=== PATIENT | female | born 1950 | race Asian ===

== ENCOUNTER 2017-12-09 08:49 | Inpatient (IN) | payer MEDICARE, MEDICAID ==
[~2017-12-09] VITALS: Ht 162.6 cm; Wt 59.0 kg
[2017-12-09 08:53] VITALS: BP 141/75
[2017-12-09] MEDS ORDERED: COZAAR25 MG ORAL (08:54)
[2017-12-09] MEDS ORDERED: Nitroglycerin 2% oint pkt TOPIC ONE (09:00)
[2017-12-09 09:30] LABS: BASOPHILS % (AUTO) 1.1 % (0.0-2.0); EOSINOPHILS % (AUTO) 1.2 % (0.0-3.0); HEMATOCRIT 41.2 % (37.0-47.0); HEMOGLOBIN 13.9 G/DL (12.0-16.0); LYMPHOCYTES % (AUTO) 37.3 % (20.0-45.0); MEAN CORPUSCULAR VOLUME 94 FL (80-99); NEUTROPHILS % (AUTO) 54.5 % (45.0-75.0); PLATELET COUNT 219 K/UL (150-450); RED BLOOD COUNT 4.39 M/UL (4.20-5.40); RED CELL DISTRIBUTION WIDTH 10.9 % (11.6-14.8); WHITE BLOOD COUNT 7.5 K/UL (4.8-10.8)
[2017-12-09 09:33] LABS: APPEARANCE,URINE CLEAR; BILIRUBIN, URINE NEGATIVE (NEGATIVE); COLOR,URINE PALE YELLOW; GLUCOSE, URINE (UA) NEGATIVE (NEGATIVE); KETONES,URINE NEGATIVE (NEGATIVE); LEUKOCYTE ESTERASE ,URINE NEGATIVE (NEGATIVE); NITRITE,URINE NEGATIVE (NEGATIVE); PH,URINE 7 (4.5-8.0); PROTEIN,URINE NEGATIVE (NEGATIVE); UROBILINOGEN,URINE NORMAL MG/DL (0.0-1.0)
[2017-12-09 09:37] LABS: ANION GAP 6 mmol/L (5-15); BLOOD UREA NITROGEN 11 mg/dL (7-18); CARBON DIOXIDE 26 MMOL/L (21-32); CHLORIDE 108 MMOL/L (98-107); CREATININE 0.9 MG/DL (0.55-1.30); INR 0.9 (0.9-1.1); POTASSIUM 3.7 MMOL/L (3.5-5.1); SODIUM 140 MMOL/L (136-145)
[2017-12-09 09:48] LABS: ALANINE AMINOTRANSFERASE 21 U/L (12-78); ALBUMIN 3.8 G/DL (3.4-5.0); ALBUMIN/GLOBULIN RATIO 0.9 (1.0-2.7); ALKALINE PHOSPHATASE 77 U/L (46-116); ASPARTATE AMINO TRANSFERASE 15 U/L (15-37); BILIRUBIN,TOTAL 0.6 MG/DL (0.2-1.0); CREATINE KINASE 58 U/L (26-308)
--- NOTE | 2017-12-09 10:03 | Emergency Room Report ---
History of Present Illness General Chief Complaint: Abdominal Pain Source: Patient, EMS Present Illness HPI Patient presents with chest pressure. She has had several episodes like this over the past few months. Occasionally she feels palpitations, but not always. Today she felt SOB, chest pressure and some dizziness. Denies pain per se. Dizziness was more like about to pass out. Paramedics found with A fib and RVR - no acute injury. Reported aspirin in field. According to paramedics, she had reported RUQ pain 3 hours. States issue with scar tissue post surgery. She has complained to her doctor about this, but no work up has proceeded. She denies ever having an irregular or rapid heart rate. HTN. No smoke, cholesterol or diabetes. No fevers, cough, calf pain/swelling, NVD, dysuria, headache, rashes. Allergies: Coded Allergies: SULFAMETHOXAZOLE (Unverified Allergy, Unknown, 12/09/17) TRIMETHOPRIM (Unverified Allergy, Unknown, 12/09/17) Patient History Past Medical History: see triage record Social History: Denies: smoking, alcohol use Social History Narrative at home Last Menstrual Period: na Reviewed Nursing Documentation: PMH: Agreed; PSxH: Agreed Nursing Documentation-PMH Past Medical History: No History, Except For Hx Hypertension: Yes Hx Gastrointestinal Problems: Yes Review of Systems All Other Systems: negative except mentioned in HPI Physical Exam Vital Signs Date Time Temp Pulse Resp B/P (MAP) Pulse Ox O2 Delivery O2 Flow Rate FiO2 12/09/17 08:43 99 18 160/120 99 Room Air 12/09/17 08:53 98.2 98.2 Sp02 EP Interpretation: reviewed, normal General Appearance: well appearing, no apparent distress, GCS 15 Head: normocephalic Eyes: bilateral eye normal inspection, bilateral eye PERRL ENT: moist mucus membranes Neck: supple Respiratory: chest non-tender, lungs clear, normal breath sounds Cardiovascular #1: regular rate, rhythm Cardiovascular #2: 2+ radial (R) Gastrointestinal: normal inspection, normal bowel sounds, non tender, no mass, non-distended Musculoskeletal: back normal, gait/station normal, normal range of motion, no calf tenderness, Zabrina's Sign negative Neurologic: alert, oriented x3, grossly normal Psychiatric: mood/affect normal Skin: normal inspection, warm/dry Medical Decision Making Diagnostic Impression: Primary Impression: Paroxysmal atrial fibrillation Additional Impression: Chest pain Qualified Codes: R07.9 - Chest pain, unspecified ER Course Patient presents with chest pain and palpitations. The EMS EKG shows atrial fibrillation with rapid ventricular response.. Evaluation is for acute myocardial infarction, acute coronary syndrome, paroxysmal atrial fibrillation, PE, electrolyte abnormality amongst others. EKG will be performed here. Chest x-ray and labs. She'll be placed on a surveillance monitor and we will treat arrhythmias if they present. Patient denies symptoms at this time. Unclear as to source of tattoo artist assessment for abdominal pain. EKG with deep ST inversions septally - NSR. CXR normal. Labs with negative troponin, min elevated BNP. Patient improved here. Needs repeat troponins, echo and consideration for beta shay. Admit Tele Dr. Galo Laboratory Tests Test 12/09/17 08:55 12/09/17 09:03 12/09/17 11:00 12/09/17 15:10 Urine Color Pale yellow Urine Appearance Clear Urine pH 7 (4.5-8.0) Urine Specific [place] 1.005 (1.005-1.035) Urine Protein Negative (NEGATIVE) Urine Glucose (UA) Negative (NEGATIVE) Urine Ketones Negative (NEGATIVE) Urine Occult Blood Negative (NEGATIVE) Urine Nitrite Negative (NEGATIVE) Urine Bilirubin Negative (NEGATIVE) Urine Urobilinogen Normal MG/DL (0.0-1.0) Urine Leukocyte Esterase Negative (NEGATIVE) White Blood Count 7.5 K/UL (4.8-10.8) Red Blood Count 4.39 M/UL (4.20-5.40) Hemoglobin 13.9 G/DL (12.0-16.0) Hematocrit 41.2 % (37.0-47.0) Mean Corpuscular Volume 94 FL (80-99) Mean Corpuscular Hemoglobin 31.7 PG (27.0-31.0) H Mean Corpuscular Hemoglobin Concent 33.8 G/DL (32.0-36.0) Red Cell Distribution Width 10.9 % (11.6-14.8) L Platelet Count 219 K/UL (150-450) Mean Platelet Volume 8.1 FL (6.5-10.1) Neutrophils (%) (Auto) 54.5 % (45.0-75.0) Lymphocytes (%) (Auto) 37.3 % (20.0-45.0) Monocytes (%) (Auto) 6.0 % (1.0-10.0) Eosinophils (%) (Auto) 1.2 % (0.0-3.0) Basophils (%) (Auto) 1.1 % (0.0-2.0) Prothrombin Time 9.4 SEC (9.30-11.50) Prothrombin Time INR 0.9 (0.9-1.1) PTT 25 SEC (23-33) Sodium Level 140 MMOL/L (136-145) Potassium Level 3.7 MMOL/L (3.5-5.1) Chloride Level 108 MMOL/L (98-107) H Carbon Dioxide Level 26 MMOL/L (21-32) Anion Gap 6 mmol/L (5-15) Blood Urea Nitrogen 11 mg/dL (7-18) Creatinine 0.9 MG/DL (0.55-1.30) Estimate Glomerular Filtration Rate > 60 mL/min (>60) Glucose Level 100 MG/DL (74-106) Calcium Level 9.0 MG/DL (8.5-10.1) Total Bilirubin 0.6 MG/DL (0.2-1.0) Aspartate Amino Transferase (AST) 15 U/L (15-37) Alanine Aminotransferase (ALT) 21 U/L (12-78) Alkaline Phosphatase 77 U/L (46-116) Total Creatine Kinase 58 U/L (26-308) Troponin I 0.027 ng/mL (0.000-0.056) 0.027 ng/mL (0.000-0.056) 0.029 ng/mL (0.000-0.056) Pro-B-Type Natriuretic Peptide 390 pg/mL (0-125) H Total Protein 7.8 G/DL (6.4-8.2) Albumin 3.8 G/DL (3.4-5.0) Globulin 4.0 g/dL Albumin/Globulin Ratio 0.9 (1.0-2.7) L EKG Diagnostic Results Rate: normal Rhythm: NSR ST Segments: other - st inversions Other Impression EMS EKG with rate 145, a fib,m no acute changes but some possible ischemic changes. Rhythm Strip Diag. Results Rhythm: NSR, no PVC's, no ectopy Chest X-Ray Diagnostic Results Chest X-Ray Diagnostic Results : Chest X-Ray Ordered: Yes # of Views/Limited/Complete: 1 View Indication: Chest Pain EP Interpretation: Yes Interpretation: no consolidation, no effusion, no pneumothorax Impression: No acute disease Electronically Signed by: Kirk Lees MD Last Vital Signs Date Time Temp Pulse Resp B/P (MAP) Pulse Ox O2 Delivery O2 Flow Rate FiO2 12/09/17 09:15 141/75 12/09/17 08:53 98.2 61 23 100 Room Air 98.2 Status: improved Disposition: ADMITTED INPATIENT Condition: Serious Referrals: NON PHYSICIAN (PCP) Kirk Lees M.D. Dec 09, 2017 10:03
[2017-12-09 10:24] VITALS: BP 135/90
--- NOTE | 2017-12-09 11:49 | Diagnostic Imaging Report ---
Indication: Chest pain Technique: One view of the chest Comparison: none Findings: Lungs and pleural spaces are clear. Heart size is normal Impression: No acute process
[2017-12-09 12:00] VITALS: BP 123/82
[2017-12-09] MEDS ORDERED: Milk of Magnesia 30ml Ud ORAL PRN (13:45)
[2017-12-09 16:00] VITALS: BP 132/76
[2017-12-09 20:00] VITALS: BP 112/68
[2017-12-09] MEDS ORDERED: Zolpidem 5mg tab ORAL PRN (21:00)
[2017-12-09] MEDS: Atenolol 12.5mg PO SCH (21:26)
[2017-12-09] MEDS: Heparin 5000 units/ml inj SUBQ SCH (21:28)
[2017-12-10] VITALS: BP 100/61
--- NOTE | 2017-12-10 00:01 | Diagnostic Imaging Report ---
APPROVED REPORT CPT Code: 52394 Present Symptoms Comments: BILATERAL LEGS PAIN. BILATERAL: Imaging reveals a patent deep venous system bilaterally. There is no evidence of thrombus within the femoral, popliteal or tibial segments. The greater saphenous veins are also within normal limits. Doppler indicates normal spontaneous flow within these segments.
--- NOTE | 2017-12-10 00:30 | History and Physical Report ---
DATE OF ADMISSION: 12/09/2017 REASON FOR ADMISSION: Chest pain and atrial fibrillation. HISTORY OF PRESENT ILLNESS: The patient is a 67-year-old patient, who initially presents with abdominal pain. The patient was seen and evaluated in the emergency room. She was also noted to have some chest pain and palpitations. The EKG did show some atrial fibrillation with rapid ventricular response by the emergency medical team; however, on arrival, the EKG was normal. The patient was admitted for further evaluation and further intervention. The patient now admitted for chest pain with possible atrial fibrillation paroxysmal. The patient with some abnormal ST wave changes on rhythm strips as well. The patient now admitted for further care and management. For further evaluation, I was asked to admit the patient. PAST MEDICAL HISTORY: Notable for possible paroxysmal atrial fibrillation and hypertension. MEDICATIONS: Reviewed. ALLERGIES: Reviewed. SOCIAL HISTORY: Nonsmoker and nondrinker. The patient is otherwise independent. REVIEW OF SYSTEMS: Otherwise negative. All 10 points reviewed. PHYSICAL EXAMINATION: GENERAL: A well-developed female, comfortable at present. VITAL SIGNS: Blood pressure 132/76, pulse 68, respirations 18, and temperature 97.9 degrees. HEENT: Negative. The patient's extraocular movements are grossly intact. NECK: Supple. No adenopathy. LUNGS: Fairly clear and symmetric. No rhonchi or wheezes. CARDIAC: Normal S1 and S2. Regular rate and rhythm without murmurs, rubs, or gallops. ABDOMEN: Soft, nontender, and nondistended. EXTREMITIES: No cyanosis, clubbing, or edema. NEUROLOGIC: Grossly nonfocal. Alert and oriented x3. LABORATORY AND DIAGNOSTIC DATA: Reviewed. CBC appears to be fairly normal. Chem panel overall negative. Troponin levels are negative. BNP is 390. IMPRESSION: 1. Chest pain, possible acute coronary syndrome. 2. Hypertension per history. 3. Possible atrial fibrillation paroxysmal. RECOMMENDATIONS: 1. Supportive care. 2. Nitrates, aspirin, beta-blockers, heparin subcutaneous. 3. Echocardiogram. 4. Serial troponin. 5. Cardiology evaluation, stable on discharge. 6. Consider Lexiscan upon discharge planning and defer to Cardiology. Emil Galo M.D. DR: Chandni JOB#: [id number] CC: MARVIN
--- NOTE | 2017-12-10 01:45 | Consultation ---
DATE OF CONSULTATION: 12/09/2017 CARDIOLOGY CONSULTATION CONSULTING PHYSICIAN: Kirk Fung M.D. REQUESTING PHYSICIAN: Emil Galo M.D. REASON FOR CONSULTATION: Chest pain. HISTORY OF PRESENT ILLNESS: This is a 67-year-old Romansh female with a known history of atherosclerotic vascular disease. She has had prior strokes and long-standing history of high blood pressure due to renal artery stenosis. She also has had a prior cardiac catheterization that revealed no evidence of flow-limiting coronary disease, but this was performed over 12 years ago in [place]. The patient presented to the emergency room today complaining of 5 to 6 days of recurring chest pressure in the mid epigastric and chest regions every morning, specifically the episodes seem to occur after her breakfast this and do not occur other times during the day. Today's episode was severe enough to prompt her to come to the emergency room. PAST MEDICAL HISTORY: 1. Hypertensive heart disease. 2. Left-sided renal artery stenosis. 3. Cerebrovascular disease with prior cerebrovascular accident. 4. Paroxysmal atrial fibrillation. 5. Hyperlipidemia. 6. Peptic ulcer disease. MEDICATIONS: Reviewed and reconciled. ALLERGIES: Sulfa. SOCIAL HISTORY: Nonsmoker. No alcohol or substance abuse. REVIEW OF SYSTEMS: No fevers. No chills. No cough or sputum production. No history of asthma. No history of blood clotting. She has had prior strokes. No history of thyroid disorder. No history of diabetes. No change in bowel habits. She does have dyspepsia and abdominal discomfort. She does have renal artery stenosis. She was offered nephrectomy many years ago, but refused. No vascular intervention was performed. PHYSICAL EXAMINATION: VITAL SIGNS: Initial blood pressure in the emergency room was 160/120, presently blood pressure 132/76, heart rate 68, respiratory rate 18 and she is afebrile. HEENT: Normocephalic and atraumatic. Conjunctivae pink. Sclerae are anicteric. Oropharynx clear. Mucous membranes moist. NECK: Supple. No bruits. Jugular venous pressure normal. LUNGS: Clear. CARDIAC: Regular rhythm and rate. Normal S1 and S2 with a fourth heart sound. ABDOMEN: Soft and nontender. No bruits. No hepatomegaly. EXTREMITIES: Good pulses. Trace dependent edema. NEUROLOGIC: No apparent motor or sensory deficits. Speech is somewhat slow, but deliberate and appropriate. LABORATORY AND DIAGNOSTIC DATA: Cardiac monitoring in the field revealed atrial fibrillation, presently EKG reveals sinus rhythm, left ventricular hypertrophy with repolarization changes and possible anterolateral ischemia. Chest x-ray, no acute process. White count 7.5, hemoglobin 13.9, BUN 11, and creatinine 0.9. Sodium 140, potassium 3.7, and bicarbonate 26. Pro-natriuretic peptide 390. Troponin 0.027 and repeat it is 0.029. IMPRESSION: 1. Acute coronary syndrome, atherosclerosis with history of cerebrovascular accident. 2. History of renal artery stenosis. 3. Labile hypertension. 4. Acute on chronic diastolic congestive heart failure. PLAN: 1. Cardiac monitoring. 2. Serial troponin levels. 3. Anti-platelet therapy with aspirin. 4. DVT prophylaxis with subcutaneous heparin. 5. Beta-blockade. 6. Discontinue losartan in view of history of renal artery stenosis. 7. Consider renal evaluation. 8. Myocardial perfusion scan for assessment of coronary flow reserve. 9. Consider full anticoagulation for cardioembolic prophylaxis once more historical data and diagnostic studies are available. Kirk Fung M.D. DR: JORGE JOB#: [id number] CC:
[2017-12-10 04:00] VITALS: BP 102/60
[2017-12-10 06:38] LABS: BASOPHILS % (AUTO) 0.8 % (0.0-2.0); EOSINOPHILS % (AUTO) 0.9 % (0.0-3.0); HEMATOCRIT 36.8 % (37.0-47.0); HEMOGLOBIN 12.8 G/DL (12.0-16.0); LYMPHOCYTES % (AUTO) 24.7 % (20.0-45.0); MEAN CORPUSCULAR VOLUME 95 FL (80-99); MONOCYTES % (AUTO) 6.3 % (1.0-10.0); NEUTROPHILS % (AUTO) 67.3 % (45.0-75.0); PLATELET COUNT 199 K/UL (150-450); RED CELL DISTRIBUTION WIDTH 10.9 % (11.6-14.8); WHITE BLOOD COUNT 9.5 K/UL (4.8-10.8)
[2017-12-10 07:00] LABS: ANION GAP 9 mmol/L (5-15); BLOOD UREA NITROGEN 21 mg/dL (7-18); CALCIUM 8.8 MG/DL (8.5-10.1); CARBON DIOXIDE 25 MMOL/L (21-32); CHLORIDE 108 MMOL/L (98-107); CHOLESTEROL 173 MG/DL (< 200); CREATININE 1.1 MG/DL (0.55-1.30); HDL CHOLESTEROL 45 MG/DL (40-60); POTASSIUM 3.7 MMOL/L (3.5-5.1); SODIUM 142 MMOL/L (136-145); TRIGLYCERIDES 177 MG/DL (30-150)
[2017-12-10 08:00] VITALS: BP 126/69
[2017-12-10] MEDS: Heparin 5000 units/ml inj SUBQ SCH (08:30)
[2017-12-10] MEDS: Atenolol 12.5mg PO SCH (08:34)
[2017-12-10] MEDS ORDERED: Nitroglycerin 2% oint pkt TOPIC SCH ×2 (09:00)
[2017-12-10] MEDS ORDERED: Aspirin Baby 81mg ORAL SCH (09:00)
[2017-12-10] MEDS ORDERED: Losartan 50mg tab ORAL SCH (09:00)
[2017-12-10 12:00] VITALS: BP 139/61
[2017-12-10] MEDS ORDERED: Lexiscan 0.4mg/5ml syringe IV PRN (12:00)
--- NOTE | 2017-12-10 14:56 | General Progress Note ---
Assessment/Plan Assessment/Plan IMPRESSION: 1. Chest pain, possible acute coronary syndrome. 2. Hypertension per history. 3. Possible atrial fibrillation paroxysmal. PLAN await nuclear stress appreciate cards monitor for change dc once cleared tele reviewed impression, plan, and exam edited and reviewed in detail care discussed with RN Subjective Allergies: Coded Allergies: SULFAMETHOXAZOLE (Unverified Allergy, Unknown, 12/09/17) TRIMETHOPRIM (Unverified Allergy, Unknown, 12/09/17) Subjective care noted now in NSR no cp Objective Last 24 Hour Vital Signs Date Time Temp Pulse Resp B/P (MAP) Pulse Ox O2 Delivery O2 Flow Rate FiO2 12/10/17 12:00 97.2 62 20 139/61 99 Room Air 97.2 12/10/17 12:00 64 12/10/17 08:29 126/69 12/10/17 08:00 58 12/10/17 08:00 97.3 59 20 126/69 96 Room Air 97.3 12/10/17 04:00 97.4 50 20 102/60 93 Room Air 97.4 12/10/17 04:00 58 12/10/17 00:00 97.0 58 20 100/61 96 Room Air 97.0 12/10/17 00:00 52 12/09/17 20:00 98.0 62 20 112/68 95 Room Air 98.0 12/09/17 20:00 71 12/09/17 16:00 97.9 68 18 132/76 98 Room Air 97.9 12/09/17 16:00 79 Intake and Output 12/09/17 12/10/17 19:00 07:00 Intake Total 120 ml Output Total 45 ml Balance 75 ml Intake Oral 120 ml Output Urine Total 45 ml # Voids 1 6 Laboratory Tests 12/09/17 15:10: Troponin I 0.029 12/10/17 05:50: Troponin I 0.031, White Blood Count 9.5, Red Blood Count 3.90L, Hemoglobin 12.8 , Hematocrit 36.8L, Mean Corpuscular Volume 95, Mean Corpuscular Hemoglobin 32.8H, Mean Corpuscular Hemoglobin Concent 34.7, Red Cell Distribution Width 10.9L, Platelet Count 199, Mean Platelet Volume 7.7, Neutrophils (%) (Auto) 67.3 , Lymphocytes (%) (Auto) 24.7, Monocytes (%) (Auto) 6.3, Eosinophils (%) (Auto) 0.9, Basophils (%) (Auto) 0.8, Sodium Level 142, Potassium Level 3.7, Chloride Level 108H, Carbon Dioxide Level 25, Anion Gap 9, Blood Urea Nitrogen 21H, Creatinine 1.1, Estimat Glomerular Filtration Rate 49.6, Glucose Level 111H, Calcium Level 8.8, Triglycerides Level 177H, Cholesterol Level 173, LDL Cholesterol 115H, HDL Cholesterol 45, Cholesterol/HDL Ratio 3.8 Height (Feet): 5 Height (Inches): 4.00 Weight (Pounds): 130 Objective GENERAL: A well-developed female, comfortable at present. HEENT: Negative. The patient's extraocular movements are grossly intact. NECK: Supple. No adenopathy. LUNGS: Fairly clear and symmetric. No rhonchi or wheezes. CARDIAC: Normal S1 and S2. Regular rate and rhythm without murmurs, rubs, or gallops. ABDOMEN: Soft, nontender, and nondistended. EXTREMITIES: No cyanosis, clubbing, or edema. NEUROLOGIC: Grossly nonfocal. Alert and oriented x3. WARREN MARQUES Dec 10, 2017 14:56
--- NOTE | 2017-12-11 05:30 | Progress Note ---
DATE: 12/10/2017 CARDIOLOGY PROGRESS NOTE SUBJECTIVE: The patient has not had any chest pain or shortness of breath. She did not want to have a nuclear stress study today. She did agree to have a dobutamine stress test done that study was completed and it was negative for flow-limiting coronary artery disease with normal ejection fraction and wall motion noted at peak stress. OBJECTIVE: VITAL SIGNS: Blood pressure 126/69, pulse 58, respirations 20, and afebrile NECK: Supple. LUNGS: Clear. CARDIAC: Regular. Normal S1, S2 with a fourth heart sound. ABDOMEN: Soft. EXTREMITIES: No edema. IMPRESSION: 1. Low likelihood for flow-limiting coronary artery disease. 2. History of cerebrovascular accident. 3. History of renal artery stenosis. 4. Hypertensive heart disease now with controlled blood pressure. 5. Paroxysmal atrial fibrillation. PLAN: 1. Stable for outpatient followup. 2. Beta-shay added. 3. We will consider outpatient evaluation for Holter monitor and reconsideration for chronic anticoagulation for cardioembolic prophylaxis. 4. The patient wishes to see her private herb counselor in consultation to discuss this further. Kirk Fung M.D. DR: BECKY JOB#: [id number] CC:
--- NOTE | 2017-12-14 13:13 | Discharge Summary ---
Discharge Summary Hospital Course Date of Admission Dec 09, 2017 at 09:54 Date of Discharge Dec 10, 2017 at 17:23 Admitting Diagnosis CHEST PAIN, ARRYTHMIA HPI Shi Hutchinson is a 67 year old female who was admitted on Dec 09, 2017 at 09:54 for Chest Pain,Arrythmia Hospital Course [id number] Discharge Discharge Disposition Patient was discharged to Home (01) Angella Rand NP Dec 14, 2017 13:13
--- NOTE | 2017-12-14 19:30 | Discharge Summary 2 SIG ---
DATE OF ADMISSION: 12/09/2017 DATE OF DISCHARGE: 12/10/2017 ATTENDING PHYSICIAN: Emil Galo M.D. PATTERNMAKER HAND: Kirk Fung M.D. BRIEF HOSPITAL COURSE: The patient is a 67-year-old female who initially presented with abdominal pain. She has medical history notable for paroxysmal atrial fibrillation and hypertension. She was evaluated at emergency room. EKG showed atrial fibrillation with rapid ventricular response by EMT; however, on arrival to ED, EKG was normal. Initial troponin was negative. Chest x-ray showed no acute disease. She has known history of atherosclerotic vascular disease and had prior strokes and longstanding history of blood pressure due to renal artery stenosis. She had a prior cardiac catheterizations in the past that revealed no evidence of flow-limiting coronary disease but this was performed over 12 years ago in [place]. She had recurrent chest pressure in the midepigastric and chest region every morning specifically episodes seem to occur after bedrest. She had severe episode and prompted her to come to emergency room. She was then admitted for evaluation of acute coronary syndrome. She was placed on aspirin and nitroglycerin. She underwent cardiac evaluation. Troponins were monitored. She was placed on DVT prophylaxis with subcutaneous heparin. Losartan was discontinued due to renal artery stenosis. She had a venous duplex done that was negative for DVT. Lipid panel was checked. Cholesterol was 173, LDL was 115, HDL 45. She did not want to have nuclear stress test study done however had a dobutamine stress test that was completed and was negative for flow-limiting coronary artery disease with normal ejection fraction and wall motion, noted at peak stress. There was low likelihood for flow-limiting coronary artery disease. She was then cleared for discharge home. Beta-shay was added. The patient to follow up with her private finisher screwdown and was recommended outpatient evaluation for Holter monitor and reconsideration for chronic anticoagulation for cardioembolic prophylaxis. Due to rapid improvement in the patient's symptoms and negative workup, the patient was discharged home. FINAL DIAGNOSES: 1. Low likelihood for flow-limiting coronary artery disease. 2. Old cerebrovascular accident. 3. Renal artery stenosis. 4. Hypertensive heart disease. 5. Paroxysmal atrial fibrillation. 6. Hypertension. DISPOSITION: The patient was discharged home. DISCHARGE MEDICATIONS: Refer to medication list. DISCHARGE INSTRUCTIONS: Followup with PMD and finisher screwdown in a week. Kirk Fung M.D. I have been assigned to dictate discharge summary on this account and I was not involved in the patient's management. Angella Rand N.P. DR: Stan JOB#: [id number] CC:
== END 2017-12-10 17:23 | disposition home or self-care (01) | DRG 292 ==
LOC: EDBD 08:49 → EMR 09:30 → 2E 09:54 → EDBEDREQ 10:10 → 2E 17:34
DX: I11.0 Hypertensive heart disease with heart failure (principal); I24.9 Acute ischemic heart disease, unspecified; I50.33 Acute on chronic diastolic (congestive) heart failure; R07.9 Chest pain, unspecified; I70.90 Unspecified atherosclerosis; Z86.73 Personal history of transient ischemic attack (TIA), and cerebral infarction without residual deficits; E78.5 Hyperlipidemia, unspecified; I48.0 Paroxysmal atrial fibrillation; I70.1 Atherosclerosis of renal artery; Z88.2 Allergy status to sulfonamides; Z88.1 Allergy status to other antibiotic agents
CPT/HCPCS: 36415; 71045; 80048; 80053; 80061; 81003; 82550; 83880; 84484; 85025; 85610; 85730; 93005; 93017; 93970; 99285

== ENCOUNTER 2020-05-22 14:49 | Inpatient (IN) | payer MEDICARE, OTHER ==
[~2020-05-22] VITALS: Ht 165.1 cm; Wt 53.0 kg
[~2020-05-22 14:49] MED LIST: COZAAR25 MG ORAL
[2020-05-22] MEDS ORDERED: BENICAR HCT 401 EACH ORAL (15:07)
[2020-05-22] MEDS ORDERED: METOPROLOL SUCC25 MG ORAL (15:08)
[2020-05-22 15:10] VITALS: BP 127/93
[2020-05-22] MEDS ORDERED: DEXILANT60 MG ORAL (15:11)
[2020-05-22] MEDS ORDERED: VITAMIN D3 COM1 EACH PO (15:11)
[2020-05-22] MEDS ORDERED: ATORVASTATIN CA20 MG ORAL (15:11)
[2020-05-22] MEDS ORDERED: CREON DR 36,001 EACH PO (15:11)
[2020-05-22] MEDS ORDERED: Cefepime HCl 2 GM in NS 110 ML IV ONE (15:15)
--- NOTE | 2020-05-22 15:20 | NUR ---
ED Nurse Note: Patient from home and brought in by [facility] 13 due to ALOC x 3days. per EMS,patient was found lying on the floor faced down with feces and urine all over body. BS 114. 200ml NS given en route. Patient presented with flai afect, AAO x0, VSS at this time. Patient arrived covered in feces all over the body, patient got excoriation of the abdomen, upper thighes to being too long in urine and feces. Patient presented with preassure ulsers on both knees.
--- NOTE | 2020-05-22 15:25 | NUR ---
ED Nurse Note: Patient was cleaned, placed in the gown connected to monitor. IV access was established on right AC 18 ga blood and urine specimens collected sent to lab.
--- NOTE | 2020-05-22 15:30 | NUR ---
ED Nurse Note: Schneider catheter 16F was pladced, patient tolerated procedure well
[2020-05-22 15:41] LABS: HEMATOCRIT 48.1 % (37.0-47.0); HEMOGLOBIN 15.9 G/DL (12.0-16.0); MEAN CORPUSCULAR VOLUME 95 FL (80-99); PLATELET COUNT 168 K/UL (150-450); RED BLOOD COUNT 5.04 M/UL (4.20-5.40); RED CELL DISTRIBUTION WIDTH 12.1 % (11.6-14.8); WHITE BLOOD COUNT 20.6 K/UL (4.8-10.8)
[2020-05-22 15:57] LABS: ANION GAP 19 mmol/L (5-15); BLOOD UREA NITROGEN 133 mg/dL (7-18); CARBON DIOXIDE 20 MMOL/L (21-32); CHLORIDE 115 MMOL/L (98-107); POTASSIUM 4.8 MMOL/L (3.5-5.1); SODIUM 154 MMOL/L (136-145)
[2020-05-22 16:05] LABS: APPEARANCE,URINE SLIGHTLY CLOUDY; BILIRUBIN, URINE NEGATIVE (NEGATIVE); GLUCOSE, URINE (UA) NEGATIVE (NEGATIVE); KETONES,URINE NEGATIVE (NEGATIVE); LEUKOCYTE ESTERASE ,URINE 1+ (NEGATIVE); NITRITE,URINE NEGATIVE (NEGATIVE); PH,URINE 6 (4.5-8.0); PROTEIN,URINE 1+ (NEGATIVE); UROBILINOGEN,URINE NORMAL MG/DL (0.0-1.0)
--- NOTE | 2020-05-22 16:09 | Diagnostic Imaging Report ---
Indication: Shortness of breath Technique: One view of the chest Comparison: For 2017 Findings: Lungs and pleural spaces are clear. Heart size is normal. Inspiration is suboptimal. No significant change Impression: No acute process
[2020-05-22 16:10] LABS: COLOR,URINE PALE YELLOW
[2020-05-22 16:11] LABS: ALANINE AMINOTRANSFERASE 34 U/L (12-78); ALBUMIN 2.9 G/DL (3.4-5.0); ALBUMIN/GLOBULIN RATIO 0.6 (1.0-2.7); ALKALINE PHOSPHATASE 91 U/L (46-116); ASPARTATE AMINO TRANSFERASE 28 U/L (15-37); CHOLESTEROL 209 MG/DL (< 200); CKMB 2.4 NG/ML (0.0-3.6); CREATINE KINASE 62 U/L (26-308); FERRITIN 833 NG/ML (8-388); HDL CHOLESTEROL 49 MG/DL (40-60); LACTATE DEHYDROGENASE 196 U/L (81-234); TRIGLYCERIDES 133 MG/DL (30-150)
[2020-05-22] MEDS ORDERED: Bacitracin Oint 15gm Tube TOPIC ONE (16:19)
--- NOTE | 2020-05-22 16:21 | NUR ---
ED Nurse Note: Per Dr. Ch's order Bacitracin 15mg was ordered.
--- NOTE | 2020-05-22 16:26 | Diagnostic Imaging Report ---
Indications: Altered mental status Technique: Spiral acquisitions obtained through the brain. Angled axial and coronal 5 x 5 mm slices were reconstructed. Total dose length product 165 mGycm. CTDI vol(s) emergency room mGy. Dose reduction achieved using automated exposure control Comparison: None. Findings: Old infarcts are seen in the bilateral basal ganglia and inferior frontal deep white matter. No acute intracranial hemorrhage or edema. No mass effect nor midline shift. There is age-related enlargement of the ventricles and extra-axial CSF spaces. There is periventricular deep white matter low-attenuation consistent with chronic microvascular ischemic change. Visualized orbits are unremarkable. There is bilateral ethmoid and bilateral maxillary sinus mucosal disease. The mastoids are clear. Impression: Chronic and age-related changes, including multiple old infarcts Negative for acute intracranial bleed or mass effect The CT scanner at [facility] is accredited by the [employer] and the scans are performed using protocols designed to limit radiation exposure to as low as reasonably achievable to attain images of sufficient resolution adequate for diagnostic evaluation.
--- NOTE | 2020-05-22 16:33 | Emergency Room Report ---
History of Present Illness General Chief Complaint: Altered Level of Consciousness Source: Medical Record, EMS Present Illness HPI This patient is brought in by EMS. All history is obtained by EMS. Most reports that they were called to the patient's home when the caregiver who ch ecks in on the patient states that she checked in on her and found her laying on the floor of her home unable to move and unresponsive. EMS states that the amount of time the patient was down is unknown. This could have been up to 3 days. 3 days ago was the last time the caregiver had seen the patient normal. The patient herself does have her eyes open and is alert, however, she does not follow command. However possibly this patient does not speak Azeri. She also is neglecting the right side. There was no other history available other than a visit to this emergency department and an admission to this hospital in 2018. This showed that the patient has a history of atrial fibrillation and hypertension. No other history available. Allergies: Coded Allergies: SULFAMETHOXAZOLE (Unverified Allergy, Unknown, 12/09/17) TRIMETHOPRIM (Unverified Allergy, Unknown, 12/09/17) COVID-19 Screening Contact w/high risk pt: No Experienced COVID-19 symptoms?: No COVID-19 Testing performed BUSINESS OBJECTS: No Patient History Past Medical History: see triage record, old chart reviewed, HTN, AFib Past Surgical History: unable to obtain Pertinent Family History: unable to obtain Reviewed Nursing Documentation: PMH: Agreed; PSxH: Agreed Nursing Documentation-PMH Past Medical History: No History, Except For Hx Cardiac Problems: Yes - "irregular heartrate" Hx Hypertension: Yes Hx Gastrointestinal Problems: Yes Review of Systems All Other Systems: limited Physical Exam Vital Signs Date Time Temp Pulse Resp B/P (MAP) Pulse Ox O2 Delivery O2 Flow Rate FiO2 05/22/20 14:55 102 16 127/93 (104) 98 Room Air 05/22/20 15:10 98.8 Sp02 EP Interpretation: reviewed, normal General Appearance: no apparent distress, alert, GCS 15, non-toxic Head: normocephalic, other - See skin exam Eyes: bilateral eye normal inspection, bilateral eye PERRL ENT: normal pharynx, no angioedema Neck: normal inspection, supple Respiratory: chest non-tender, lungs clear, normal breath sounds, no respiratory distress, no retraction, no accessory muscle use Cardiovascular #1: no edema, tachycardia, irregularly irregular Gastrointestinal: normal inspection, normal bowel sounds, soft, non-distended, no guarding, other - See skin exam Rectal: deferred Musculoskeletal: back normal, normal range of motion, non-tender, other - R. h emiparesis Neurologic: alert, responsive, other - R. hemiparesis, occassional non-sensical words. Skin: other - Skin lividity covering the abdomen, upper thighs and part of the chest. Stage II skin ulcers on bilateral knees. See the photographs attached to the electronic medical record. Medical Decision Making Diagnostic Impression: Primary Impression: CVA (cerebral vascular accident) Additional Impressions: Right hemiparesis Lividity diffusely on the anterior body A.flutter with RVR Hypernatremia Renal failure Leukocytosis Decubitus skin ulcers Dehydration UTI (urinary tract infection) ER Course This patient has right hemiparesis consistent with a left CVA. The patient was down for days based on the physical exam findings of diffuse lividity of the skin of the entire anterior body. There are also significant decubitus ulcers of the skin overlying the knees. I suspect this patient was down for several days. Patient is also in acute renal failure likely secondary to dehydration. She is found to have a urinary tract infection and leukocytosis. Patient was given aggressive IV fluids, and broad-spectrum antibiotics. CT scan of the patient's head did not have any acute findings, however, based on physical exam this patient has a left sided CVA. Patient also has atrial fibrillation/atrial flutter with intermittent RVR. Initially I thought about treating this however, I decided against rate blocking because as the patient was hydrated during her ED course her rate was improving. Further, I was concerned that given the patient's acute renal failure I could cause a heart block. The patient will be admitted to the ICU stepdown for further evaluation and treatment. This patient is critically ill. This patient required complex medical decision- making, aggressive intervention, extensive laboratory workup and monitoring. Critical care time: 40 minutes. This patient was evaluated in the context of the global COVID-19 pandemic, which necessitated consideration that the patient might be at risk for infection with the [id number] virus that causes COVID-19. Institutional protocols and algorithms that pertain to the evaluation of patients at risk for COVID-19 and the state of rapid change based on information released by multiple regulatory bodies including the CDC and federal and state organizations. These policies and algorithms were followed during the patient's care in the ED. Laboratory Tests Test 05/22/20 15:20 05/22/20 15:50 05/22/20 16:45 White Blood Count 20.6 K/UL (4.8-10.8) H Red Blood Count 5.04 M/UL (4.20-5.40) Hemoglobin 15.9 G/DL (12.0-16.0) Hematocrit 48.1 % (37.0-47.0) H Mean Corpuscular Volume 95 FL (80-99) Mean Corpuscular Hemoglobin 31.6 PG (27.0-31.0) H Mean Corpuscular Hemoglobin Concent 33.1 G/DL (32.0-36.0) Red Cell Distribution Width 12.1 % (11.6-14.8) Platelet Count 168 K/UL (150-450) Mean Platelet Volume 8.1 FL (6.5-10.1) Neutrophils (%) (Auto) % (45.0-75.0) Lymphocytes (%) (Auto) % (20.0-45.0) Monocytes (%) (Auto) % (1.0-10.0) Eosinophils (%) (Auto) % (0.0-3.0) Basophils (%) (Auto) % (0.0-2.0) Differential Total Cells Counted 100 Neutrophils % (Manual) 79 % (45-75) H Lymphocytes % (Manual) 4 % (20-45) L Monocytes % (Manual) 17 % (1-10) H Eosinophils % (Manual) 0 % (0-3) Basophils % (Manual) 0 % (0-2) Band Neutrophils 0 % (0-8) Platelet Estimate Adequate Platelet Morphology Normal Hypochromasia 1+ Sodium Level 154 MMOL/L (136-145) H Potassium Level 4.8 MMOL/L (3.5-5.1) Chloride Level 115 MMOL/L (98-107) H Carbon Dioxide Level 20 MMOL/L (21-32) L Anion Gap 19 mmol/L (5-15) H Blood Urea Nitrogen 133 mg/dL (7-18) H Creatinine 5.0 MG/DL (0.55-1.30) H Estimated Glomerular Filtration Rate 8.5 mL/min (>60) Glucose Level 149 MG/DL (74-106) H Lactic Acid Level 2.30 mmol/L (0.4-2.0) H Pending Calcium Level 9.0 MG/DL (8.5-10.1) Ferritin 833 NG/ML (8-388) H Total Bilirubin 1.0 MG/DL (0.2-1.0) Aspartate Amino Transferase (AST) 28 U/L (15-37) Alanine Aminotransferase (ALT) 34 U/L (12-78) Alkaline Phosphatase 91 U/L (46-116) Lactate Dehydrogenase 196 U/L (81-234) Total Creatine Kinase 62 U/L (26-308) Creatine Kinase MB 2.4 NG/ML (0.0-3.6) Creatine Kinase MB Relative Index 3.8 Troponin I 0.087 ng/mL (0.000-0.056) C-Reactive Protein, Quantitative 18.7 mg/dL (0.00-0.90) H Total Protein 7.6 G/DL (6.4-8.2) Albumin 2.9 G/DL (3.4-5.0) L Globulin 4.7 g/dL Albumin/Globulin Ratio 0.6 (1.0-2.7) L Triglycerides Level 133 MG/DL (30-150) Cholesterol Level 209 MG/DL (< 200) H LDL Cholesterol 128 mg/dL (<100) H HDL Cholesterol 49 MG/DL (40-60) Cholesterol/HDL Ratio 4.3 (3.3-4.4) Urine Color Pale yellow Urine Appearance Slightly cloudy Urine pH 6 (4.5-8.0) Urine Specific [place] 1.015 (1.005-1.035) Urine Protein 1+ (NEGATIVE) H Urine Glucose (UA) Negative (NEGATIVE) Urine Ketones Negative (NEGATIVE) Urine Blood 5+ (NEGATIVE) H Urine Nitrite Negative (NEGATIVE) Urine Bilirubin Negative (NEGATIVE) Urine Urobilinogen Normal MG/DL (0.0-1.0) Urine Leukocyte Esterase 1+ (NEGATIVE) H Urine RBC Tntc /HPF (0 - 2) H Urine WBC 5-10 /HPF (0 - 2) H Urine Squamous Epithelial Cells Occasional /LPF Urine Bacteria Occasional /HPF (NONE) Microbiology Date/Time Source Procedure Growth Status 05/22/20 15:20 Nasal Nares - Final Complete 05/22/20 15:20 Nasal Nares - Final Complete 05/22/20 15:20 Nasopharynx SARS-CoV-2 RdRp Gene Assay - Final Complete EKG Diagnostic Results Rate: tachycardiac Rhythm: other - A.fib w/ RVT ST Segments: no acute changes Other Impression Initial EKG was NSR w/ ST segment depressions and flipped T-waves in V1, V2, V3, V4, V5, V6. Rhythm Strip Diag. Results EP Interpretation: yes Rate: 120's Rhythm: other - A.fib/A.flutter Chest X-Ray Diagnostic Results Chest X-Ray Diagnostic Results : Chest X-Ray Ordered: Yes # of Views/Limited/Complete: 1 View Indication: Other - fall EP Interpretation: Yes Interpretation: no consolidation, no effusion, no pneumothorax, no acute cardiopulmonary disease Impression: No acute disease Electronically Signed by: Alisa Jaffe DO Other X-Ray Diagnostic Results Other X-Ray Diagnostic Results : X-Ray ordered: Pelvis # of Views/Limited Vs Complete: 1 View Indication: Other - Trauma EP Interpretation: Yes Interpretation: no fractures Impression: No acute disease Electronically Signed by: Alisa Jaffe DO CT/MRI/US Diagnostic Results CT/MRI/US Diagnostic Results : Imaging Test Ordered: CT head Impression No acute findings. Specifically no intracranial bleed, mass effect or edema. See official report. Last Vital Signs Date Time Temp Pulse Resp B/P (MAP) Pulse Ox O2 Delivery O2 Flow Rate FiO2 05/22/20 15:10 98.8 102 16 127/93 98 Room Air Status: improved Disposition: ADMITTED INPATIENT Condition: Critical Referrals: NOT CHOSEN IPA/,REFERRING (PCP) Alisa Jaffe DO May 22, 2020 16:33
[2020-05-22 16:51] VITALS: BP 139/88
--- NOTE | 2020-05-22 16:53 | NUR ---
ED Nurse Note: after thorough assessment right hip X ray was ordered, patient has no hip fracture
--- NOTE | 2020-05-22 17:21 | Diagnostic Imaging Report ---
Indication: Pain, trauma Technique: AP and frog-lateral views of the pelvis/hips Comparison: Findings: There is a Schneider catheter in place. No definite acute fractures. No dislocations. The joint spaces are preserved Impression: Negative Note, however, that in elderly osteoporotic patients, nondisplaced hip or pelvic fractures can easily be occult. Consider cross-sectional imaging if there is high clinical suspicion
[2020-05-22 17:35] VITALS: BP 143/88
[2020-05-22] MEDS ORDERED: Aspirin Baby 81mg ORAL ONE (17:45)
[2020-05-22] MEDS ORDERED: Bacitracin Oint 15gm Tube TOPIC SCH (18:00)
[2020-05-22] MEDS ORDERED: Varibar Nectar 240ml MC PRN (18:45)
[2020-05-22] MEDS ORDERED: Varibar Honey 250ml MC PRN (18:45)
[2020-05-22] MEDS ORDERED: Varibar Pudding 230ml MC PRN (18:45)
[2020-05-22] MEDS ORDERED: Varibar Thin Liquid powder 148gm MC PRN (18:45)
--- NOTE | 2020-05-22 18:57 | NUR ---
ED Nurse Note: Patient was admited to [facility] due to A fib, CVA, weakness. Patient was transfered to the unit via gurney by ACLS protocol, with all belongings. Patient AAO x0, HR 112, other VSS at this time, patient has skin issue, pictures were taken and downloaded in to the computer.
--- NOTE | 2020-05-22 19:00 | NUR ---
NURSE NOTES: Received report from angel mattson. Pt seen in bed in semi-bowman's position. Pt is alert x 1. Responding to name,pt can open eyes spontaneously. Pt was admitted for unresponsiveness to ER as per the report the caregiver from home haven't seen the pt from 3 days since. The patient is non verbal. Pt has no signs of pain. Body assessment done. Oriented to facility. Call light within reach. Hooked to air sampling and monitoring noted SR. Pt is sat 100% in RA. Dr. Lu ordered NPO except meds, pt will have swallow eval as ordered. IV site intact and patent. Other orders from Dr. Lu was noted. Continue to plan of care.
[2020-05-22 19:10] VITALS: BP 130/93
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
[2020-05-22] MEDS ORDERED: Acetaminophen 650mg/20.3ml ORAL PRN (19:30)
--- NOTE | 2020-05-22 19:32 | NUR ---
NURSE HAND-OFF REPORT: Important Events on Shift: Patient Status: stable condition. Diet: Pending Orders: Admission orders. Pending Results/Labs: Pending MD notification: Latest Vital Signs: Temperature 96.5 , Pulse 114 , B/P 130 /93 , Respiratory Rate 25 , O2 SAT 98 , Room Air, O2 Flow Rate . Vital Sign Comment: EKG Rhythm: Sinus Rhythm Rhythm change?: MD Notified?: - MD Response: Latest Awad Fall Score: 20 Fall Risk: Safety Measures: Call light , Bed Alarm , Side Rails , Bed position . Fall Precautions: Report given to .
--- NOTE | 2020-05-22 19:39 | Diagnostic Imaging Report ---
EXAM: US Duplex Bilateral Extracranial Arteries CLINICAL HISTORY: CVA TECHNIQUE: Real-time duplex ultrasound scan of the extracranial arteries integrating B-mode two-dimensional vascular structure, Doppler spectral analysis and color flow Doppler imaging. COMPARISON: No previous study. FINDINGS: Right common carotid artery: Unremarkable. No occlusion or significant stenosis on color flow and spectral Doppler imaging. Right internal carotid artery: Unremarkable. No occlusion or significant stenosis on color flow and spectral Doppler imaging. Right external carotid artery: Unremarkable. No occlusion or significant stenosis on color flow and spectral Doppler imaging. Right vertebral artery: Antegrade flow within the vertebral arteries. Right ICA/CCA ratio: Unremarkable. Within normal limits. Left common carotid artery: Unremarkable. No occlusion or significant stenosis on color flow and spectral Doppler imaging. Left internal carotid artery: Significant calcified atherosclerotic disease is noted within the left carotid bulb. No occlusion or significant stenosis on color flow and spectral Doppler imaging. Left external carotid artery: Unremarkable. No occlusion or significant stenosis on color flow and spectral Doppler imaging. Left vertebral artery: See above. Left ICA/CCA ratio: Unremarkable. Within normal limits. Lymph nodes: Unremarkable. No lymphadenopathy. Other findings: Evaluation of peak systolic velocities bilaterally throughout the carotid systems reveal no evidence of hemodynamically significant stenosis, based on established criteria. CAROTID STENOSIS REFERENCE USING SRU CRITERIA: Mild - <50% stenosis. ICA PSV is less than 125 cm/second and plaque or intimal thickening is visible. Moderate - 50-69% stenosis. ICA PSV is 125 to 230 cm/second and plaque is visible. Severe - 70-94% stenosis. ICA PSV is more than 230 cm/second and visible plaque with lumen narrowing is seen. Near occlusion - 95-99% stenosis. ICA PSV is variable and significant plaque with luminal narrowing is seen. Occluded - 100% stenosis. No flow identified. IMPRESSION: 1. Prominent calcified plaque within the left carotid bulb. 2. No evidence of hemodynamically significant stenosis based on established ultrasound criteria.
[2020-05-22] MEDS: D5 1/2NS w/KCL 10meq 1,000 ML IV SCH (19:58)
--- NOTE | 2020-05-22 20:00 | NUR ---
Spoke to Dr. Lu regarding wound consult. Dr. Hermosillo placed as wound consult. And Dr. matos as ID. No accucheck as ordered per Dr. Lu. NPO except meds. Continue to plan of care.
[2020-05-22] MEDS: Pantoprazole Inj IVP SCH (20:21)
[2020-05-22] MEDS: Piperacillin/Tazobactam 3.375 GM in NS 110 ML IVPB SCH (20:21)
[2020-05-22] MEDS: Heparin 5000 units/ml inj SUBQ SCH (20:22)
[2020-05-23] VITALS: BP 145/94
--- NOTE | 2020-05-23 03:40 | NUR ---
NURSE NOTES: Seen pt comfortably in bed. No signs of respiratory distress noted. Pt is flat affect and non verbal.Eyes open spontaneously. Changed linen and reposition as frequently as possible. Changed bedding, sponge bath given. Continue to plan of care.
[2020-05-23 04:00] VITALS: BP 138/83
--- NOTE | 2020-05-23 04:00 | Consultation ---
DATE OF CONSULTATION: 05/22/2020 CARDIOLOGY CONSULTATION CONSULTING PHYSICIAN: Kirk Fung MD REQUESTING PHYSICIAN: Vinay Lu MD REASON FOR CONSULTATION: Altered mentation and possible cerebrovascular accident in the setting of rapid atrial fibrillation. HISTORY OF PRESENT ILLNESS: This is a 70-year-old Portuguese female. She was brought in by paramedics. She was found down at home by a caregiver. She had last been seen 3 days prior. She was unresponsive. The patient was apparently alert, but not following commands at the time that she was found down. She was brought to the emergency room. She was noted to have multiple lab abnormalities as well as rapid atrial fibrillation. Additional historical data is obtained from chart review from hospitalization back in 2018. PAST MEDICAL HISTORY: Includes hyperlipidemia, peptic ulcer disease, chronic atrial fibrillation, hypertensive heart disease, history of congestive heart failure, history of right renal artery stenosis, and history of cerebrovascular accident. ALLERGIES: Sulfa. CURRENT MEDICATIONS: Unknown. SOCIAL HISTORY: Negative for smoking, alcohol, or substance abuse. FAMILY HISTORY: Noncontributory. REVIEW OF SYSTEMS: In 2018, a dobutamine echo study was notable for low likelihood of flow-limiting coronary artery disease. PHYSICAL EXAMINATION: VITAL SIGNS: Afebrile, blood pressure 127/93, heart rate 102, and respiratory rate 16. HEENT: Normocephalic and atraumatic. Conjunctivae pink. Oropharynx clear. Mucous membranes dry. NECK: Supple. LUNGS: Clear. CARDIAC: Irregularly irregular rhythm. Rapid rate. Normal S1, S2. No murmur. ABDOMEN: Soft and nontender. EXTREMITIES: No edema. Capillary refill is diminished. NEUROLOGIC: Right hemiparesis noted. Speech is not fluent. LABORATORY AND DIAGNOSTIC DATA: White count 20.6, hemoglobin 15.9, and platelets 168,000. Chest x-ray with no acute process. Urinalysis with 15-20 white cells and too numerous to count red cells. CT scan of the brain revealed no acute process. EKG reveals atrial fibrillation with rapid ventricular response, anterolateral ST-T wave abnormalities. Sodium 154, potassium 4.8, chloride 115, bicarb 20, BUN 133, creatinine 5. Lactic acid 2.3. Troponin 0.087. Albumin 2.9. IMPRESSION: Toxic and metabolic encephalopathies, possible acute cerebrovascular accident, acute myocardial ischemia, and possible [id number] myocardial infarction, chronic atrial fibrillation now with rapid ventricular response, cerebrovascular disease with history of prior cerebrovascular accident, moderate protein-calorie malnutrition, severe dehydration with hypernatremia and hyperchloremia, acute renal failure, lactic acidosis, critical and guarded. PLAN: Cardiac monitoring. Hold anticoagulation. Followup CT imaging. Serial troponins. Serial lactic acid. Hypotonic IV fluids. Empiric antimicrobials. DVT prophylaxis. Aspiration precautions. Kirk Fung M.D. DR: Kevin JOB#: [id number] CC:
[2020-05-23] MEDS: D5 1/2NS w/KCL 10meq 1,000 ML IV SCH ×2 (04:15→14:04)
[2020-05-23 05:13] LABS: CALCIUM 8.6 MG/DL (8.5-10.1); CREATININE 1.9 MG/DL (0.55-1.30); POTASSIUM 3.4 MMOL/L (3.5-5.1)
[2020-05-23 05:28] LABS: ALBUMIN 2.4 G/DL (3.4-5.0); ALBUMIN/GLOBULIN RATIO 0.7 (1.0-2.7); BILIRUBIN,TOTAL 0.7 MG/DL (0.2-1.0)
--- NOTE | 2020-05-23 06:04 | NUR ---
NURSE NOTES: Spoke to Dr. Lu regarding the Trop of 0.205. And blood culture. No new orders noted at this time.
--- NOTE | 2020-05-23 06:07 | NUR ---
Dr. Mcclure notified regarding referral no response yet.
--- NOTE | 2020-05-23 07:30 | NUR ---
NURSE HAND-OFF REPORT: Important Events on Shift: Trop I- 0.0205, For MRI brain with contrast, Blood culture (+) cocci and rods, Dr. Rojas consult, admission. Dr. murillo aware of lab results , Trop I. Patient Status: Stable o2 sat-97% Diet: NPO except meds Pending Orders: None Pending Results/Labs:2decho, MRI brain with no contrast Pending MD notification: None Latest Vital Signs: Temperature 97.0 , Pulse 80 , B/P 138 /83 , Respiratory Rate 18 , O2 SAT 97 , Room Air, O2 Flow Rate . Vital Sign Comment: WNL EKG Rhythm: Sinus Rhythm Rhythm change?: Y MD Notified?: N - MD Response: Latest Awad Fall Score: 95 Fall Risk: High Risk Safety Measures: Call light Within Reach, Bed Alarm Zone 1, Side Rails Side Rails x3, Bed position Low and Locked. Fall Precautions: Yellow Socks Yellow Gown Patient Fall Education Report given to [JO ANN Bee].
--- NOTE | 2020-05-23 07:30 | NUR ---
NURSE NOTES:Report received from Princess Fernando CHERRY.Pt awake,eyes open noted no resp distress on RA,no signs of pain or discomfort,SR on the monitor,Pt NPO,Schneider cath draining yellow urine,skin warm and dry with IV sites x2 RAC and RH with IVF D5 1/2 NS with 10 meq KCL at 125 ml/hr,SR up x2 HOB elevated bed lock in lowest position,will continue withy plans of care.
[2020-05-23 08:00] VITALS: BP 152/96
[2020-05-23] MEDS: Heparin 5000 units/ml inj SUBQ SCH ×2 (09:00→20:30)
--- NOTE | 2020-05-23 09:00 | History and Physical Report ---
DATE OF ADMISSION: 05/22/2020 CHIEF COMPLAINT: Stroke and fall. HISTORY OF PRESENT ILLNESS: The patient is a 70-year-old female, who was apparently found down by her caregiver. She was last seen several days prior to admission. She was apparently lying in the prone position on her knees. The patient is awake, but is unable provide any additional history. She was noted to be weak on the right side. In the ER, head CT was unremarkable. Her white count was 20,000. She had a sodium 158, potassium 3.4, BUN of 70, creatinine 1.9. Her CK level was normal. She is now admitted for further evaluation and care. PAST MEDICAL HISTORY: Unknown. CURRENT MEDICATIONS: Reconciled and reviewed. ALLERGIES: Include Bactrim. FAMILY HISTORY: Unknown. SOCIAL HISTORY: There is no known history of tobacco, ethanol, or drugs. REVIEW OF SYSTEMS: Unobtainable as the patient is confused. PHYSICAL EXAMINATION: VITAL SIGNS: Temperature 97, pulse 78, respirations 18, and blood pressure 138/83. GENERAL: The patient is a well-developed female, in no apparent distress. She is awake. She mumbles a few words in Pashto, but does not follow commands. HEENT: Head is normocephalic. Appears to be a small bruise on the right cheek. Oropharynx is clear. Mucous membranes are dry. NECK: Supple. There are no bruits noted. HEART: Regular rate and rhythm. LUNGS: Clear. ABDOMEN: Soft, nontender, nondistended. EXTREMITIES: Without clubbing, cyanosis, or edema. There are pressure wounds on both knees noted. The patient has a dense right-sided hemiparesis. LABORATORY DATA: UA showed 5 to 10 wbc's. White count was 20, hemoglobin 15, hematocrit 48, platelets of 168. Sodium 158, potassium 3.4, chloride of 127. Creatinine was 1.9. Troponin 0.205. ASSESSMENT: This is a 70-year-old female admitted with complaints of what appears to be an acute stroke, severe dehydration, acute renal failure, and paroxysmal atrial fibrillation. PLAN: 1. IV hydration. 2. Monitor renal function and electrolytes. 3. MRI of the brain. 4. Cardiology consultation. 5. Followup carotid duplex. 6. Swallow evaluation. 7. PT and OT. 8. We will try to contact the patient's family. 9. Status is currently guarded. Vinay Lu M.D. DR: ELLIE JOB#: [id number] CC:
--- NOTE | 2020-05-23 09:00 | NUR ---
NURSE NOTES: Due medic Heparin 5,000 units SQ not given,pt with bloody stools.
[2020-05-23] MEDS: Piperacillin/Tazobactam 3.375 GM in NS 110 ML IVPB SCH (10:25)
[2020-05-23] MEDS: Pantoprazole Inj IVP SCH (10:25)
--- NOTE | 2020-05-23 11:00 | NUR ---
NURSE NOTES: Wound care RNs at bedside,evaluating pt;s wounds.
--- NOTE | 2020-05-23 11:14 | NUR ---
COMMUNICATIONS ENGINEERING TECHNICIAN NOTE SW received a consult to locate family. SW spoke w/ pt's daughter, Jeny Stack [phone], stating that there is no POA/AD. Jeny Stack is the only child of pt. Other emergency contact: Angelo Frank (friend) [phone]. Per Jeny, Angelo Frank is pt's friend. SW attempted to call Angelo Frank but call was not answered.
[2020-05-23] MEDS ORDERED: NS 275ml ONE (11:44)
[2020-05-23] MEDS ORDERED: D5 1/2NS 1000ml IV ONE (11:44)
[2020-05-23 12:00] VITALS: BP 155/91
--- NOTE | 2020-05-23 12:00 | Consultation ---
DATE OF CONSULTATION: 05/23/2020 INFECTIOUS DISEASES CONSULTATION This consult is for coverage of Dr. Rojas. CONSULTING PHYSICIAN: Lonny Ramos MD. PRIMARY ATTENDING PHYSICIAN: Vinay Lu MD. REASON FOR CONSULTATION: Sepsis, bacteremia HISTORY OF PRESENT ILLNESS: This is a 70-year-old female admitted yesterday from home. She was found on the floor unconscious for an unknown period of time, may be up to three days, was found to have weakness in the right side of the body. Blood culture is becoming positive. PAST MEDICAL HISTORY: Significant for hypertension, atrial fibrillation, hyperlipidemia, right renal artery stenosis, peptic ulcer. ALLERGIES: Sulfamethoxazole and trimethoprim. MEDICATIONS: Getting Zosyn, Protonix, and got dose of cefepime in the ER. SOCIAL HISTORY: The patient is single. No history of alcohol or drug abuse. REVIEW OF SYSTEMS: Unobtainable. PHYSICAL EXAMINATION: VITAL SIGNS: Temperature 97.9, pulse 80, blood pressure 152/96. The patient had tachycardia with heart rate up to 125 at the time of admission. GENERAL APPEARANCE: No acute distress. HEAD AND NECK: [place] conjunctiva. HEART: Normal rate. LUNGS: Clear. ABDOMEN: Soft and nontender. EXTREMITIES: No edema. NEUROLOGIC: Awake, alert, moving left side of the body but does not move the right side of the body. SKIN: Abdominal bruises and left anterior knee deep tissue injury. LABORATORY AND DIAGNOSTIC DATA: WBC 20.2, hemoglobin 15.9, hematocrit 48.1, platelets 168. Sodium 154, potassium 4.8, chloride 115, bicarb 20, BUN 133, creatinine 5. Today's BUN 70, creatinine 1.9, sodium 158. Lactic acid at the time of admission was 2.5 coming down to 1.7 today. Had elevated troponin 0.205. CT scan of head showed old changes including multiple infarcts. Chest x-ray was negative. COVID test was negative. Influenza A and B is negative. Hip x-rays were negative for fracture, showed osteoporosis. UA showed leukocyte esterase 1+, rbc's too numerous to count, wbc's 5-10, blood 5+, protein 1+. 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 RECOMMENDATION: Change antibiotic to ceftriaxone and vancomycin. We will follow up the cultures. At the end of my exam, I thank Dr. Lu, for involving me in the care of this patient. Lonny Ramos M.D. DR: Milan JOB#: [id number] CC: MARVIN
--- NOTE | 2020-05-23 12:00 | NUR ---
NURSE NOTES: Speech Therpaist Palmira at bedside,Swallow eval done.Pt passed.
--- NOTE | 2020-05-23 12:05 | Consultation ---
History of Present Illness General Date patient seen: May 23, 2020 Reason for Hospitalization: Altered Level of Consciousness Present Illness HPI This is a very unfortunate 70-year-old female who was brought in by EMS. Patient unable to provide history or participate examination and history is obtained by EMS. Most reports that they were called to the patient's home when the caregiver who checks in on the patient states that she checked in on her and found her laying on the floor of her home unable to move and unresponsive. EMS states that the amount of time the patient was down is unknown. On admission identified to have multiple formed decubitus ulcers and therefore surgery was called to eval and assist with care. Patient septic in etiology unknown leukocytosis lactic acidosis. Patient opens eyes but is able to respond. Imaging reviewed. Allergies: Coded Allergies: SULFAMETHOXAZOLE (Unverified Allergy, Unknown, 12/09/17) TRIMETHOPRIM (Unverified Allergy, Unknown, 12/09/17) COVID-19 Screening Contact w/high risk pt: No Experienced COVID-19 symptoms?: No Medication History Scheduled Atorvastatin Calcium* (Atorvastatin Calcium*), 10 MG ORAL BEDTIME, (Reported) Dexlansoprazole (Dexilant), 60 MG ORAL DAILY, (Reported) Losartan Potassium* (Cozaar*), MG ORAL DAILY, (Reported) Metoprolol Succinate* (Metoprolol Succinate*), 25 MG ORAL DAILY, (Reported) Olmesartan/Hydrochlorothiazide 40-12.5MG (Benicar Hct 40-12.5 Mg Tablet), 1 TAB ORAL DAILY, (Reported) Miscellaneous Medications Lipase/Protease/Amylase (Creon Dr 36,000 Units Capsule), 1 EACH PO, (Reported) Mv-Mn/Iron/Fa/Herbal Cmplx#190 (Vitamin D3 Complete Caplet), 1 EACH PO, (Reported) Patient History Limited by: medical condition History Provided By: Medical Record Healthcare decision maker Resuscitation status Advanced Directive on File Past Medical/Surgical History Past Medical/Surgical History: (1) Renal failure (2) CVA (cerebral vascular accident) (3) Right hemiparesis (4) Dehydration (5) Hypernatremia (6) Leukocytosis (7) UTI (urinary tract infection) Review of Systems Review of Symptoms General ROS: no weight loss or fever Psychological ROS: no depression or mood changes, no memory loss Ophthalmic ROS: no visual changes or eye irritation ENT ROS: no nasal congestion, hearing loss, dizziness Allergy and Immunology ROS: no allergic symptoms or urticaria Hematological and Lymphatic ROS: no swollen glands, unusual bleeding or bruising Endocrine ROS: no polyuria, polydipsia, weight changes, temperature intolerance Respiratory ROS: no cough, shortness of breath, or wheezing Cardiovascular ROS: no chest pain or dyspnea on exertion Gastrointestinal ROS: denies abdominal pain, bright red blood in stool. Musculoskeletal ROS: no myalgias or arthralgias Neurological ROS: no TIA or stroke symptoms Dermatological ROS: no new or changing skin lesions, rashes or pruritis Limited given medical condition Physical Exam Physical Exam General appearance: no distress, appears stated age Head: Normocephalic, without obvious abnormality, atraumatic Eyes: conjunctivae/corneas clear. PERRL, EOM's intact. Fundi benign Throat: Lips, mucosa, and tongue normal. Teeth and gums normal Neck: supple, symmetrical, trachea midline, no adenopathy, thyroid: not enlarged, symmetric, no tenderness/mass/nodules, no carotid bruit and no JVD Lungs: clear to auscultation bilaterally Heart: regular rate and rhythm, S1, S2 normal, no murmur, click, rub or gallop Abdomen: soft, non-tender. Bowel sounds normal. No masses, no organomegaly Extremities: extremities normal, atraumatic, no cyanosis or edema Pulses: 2+ and symmetric Skin: Skin see below Neurologic: Grossly normal Last 24 Hour Vital Signs Date Time Temp Pulse Resp B/P (MAP) Pulse Ox O2 Delivery O2 Flow Rate FiO2 05/23/20 08:00 80 05/23/20 08:00 Room Air 05/23/20 08:00 97.9 80 21 152/96 (114) 98 05/23/20 04:00 97.0 78 18 138/83 (101) 97 05/23/20 04:00 80 05/23/20 04:00 Room Air 05/23/20 00:10 Room Air 05/23/20 00:00 116 05/23/20 00:00 97.7 107 18 145/94 (111) 97 05/22/20 21:41 Room Air 05/22/20 19:16 111 05/22/20 19:10 96.5 114 25 130/93 (105) 98 05/22/20 18:40 98.8 112 20 143/88 98 Room Air 05/22/20 17:35 98.8 108 20 143/88 98 Room Air 05/22/20 16:51 98.8 125 16 139/88 98 Room Air 05/22/20 15:10 98.8 102 16 127/93 98 Room Air 05/22/20 15:10 102 16 Room Air 05/22/20 14:55 102 16 127/93 (104) 98 Room Air Intake and Output 05/22/20 05/23/20 19:00 07:00 Intake Total 1360.0 ml Output Total 2000 ml 1100 ml Balance -2000 ml 260.0 ml Intake Oral 0 ml IV Total 1360.0 ml Output Urine Total 2000 ml 1100 ml Laboratory Tests Test 05/22/20 15:20 05/22/20 15:50 05/22/20 16:45 05/23/20 02:50 White Blood Count 20.6 K/UL (4.8-10.8) H Red Blood Count 5.04 M/UL (4.20-5.40) Hemoglobin 15.9 G/DL (12.0-16.0) Hematocrit 48.1 % (37.0-47.0) H Mean Corpuscular Volume 95 FL (80-99) Mean Corpuscular Hemoglobin 31.6 PG (27.0-31.0) H Mean Corpuscular Hemoglobin Concent 33.1 G/DL (32.0-36.0) Red Cell Distribution Width 12.1 % (11.6-14.8) Platelet Count 168 K/UL (150-450) Mean Platelet Volume 8.1 FL (6.5-10.1) Neutrophils (%) (Auto) % (45.0-75.0) Lymphocytes (%) (Auto) % (20.0-45.0) Monocytes (%) (Auto) % (1.0-10.0) Eosinophils (%) (Auto) % (0.0-3.0) Basophils (%) (Auto) % (0.0-2.0) Differential Total Cells Counted 100 Neutrophils % (Manual) 79 % (45-75) H Lymphocytes % (Manual) 4 % (20-45) L Monocytes % (Manual) 17 % (1-10) H Eosinophils % (Manual) 0 % (0-3) Basophils % (Manual) 0 % (0-2) Band Neutrophils 0 % (0-8) Platelet Estimate Adequate Platelet Morphology Normal Hypochromasia 1+ Sodium Level 154 MMOL/L (136-145) H 158 MMOL/L (136-145) H Potassium Level 4.8 MMOL/L (3.5-5.1) 3.4 MMOL/L (3.5-5.1) L Chloride Level 115 MMOL/L (98-107) H 127 MMOL/L (98-107) H Carbon Dioxide Level 20 MMOL/L (21-32) L 22 MMOL/L (21-32) Anion Gap 19 mmol/L (5-15) H 9 mmol/L (5-15) Blood Urea Nitrogen 133 mg/dL (7-18) H 70 mg/dL (7-18) H Creatinine 5.0 MG/DL (0.55-1.30) H 1.9 MG/DL (0.55-1.30) #H Estimat Glomerular Filtration Rate 8.5 mL/min (>60) 26.1 mL/min (>60) Glucose Level 149 MG/DL (74-106) H 176 MG/DL (74-106) H Lactic Acid Level 2.30 mmol/L (0.4-2.0) H 2.50 mmol/L (0.66-2.22) H 1.70 mmol/L (0.4-2.0) Calcium Level 9.0 MG/DL (8.5-10.1) 8.6 MG/DL (8.5-10.1) Ferritin 833 NG/ML (8-388) H Total Bilirubin 1.0 MG/DL (0.2-1.0) 0.7 MG/DL (0.2-1.0) Aspartate Amino Transf (AST/SGOT) 28 U/L (15-37) 27 U/L (15-37) Alanine Aminotransferase (ALT/SGPT) 34 U/L (12-78) 32 U/L (12-78) Alkaline Phosphatase 91 U/L (46-116) 90 U/L (46-116) Lactate Dehydrogenase 196 U/L (81-234) Total Creatine Kinase 62 U/L (26-308) Creatine Kinase MB 2.4 NG/ML (0.0-3.6) Creatine Kinase MB Relative Index 3.8 Troponin I 0.087 ng/mL (0.000-0.056) 0.205 ng/mL (0.000-0.056) C-Reactive Protein, Quantitative 18.7 mg/dL (0.00-0.90) H Total Protein 7.6 G/DL (6.4-8.2) 5.8 G/DL (6.4-8.2) L Albumin 2.9 G/DL (3.4-5.0) L 2.4 G/DL (3.4-5.0) L Globulin 4.7 g/dL 3.4 g/dL Albumin/Globulin Ratio 0.6 (1.0-2.7) L 0.7 (1.0-2.7) L Triglycerides Level 133 MG/DL (30-150) Cholesterol Level 209 MG/DL (< 200) H LDL Cholesterol 128 mg/dL (<100) H HDL Cholesterol 49 MG/DL (40-60) Cholesterol/HDL Ratio 4.3 (3.3-4.4) Urine Color Pale yellow Urine Appearance Slightly cloudy Urine pH 6 (4.5-8.0) Urine Specific [place] 1.015 (1.005-1.035) Urine Protein 1+ (NEGATIVE) H Urine Glucose (UA) Negative (NEGATIVE) Urine Ketones Negative (NEGATIVE) Urine Blood 5+ (NEGATIVE) H Urine Nitrite Negative (NEGATIVE) Urine Bilirubin Negative (NEGATIVE) Urine Urobilinogen Normal MG/DL (0.0-1.0) Urine Leukocyte Esterase 1+ (NEGATIVE) H Urine RBC Tntc /HPF (0 - 2) H Urine WBC 5-10 /HPF (0 - 2) H Urine Squamous Epithelial Cells Occasional /LPF Urine Bacteria Occasional /HPF (NONE) D-Dimer > 35.20 mg/L FEU Pro-B-Type Natriuretic Peptide 3743 pg/mL (0-125) H Thyroid Stimulating Hormone (TSH) 0.467 uiU/mL (0.358-3.740) Test 05/23/20 11:49 POC Whole Blood Glucose Pending Microbiology Date/Time Source Procedure Growth Status 05/22/20 15:20 Nasal Nares - Final Complete 05/22/20 15:20 Nasal Nares - Final Complete 05/22/20 15:20 Nasopharynx SARS-CoV-2 RdRp Gene Assay - Final Complete 05/22/20 15:20 Blood Blood Culture - Preliminary Resulted Height (Feet): 5 Height (Inches): 5.00 Weight (Pounds): 120 Medications Current Medications Medications (Trade) Dose Ordered Sig/Marci Route PRN Reason Start Time Stop Time Status Last Admin Dose Admin Acetaminophen (Tylenol) 650 mg Q6H PRN ORAL Pain Scale (3-5) 05/22/20 19:30 06/21/20 19:29 Barium Sulfate (Varibar Honey) 250 ml NOW PRN MC RAD 05/22/20 18:45 05/25/20 18:37 Barium Sulfate (Varibar [place]) 240 ml NOW PRN MC RAD 05/22/20 18:45 05/25/20 18:37 Barium Sulfate (Varibar Pudding) 230 ml NOW PRN MC RAD 05/22/20 18:45 05/25/20 18:37 Barium Sulfate (Varibar Thin Liquid powder) 148 gm NOW PRN MC RAD 05/22/20 18:45 05/25/20 18:37 Ceftriaxone Sodium 2 gm/ Dextrose 55 ml @ 110 mls/hr Q24H IVPB 05/23/20 13:00 05/30/20 12:59 Dextrose/ Electrolytes 1,000 ml @ 125 mls/hr Q8H IV 05/22/20 19:30 06/21/20 19:29 05/23/20 04:15 Heparin Sodium (Porcine) (Heparin 5000 units/ml) 5,000 units EVERY 12 HOURS SUBQ 05/22/20 21:00 07/06/20 20:59 05/22/20 20:22 Pantoprazole (Protonix) 40 mg DAILY IVP 05/22/20 20:00 06/21/20 19:59 05/23/20 10:25 Vancomycin HCl ([facility] pharmacy to dose) 1 ea DAILY PRN MISC Per rx protocol 05/23/20 11:00 06/22/20 10:59 Vancomycin/Sodium Chloride 275 ml @ 183.333 mls/hr ONCE IVPB 05/23/20 14:00 05/23/20 16:00 Assessment/Plan Problem List: (1) Decubitus skin ulcer Assessment & Plan: Patient presented on admission with multiple skin concerns. Patient was found down unknown duration and has developed significant injuries and skin concerns. Patient has a right shoulder 3 cm x 3 cm posterior deep tissue injury no fluctuance nontender no skin breakdown not open. Patient has sacral erythema identified. Patient has incontinence associated dermatitis identified in the perineum and bilateral thighs and groins. Patient has a right hip DTI with skin breakdown identified. Patient has a left knee unstageable decubitus ulcer with necrotic eschar. Patient has significant abdominal erythema and near cellulitis with burning rash. No abscess no drainage wounds unlikely source of patient's sepsis. Wound is likely attributed to patient being down for significant period of time. Will need nutritional optimization and local care plan to allow for healing and improvement. Care plan initiated. Treatment plan Wash all wounds daily with normal saline. Apply skin protectant and OPTi foam dressing to the right shoulder change every 3 days. Apply OPTi foam dressing patient sacral region monitor for incontinence change every 3 days and PRN saturation as necessary Apply skin protectant to bilateral thighs and perineum monitor for incontinence change accordingly. Thera honey to left knee eschar followed by OPTi foam dressing wrap with Kerlix if necessary change daily and PRN saturation Zinc oxide cream for abdominal wound. Apply daily. Wash wounds daily. Turn every 2 hours offload pressure with pillows Air mattress given patient's current medical condition Nutritional optimization We will follow with recommendations thank you for let me participate patient's care ICD Codes: L89.90 - Pressure ulcer of unspecified site, unspecified stage SNOMED: 173597460 (2) Renal failure ICD Codes: N19 - Unspecified kidney failure SNOMED: 13486317, 366181967 (3) CVA (cerebral vascular accident) Assessment & Plan: Old infarcts are seen in the bilateral basal ganglia and inferior frontal deep white matter. No acute intracranial hemorrhage or edema. No mass effect nor midline shift. There is age-related enlargement of the ventricles and extra- axial CSF spaces. There is periventricular deep white matter low-attenuation consistent with chronic microvascular ischemic change. Visualized orbits are unremarkable. There is bilateral ethmoid and bilateral maxillary sinus mucosal disease. The mastoids are clear. Impression: Chronic and age-related changes, including multiple old infarcts Negative for acute intracranial bleed or mass effect Right common carotid artery: Unremarkable. No occlusion or significant stenosis on color flow and spectral Doppler imaging. Right internal carotid artery: Unremarkable. No occlusion or significant stenosis on color flow and spectral Doppler imaging. Right external carotid artery: Unremarkable. No occlusion or significant stenosis on color flow and spectral Doppler imaging. Right vertebral artery: Antegrade flow within the vertebral arteries. Right ICA/CCA ratio: Unremarkable. Within normal limits. Left common carotid artery: Unremarkable. No occlusion or significant stenosis on color flow and spectral Doppler imaging. Left internal carotid artery: Significant calcified atherosclerotic disease is noted within the left carotid bulb. No occlusion or significant stenosis on color flow and spectral Doppler imaging. Left external carotid artery: Unremarkable. No occlusion or significant stenosis on color flow and spectral Doppler imaging. Left vertebral artery: See above. Left ICA/CCA ratio: Unremarkable. Within normal limits. Lymph nodes: Unremarkable. No lymphadenopathy. Other findings: Evaluation of peak systolic velocities bilaterally throughout the carotid systems reveal no evidence of hemodynamically significant stenosis, based on established criteria. CAROTID STENOSIS REFERENCE USING SRU CRITERIA: Mild - <50% stenosis. ICA PSV is less than 125 cm/second and plaque or intimal thickening is visible. Moderate - 50-69% stenosis. ICA PSV is 125 to 230 cm/second and plaque is visible. Severe - 70-94% stenosis. ICA PSV is more than 230 cm/second and visible plaque with lumen narrowing is seen. Near occlusion - 95-99% stenosis. ICA PSV is variable and significant plaque with luminal narrowing is seen. Occluded - 100% stenosis. No flow identified. IMPRESSION: 1. Prominent calcified plaque within the left carotid bulb. 2. No evidence of hemodynamically significant stenosis based on established ultrasound criteria. ICD Codes: I63.9 - Cerebral infarction, unspecified SNOMED: 767120043 (4) Right hemiparesis ICD Codes: G81.91 - Hemiplegia, unspecified affecting right dominant side SNOMED: 129008255, 921449911 (5) Dehydration ICD Codes: E86.0 - Dehydration SNOMED: 21332157, 009843770 (6) Hypernatremia ICD Codes: E87.0 - Hyperosmolality and hypernatremia SNOMED: 216489637 (7) Leukocytosis Assessment & Plan: wbc 20 on admission lactic acidosis - improving with hydration on abx as per ID no acute surgical intervention planned okay for tf diet nutrition eval local wound care will follow with recs and monitor thank you ICD Codes: D72.829 - Elevated white blood cell count, unspecified SNOMED: 706002171, 465960679 (8) UTI (urinary tract infection) ICD Codes: N39.0 - Urinary tract infection, site not specified SNOMED: 69393165, 896870439 Liam Hermosillo May 23, 2020 12:05
--- NOTE | 2020-05-23 12:49 | NUR ---
NURSE NOTES: Wound/Skin assessment:Left medial knee unstageable pressure ulcer 4.5x4.0x0.2 with 100% black dry eschar wound bed edges macerated and small amount serosanguineous drainage noted Thera honey and Optifoam applied. Right lateral knee unstageable pressure ulcer 100% black dry eschar wound bed ,small amount serosanguineous drainage from wound edges with darkend intact periwound skin.Thera honey and Optifoam applied.Right anterior hip unstageable pressure ulcer 100% black dry eschar wound edges pink granualtion tissue with small amount serosanguineous drainage. [place] wound dark red skin rash/dermatitis.Thera honey applied to wound bed and Calazime to skin rash and Optifaom dressing applied.Dark red Skin rash /dermatitis areas on Abdomen,right anterior thigh,and left medial thigh Calazime applied.Report given to RN taking care of patient she stated wound consult has already been ordered . Patient is on an air mattress and being turned per hospital protocol.
--- NOTE | 2020-05-23 13:02 | NUR ---
SPEECH PATHOLOGY NOTE: BEDSIDE SWALLOW EVALUATION RECEIVED FROM DR. HUNTER. CHART REVIEWED, RN INTERVIEWED, PATIENT EVALUATED. VITAL SIGNS: RR: 21, BP: 155/91, ROOM AIR PATIENT CLEARED FOR ST INTERVENTION BY JO ANN LÓPEZ. PATIENT RECEIVED LAYING SUPINE AND REPOSITIONED TO SITTING UPRIGHT IN BED FOR P.O. TRIALS. SHE WAS ALERT/COOPERATIVE DURING THIS EVALUATION. INITIAL IMPRESSIONS: IN IMITATION ONLY, PATIENT WAS ABLE TO FOLLOW DIRECTIONS FROM CLINICIAN IN ORDER TO PARTICIPATE IN AN ORAL MOTOR ASSESSMENT. LINGUAL EXTENSION/LATERALIZATION, LIP RETRACTION WERE LIMITED IN COORDINATION AND ROM. LABIAL SEAL IS ALSO WEAK/INCOORDINATED RESULTING DIFFICULTY SECURING BOLUS FROM SPOON. BUCCAL/FACIAL WEAKNESS PREVENTED PATIENT FROM ACHIEVING A LABIAL SEAL TO SUCK FROM STRAW. PATIENT PRESENTED WITH THIN, NECTAR THICK, PUREE, HONEY THICK TEXTURES IN 5ML AMOUNTS VIA SPOON AND ONE ATTEMPTED UNSUCCESSFUL TRIAL WITH PRESENTATION OF THIN LIQUIDS VIA STRAW.. SHE COUGHED IMMEDIATELY POST SWALLOW OF THIN LIQUIDS PRESENTED VIA SPOON. WITH NECTAR THICK, HONEY THICK, AND PUREE SHE DEMONSTRATED DELAYS IN ORAL PREPARATION/BOLUS TRANSFER AND IN INITIATION OF PHARYNGEAL PHASE OF SWALLOW. PHARYNGEAL PHASE WAS PALPATED. HYOLARYNGEAL EXCURSION WAS DELAYED AND MILDLY LIMITED IN EXCURSION. NO CHANGE IN UPPER AIRWAY SOUNDS/VOCAL QUALITY POST SWALLOW NECTAR THICK, HONEY THICK OR PUREE CONSISTENCIES ALTHOUGH THERE IS SUSPECTED DECREASED PHARYNGEAL SENSATION DEMONSTRATED IN MULTIPLE SWALLOWS REQUIRED TO CLEAR EACH BOLUS. PATIENT PRESENTS WITH MOD/HIGH RISK FOR ASPIRATION SECONDARY TO IMPAIRED ORAL MOTOR MUSCULATURE/DYSARTHRIA, OROPHARYNGEAL PHASE DYSPHAGIA, INCOMPLETE LARYNGEAL EXCURSION, AND DECREASED MENTATION. (DURING THIS ASSESSMENT PATIENT DEMONSTRATED PERSEVERATION, ECHOLALIA, DYSARTHRIC SPEECH. SHE COMPLETED AUTOMATIC SPEECH TASKS WITH MAX ASSIST, UNRELIABLE Y/N RESPONSES. VOCAL VOLUME WAS LOW.) ABSENCE OF SPONTANEOUS SPEECH. RIGHT VISUAL FIELD NEGLECT SUSPECTED) RECOMMENDATIONS: 1. MODIFIED TEXTURE DIET: PUREE, NECTAR THICK LIQUIDS, NO STRAWS 2. MEALTIME PROTOCOL POSTED AT BEDSIDE WITH SPECIFIC ATTENTION TO POSITIONING PATIENTS HEAD AT MIDLINE FOR P.O. INTAKE 3. CRUSH CRUSHABLE MEDS/PRESENT IN PUREE 4. TOTAL ASSIST WITH MEALS 5. ST TO FOLLOW FOR DYSPHAGIA TX/MANAGEMENT, COG/LINGUISTIC ASSESSMENT, ORAL MOTOR EXERCISES, DIET TOLERANCE, PATIENT/ CAREGIVER EDUCATION 6. VIDEO SWALLOW STUDY WHILE IN HOUSE 7. ST RECOMMENDED AT NEXT LEVEL OF CARE. THANK YOU FOR THIS REFERRAL.
[2020-05-23] MEDS ORDERED: Vancomycin 1.25gm/NS Premix q24h IVPB SCH (14:00)
--- NOTE | 2020-05-23 14:30 | NUR ---
NURSE NOTES: Pt brought downstairs for MRI Brain accompanied by transporter ,fitting supervisor and RN,per tam no distress noted.
--- NOTE | 2020-05-23 14:42 | NUR ---
CASE MANAGEMENT:REVIEW 70 YR OLD FEMALE BIBA FROM HOME CC: FOUND DOWN BY CAREGIVER, LYING IN FECES SI: CVA. AFLUTTER. HYPERNATREMIA. DEHYDRATION 98.8 102 16 127/93 98% ON RA WBC+20.6 BUN+133 CR+5.0 IS: 1L NS BOLUS IV CEFEPIME CT HEAD CXR NEURO CHECKS : TO TELEMETRY PLAN: SOCIAL SERVICE CONSULT SWALLOW EVAL VIDEO SWALLOW
[2020-05-23] MEDS ORDERED: LORazepam Inj 2mg/ml 1ml IV SCH (14:45)
--- NOTE | 2020-05-23 15:30 | NUR ---
NURSE NOTES: Pt back to unit per Karla,awake,in no distress,procedure tolerated,pt was able to keep still, no Ativan needed.
[2020-05-23] MEDS: cefTRIAXone 2 GM in D5W 55 ML IVPB SCH (15:48)
--- NOTE | 2020-05-23 15:54 | Diagnostic Imaging Report ---
Indication: Right-sided weakness Technique: sagittal T1 fast spin echo, axial T1 FLAIR, axial T2 FLAIR, axial T2 FS PROPELLER, axial T2* GRE, axial diffusion weighted images. ADC and exponential ADC maps generated Comparison: No comparison MRI. Reference made to brain CT dated 05/22/2020 Findings: There is an area of restricted diffusion in the left mcclain radiata extending well into the basal ganglia. This corresponds to the area of low-attenuation described on previous day's CT scan. There is a cluster of foci of diffusion restriction involving the left occipital lobe and posterior temporal lobe. No corresponding abnormality is evident on the prior CT scan. There are also a few tiny foci of diffusion restriction in the parasagittal right parietal lobe near the vertex. There are a few foci of susceptibility artifact in the left thalamus. There are diffuse foci of susceptibility artifact within the midbrain. There is also one in the left cerebellum which may be a dentate nucleus calcification. No acute hemorrhage. No mass effect nor midline shift. The vascular flow voids are preserved. There is age-related enlargement of the ventricles and extra axial CSF spaces. There is considerable periventricular deep white matter high T2 signal consistent with chronic microvascular ischemic changes Visualized orbits are unremarkable. There is some ethmoid sinus mucosal disease noted. Impression: Large area of restricted diffusion in the left mcclain radiata and extending into the left basal ganglia. This is most likely a late subacute infarct, as it is quite low in attenuation and therefore chronic appearing on the previous CT scan. Large cluster of foci of restricted diffusion involving the left posterior temporal lobe extending into the occipital lobe. As no corresponding findings are visible on the recent CT scan, this is presumably an acute infarct evidence Small cluster restricted diffusion foci in the parasagittal right parietal lobe, consistent with acute infarct. No acute hemorrhage or mass effect. Given the distribution of the infarcts over multiple vascular territories, these are probably cardioembolic in origin No acute hemorrhage or mass effect Scattered foci of susceptibility artifact as described, likely representing old microbleeds Other chronic and age-related changes, as described Critical value findings phoned to Dr. Lu at the time of interpretation
[2020-05-23 16:00] VITALS: BP 148/94
--- NOTE | 2020-05-23 16:00 | NUR ---
NURSE NOTES: Pt's family member ,her daughter at bedside visiting,pt appears to recognize family member.
--- NOTE | 2020-05-23 17:00 | NUR ---
NURSE NOTES: Pt fed dinner ,no aspiration noted,pt able to swallow purred food.
--- NOTE | 2020-05-23 17:38 | Cardiology Report ---
APPROVED REPORT EKG Measurement Heart [id number] <Conclusion> Atrial flutter with variable AV block Left ventricular hypertrophy with repolarization abnormality Abnormal ECG
[2020-05-23] MEDS ORDERED: Zosyn 3.375gm q8h **Extended infusion IVPB SCH ×2 (18:00)
[2020-05-23] MEDS: Potassium Chloride 10 MEQ in 1/2 NS 1000ml 1,000 ML IV SCH ×2 (18:05→23:42)
[2020-05-23] MEDS ORDERED: NAMENDA5 MG ORAL (18:25)
[2020-05-23] MEDS ORDERED: AMLODIPINE BESYL5 MG ORAL (18:26)
[2020-05-23] MEDS ORDERED: VITAMIN D250 MCG PO (18:28)
--- NOTE | 2020-05-23 19:30 | NUR ---
NURSE HAND-OFF REPORT: Important Events on Shift:[] Patient Status: N/A Diet: N/A Pending Orders: N/A Pending Results/Labs:N/A Pending MD notification: Latest Vital Signs: Temperature 98.1 , Pulse 75 , B/P 148 /94 , Respiratory Rate 21 , O2 SAT 98 , Room Air, O2 Flow Rate . Vital Sign Comment: Stable EKG Rhythm: Sinus Rhythm Rhythm change?: N MD Notified?: N - MD Response: Latest Awad Fall Score: 95 Fall Risk: High Risk Safety Measures: Call light Within Reach, Bed Alarm Zone 3, Side Rails Side Rails x2, Bed position Low and Locked. Fall Precautions: Yellow Socks Yellow Gown Door Sign Patient Fall Education Report given to .Tania Zhang RN.
--- NOTE | 2020-05-23 19:35 | NUR ---
NURSE NOTES: Important Events on Shift: Received report from Cristal Christensen RN. Pt stable, AXO 1, Occitan Speaking. Pt reported to have bloody stools, heparin to held per protocol. No signs or symptoms of pain or distress noted at this time; FLACC 0. Will continue to monitor closely. Will continue plan of care. Patient Status: stable Diet: cardiac pureed moist with nectar thick liquids Pending Orders: video swallow eval. Pending Results/Labs: AM labs Pending MD notification: none Latest Vital Signs: Temperature 98.1 , Pulse 75 , B/P 148 /94 , Respiratory Rate 21 , O2 SAT 98 , Room Air, O2 Flow Rate . Vital Sign Comment: EKG Rhythm: Sinus Rhythm Rhythm change?: N MD Notified?: N - MD Response: - Latest Awad Fall Score: 95 Fall Risk: High Risk Safety Measures: Call light Within Reach, Bed Alarm Zone 3, Side Rails Side Rails x2, Bed position Low and Locked. Fall Precautions: yes Yellow Socks yes Yellow Gown yes Door Sign yes Patient Fall Education yes
--- NOTE | 2020-05-23 20:32 | NUR ---
NURSE NOTES: Pt noted to have bloody stool on previous shifts and plt 168, heparin held per protocol. MD aware of change in condition. Will continue to monitor closely.
[2020-05-23 21:00] VITALS: BP 142/82
--- NOTE | 2020-05-23 21:52 | Cardiology Progress Note ---
Subjective DATE OF SERVICE: May 23, 2020 Remains withdrawn MRI: reveals acute and subacute infarcts with distribution c/w cardioembolic source 2D Echo with normal LVEF and mild MR; no pulmonary hypertension. Objective Last 24 Hour Vital Signs Date Time Temp Pulse Resp B/P (MAP) Pulse Ox O2 Delivery O2 Flow Rate FiO2 05/23/20 19:43 82 05/23/20 16:00 98.1 75 21 148/94 (112) 98 05/23/20 16:00 Room Air 05/23/20 16:00 75 05/23/20 14:45 80 20 155/91 98 05/23/20 12:00 98.1 80 20 155/91 (112) 98 05/23/20 12:00 Room Air 05/23/20 11:46 69 05/23/20 08:00 80 05/23/20 08:00 Room Air 05/23/20 08:00 97.9 80 21 152/96 (114) 98 05/23/20 04:00 97.0 78 18 138/83 (101) 97 05/23/20 04:00 80 05/23/20 04:00 Room Air 05/23/20 00:10 Room Air 05/23/20 00:00 116 05/23/20 00:00 97.7 107 18 145/94 (111) 97 ROS: unchanged from my note of 05/22/20. HEENT: normal ENT inspection RHYTHM: Afib LUNGS: lungs clear bilaterally CARDIAC: normal rate, normal S1 and S2, irregularly irregular ABDOMEN: normal bowel sounds, non tender, soft, no organomegaly, no mass EXTREMITIES: normal range of motion, non-tender, normal inspection, no calf tenderness Laboratory Tests Test 05/23/20 02:50 05/23/20 11:49 Sodium Level 158 MMOL/L (136-145) H Potassium Level 3.4 MMOL/L (3.5-5.1) L Chloride Level 127 MMOL/L (98-107) H Carbon Dioxide Level 22 MMOL/L (21-32) Anion Gap 9 mmol/L (5-15) Blood Urea Nitrogen 70 mg/dL (7-18) H Creatinine 1.9 MG/DL (0.55-1.30) #H Estimat Glomerular Filtration Rate 26.1 mL/min (>60) Glucose Level 176 MG/DL (74-106) H Lactic Acid Level 1.70 mmol/L (0.4-2.0) Calcium Level 8.6 MG/DL (8.5-10.1) Total Bilirubin 0.7 MG/DL (0.2-1.0) Aspartate Amino Transf (AST/SGOT) 27 U/L (15-37) Alanine Aminotransferase (ALT/SGPT) 32 U/L (12-78) Alkaline Phosphatase 90 U/L (46-116) Troponin I 0.205 ng/mL (0.000-0.056) Pro-B-Type Natriuretic Peptide 3743 pg/mL (0-125) H Total Protein 5.8 G/DL (6.4-8.2) L Albumin 2.4 G/DL (3.4-5.0) L Globulin 3.4 g/dL Albumin/Globulin Ratio 0.7 (1.0-2.7) L Thyroid Stimulating Hormone (TSH) 0.467 uiU/mL (0.358-3.740) POC Whole Blood Glucose 156 MG/DL (74-106) H Microbiology Date/Time Source Procedure Growth Status 05/22/20 15:20 Nasal Nares - Final Complete 05/22/20 15:20 Nasal Nares - Final Complete 05/22/20 15:20 Nasopharynx SARS-CoV-2 RdRp Gene Assay - Final Complete 05/22/20 15:20 Blood Blood Culture - Preliminary Resulted Assessment/Plan Assessment/Plan Acute and subacute cardioembolic CVA Paroxysmal atrial flutter/fib Hypertension Lactic acidosis Dehydration/hypernatremia Acute renal failure Acute myocardial infarction (NSTEMI) Toxic and metabolic encephalopathies Moderate protein/calorie malnutrition Possible UTI Cardiac monitoring IV abx Hold anti-coagulation for now to avoid hemorrhagic conversion Hypotonic IVF Protein suppl Follow up renal parameters and Kirk Scott MD May 23, 2020 21:52
[2020-05-24] VITALS: BP 143/82
[2020-05-24] MEDS: Potassium Chloride 10 MEQ in 1/2 NS 1000ml 1,000 ML IV SCH (01:38)
[2020-05-24 03:59] VITALS: BP 154/88
[2020-05-24 04:46] LABS: BASOPHILS % (AUTO) 0.6 % (0.0-2.0); EOSINOPHILS % (AUTO) 0.6 % (0.0-3.0); HEMATOCRIT 38.6 % (37.0-47.0); LYMPHOCYTES % (AUTO) 13.5 % (20.0-45.0); MEAN CORPUSCULAR VOLUME 93 FL (80-99); NEUTROPHILS % (AUTO) 77.3 % (45.0-75.0); PLATELET COUNT 124 K/UL (150-450); RED BLOOD COUNT 4.16 M/UL (4.20-5.40); RED CELL DISTRIBUTION WIDTH 12.1 % (11.6-14.8); WHITE BLOOD COUNT 12.8 K/UL (4.8-10.8)
[2020-05-24 05:10] LABS: ALANINE AMINOTRANSFERASE 45 U/L (12-78); ALBUMIN 2.1 G/DL (3.4-5.0); ALBUMIN/GLOBULIN RATIO 0.6 (1.0-2.7); ALKALINE PHOSPHATASE 92 U/L (46-116); ANION GAP 11 mmol/L (5-15); ASPARTATE AMINO TRANSFERASE 38 U/L (15-37); BILIRUBIN,TOTAL 0.5 MG/DL (0.2-1.0); BLOOD UREA NITROGEN 25 mg/dL (7-18); CALCIUM 8.2 MG/DL (8.5-10.1); CARBON DIOXIDE 24 MMOL/L (21-32); CHLORIDE 123 MMOL/L (98-107); CREATININE 0.9 MG/DL (0.55-1.30); POTASSIUM 3.6 MMOL/L (3.5-5.1); SODIUM 158 MMOL/L (136-145)
--- NOTE | 2020-05-24 06:48 | NUR ---
NURSE HAND-OFF REPORT: Important Events on Shift: bloody stool x 1, heparin held Patient Status: stable Diet: Cardiac pureed moist Pending Orders: Video ST eval Pending Results/Labs: CBC, CMP, Creat., vanco random Pending MD notification: none Latest Vital Signs: Temperature 98.7 , Pulse 63 , B/P 154 /88 , Respiratory Rate 22 , O2 SAT 98 , Room Air, O2 Flow Rate . Vital Sign Comment: stable. afebrile EKG Rhythm: Sinus Rhythm Rhythm change?: N MD Notified?: N - MD Response: - Latest Awad Fall Score: 95 Fall Risk: High Risk Safety Measures: Call light Within Reach, Bed Alarm Zone 1, Side Rails Side Rails x3, Bed position Low and Locked. Fall Precautions: yes Yellow Socks yes Yellow Gown yes Door Sign yes Patient Fall Education yes Report to be given to Cristal Christensen RN
--- NOTE | 2020-05-24 06:57 | NUR ---
NURSE NOTES: Notified [place] of bloody stool an holding of heparin x 24 hrs. to order OB stool. No other new orders. Will continue to monitor closely.
--- NOTE | 2020-05-24 07:15 | NUR ---
NURSE NOTES: Report received from Tania Zhang RN.Pt resting in bed awake,follows command in no resp distress on RA,no signs of pain or discomfort ,SR on the monitor,skin warm and dry,with Multiple skin breaks,IV site to RAC and RH intact ,SR up x2 HOB elevated bed lock in lowest position will continue with plans of care.
[2020-05-24 08:00] VITALS: BP 156/79
[2020-05-24] MEDS ORDERED: Vancomycin 1gm/D5W 275ml IVPB ONE ×2 (08:00)
[2020-05-24] MEDS: Heparin 5000 units/ml inj SUBQ SCH ×2 (09:00→21:00)
[2020-05-24] MEDS: Pantoprazole Inj IVP SCH (09:20)
[2020-05-24] MEDS: Aspirin Baby 81mg ORAL SCH (09:20)
--- NOTE | 2020-05-24 09:45 | NUR ---
NURSE NOTES: Speech Therapist at bedside,informed pt she will have Video Swallow today,Pt appears to understands,follows command.
--- NOTE | 2020-05-24 10:00 | NUR ---
NURSE NOTES: Dr Sanchez at bedside,updated re pt's status,informed re bloody stools,ordered to remove Schneider ,specimen for urine Random Protein and Creatinine collected and sent to lab.
--- NOTE | 2020-05-24 10:09 | NUR ---
Speech Pathology Note( Dysphagia rx) MRI brain notes reviewed. labs and vital signs reviewed. S: Pt was giving her meds by RN. Pt slightly turned her head to right upon my entrance to her room. O: 1. Increase self initiation for drinking with her left hand: Ms. Hutchinson was able to self drink nector thick liquid via cup with her left hand with visual and tactile cue 90% of the time without s.s of aspiration. 2. Increase initiation of verbal utterance: Pt was able to verbally repeat at word level with visual cues and repetition at 75% of the time. 3.Diet appropriateness: Ms. Hutchinson was reminded what happened to her and why she is in the hospital and and her diet was currently modified in Icelandic. She appeared to be understanding my explanation. 4. Team approach to take care her case was initiated with communicating with RN and Rad dept to complete pending procedure (video swallow study at 13:00 today) A: 1. Oropharyngeal dysphagia due to multiple acute and subacute cerebral infarcts 2. 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 Likely presence of expressive aphasia P: 1. Modified diet with pureed and nector thick liquid with aspiration precaution 2. Encourage self drinking with her left hand with assistance -occupational therapist recommendation to follow 3. Full speech and language evaluation is needed for discharge plan - Strongly push for acute rehab if ultimate goal/support is to return to home. Isatu Putnam
--- NOTE | 2020-05-24 10:35 | NUR ---
NURSE NOTES: Family member ,pt's daughter at bedside,updated re pt's status.
[2020-05-24] MEDS: D5W w/KCl 20mEq 1,000 ML IV SCH ×2 (11:00→20:58)
--- NOTE | 2020-05-24 11:00 | NUR ---
NURSE NOTES: Pt incontinent of Stools,bed bath given,Schneider catheter removed.
--- NOTE | 2020-05-24 11:14 | Infectious Diseases Prog Note ---
Assessment/Plan Assessment/Plan antibiotics : vancomycin iv, ceftriaxone A 1. alpha hemolytic streptococcus sepsis 2. atrial fibrillation resolving 3. renal failure improving 4. hypertension P 1. continue iv vancomycin, ceftriaxone 2, will follow up cultures Subjective Constitutional: Denies: fever, chills Respiratory: Denies: shortness of breath, dry cough Gastrointestinal/Abdominal: Denies: nausea, vomiting, diarrhea Musculoskeletal: Denies: pain Allergies: Coded Allergies: SULFAMETHOXAZOLE (Unverified Allergy, Unknown, 12/09/17) TRIMETHOPRIM (Unverified Allergy, Unknown, 12/09/17) Objective Last 24 Hour Vital Signs Date Time Temp Pulse Resp B/P (MAP) Pulse Ox O2 Delivery O2 Flow Rate FiO2 05/24/20 08:00 Room Air 05/24/20 08:00 66 05/24/20 08:00 98.1 67 20 156/79 (104) 100 05/24/20 04:00 63 05/24/20 03:59 98.7 60 22 154/88 (110) 98 05/24/20 03:58 Room Air 05/24/20 00:00 69 05/24/20 00:00 98.3 63 20 143/82 (102) 98 05/24/20 00:00 Room Air 05/23/20 21:00 98.2 78 20 142/82 (102) 98 05/23/20 20:00 Room Air 05/23/20 19:43 82 05/23/20 16:00 98.1 75 21 148/94 (112) 98 05/23/20 16:00 Room Air 05/23/20 16:00 75 05/23/20 14:45 80 20 155/91 98 05/23/20 12:00 98.1 80 20 155/91 (112) 98 05/23/20 12:00 Room Air 05/23/20 11:46 69 Height (Feet): 5 Height (Inches): 5.00 Weight (Pounds): 120 Respiratory/Chest: lungs clear Cardiovascular: normal rate, regular rhythm, no gallop/murmur Abdomen: soft, non tender Extremities: no edema Microbiology Date/Time Source Procedure Growth Status 05/22/20 15:20 Nasal Nares - Final Complete 05/22/20 15:20 Nasal Nares - Final Complete 05/22/20 15:20 Nasopharynx SARS-CoV-2 RdRp Gene Assay - Final Complete 05/22/20 15:20 Blood Blood Culture - Preliminary Strep Species, Alpha Hemolytic Resulted 05/22/20 15:05 Blood Blood Culture - Preliminary NO GROWTH AFTER 24 HOURS Resulted Laboratory Tests Test 05/23/20 11:49 05/24/20 03:00 05/24/20 04:00 POC Whole Blood Glucose 156 MG/DL (74-106) H White Blood Count 12.8 K/UL (4.8-10.8) H Red Blood Count 4.16 M/UL (4.20-5.40) L Hemoglobin 13.0 G/DL (12.0-16.0) Hematocrit 38.6 % (37.0-47.0) Mean Corpuscular Volume 93 FL (80-99) Mean Corpuscular Hemoglobin 31.3 PG (27.0-31.0) H Mean Corpuscular Hemoglobin Concent 33.8 G/DL (32.0-36.0) Red Cell Distribution Width 12.1 % (11.6-14.8) Platelet Count 124 K/UL (150-450) L Mean Platelet Volume 8.1 FL (6.5-10.1) Neutrophils (%) (Auto) 77.3 % (45.0-75.0) H Lymphocytes (%) (Auto) 13.5 % (20.0-45.0) L Monocytes (%) (Auto) 8.0 % (1.0-10.0) Eosinophils (%) (Auto) 0.6 % (0.0-3.0) Basophils (%) (Auto) 0.6 % (0.0-2.0) Sodium Level 158 MMOL/L (136-145) H Potassium Level 3.6 MMOL/L (3.5-5.1) Chloride Level 123 MMOL/L (98-107) H Carbon Dioxide Level 24 MMOL/L (21-32) Anion Gap 11 mmol/L (5-15) Blood Urea Nitrogen 25 mg/dL (7-18) H Creatinine 0.9 MG/DL (0.55-1.30) # Estimat Glomerular Filtration Rate > 60 mL/min (>60) Glucose Level 103 MG/DL (74-106) Calcium Level 8.2 MG/DL (8.5-10.1) L Phosphorus Level 1.7 MG/DL (2.5-4.9) L Total Bilirubin 0.5 MG/DL (0.2-1.0) Aspartate Amino Transf (AST/SGOT) 38 U/L (15-37) H Alanine Aminotransferase (ALT/SGPT) 45 U/L (12-78) Alkaline Phosphatase 92 U/L (46-116) Total Protein 5.8 G/DL (6.4-8.2) L Albumin 2.1 G/DL (3.4-5.0) L Globulin 3.7 g/dL Albumin/Globulin Ratio 0.6 (1.0-2.7) L Random Vancomycin Level 10.6 ug/mL Urine Random Sodium 118 mmol/L (20-110) H Urine Creatinine 52.2 MG/DL (30.0-125.0) Current Medications Medications (Trade) Dose Ordered Sig/Marci Route PRN Reason Start Time Stop Time Status Last Admin Dose Admin Acetaminophen (Tylenol) 650 mg Q6H PRN ORAL Pain Scale (3-5) 05/22/20 19:30 06/21/20 19:29 Aspirin (ASA) 81 mg DAILY ORAL 05/24/20 09:00 07/08/20 08:59 05/24/20 09:20 Barium Sulfate (Varibar Honey) 250 ml NOW PRN RAD 05/22/20 18:45 05/25/20 18:37 Barium Sulfate (Varibar Rillito) 240 ml NOW PRN RAD 05/22/20 18:45 05/25/20 18:37 Barium Sulfate (Varibar Pudding) 230 ml NOW PRN RAD 05/22/20 18:45 05/25/20 18:37 Barium Sulfate (Varibar Thin Liquid powder) 148 gm NOW PRN RAD 05/22/20 18:45 05/25/20 18:37 Ceftriaxone Sodium 2 gm/ Dextrose 55 ml @ 110 mls/hr Q24H IVPB 05/23/20 13:00 05/30/20 12:59 05/23/20 15:48 Dextrose/ Electrolytes 1,000 ml @ 100 mls/hr Q10H IV 05/24/20 10:00 06/23/20 09:59 05/24/20 11:00 Heparin Sodium (Porcine) (Heparin 5000 units/ml) 5,000 units EVERY 12 HOURS SUBQ 05/22/20 21:00 11/14/20 20:59 05/22/20 20:22 Pantoprazole (Protonix) 40 mg DAILY IVP 05/22/20 20:00 06/21/20 19:59 05/24/20 09:20 Vancomycin HCl (Vanco pharmacy to dose) 1 ea DAILY PRN MISC Per rx protocol 05/23/20 11:00 06/22/20 10:59 Ramirez Rojas MD May 24, 2020 11:14
--- NOTE | 2020-05-24 11:15 | NUR ---
TRANSFER TO FLOOR: Patient transferred to Telemetry 210 -2, perbed awake,alert in no resp distress . Report given to Patricia lemus RN. Belongings ([place] ID) ONLY and medications given to receiving RN. . Family and or S/O informed of transfer.
--- NOTE | 2020-05-24 11:32 | Surgery Progress Note ---
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 stable Objective Last 24 Hour Vital Signs Date Time Temp Pulse Resp B/P (MAP) Pulse Ox O2 Delivery O2 Flow Rate FiO2 05/24/20 08:00 Room Air 05/24/20 08:00 66 05/24/20 08:00 98.1 67 20 156/79 (104) 100 05/24/20 04:00 63 05/24/20 03:59 98.7 60 22 154/88 (110) 98 05/24/20 03:58 Room Air 05/24/20 00:00 69 05/24/20 00:00 98.3 63 20 143/82 (102) 98 05/24/20 00:00 Room Air 05/23/20 21:00 98.2 78 20 142/82 (102) 98 05/23/20 20:00 Room Air 05/23/20 19:43 82 05/23/20 16:00 98.1 75 21 148/94 (112) 98 05/23/20 16:00 Room Air 05/23/20 16:00 75 05/23/20 14:45 80 20 155/91 98 05/23/20 12:00 98.1 80 20 155/91 (112) 98 05/23/20 12:00 Room Air 05/23/20 11:46 69 I&O Intake and Output 05/23/20 05/24/20 19:00 07:00 Intake Total 1070 ml Output Total 900 ml 600 ml Balance 170 ml -600 ml Intake Oral 240 ml IV Total 830 ml Output Urine Total 900 ml 600 ml # Bowel Movements 2 1 Dressing: other Wound: other Cardiovascular: RSR Respiratory: decreased breath sounds Abdomen: soft, non-tender, present bowel sounds Extremities: edema, no tenderness, no cyanosis, other Laboratory Tests Test 05/23/20 11:49 05/24/20 03:00 05/24/20 04:00 POC Whole Blood Glucose 156 MG/DL (74-106) H White Blood Count 12.8 K/UL (4.8-10.8) H Red Blood Count 4.16 M/UL (4.20-5.40) L Hemoglobin 13.0 G/DL (12.0-16.0) Hematocrit 38.6 % (37.0-47.0) Mean Corpuscular Volume 93 FL (80-99) Mean Corpuscular Hemoglobin 31.3 PG (27.0-31.0) H Mean Corpuscular Hemoglobin Concent 33.8 G/DL (32.0-36.0) Red Cell Distribution Width 12.1 % (11.6-14.8) Platelet Count 124 K/UL (150-450) L Mean Platelet Volume 8.1 FL (6.5-10.1) Neutrophils (%) (Auto) 77.3 % (45.0-75.0) H Lymphocytes (%) (Auto) 13.5 % (20.0-45.0) L Monocytes (%) (Auto) 8.0 % (1.0-10.0) Eosinophils (%) (Auto) 0.6 % (0.0-3.0) Basophils (%) (Auto) 0.6 % (0.0-2.0) Sodium Level 158 MMOL/L (136-145) H Potassium Level 3.6 MMOL/L (3.5-5.1) Chloride Level 123 MMOL/L (98-107) H Carbon Dioxide Level 24 MMOL/L (21-32) Anion Gap 11 mmol/L (5-15) Blood Urea Nitrogen 25 mg/dL (7-18) H Creatinine 0.9 MG/DL (0.55-1.30) # Estimat Glomerular Filtration Rate > 60 mL/min (>60) Glucose Level 103 MG/DL (74-106) Calcium Level 8.2 MG/DL (8.5-10.1) L Phosphorus Level 1.7 MG/DL (2.5-4.9) L Total Bilirubin 0.5 MG/DL (0.2-1.0) Aspartate Amino Transf (AST/SGOT) 38 U/L (15-37) H Alanine Aminotransferase (ALT/SGPT) 45 U/L (12-78) Alkaline Phosphatase 92 U/L (46-116) Total Protein 5.8 G/DL (6.4-8.2) L Albumin 2.1 G/DL (3.4-5.0) L Globulin 3.7 g/dL Albumin/Globulin Ratio 0.6 (1.0-2.7) L Random Vancomycin Level 10.6 ug/mL Urine Random Sodium 118 mmol/L (20-110) H Urine Creatinine 52.2 MG/DL (30.0-125.0) Plan Problems: (1) Decubitus skin ulcer Assessment & Plan: Patient presented on admission with multiple skin concerns. Patient was found down unknown duration and has developed significant injuries and skin concerns. Patient has a right shoulder 3 cm x 3 cm posterior deep tissue injury no fluctuance nontender no skin breakdown not open. Patient has sacral erythema identified. Patient has incontinence associated dermatitis identified in the perineum and bilateral thighs and groins. Patient has a right hip DTI with skin breakdown identified. Patient has a left knee unstageable decubitus ulcer with necrotic eschar. Patient has significant abdominal erythema and near cellulitis with burning rash. No abscess no drainage wounds unlikely source of patient's sepsis. Wound is likely attributed to patient being down for significant period of time. Will need nutritional optimization and local care plan to allow for healing and improvement. Care plan initiated. Treatment plan Wash all wounds daily with normal saline. Apply skin protectant and OPTi foam dressing to the right shoulder change every 3 days. Apply OPTi foam dressing patient sacral region monitor for incontinence change every 3 days and PRN saturation as necessary Apply skin protectant to bilateral thighs and perineum monitor for incontinence change accordingly. Thera honey to left knee eschar followed by OPTi foam dressing wrap with Kerlix if necessary change daily and PRN saturation Zinc oxide cream for abdominal wound. Apply daily. Wash wounds daily. Turn every 2 hours offload pressure with pillows Air mattress given patient's current medical condition Nutritional optimization We will follow with recommendations thank you for let me participate patient's care (2) Renal failure (3) CVA (cerebral vascular accident) Assessment & Plan: Old infarcts are seen in the bilateral basal ganglia and inferior frontal deep white matter. No acute intracranial hemorrhage or edema. No mass effect nor midline shift. There is age-related enlargement of the ventricles and extra- axial CSF spaces. There is periventricular deep white matter low-attenuation consistent with chronic microvascular ischemic change. Visualized orbits are unremarkable. There is bilateral ethmoid and bilateral maxillary sinus mucosal disease. The mastoids are clear. Impression: Chronic and age-related changes, including multiple old infarcts Negative for acute intracranial bleed or mass effect Right common carotid artery: Unremarkable. No occlusion or significant stenosis on color flow and spectral Doppler imaging. Right internal carotid artery: Unremarkable. No occlusion or significant stenosis on color flow and spectral Doppler imaging. Right external carotid artery: Unremarkable. No occlusion or significant stenosis on color flow and spectral Doppler imaging. Right vertebral artery: Antegrade flow within the vertebral arteries. Right ICA/CCA ratio: Unremarkable. Within normal limits. Left common carotid artery: Unremarkable. No occlusion or significant stenosis on color flow and spectral Doppler imaging. Left internal carotid artery: Significant calcified atherosclerotic disease is noted within the left carotid bulb. No occlusion or significant stenosis on color flow and spectral Doppler imaging. Left external carotid artery: Unremarkable. No occlusion or significant stenosis on color flow and spectral Doppler imaging. Left vertebral artery: See above. Left ICA/CCA ratio: Unremarkable. Within normal limits. Lymph nodes: Unremarkable. No lymphadenopathy. Other findings: Evaluation of peak systolic velocities bilaterally throughout the carotid systems reveal no evidence of hemodynamically significant stenosis, based on established criteria. CAROTID STENOSIS REFERENCE USING SRU CRITERIA: Mild - <50% stenosis. ICA PSV is less than 125 cm/second and plaque or intimal thickening is visible. Moderate - 50-69% stenosis. ICA PSV is 125 to 230 cm/second and plaque is visible. Severe - 70-94% stenosis. ICA PSV is more than 230 cm/second and visible plaque with lumen narrowing is seen. Near occlusion - 95-99% stenosis. ICA PSV is variable and significant plaque with luminal narrowing is seen. Occluded - 100% stenosis. No flow identified. IMPRESSION: 1. Prominent calcified plaque within the left carotid bulb. 2. No evidence of hemodynamically significant stenosis based on established ultrasound criteria. (4) Right hemiparesis (5) Dehydration Assessment & Plan: 1. Increase self initiation for drinking with her left hand: Ms. Hutchinson was able to self drink nector thick liquid via cup with her left hand with visual and tactile cue 90% of the time without s.s of aspiration. 2. Increase initiation of verbal utterance: Pt was able to verbally repeat at word level with visual cues and repetition at 75% of the time. 3.Diet appropriateness: Ms. Hutchinson was reminded what happened to her and why she is in the hospital and and her diet was currently modified in [place]. She appeared to be understanding my explanation. 4. Team approach to take care her case was initiated with communicating with RN and Rad dept to complete pending procedure (video swallow study at 13:00 today) A: 1. Oropharyngeal dysphagia due to multiple acute and subacute cerebral infarcts 2. 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 Likely presence of expressive aphasia P: 1. Modified diet with pureed and nector thick liquid with aspiration precaution 2. Encourage self drinking with her left hand with assistance -occupational therapist recommendation to follow 3. Full speech and language evaluation is needed for discharge plan - Strongly push for acute rehab if ultimate goal/support is to return to home. (6) Hypernatremia (7) Leukocytosis Assessment & Plan: wbc 20 on admission lactic acidosis - improving with hydration on abx as per ID no acute surgical intervention planned okay for tf diet nutrition eval local wound care will follow with recs and monitor thank you (8) UTI (urinary tract infection) Liam Hermosillo May 24, 2020 11:31
--- NOTE | 2020-05-24 11:45 | Consultation ---
DATE OF CONSULTATION: 05/24/2020 NEPHROLOGY CONSULTATION CONSULTING PHYSICIAN: Julio Sanchez MD. REFERRING PHYSICIAN: Vinay Lu MD. CHIEF COMPLAINT/REASON FOR CONSULTATION: I was asked to evaluate the patient, a 70-year-old lady with acute kidney injury. HISTORY OF PRESENT ILLNESS: The patient presents apparently found down at home and weak, and apparently was on the ground for quite some time. She had leukocytosis, hypernatremia, and acute kidney injury with sodium of 158, BUN 70, creatinine 1.9 on admission. There is a prior history of paroxysmal atrial fibrillation, prior CVAs and concern for chest pain with a negative dobutamine stress test on a prior admission one to two years ago. The patient is unable to provide any history. She is confused. MEDICATIONS: Prior to admission medications are reviewed from the computer including amlodipine, atorvastatin, vitamin D, Cozaar, Namenda, and multivitamin. PAST MEDICAL HISTORY: Other than above unable. REVIEW OF SYSTEMS: Other than above unable. PHYSICAL EXAMINATION: GENERAL: The patient is lying in bed, being fed a pureed diet by the nurses. She is awake, but confused with a [place] tie cutter says few words. VITAL SIGNS: Temperature 98.1, pulse 67, respirations 20, blood pressure 156/79. HEAD, EYES, EARS, NOSE, AND THROAT: Sclerae are nonicteric. Ocular motions intact in all directions. Mouth has some food in it and not well examined. NECK: No adenopathy. LUNGS: Clear. HEART: Rhythm is regular with a 1 to 2/6 systolic ejection murmur. ABDOMEN: Soft without organomegaly or masses. EXTREMITIES: No edema, cyanosis, or clubbing. She is thin with no significant subcutaneous fat. NEUROLOGIC: The patient is alert. She appears to be aphasic. Her right arm is flaccid and right-sided weakness. Smile appears to be symmetric. Ocular motions intact in all directions. PERTINENT LABORATORY DATA: On 05/22/2020, BUN 133, creatinine 5, sodium 154 and potassium is 4.8. Glucose 149. Albumin 2.9. After hydration, the most recent labs, sodium 158, potassium 3.6, chloride 123, CO2 24, BUN 25, and creatinine 0.9. Troponin is high as 0.205. BNP 3743. Albumin 2.1. IMPRESSION: 1. Acute kidney injury, likely from dehydration. 2. Hypernatremia from dehydration. 3. Right-sided weakness, possibly new stroke superimposed on prior stroke. 4. History of hypertension. 5. Adult-onset diabetes. 6. Moderate protein-calorie malnutrition. 7. Proteinuria, not clear quantitatively if this is significant. PLAN: 1. The patient should continue hydration with hypotonic fluids. 2. Monitor cardiovascular and neurologic condition closely. 3. Try to remove her Schneider. 4. Note that she is also apparently having some rectal bleeding and this will be evaluated further. Julio Sanchez M.D. DR: JEAN JOB#: [id number] CC:
[2020-05-24 11:50] VITALS: BP 144/82
--- NOTE | 2020-05-24 12:40 | NUR ---
NURSE NOTES: Received report from JO ANN Bee. Pt transfered from SDU to Tele. Pt is alert in bed, nonverbal and stable. Pt has R sided weakness noted. Skin discoloration in the inner thighs and, stomach. Pt has a RAC 18g, running d51/2NS at 100cc asymptomatic and intact. R hand running Abx asymptomatic and intact. Pt bed low and locked, call light in reach and bed alarm on. No s/s or complaint of distress at this time.
[2020-05-24] MEDS: cefTRIAXone 2 GM in D5W 55 ML IVPB SCH (13:02)
--- NOTE | 2020-05-24 13:06 | NUR ---
CASE MANAGEMENT:REVIEW 05/24/20 SI: ACUTE CVA 98.2 76 20 144/82 96% ON RA WBC+12.8 NA+158 BUN+25 IS: IVF@100/HR IV ROCEPHIN Q24 ASA PO QD HEPARIN SQ Q12 IV PROTONIX QD : TELEMETRY DCP: FROM HOME PLAN:VIDEO SWALLOW
--- NOTE | 2020-05-24 13:33 | Cardiology Report ---
APPROVED REPORT EXAM: Two-dimensional and M-mode echocardiogram with Doppler and color Doppler. INDICATION CVA M-Mode DIMENSIONS IVSd1.1 (0.7-1.1cm)Left Atrium (MM)4.2 (1.6-4.0cm) LVDd3.3 (3.5-5.6cm)Aortic Root2.8 (2.0-3.7cm) PWd1.0 (0.7-1.1cm)Aortic Cusp Exc.1.6 (1.5-2.0cm) IVSs1.4 cm LVDs2.2 (2.5-4.0cm) PWs1.4 cm <Conclusion> Normal left ventricular chamber size, systolic function and wall motion. Left ventricular ejection fraction estimated to be 60-65 %. Mild left ventricular hypertrophy. Anterior Echo-free space, may be due to pericardial fat or effusion. Left atrial size mildly enlarged. Right cardiac chamber sizes are within normal limits. Focal aortic valve sclerosis with adequate cusp excursion. Thickened mitral valve leaflets with normal excursion. Mitral annulus and aortic root calcification. Pulmonic valve not well visualized. Normal tricuspid valve structure. IVC at normal size and collapsing with respiration. A color flow and spectral Doppler study was performed and revealed: No aortic regurgitation. Mild mitral regurgitation. Mitral inflow indicate normal left ventricular diastolic function. Trace tricuspid regurgitation. Tricuspid systolic velocities suggests peak right ventricular systolic pressure of 17 mmHg. Mild pulmonic regurgitation present.
--- NOTE | 2020-05-24 14:22 | NUR ---
Speech Pathology Note (Videofluoroscopic Swallow Study) Fluoro Time: 1.18 min. Contrast: 1. sips of nectar thick liquid barium (15~25cc) 2. teaspoonful pudding barium (3~5cc) 3. Control sip of thin barium (10~15cc) View: Lateral Findings: 1. Penetration of thin barium to the level of true vocal folds without lizz aspiration 2. Premature spillage of thin barium to the level of pyriform sinuses with delay onset of swallow 3. Penetration of nectar barium into laryngeal vestibule without without reaching to the level of true vocal folds 4. No contrast residue is seen in oropharynx after completion of swallowing Interpretation: 1. Moderate oropharyngeal dysphagia as described without lizz aspiration due to right side oropharyngeal weakness and reduced coordination of deglutition 2. High risk of aspiration on thin liquid 3. Cough reflex with laryngeal penetration is intact Plan: 1. Continue with pureed and nectar thick liquid -Will likely be able to advance diet to soft solid soon. -chin tuck swallow will be likely effective SP/SW rx follow up Isatu Putnam
--- NOTE | 2020-05-24 14:24 | General Progress Note ---
Subjective Constitutional: Reports: malaise, weakness HEENT: Reports: no symptoms Cardiovascular: Reports: no symptoms Respiratory: Reports: no symptoms Gastrointestinal/Abdominal: Reports: no symptoms Genitourinary: Reports: no symptoms Neurologic/Psychiatric: Reports: pre-existing deficit Endocrine: Reports: no symptoms Hematologic/Lymphatic: Reports: no symptoms Allergies: Coded Allergies: SULFAMETHOXAZOLE (Unverified Allergy, Unknown, 12/09/17) TRIMETHOPRIM (Unverified Allergy, Unknown, 12/09/17) All Systems: reviewed and negative except above Subjective no complaints. passed swallow eval. MRI + cva. afib- rate controlled. +blood cultures noted. Objective Last 24 Hour Vital Signs Date Time Temp Pulse Resp B/P (MAP) Pulse Ox O2 Delivery O2 Flow Rate FiO2 05/24/20 12:00 64 05/24/20 11:50 98.2 76 20 144/82 (102) 96 05/24/20 11:00 Room Air 05/24/20 08:00 Room Air 05/24/20 08:00 66 05/24/20 08:00 98.1 67 20 156/79 (104) 100 05/24/20 04:00 63 05/24/20 03:59 98.7 60 22 154/88 (110) 98 05/24/20 03:58 Room Air 05/24/20 00:00 69 05/24/20 00:00 98.3 63 20 143/82 (102) 98 05/24/20 00:00 Room Air 05/23/20 21:00 98.2 78 20 142/82 (102) 98 05/23/20 20:00 Room Air 05/23/20 19:43 82 05/23/20 16:00 98.1 75 21 148/94 (112) 98 05/23/20 16:00 Room Air 05/23/20 16:00 75 05/23/20 14:45 80 20 155/91 98 Intake and Output 05/23/20 05/24/20 19:00 07:00 Intake Total 1070 ml Output Total 900 ml 600 ml Balance 170 ml -600 ml Intake Oral 240 ml IV Total 830 ml Output Urine Total 900 ml 600 ml # Bowel Movements 2 1 Laboratory Tests 05/24/20 03:00: White Blood Count 12.8H, Red Blood Count 4.16L, Hemoglobin 13.0, Hematocrit 38.6, Mean Corpuscular Volume 93, Mean Corpuscular Hemoglobin 31.3H, Mean Corpuscular Hemoglobin Concent 33.8, Red Cell Distribution Width 12.1, Platelet Count 124L, Mean Platelet Volume 8.1, Neutrophils (%) (Auto) 77.3H, Lymphocytes (%) (Auto) 13.5L, Monocytes (%) (Auto) 8.0, Eosinophils (%) (Auto) 0.6, Basophils (%) (Auto) 0.6, Sodium Level 158H, Potassium Level 3.6, Chloride Level 123H, Carbon Dioxide Level 24, Anion Gap 11, Blood Urea Nitrogen 25H, Creatinine 0.9#, Estimat Glomerular Filtration Rate > 60, Glucose Level 103, Calcium Level 8.2L, Phosphorus Level 1.7L, Total Bilirubin 0.5, Aspartate Amino Transf (AST/SGOT) 38H, Alanine Aminotransferase (ALT/SGPT) 45, Alkaline Phosphatase 92, Total Protein 5.8L, Albumin 2.1L, Globulin 3.7, Albumin/Globulin Ratio 0.6L, Random Vancomycin Level 10.6 05/24/20 04:00: Urine Random Sodium 118H, Urine Creatinine 52.2 05/24/20 11:00: Urine Creatinine 47.4, Urine Random Total Protein 36H 05/24/20 11:20: Stool Occult Blood [Pending] Height (Feet): 5 Height (Inches): 5.00 Weight (Pounds): 120 General Appearance: WD/WN, alert Neck: supple Cardiovascular: normal rate, regular rhythm Respiratory/Chest: chest wall non-tender, lungs clear, normal breath sounds Abdomen: normal bowel sounds, non tender, soft Edema: no edema noted Arm (L), no edema noted Arm (R) Neurologic: motor weakness - right hemiparesis Skin: normal pigmentation Assessment/Plan Problem List: (1) CVA (cerebral vascular accident) ICD Codes: I63.9 - Cerebral infarction, unspecified SNOMED: 940656382 (2) Renal failure ICD Codes: N19 - Unspecified kidney failure SNOMED: 53405705, 072106783 (3) Right hemiparesis ICD Codes: G81.91 - Hemiplegia, unspecified affecting right dominant side SNOMED: 342077883, 440031102 (4) Dehydration ICD Codes: E86.0 - Dehydration SNOMED: 71860525, 406683416 (5) UTI (urinary tract infection) ICD Codes: N39.0 - Urinary tract infection, site not specified SNOMED: 53796678, 449274190 (6) Decubitus skin ulcer ICD Codes: L89.90 - Pressure ulcer of unspecified site, unspecified stage SNOMED: 721737210 (7) Hypernatremia ICD Codes: E87.0 - Hyperosmolality and hypernatremia SNOMED: 480525084 (8) Leukocytosis ICD Codes: D72.829 - Elevated white blood cell count, unspecified SNOMED: 678010520, 004080582 Status: stable, progressing Assessment/Plan: cont current rx antiplt rx neuro eval anticoag to be determined. will repeat ct prior to initiation rate control per cards pt/ot/st iv abx per ID d/w pts dtr x 20 mins Vinay Lu MD May 24, 2020 14:24
[2020-05-24 16:00] VITALS: BP 145/92
[2020-05-24 17:12] LABS: ANION GAP 9 mmol/L (5-15); BLOOD UREA NITROGEN 19 mg/dL (7-18); CALCIUM 8.1 MG/DL (8.5-10.1); CARBON DIOXIDE 26 MMOL/L (21-32); CHLORIDE 115 MMOL/L (98-107); CREATININE 0.9 MG/DL (0.55-1.30); POTASSIUM 3.4 MMOL/L (3.5-5.1); SODIUM 150 MMOL/L (136-145)
[2020-05-24 20:00] VITALS: BP 155/78
--- NOTE | 2020-05-24 20:04 | NUR ---
NURSE HAND-OFF REPORT: Important Events on Shift: kamille 43 at 1800--md smart notified, Pt transfer from SDU, gannon removed 237 cc urine residual, Patient Status: fc, stable Diet: puree thick cardiac--feeder Pending Orders: Pending Results/Labs: awaiting occult stool result Pending MD notification: Latest Vital Signs: Temperature 98.1 , Pulse 88 , B/P 145 /92 , Respiratory Rate 16 , O2 SAT 100 , Room Air, O2 Flow Rate . Vital Sign Comment: EKG Rhythm: Sinus Rhythm Rhythm change?: N MD Notified?: N - MD Response: Latest Awad Fall Score: 95 Fall Risk: High Risk Safety Measures: Call light Within Reach, Bed Alarm Zone 1, Side Rails Side Rails x3, Bed position Low and Locked. Fall Precautions: Yellow Socks Yellow Gown Door Sign Patient Fall Education Report given to Sandra CHERRY.
--- NOTE | 2020-05-24 20:10 | NUR ---
NURSE NOTES: Patient received from Patricia CHERRY. Patient in bed sleeping in Semi-fowlers position. No signs of distress noted at this time. No pain noted at this time. Patient is Alert and oriented x 1, Alert to name. Patient IV site right hand running 100ml/hr of D5W with 20meq as ordered. Patent and flushed. No bleeding or erythema noted Bed is low and locked. Call light within reach. Patient was educated to use call light to call for assistance and before trying to get up. Patient has diarrhea at this time. Will collect sample. Will continue plan of care.
[2020-05-24] MEDS ORDERED: Tubing IV Secondary IV ONE (22:31)
[2020-05-24] MEDS ORDERED: NS 275ml ONE (22:31)
--- NOTE | 2020-05-24 23:03 | NUR ---
NURSE NOTES: Called Dr. Fung and spoke to covering Doctor, and informed Dr. Lu that the patient rhythm changes in her sleep to Bradycardia and then she had an episode of PAC [place], one the patient returned to Sinus Rhythm the patient is continuing to have PACs. Dr. Lu requested to countinue to monitor the patient at this time. Noted and will continue to monitor.
--- NOTE | 2020-05-24 23:07 | NUR ---
NURSE NOTES: Called and informed him that the patient has had diarrhea x2 on this shift and time 2x on the day shift and has an elivated temp of 99.0. ordered C.diff collection and acetaminophen 650mg Q4H For FEVER. noted cared out.
[2020-05-25] VITALS: BP 137/72
--- NOTE | 2020-05-25 00:30 | Cardiology Progress Note ---
Subjective Remains withdrawn MRI: reveals acute and subacute infarcts with distribution c/w cardioembolic source 2D Echo with normal LVEF and mild MR; no pulmonary hypertension. Monitor with AFib and episodes of slow heart rates Objective Last 24 Hour Vital Signs Date Time Temp Pulse Resp B/P (MAP) Pulse Ox O2 Delivery O2 Flow Rate FiO2 05/24/20 16:00 88 05/24/20 16:00 98.1 88 16 145/92 (109) 100 05/24/20 12:00 64 05/24/20 11:50 98.2 76 20 144/82 (102) 96 05/24/20 11:00 Room Air 05/24/20 08:00 Room Air 05/24/20 08:00 66 05/24/20 08:00 98.1 67 20 156/79 (104) 100 05/24/20 04:00 63 05/24/20 03:59 98.7 60 22 154/88 (110) 98 05/24/20 03:58 Room Air ROS: unchanged from my note of 05/22/20. HEENT: normal ENT inspection RHYTHM: Afib LUNGS: lungs clear bilaterally CARDIAC: normal rate, normal S1 and S2, irregularly irregular, bradycardia ABDOMEN: normal bowel sounds, non tender, soft, no organomegaly, no mass EXTREMITIES: normal range of motion, non-tender, normal inspection, no calf tenderness Laboratory Tests Test 05/24/20 03:00 05/24/20 04:00 05/24/20 11:00 05/24/20 11:20 White Blood Count 12.8 K/UL (4.8-10.8) H Red Blood Count 4.16 M/UL (4.20-5.40) L Hemoglobin 13.0 G/DL (12.0-16.0) Hematocrit 38.6 % (37.0-47.0) Mean Corpuscular Volume 93 FL (80-99) Mean Corpuscular Hemoglobin 31.3 PG (27.0-31.0) H Mean Corpuscular Hemoglobin Concent 33.8 G/DL (32.0-36.0) Red Cell Distribution Width 12.1 % (11.6-14.8) Platelet Count 124 K/UL (150-450) L Mean Platelet Volume 8.1 FL (6.5-10.1) Neutrophils (%) (Auto) 77.3 % (45.0-75.0) H Lymphocytes (%) (Auto) 13.5 % (20.0-45.0) L Monocytes (%) (Auto) 8.0 % (1.0-10.0) Eosinophils (%) (Auto) 0.6 % (0.0-3.0) Basophils (%) (Auto) 0.6 % (0.0-2.0) Sodium Level 158 MMOL/L (136-145) H Potassium Level 3.6 MMOL/L (3.5-5.1) Chloride Level 123 MMOL/L (98-107) H Carbon Dioxide Level 24 MMOL/L (21-32) Anion Gap 11 mmol/L (5-15) Blood Urea Nitrogen 25 mg/dL (7-18) H Creatinine 0.9 MG/DL (0.55-1.30) # Estimat Glomerular Filtration Rate > 60 mL/min (>60) Glucose Level 103 MG/DL (74-106) Calcium Level 8.2 MG/DL (8.5-10.1) L Phosphorus Level 1.7 MG/DL (2.5-4.9) L Total Bilirubin 0.5 MG/DL (0.2-1.0) Aspartate Amino Transf (AST/SGOT) 38 U/L (15-37) H Alanine Aminotransferase (ALT/SGPT) 45 U/L (12-78) Alkaline Phosphatase 92 U/L (46-116) Total Protein 5.8 G/DL (6.4-8.2) L Albumin 2.1 G/DL (3.4-5.0) L Globulin 3.7 g/dL Albumin/Globulin Ratio 0.6 (1.0-2.7) L Random Vancomycin Level 10.6 ug/mL Urine Random Sodium 118 mmol/L (20-110) H Urine Creatinine 52.2 MG/DL (30.0-125.0) 47.4 MG/DL (30.0-125.0) Urine Random Total Protein 36 MG/DL (< 11.9) H Stool Occult Blood Pending Test 05/24/20 16:15 Sodium Level 150 MMOL/L (136-145) H Potassium Level 3.4 MMOL/L (3.5-5.1) L Chloride Level 115 MMOL/L (98-107) H Carbon Dioxide Level 26 MMOL/L (21-32) Anion Gap 9 mmol/L (5-15) Blood Urea Nitrogen 19 mg/dL (7-18) H Creatinine 0.9 MG/DL (0.55-1.30) Estimat Glomerular Filtration Rate > 60 mL/min (>60) Glucose Level 162 MG/DL (74-106) H Calcium Level 8.1 MG/DL (8.5-10.1) L Microbiology Date/Time Source Procedure Growth Status 05/22/20 15:20 Nasal Nares - Final Complete 05/22/20 15:20 Nasal Nares - Final Complete 05/22/20 15:20 Nasopharynx SARS-CoV-2 RdRp Gene Assay - Final Complete 05/22/20 15:20 Blood Blood Culture - Preliminary Strep Species, Alpha Hemolytic Resulted 05/22/20 15:05 Blood Blood Culture - Preliminary NO GROWTH AFTER 24 HOURS Resulted Assessment/Plan Assessment/Plan Acute and subacute cardioembolic CVA Paroxysmal atrial flutter/fib with slow ventricular rates - likely associated with [employer] autonomic dysfxn Hypertension Lactic acidosis Dehydration/hypernatremia Acute renal failure Acute myocardial infarction (NSTEMI) Toxic and metabolic encephalopathies Moderate protein/calorie malnutrition Possible UTI Hypokalemia Cardiac monitoring IV abx Hold anti-coagulation for now to avoid hemorrhagic conversion Hypotonic IVF Protein suppl Follow up renal parameters and lytes No immediate indication for pacemaker Kirk Fung MD May 25, 2020 00:30
[2020-05-25 04:00] VITALS: BP 144/68
--- NOTE | 2020-05-25 04:05 | NUR ---
NURSE NOTES: Left message for Dr. Lu regarding patient bladder scan result of 790ml. Awaiting call back. Will continue to monitor patient.
--- NOTE | 2020-05-25 04:22 | NUR ---
NURSE NOTES: Left second message for Dr. Lu regarding patient bladder scan result of 790ml. Awaiting call back. Will continue to monitor patient.
--- NOTE | 2020-05-25 07:34 | NUR ---
NURSE NOTES: Pt received from Sandra CHERRY. Pt in bed sleeping, tray at bedside, will have [employer] feed her. HOB at 30 degrees. Bed low and locked, call light near left hand as she is weak to left side. IV bag almost done, will change shortly. Eyes open spontaneously.
[2020-05-25] MEDS: Heparin 5000 units/ml inj SUBQ SCH ×2 (07:38→21:00)
[2020-05-25 08:00] VITALS: BP 143/75
[2020-05-25] MEDS: D5W w/KCl 20mEq 1,000 ML IV SCH (08:41)
--- NOTE | 2020-05-25 09:05 | Surgery Progress Note ---
Surgery Progress Note Subjective Additional Comments more alert and moving around. not following commands Objective Last 24 Hour Vital Signs Date Time Temp Pulse Resp B/P (MAP) Pulse Ox O2 Delivery O2 Flow Rate FiO2 05/25/20 08:00 62 05/25/20 08:00 97.3 70 20 143/75 (97) 97 05/25/20 04:00 99.0 73 20 144/68 (93) 96 05/25/20 04:00 66 05/25/20 00:00 68 05/25/20 00:00 99.0 67 20 137/72 (93) 96 05/24/20 21:00 Room Air 05/24/20 20:00 67 05/24/20 20:00 99.1 70 19 155/78 (103) 97 05/24/20 16:00 88 05/24/20 16:00 98.1 88 16 145/92 (109) 100 05/24/20 12:00 64 05/24/20 11:50 98.2 76 20 144/82 (102) 96 05/24/20 11:00 Room Air I&O Intake and Output 05/24/20 05/25/20 19:00 07:00 Intake Total 590 ml 1000 ml Output Total 650 ml 1200 ml Balance -60 ml -200 ml Intake Oral 490 ml IV Total 100 ml 1000 ml Output Urine Total 650 ml 1200 ml # Voids 1 # Bowel Movements 4 4 Dressing: saturated Cardiovascular: RSR Respiratory: decreased breath sounds Abdomen: soft, non-tender, present bowel sounds Extremities: edema, no tenderness, no cyanosis, pulses, other Laboratory Tests Test 05/24/20 11:00 05/24/20 11:20 05/24/20 16:15 05/25/20 08:25 Urine Random Total Protein 36 MG/DL (< 11.9) H Urine Creatinine 47.4 MG/DL (30.0-125.0) Stool Occult Blood Pending Sodium Level 150 MMOL/L (136-145) H Pending Potassium Level 3.4 MMOL/L (3.5-5.1) L Pending Chloride Level 115 MMOL/L (98-107) H Pending Carbon Dioxide Level 26 MMOL/L (21-32) Pending Anion Gap 9 mmol/L (5-15) Blood Urea Nitrogen 19 mg/dL (7-18) H Pending Creatinine 0.9 MG/DL (0.55-1.30) Pending Estimat Glomerular Filtration Rate > 60 mL/min (>60) Pending Glucose Level 162 MG/DL (74-106) H Pending Calcium Level 8.1 MG/DL (8.5-10.1) L Pending White Blood Count Pending Red Blood Count Pending Hemoglobin Pending Hematocrit Pending Mean Corpuscular Volume Pending Mean Corpuscular Hemoglobin Pending Mean Corpuscular Hemoglobin Concent Pending Red Cell Distribution Width Pending Platelet Count Pending Mean Platelet Volume Pending Neutrophils (%) (Auto) Pending Lymphocytes (%) (Auto) Pending Monocytes (%) (Auto) Pending Eosinophils (%) (Auto) Pending Basophils (%) (Auto) Pending Plan Problems: (1) Decubitus skin ulcer Assessment & Plan: Patient presented on admission with multiple skin concerns. Patient was found down unknown duration and has developed significant injuries and skin concerns. Patient has a right shoulder 3 cm x 3 cm posterior deep tissue injury no fluctuance nontender no skin breakdown not open. Patient has sacral erythema identified. Patient has incontinence associated dermatitis identified in the perineum and bilateral thighs and groins. Patient has a right hip DTI with skin breakdown identified. Patient has a left knee unstageable decubitus ulcer with necrotic eschar. Patient has significant abdominal erythema and near cellulitis with burning rash. No abscess no drainage wounds unlikely source of patient's sepsis. Wound is likely attributed to patient being down for significant period of time. Will need nutritional optimization and local care plan to allow for healing and improvement. Care plan initiated. Treatment plan Wash all wounds daily with normal saline. Apply skin protectant and OPTi foam dressing to the right shoulder change every 3 days. Apply OPTi foam dressing patient sacral region monitor for incontinence change every 3 days and PRN saturation as necessary Apply skin protectant to bilateral thighs and perineum monitor for incontinence change accordingly. Thera honey to left knee eschar followed by OPTi foam dressing wrap with Kerlix if necessary change daily and PRN saturation Zinc oxide cream for abdominal wound. Apply daily. Wash wounds daily. Turn every 2 hours offload pressure with pillows Air mattress given patient's current medical condition Nutritional optimization We will follow with recommendations thank you for let me participate patient's care (2) Renal failure (3) CVA (cerebral vascular accident) Assessment & Plan: Old infarcts are seen in the bilateral basal ganglia and inferior frontal deep white matter. No acute intracranial hemorrhage or edema. No mass effect nor midline shift. There is age-related enlargement of the ventricles and extra- axial CSF spaces. There is periventricular deep white matter low-attenuation consistent with chronic microvascular ischemic change. Visualized orbits are unremarkable. There is bilateral ethmoid and bilateral maxillary sinus mucosal disease. The mastoids are clear. Impression: Chronic and age-related changes, including multiple old infarcts Negative for acute intracranial bleed or mass effect Right common carotid artery: Unremarkable. No occlusion or significant stenosis on color flow and spectral Doppler imaging. Right internal carotid artery: Unremarkable. No occlusion or significant stenosis on color flow and spectral Doppler imaging. Right external carotid artery: Unremarkable. No occlusion or significant stenosis on color flow and spectral Doppler imaging. Right vertebral artery: Antegrade flow within the vertebral arteries. Right ICA/CCA ratio: Unremarkable. Within normal limits. Left common carotid artery: Unremarkable. No occlusion or significant stenosis on color flow and spectral Doppler imaging. Left internal carotid artery: Significant calcified atherosclerotic disease is noted within the left carotid bulb. No occlusion or significant stenosis on color flow and spectral Doppler imaging. Left external carotid artery: Unremarkable. No occlusion or significant stenosis on color flow and spectral Doppler imaging. Left vertebral artery: See above. Left ICA/CCA ratio: Unremarkable. Within normal limits. Lymph nodes: Unremarkable. No lymphadenopathy. Other findings: Evaluation of peak systolic velocities bilaterally throughout the carotid systems reveal no evidence of hemodynamically significant stenosis, based on established criteria. CAROTID STENOSIS REFERENCE USING SRU CRITERIA: Mild - <50% stenosis. ICA PSV is less than 125 cm/second and plaque or intimal thickening is visible. Moderate - 50-69% stenosis. ICA PSV is 125 to 230 cm/second and plaque is visible. Severe - 70-94% stenosis. ICA PSV is more than 230 cm/second and visible plaque with lumen narrowing is seen. Near occlusion - 95-99% stenosis. ICA PSV is variable and significant plaque with luminal narrowing is seen. Occluded - 100% stenosis. No flow identified. IMPRESSION: 1. Prominent calcified plaque within the left carotid bulb. 2. No evidence of hemodynamically significant stenosis based on established ultrasound criteria. (4) Right hemiparesis (5) Dehydration Assessment & Plan: 1. Increase self initiation for drinking with her left hand: Ms. Hutchinson was able to self drink nector thick liquid via cup with her left hand with visual and tactile cue 90% of the time without s.s of aspiration. 2. Increase initiation of verbal utterance: Pt was able to verbally repeat at word level with visual cues and repetition at 75% of the time. 3.Diet appropriateness: Ms. Hutchinson was reminded what happened to her and why she is in the hospital and and her diet was currently modified in [place]. She appeared to be understanding my explanation. 4. Team approach to take care her case was initiated with communicating with RN and Rad dept to complete pending procedure (video swallow study at 13:00 today) A: 1. Oropharyngeal dysphagia due to multiple acute and subacute cerebral infarcts 2. 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 Likely presence of expressive aphasia P: 1. Modified diet with pureed and nector thick liquid with aspiration precaution 2. Encourage self drinking with her left hand with assistance -occupational therapist recommendation to follow 3. Full speech and language evaluation is needed for discharge plan - Strongly push for acute rehab if ultimate goal/support is to return to home. (6) Hypernatremia (7) Leukocytosis Assessment & Plan: wbc 20 on admission lactic acidosis - improving with hydration on abx as per ID no acute surgical intervention planned okay for tf diet nutrition eval local wound care will follow with recs and monitor thank you (8) UTI (urinary tract infection) Liam Hermosillo May 25, 2020 09:05
[2020-05-25 09:14] LABS: BASOPHILS % (AUTO) 0.8 % (0.0-2.0); EOSINOPHILS % (AUTO) 1.5 % (0.0-3.0); LYMPHOCYTES % (AUTO) 15.4 % (20.0-45.0); MEAN CORPUSCULAR VOLUME 91 FL (80-99); MONOCYTES % (AUTO) 6.8 % (1.0-10.0); NEUTROPHILS % (AUTO) 75.4 % (45.0-75.0); PLATELET COUNT 126 K/UL (150-450); RED BLOOD COUNT 4.19 M/UL (4.20-5.40); RED CELL DISTRIBUTION WIDTH 11.1 % (11.6-14.8); WHITE BLOOD COUNT 12.9 K/UL (4.8-10.8)
[2020-05-25 09:42] LABS: ANION GAP 5 mmol/L (5-15); BLOOD UREA NITROGEN 13 mg/dL (7-18); CALCIUM 8.2 MG/DL (8.5-10.1); CARBON DIOXIDE 27 MMOL/L (21-32); CHLORIDE 111 MMOL/L (98-107); CREATININE 0.8 MG/DL (0.55-1.30); POTASSIUM 3.6 MMOL/L (3.5-5.1); SODIUM 143 MMOL/L (136-145)
--- NOTE | 2020-05-25 10:39 | Nephrology Progress Note ---
Assessment/Plan Problem List: (1) Hypophosphatemia (2) KVNG (acute kidney injury) (3) Leukocytosis (4) Hypernatremia (5) Dehydration (6) Right hemiparesis (7) CVA (cerebral vascular accident) Plan rx sepsis, replete phos Subjective ROS Limited/Unobtainable: Yes Objective Objective Last 24 Hour Vital Signs Date Time Temp Pulse Resp B/P (MAP) Pulse Ox O2 Delivery O2 Flow Rate FiO2 05/25/20 08:00 62 05/25/20 08:00 97.3 70 20 143/75 (97) 97 05/25/20 04:00 99.0 73 20 144/68 (93) 96 05/25/20 04:00 66 05/25/20 00:00 68 05/25/20 00:00 99.0 67 20 137/72 (93) 96 05/24/20 21:00 Room Air 05/24/20 20:00 67 05/24/20 20:00 99.1 70 19 155/78 (103) 97 05/24/20 16:00 88 05/24/20 16:00 98.1 88 16 145/92 (109) 100 05/24/20 12:00 64 05/24/20 11:50 98.2 76 20 144/82 (102) 96 05/24/20 11:00 Room Air Intake and Output 05/24/20 05/25/20 19:00 07:00 Intake Total 590 ml 1000 ml Output Total 650 ml 1200 ml Balance -60 ml -200 ml Intake Oral 490 ml IV Total 100 ml 1000 ml Output Urine Total 650 ml 1200 ml # Voids 1 # Bowel Movements 4 4 Laboratory Tests 05/24/20 11:00: Urine Random Total Protein 36H, Urine Creatinine 47.4 05/24/20 11:20: Stool Occult Blood [Pending] 05/24/20 16:15: Sodium Level 150H, Potassium Level 3.4L, Chloride Level 115H, Carbon Dioxide Level 26, Anion Gap 9, Blood Urea Nitrogen 19H, Creatinine 0.9, Estimat Glomerular Filtration Rate > 60, Glucose Level 162H, Calcium Level 8.1L 05/25/20 08:25: Sodium Level 143, Potassium Level 3.6, Chloride Level 111H, Carbon Dioxide Level 27, Anion Gap 5, Blood Urea Nitrogen 13, Creatinine 0.8, Estimat Glomerular Filtration Rate > 60, Glucose Level 118H, Calcium Level 8.2L, White Blood Count 12.9H, Red Blood Count 4.19L, Hemoglobin 13.0, Hematocrit 38.0, Mean Corpuscular Volume 91, Mean Corpuscular Hemoglobin 31.1H, Mean Corpuscular Hemoglobin Concent 34.3, Red Cell Distribution Width 11.1L, Platelet Count 126L, Mean Platelet Volume 8.0, Neutrophils (%) (Auto) 75.4H, Lymphocytes (%) (Auto) 15.4L, Monocytes (%) (Auto) 6.8, Eosinophils (%) (Auto) 1.5, Basophils (%) (Auto) 0.8 Height (Feet): 5 Height (Inches): 5.00 Weight (Pounds): 120 General Appearance: lethargic, confused EENT: normal ENT inspection Neck: supple Cardiovascular: regular rhythm Respiratory/Chest: lungs clear Abdomen: soft Extremities: trace edema Neurologic: motor weakness, disoriented Julio Sanchez MD May 25, 2020 10:39
[2020-05-25] MEDS: Pantoprazole Inj IVP SCH (10:52)
[2020-05-25] MEDS: Aspirin Baby 81mg ORAL SCH (10:52)
[2020-05-25] MEDS: Vancomycin 1gm/D5W 275ml IVPB SCH ×2 (10:53)
[2020-05-25 12:00] VITALS: BP 125/69
[2020-05-25] MEDS: D5 IV SCH (12:53)
[2020-05-25] MEDS: [UNRECOGNIZED DRUG - OTHER] IV SCH (12:53)
[2020-05-25] MEDS: POTASSIUM PHOSPHATE IV SCH (12:53)
[2020-05-25] MEDS: cefTRIAXone 2 GM in D5W 55 ML IVPB SCH (12:54)
--- NOTE | 2020-05-25 12:56 | General Progress Note ---
Subjective ROS Limited/Unobtainable: No Constitutional: Reports: malaise, weakness HEENT: Reports: no symptoms Cardiovascular: Reports: no symptoms Respiratory: Reports: no symptoms Gastrointestinal/Abdominal: Reports: no symptoms Genitourinary: Reports: no symptoms Neurologic/Psychiatric: Reports: pre-existing deficit Endocrine: Reports: no symptoms Hematologic/Lymphatic: Reports: anemia Allergies: Coded Allergies: SULFAMETHOXAZOLE (Unverified Allergy, Unknown, 12/09/17) TRIMETHOPRIM (Unverified Allergy, Unknown, 12/09/17) All Systems: reviewed and negative except above Subjective stable. no new complaints. dense right sided hemiparesis. Stool ob+. no melena or brbpr. blood culture with entercoccus and C.perfrigens. Objective Last 24 Hour Vital Signs Date Time Temp Pulse Resp B/P (MAP) Pulse Ox O2 Delivery O2 Flow Rate FiO2 05/25/20 12:00 97.5 65 18 125/69 (87) 97 05/25/20 12:00 64 05/25/20 09:00 Room Air 05/25/20 08:00 62 05/25/20 08:00 97.3 70 20 143/75 (97) 97 05/25/20 04:00 99.0 73 20 144/68 (93) 96 05/25/20 04:00 66 05/25/20 00:00 68 05/25/20 00:00 99.0 67 20 137/72 (93) 96 05/24/20 21:00 Room Air 05/24/20 20:00 67 05/24/20 20:00 99.1 70 19 155/78 (103) 97 05/24/20 16:00 88 05/24/20 16:00 98.1 88 16 145/92 (109) 100 Intake and Output 05/24/20 05/25/20 19:00 07:00 Intake Total 590 ml 1000 ml Output Total 650 ml 1200 ml Balance -60 ml -200 ml Intake Oral 490 ml IV Total 100 ml 1000 ml Output Urine Total 650 ml 1200 ml # Voids 1 # Bowel Movements 4 4 Laboratory Tests 05/24/20 16:15: Sodium Level 150H, Potassium Level 3.4L, Chloride Level 115H, Carbon Dioxide Level 26, Anion Gap 9, Blood Urea Nitrogen 19H, Creatinine 0.9, Estimat Glomerular Filtration Rate > 60, Glucose Level 162H, Calcium Level 8.1L 05/25/20 08:25: Sodium Level 143, Potassium Level 3.6, Chloride Level 111H, Carbon Dioxide Level 27, Anion Gap 5, Blood Urea Nitrogen 13, Creatinine 0.8, Estimat Glomerular Filtration Rate > 60, Glucose Level 118H, Calcium Level 8.2L, White Blood Count 12.9H, Red Blood Count 4.19L, Hemoglobin 13.0, Hematocrit 38.0, Mean Corpuscular Volume 91, Mean Corpuscular Hemoglobin 31.1H, Mean Corpuscular Hemoglobin Concent 34.3, Red Cell Distribution Width 11.1L, Platelet Count 126L, Mean Platelet Volume 8.0, Neutrophils (%) (Auto) 75.4H, Lymphocytes (%) (Auto) 15.4L, Monocytes (%) (Auto) 6.8, Eosinophils (%) (Auto) 1.5, Basophils (%) (Auto) 0.8 Height (Feet): 5 Height (Inches): 5.00 Weight (Pounds): 120 Objective General Appearance: WD/WN, alert Neck: supple Cardiovascular: normal rate, regular rhythm Respiratory/Chest: chest wall non-tender, lungs clear, normal breath sounds Abdomen: normal bowel sounds, non tender, soft Edema: no edema noted Arm (L), no edema noted Arm (R) Neurologic: motor weakness - right hemiparesis Skin: normal pigmentation. +black wound jany knees. + drainage Assessment/Plan Problem List: (1) CVA (cerebral vascular accident) ICD Codes: I63.9 - Cerebral infarction, unspecified SNOMED: 994518733 (2) Renal failure ICD Codes: N19 - Unspecified kidney failure SNOMED: 95493494, 909149300 (3) Right hemiparesis ICD Codes: G81.91 - Hemiplegia, unspecified affecting right dominant side SNOMED: 816694133, 291271646 (4) Dehydration ICD Codes: E86.0 - Dehydration SNOMED: 28876104, 202265224 (5) UTI (urinary tract infection) ICD Codes: N39.0 - Urinary tract infection, site not specified SNOMED: 21189559, 503704473 (6) Decubitus skin ulcer ICD Codes: L89.90 - Pressure ulcer of unspecified site, unspecified stage SNOMED: 090419597 (7) Hypernatremia ICD Codes: E87.0 - Hyperosmolality and hypernatremia SNOMED: 359842153 (8) Leukocytosis ICD Codes: D72.829 - Elevated white blood cell count, unspecified SNOMED: 125973584, 642748597 Status: stable, progressing Assessment/Plan: cont current rx antiplt rx neuro eval- unable to locate neuro able to see pt anticoag to be determined 1-[address] or MRI prior to initiation rate control per cards pt/ot/st iv abx per ID ?abaerobic coveage CT jany knees- r/o abscess surgery follow up ?I and D d/w pts dtr x 20 mins Vinay Lu MD May 25, 2020 12:56
[2020-05-25 16:00] VITALS: BP 139/73
--- NOTE | 2020-05-25 19:20 | NUR ---
NURSE NOTES: Patient received from Ani RN. Patient in awake resting in Semi-fowlers position. No signs of distress noted at this time. No pain noted at this time. Patient is Alert and oriented x 1, Alert to name. [place] speaking. Patient IV site Left AC running 50ml/hr of K phos 20meq D5 1/4NS as ordered. Patent and flushed. No bleeding or erythema noted Bed is low and locked. Call light within reach. Patient was educated to use call light to call for assistance and before trying to get up. Patient has diarrhea at this time. Will continue plan of care.
--- NOTE | 2020-05-25 19:26 | NUR ---
NURSE HAND-OFF REPORT: Important Events on Shift: 2 new ivs, however right arm not draining properly so not being used. Left AC 22G running electrolytes. Patient Status: in bed resting. right side no movement, left side weak. eyes open and tracking. Speech garbled. Diet: CCHO Med puree moist, thick liquids Pending Orders: bilateral knee CT Pending Results/Labs: Pending MD notification: Latest Vital Signs: Temperature 98.1 , Pulse 68 , B/P 139 /73 , Respiratory Rate 20 , O2 SAT 98 , Room Air, O2 Flow Rate . Vital Sign Comment: EKG Rhythm: Sinus Rhythm Rhythm change?: N MD Notified?: N - MD Response: Latest Awad Fall Score: 95 Fall Risk: High Risk Safety Measures: Call light Within Reach, Bed Alarm Zone 1, Side Rails Side Rails x3, Bed position Low and Locked. Fall Precautions: Yellow Socks Yellow Gown Door Sign Patient Fall Education Report given to Luisa CHERRY
[2020-05-25 20:00] VITALS: BP 159/77
--- NOTE | 2020-05-25 21:09 | NUR ---
NURSE NOTES: Held patient Heparin due to the the low platelets of 126 and patient has a positive OB Stool.
[2020-05-26] VITALS: BP 153/80
--- NOTE | 2020-05-26 00:59 | Cardiology Progress Note ---
Subjective DATE OF SERVICE: May 25, 2020 Remains withdrawn but alert MRI: reveals acute and subacute infarcts with distribution c/w cardioembolic source 2D Echo with normal LVEF and mild MR; no pulmonary hypertension. Monitor with AFib and episodes of slow heart rates - no pauses. Objective Last 24 Hour Vital Signs Date Time Temp Pulse Resp B/P (MAP) Pulse Ox O2 Delivery O2 Flow Rate FiO2 05/25/20 21:00 Room Air 05/25/20 20:00 70 05/25/20 20:00 97.9 68 18 159/77 (104) 98 05/25/20 16:00 68 05/25/20 16:00 98.1 76 20 139/73 (95) 98 05/25/20 12:00 97.5 65 18 125/69 (87) 97 05/25/20 12:00 64 05/25/20 09:00 Room Air 05/25/20 08:00 62 05/25/20 08:00 97.3 70 20 143/75 (97) 97 05/25/20 04:00 99.0 73 20 144/68 (93) 96 05/25/20 04:00 66 ROS: unchanged from my note of 05/22/20. HEENT: normal ENT inspection RHYTHM: Afib LUNGS: lungs clear bilaterally CARDIAC: normal rate, normal S1 and S2, irregularly irregular, bradycardia ABDOMEN: normal bowel sounds, non tender, soft, no organomegaly, no mass EXTREMITIES: normal range of motion, non-tender, normal inspection, no calf tenderness Laboratory Tests Test 05/25/20 08:25 White Blood Count 12.9 K/UL (4.8-10.8) H Red Blood Count 4.19 M/UL (4.20-5.40) L Hemoglobin 13.0 G/DL (12.0-16.0) Hematocrit 38.0 % (37.0-47.0) Mean Corpuscular Volume 91 FL (80-99) Mean Corpuscular Hemoglobin 31.1 PG (27.0-31.0) H Mean Corpuscular Hemoglobin Concent 34.3 G/DL (32.0-36.0) Red Cell Distribution Width 11.1 % (11.6-14.8) L Platelet Count 126 K/UL (150-450) L Mean Platelet Volume 8.0 FL (6.5-10.1) Neutrophils (%) (Auto) 75.4 % (45.0-75.0) H Lymphocytes (%) (Auto) 15.4 % (20.0-45.0) L Monocytes (%) (Auto) 6.8 % (1.0-10.0) Eosinophils (%) (Auto) 1.5 % (0.0-3.0) Basophils (%) (Auto) 0.8 % (0.0-2.0) Sodium Level 143 MMOL/L (136-145) Potassium Level 3.6 MMOL/L (3.5-5.1) Chloride Level 111 MMOL/L (98-107) H Carbon Dioxide Level 27 MMOL/L (21-32) Anion Gap 5 mmol/L (5-15) Blood Urea Nitrogen 13 mg/dL (7-18) Creatinine 0.8 MG/DL (0.55-1.30) Estimat Glomerular Filtration Rate > 60 mL/min (>60) Glucose Level 118 MG/DL (74-106) H Calcium Level 8.2 MG/DL (8.5-10.1) L Microbiology Date/Time Source Procedure Growth Status 05/24/20 23:30 Stool Clostridium difficile Toxin Assay - Final Complete Assessment/Plan Assessment/Plan Acute and subacute cardioembolic CVA Paroxysmal atrial flutter/fib with slow ventricular rates - likely associated with [employer] autonomic dysfxn Hypertension Lactic acidosis Dehydration/hypernatremia corrected Acute renal failure Acute myocardial infarction (NSTEMI) Toxic and metabolic encephalopathies Moderate protein/calorie malnutrition Possible UTI Hypokalemia Cardiac monitoring IV abx Hold anti-coagulation for now to avoid hemorrhagic conversion; reassess in 2-3 weeks. Hypotonic IVF adjusted. Protein suppl Follow up renal parameters and lytes No immediate indication for pacemaker Kirk Fung MD May 26, 2020 00:59
--- NOTE | 2020-05-26 02:48 | NUR ---
NURSE HAND-OFF REPORT: Important Events on Shift:Patient wound care was performed. Patient Status: Stable Diet: Cardiac Diet Puree thick liquid Pending Orders: Pending Results/Labs: Pending MD notification: Latest Vital Signs: Temperature 98.6 , Pulse 67 , B/P 153 /80 , Respiratory Rate 20 , O2 SAT 96 , Room Air, O2 Flow Rate . Vital Sign Comment: EKG Rhythm: Sinus Rhythm Rhythm change?: N MD Notified?: N - MD Response: Latest Awad Fall Score: 95 Fall Risk: High Risk Safety Measures: Call light Within Reach, Bed Alarm Zone 1, Side Rails Side Rails x3, Bed position Low and Locked. Fall Precautions: Yellow Socks Yellow Gown Door Sign Patient Fall Education Report given to Kelly CHERRY.
[2020-05-26 04:00] VITALS: BP 126/78
[2020-05-26] MEDS ORDERED: dilTIAZem HCl 25mg/5ml Inj IVP SCH (04:00)
--- NOTE | 2020-05-26 07:22 | NUR ---
NURSE NOTES: Received report from JO ANN Welch. Patient in semi-Basurto's position, awake, watching television, Schneider catheter in place, IV in right forearm running fluids, bed in lowest position, call light within reach, side rails up x 3, in no apparent distress.
--- NOTE | 2020-05-26 07:25 | NUR ---
NURSE HAND-OFF REPORT: Important Events on Shift: Afib with RVR, caridzem 15mg IVP per Antonieta Patient Status: stable Diet: Cardiac pureed nectar thick Pending Orders: none Pending Results/Labs: vanco trough Pending notification: none Latest Vital Signs: Temperature 99.5 , Pulse 151 , B/P 130 /86 , Respiratory Rate 20 , O2 SAT 96 , Room Air, O2 Flow Rate . Vital Sign Comment: EKG Rhythm: SR Rhythm change?: Noemy PINEDA Notified?: Noemy Daley MD Response: entered new orders Latest Awad Fall Score: 95 Fall Risk: High Risk Safety Measures: Call light Within Reach, Bed Alarm Zone 1, Side Rails Side Rails x3, Bed position Low and Locked. Fall Precautions: yes Yellow Socks yes Yellow Gown yes Door Sign yes Patient Fall Education yes Report given to Troy Baker RN
[2020-05-26 08:00] VITALS: BP 131/77
[2020-05-26] MEDS: Pantoprazole Inj IVP SCH (08:41)
[2020-05-26] MEDS: Aspirin Baby 81mg ORAL SCH (08:42)
[2020-05-26] MEDS: Heparin 5000 units/ml inj SUBQ SCH ×2 (08:43→21:00)
[2020-05-26] MEDS: D5 IV SCH (08:45)
[2020-05-26] MEDS: [UNRECOGNIZED DRUG - OTHER] IV SCH (08:45)
[2020-05-26] MEDS: POTASSIUM PHOSPHATE IV SCH (08:45)
[2020-05-26] MEDS ORDERED: NS 275ml ONE (09:18)
[2020-05-26 09:57] LABS: BASOPHILS % (AUTO) 0.9 % (0.0-2.0); EOSINOPHILS % (AUTO) 1.8 % (0.0-3.0); HEMATOCRIT 39.1 % (37.0-47.0); HEMOGLOBIN 13.4 G/DL (12.0-16.0); LYMPHOCYTES % (AUTO) 16.4 % (20.0-45.0); MEAN CORPUSCULAR VOLUME 90 FL (80-99); PLATELET COUNT 141 K/UL (150-450); RED BLOOD COUNT 4.33 M/UL (4.20-5.40); RED CELL DISTRIBUTION WIDTH 10.9 % (11.6-14.8); WHITE BLOOD COUNT 10.8 K/UL (4.8-10.8)
[2020-05-26 10:17] LABS: ALANINE AMINOTRANSFERASE 35 U/L (12-78); ALBUMIN/GLOBULIN RATIO 0.5 (1.0-2.7); ALKALINE PHOSPHATASE 74 U/L (46-116); ANION GAP 4 mmol/L (5-15); ASPARTATE AMINO TRANSFERASE 30 U/L (15-37); BILIRUBIN,TOTAL 0.4 MG/DL (0.2-1.0); BLOOD UREA NITROGEN 10 mg/dL (7-18); CALCIUM 8.2 MG/DL (8.5-10.1); CARBON DIOXIDE 30 MMOL/L (21-32); CHLORIDE 108 MMOL/L (98-107); CREATININE 0.7 MG/DL (0.55-1.30); POTASSIUM 3.4 MMOL/L (3.5-5.1); SODIUM 142 MMOL/L (136-145)
[2020-05-26 10:28] LABS: PHOSPHORUS 3.1 MG/DL (2.5-4.9)
--- NOTE | 2020-05-26 11:09 | General Progress Note ---
Subjective Allergies: Coded Allergies: SULFAMETHOXAZOLE (Unverified Allergy, Unknown, 12/09/17) TRIMETHOPRIM (Unverified Allergy, Unknown, 12/09/17) Subjective stable. no new complaints. dense right sided hemiparesis. Stool ob+. X 2 no melena or brbpr. ?hemorrhoids. blood culture with entercoccus and C.perfrigens. Objective Last 24 Hour Vital Signs Date Time Temp Pulse Resp B/P (MAP) Pulse Ox O2 Delivery O2 Flow Rate FiO2 05/26/20 08:00 66 05/26/20 08:00 96.1 63 18 131/77 (95) 98 05/26/20 04:18 151 130/86 05/26/20 04:00 151 05/26/20 04:00 99.5 81 20 126/78 (94) 96 05/26/20 00:00 98.6 63 20 153/80 (104) 96 05/26/20 00:00 67 05/25/20 21:00 Room Air 05/25/20 20:00 70 05/25/20 20:00 97.9 68 18 159/77 (104) 98 05/25/20 16:00 68 05/25/20 16:00 98.1 76 20 139/73 (95) 98 05/25/20 12:00 97.5 65 18 125/69 (87) 97 05/25/20 12:00 64 Intake and Output 05/25/20 05/26/20 19:00 07:00 Intake Total 100 ml 200 ml Output Total 1400 ml 1200 ml Balance -1300 ml -1000 ml Intake Oral 100 ml 200 ml Output Urine Total 1400 ml 1200 ml Laboratory Tests 05/26/20 09:00: White Blood Count 10.8, Red Blood Count 4.33, Hemoglobin 13.4, Hematocrit 39.1, Mean Corpuscular Volume 90, Mean Corpuscular Hemoglobin 30.9, Mean Corpuscular Hemoglobin Concent 34.3, Red Cell Distribution Width 10.9L, Platelet Count 141L, Mean Platelet Volume 8.7, Neutrophils (%) (Auto) 75.0, Lymphocytes (%) (Auto) 16.4L, Monocytes (%) (Auto) 6.0, Eosinophils (%) (Auto) 1.8, Basophils (%) (Auto) 0.9, Sodium Level 142, Potassium Level 3.4L, Chloride Level 108H, Carbon Dioxide Level 30, Anion Gap 4L, Blood Urea Nitrogen 10, Creatinine 0.7, Estimat Glomerular Filtration Rate > 60, Glucose Level 135H, Calcium Level 8.2L, Phosphorus Level 3.1, Magnesium Level 2.0, Total Bilirubin 0.4, Aspartate Amino Transf (AST/SGOT) 30, Alanine Aminotransferase (ALT/SGPT) 35, Alkaline Phosphatase 74, Troponin I 0.133H, Total Protein 5.8L, Albumin 2.0L, Globulin 3.8, Albumin/Globulin Ratio 0.5L, Vancomycin Level Trough 5.1 Height (Feet): 5 Height (Inches): 5.00 Weight (Pounds): 120 Objective General Appearance: WD/WN, alert Neck: supple Cardiovascular: normal rate, regular rhythm Respiratory/Chest: chest wall non-tender, lungs clear, normal breath sounds Abdomen: normal bowel sounds, non tender, soft Edema: no edema noted Arm (L), no edema noted Arm (R) Neurologic: motor weakness - right hemiparesis Skin: normal pigmentation. +black wound jany knees. + drainage Assessment/Plan Problem List: (1) CVA (cerebral vascular accident) ICD Codes: I63.9 - Cerebral infarction, unspecified SNOMED: 532746917 (2) Renal failure ICD Codes: N19 - Unspecified kidney failure SNOMED: 61429727, 807009760 (3) Right hemiparesis ICD Codes: G81.91 - Hemiplegia, unspecified affecting right dominant side SNOMED: 031646178, 590021792 (4) Dehydration ICD Codes: E86.0 - Dehydration SNOMED: 75588450, 378801154 (5) UTI (urinary tract infection) ICD Codes: N39.0 - Urinary tract infection, site not specified SNOMED: 28865425, 002086460 (6) Decubitus skin ulcer ICD Codes: L89.90 - Pressure ulcer of unspecified site, unspecified stage SNOMED: 504573759 (7) Hypernatremia ICD Codes: E87.0 - Hyperosmolality and hypernatremia SNOMED: 516032208 (8) Leukocytosis ICD Codes: D72.829 - Elevated white blood cell count, unspecified SNOMED: 759292944, 640569419 Status: stable, progressing Assessment/Plan: cont current rx antiplt rx neuro eval- unable to locate neuro able to see pt anticoag to be determined 1-[address] or MRI prior to initiation GI consult regarding OB+ stools as pt will eventually need AC rate control per cards pt/ot/st iv abx per ID ?abaerobic coveage CT jany knees- r/o abscess surgery follow up ?I and D d/w pts dtr x 20 mins Vinay Lu MD May 26, 2020 11:09
--- NOTE | 2020-05-26 11:10 | NUR ---
NURSE NOTES: Reported to message service of Dr. Kirk Fung, potassium=3.4, troponin=0.133.
[2020-05-26 12:00] VITALS: BP 139/69
[2020-05-26] MEDS: Vancomycin 1gm/D5W 275ml IVPB SCH ×2 (12:01)
[2020-05-26] MEDS ORDERED: Piperacillin/Tazobactam 3.375 GM in NS 110 ML IVPB SCH (13:00)
--- NOTE | 2020-05-26 14:05 | Nephrology Progress Note ---
Assessment/Plan Problem List: (1) Hypophosphatemia (2) KVNG (acute kidney injury) (3) Leukocytosis (4) Hypernatremia (5) Dehydration (6) Right hemiparesis (7) CVA (cerebral vascular accident) (8) Hypokalemia Plan rx sepsis, replete phos, replace K Subjective ROS Limited/Unobtainable: Yes Objective Objective Last 24 Hour Vital Signs Date Time Temp Pulse Resp B/P (MAP) Pulse Ox O2 Delivery O2 Flow Rate FiO2 05/26/20 12:00 65 05/26/20 12:00 99.3 74 18 139/69 (92) 96 05/26/20 09:00 Room Air 05/26/20 08:00 66 05/26/20 08:00 96.1 63 18 131/77 (95) 98 05/26/20 04:18 151 130/86 05/26/20 04:00 151 05/26/20 04:00 99.5 81 20 126/78 (94) 96 05/26/20 00:00 98.6 63 20 153/80 (104) 96 05/26/20 00:00 67 05/25/20 21:00 Room Air 05/25/20 20:00 70 05/25/20 20:00 97.9 68 18 159/77 (104) 98 05/25/20 16:00 68 05/25/20 16:00 98.1 76 20 139/73 (95) 98 Intake and Output 05/25/20 05/26/20 19:00 07:00 Intake Total 100 ml 200 ml Output Total 1400 ml 1200 ml Balance -1300 ml -1000 ml Intake Oral 100 ml 200 ml Output Urine Total 1400 ml 1200 ml Laboratory Tests 05/26/20 09:00: White Blood Count 10.8, Red Blood Count 4.33, Hemoglobin 13.4, Hematocrit 39.1, Mean Corpuscular Volume 90, Mean Corpuscular Hemoglobin 30.9, Mean Corpuscular Hemoglobin Concent 34.3, Red Cell Distribution Width 10.9L, Platelet Count 141L, Mean Platelet Volume 8.7, Neutrophils (%) (Auto) 75.0, Lymphocytes (%) (Auto) 16.4L, Monocytes (%) (Auto) 6.0, Eosinophils (%) (Auto) 1.8, Basophils (%) (Auto) 0.9, Sodium Level 142, Potassium Level 3.4L, Chloride Level 108H, Carbon Dioxide Level 30, Anion Gap 4L, Blood Urea Nitrogen 10, Creatinine 0.7, Estimat Glomerular Filtration Rate > 60, Glucose Level 135H, Calcium Level 8.2L, Phosphorus Level 3.1, Magnesium Level 2.0, Total Bilirubin 0.4, Aspartate Amino Transf (AST/SGOT) 30, Alanine Aminotransferase (ALT/SGPT) 35, Alkaline Phosphatase 74, Troponin I 0.133H, Total Protein 5.8L, Albumin 2.0L, Globulin 3.8, Albumin/Globulin Ratio 0.5L, Vancomycin Level Trough 5.1 Height (Feet): 5 Height (Inches): 5.00 Weight (Pounds): 120 General Appearance: alert EENT: normal ENT inspection Neck: normal alignment Cardiovascular: regular rhythm Respiratory/Chest: lungs clear Abdomen: non tender, soft Extremities: no edema Neurologic: motor weakness Julio Sanchez MD May 26, 2020 14:05
--- NOTE | 2020-05-26 15:33 | Infectious Diseases Prog Note ---
Assessment/Plan Assessment/Plan A 1. Enterococcus & clostridial sepsis 2. atrial fibrillation 3. renal failure improving 4. hypertension P 1. continue Zosyn 2. Discontinue iv vancomycin, 3, will follow up cultures Subjective ROS Limited/Unobtainable: Yes Constitutional: Denies: fever Allergies: Coded Allergies: SULFAMETHOXAZOLE (Unverified Allergy, Unknown, 12/09/17) TRIMETHOPRIM (Unverified Allergy, Unknown, 12/09/17) Objective Last 24 Hour Vital Signs Date Time Temp Pulse Resp B/P (MAP) Pulse Ox O2 Delivery O2 Flow Rate FiO2 05/26/20 12:00 65 05/26/20 12:00 99.3 74 18 139/69 (92) 96 05/26/20 09:00 Room Air 05/26/20 08:00 66 05/26/20 08:00 96.1 63 18 131/77 (95) 98 05/26/20 04:18 151 130/86 05/26/20 04:00 151 05/26/20 04:00 99.5 81 20 126/78 (94) 96 05/26/20 00:00 98.6 63 20 153/80 (104) 96 05/26/20 00:00 67 05/25/20 21:00 Room Air 05/25/20 20:00 70 05/25/20 20:00 97.9 68 18 159/77 (104) 98 05/25/20 16:00 68 05/25/20 16:00 98.1 76 20 139/73 (95) 98 Height (Feet): 5 Height (Inches): 5.00 Weight (Pounds): 120 General Appearance: no acute distress HEENT: mucous membranes moist Respiratory/Chest: lungs clear Cardiovascular: normal rate Abdomen: soft, non tender Extremities: no edema Skin: other - left knee scab Neurologic/Psychiatric: alert, responsive Microbiology Date/Time Source Procedure Growth Status 05/24/20 23:30 Stool Clostridium difficile Toxin Assay - Final Complete Laboratory Tests Test 05/26/20 09:00 White Blood Count 10.8 K/UL (4.8-10.8) Red Blood Count 4.33 M/UL (4.20-5.40) Hemoglobin 13.4 G/DL (12.0-16.0) Hematocrit 39.1 % (37.0-47.0) Mean Corpuscular Volume 90 FL (80-99) Mean Corpuscular Hemoglobin 30.9 PG (27.0-31.0) Mean Corpuscular Hemoglobin Concent 34.3 G/DL (32.0-36.0) Red Cell Distribution Width 10.9 % (11.6-14.8) L Platelet Count 141 K/UL (150-450) L Mean Platelet Volume 8.7 FL (6.5-10.1) Neutrophils (%) (Auto) 75.0 % (45.0-75.0) Lymphocytes (%) (Auto) 16.4 % (20.0-45.0) L Monocytes (%) (Auto) 6.0 % (1.0-10.0) Eosinophils (%) (Auto) 1.8 % (0.0-3.0) Basophils (%) (Auto) 0.9 % (0.0-2.0) Sodium Level 142 MMOL/L (136-145) Potassium Level 3.4 MMOL/L (3.5-5.1) L Chloride Level 108 MMOL/L (98-107) H Carbon Dioxide Level 30 MMOL/L (21-32) Anion Gap 4 mmol/L (5-15) L Blood Urea Nitrogen 10 mg/dL (7-18) Creatinine 0.7 MG/DL (0.55-1.30) Estimat Glomerular Filtration Rate > 60 mL/min (>60) Glucose Level 135 MG/DL (74-106) H Calcium Level 8.2 MG/DL (8.5-10.1) L Phosphorus Level 3.1 MG/DL (2.5-4.9) Magnesium Level 2.0 MG/DL (1.8-2.4) Total Bilirubin 0.4 MG/DL (0.2-1.0) Aspartate Amino Transf (AST/SGOT) 30 U/L (15-37) Alanine Aminotransferase (ALT/SGPT) 35 U/L (12-78) Alkaline Phosphatase 74 U/L (46-116) Troponin I 0.133 ng/mL (0.000-0.056) Total Protein 5.8 G/DL (6.4-8.2) L Albumin 2.0 G/DL (3.4-5.0) L Globulin 3.8 g/dL Albumin/Globulin Ratio 0.5 (1.0-2.7) L Vancomycin Level Trough 5.1 ug/mL (5.0-12.0) Current Medications Medications (Trade) Dose Ordered Sig/Marci Route PRN Reason Start Time Stop Time Status Last Admin Dose Admin Acetaminophen (Tylenol) 650 mg Q4H PRN ORAL FEVER 05/24/20 23:15 06/23/20 23:14 Acetaminophen (Tylenol) 650 mg Q6H PRN ORAL Pain Scale (3-5) 05/22/20 19:30 06/21/20 19:29 Aspirin (ASA) 81 mg DAILY ORAL 05/24/20 09:00 07/08/20 08:59 05/26/20 08:42 Heparin Sodium (Porcine) (Heparin 5000 units/ml) 5,000 units EVERY 12 HOURS SUBQ 05/22/20 21:00 07/06/20 20:59 05/22/20 20:22 Pantoprazole (Protonix) 40 mg DAILY IVP 05/22/20 20:00 06/21/20 19:59 05/26/20 08:41 Piperacillin Sod/ Tazobactam Sod 3.375 gm/Sodium Chloride 110 ml @ 27.5 mls/hr EVERY 8 HOURS IVPB 05/26/20 13:00 05/31/20 12:59 05/26/20 15:08 Potassium Phosphate 20 meq/ Dextrose/Sodium Chloride 1,004.5455 ml @ 50 mls/hr Q20H6M IV 05/25/20 12:00 06/24/20 11:59 05/26/20 08:45 Vancomycin HCl (Vanco pharmacy to dose) 1 ea DAILY PRN MISC Per rx protocol 05/23/20 11:00 06/22/20 10:59 Vancomycin HCl 750 mg/Sodium Chloride 275 ml @ 183.333 mls/hr Q12HR@1100,2300 IVPB 05/26/20 23:00 05/31/20 22:59 Lonny Ramos MD May 26, 2020 15:33
--- NOTE | 2020-05-26 15:52 | Surgery Progress Note ---
Surgery Progress Note Subjective Symptoms: improved, voiding well, passing flatus Objective Last 24 Hour Vital Signs Date Time Temp Pulse Resp B/P (MAP) Pulse Ox O2 Delivery O2 Flow Rate FiO2 05/26/20 12:00 65 05/26/20 12:00 99.3 74 18 139/69 (92) 96 05/26/20 09:00 Room Air 05/26/20 08:00 66 05/26/20 08:00 96.1 63 18 131/77 (95) 98 05/26/20 04:18 151 130/86 05/26/20 04:00 151 05/26/20 04:00 99.5 81 20 126/78 (94) 96 05/26/20 00:00 98.6 63 20 153/80 (104) 96 05/26/20 00:00 67 05/25/20 21:00 Room Air 05/25/20 20:00 70 05/25/20 20:00 97.9 68 18 159/77 (104) 98 05/25/20 16:00 68 05/25/20 16:00 98.1 76 20 139/73 (95) 98 I&O Intake and Output 05/25/20 05/26/20 19:00 07:00 Intake Total 100 ml 200 ml Output Total 1400 ml 1200 ml Balance -1300 ml -1000 ml Intake Oral 100 ml 200 ml Output Urine Total 1400 ml 1200 ml Dressing: saturated Cardiovascular: RSR Respiratory: decreased breath sounds Abdomen: soft, non-tender, present bowel sounds Extremities: no edema, no tenderness, no cyanosis Laboratory Tests Test 05/26/20 09:00 White Blood Count 10.8 K/UL (4.8-10.8) Red Blood Count 4.33 M/UL (4.20-5.40) Hemoglobin 13.4 G/DL (12.0-16.0) Hematocrit 39.1 % (37.0-47.0) Mean Corpuscular Volume 90 FL (80-99) Mean Corpuscular Hemoglobin 30.9 PG (27.0-31.0) Mean Corpuscular Hemoglobin Concent 34.3 G/DL (32.0-36.0) Red Cell Distribution Width 10.9 % (11.6-14.8) L Platelet Count 141 K/UL (150-450) L Mean Platelet Volume 8.7 FL (6.5-10.1) Neutrophils (%) (Auto) 75.0 % (45.0-75.0) Lymphocytes (%) (Auto) 16.4 % (20.0-45.0) L Monocytes (%) (Auto) 6.0 % (1.0-10.0) Eosinophils (%) (Auto) 1.8 % (0.0-3.0) Basophils (%) (Auto) 0.9 % (0.0-2.0) Sodium Level 142 MMOL/L (136-145) Potassium Level 3.4 MMOL/L (3.5-5.1) L Chloride Level 108 MMOL/L (98-107) H Carbon Dioxide Level 30 MMOL/L (21-32) Anion Gap 4 mmol/L (5-15) L Blood Urea Nitrogen 10 mg/dL (7-18) Creatinine 0.7 MG/DL (0.55-1.30) Estimat Glomerular Filtration Rate > 60 mL/min (>60) Glucose Level 135 MG/DL (74-106) H Calcium Level 8.2 MG/DL (8.5-10.1) L Phosphorus Level 3.1 MG/DL (2.5-4.9) Magnesium Level 2.0 MG/DL (1.8-2.4) Total Bilirubin 0.4 MG/DL (0.2-1.0) Aspartate Amino Transf (AST/SGOT) 30 U/L (15-37) Alanine Aminotransferase (ALT/SGPT) 35 U/L (12-78) Alkaline Phosphatase 74 U/L (46-116) Troponin I 0.133 ng/mL (0.000-0.056) Total Protein 5.8 G/DL (6.4-8.2) L Albumin 2.0 G/DL (3.4-5.0) L Globulin 3.8 g/dL Albumin/Globulin Ratio 0.5 (1.0-2.7) L Vancomycin Level Trough 5.1 ug/mL (5.0-12.0) Plan Problems: (1) Decubitus skin ulcer Assessment & Plan: Patient presented on admission with multiple skin concerns. Patient was found down unknown duration and has developed significant injuries and skin concerns. Patient has a right shoulder 3 cm x 3 cm posterior deep tissue injury no fluctuance nontender no skin breakdown not open. Patient has sacral erythema identified. Patient has incontinence associated dermatitis identified in the perineum and bilateral thighs and groins. Patient has a right hip DTI with skin breakdown identified. Patient has a left knee unstageable decubitus ulcer with necrotic eschar. Patient has significant abdominal erythema and near cellulitis with burning rash. No abscess no drainage wounds unlikely source of patient's sepsis. Wound is likely attributed to patient being down for significant period of time. Will need nutritional optimization and local care plan to allow for healing and improvement. Care plan initiated. Treatment plan Wash all wounds daily with normal saline. Apply skin protectant and OPTi foam dressing to the right shoulder change every 3 days. Apply OPTi foam dressing patient sacral region monitor for incontinence change every 3 days and PRN saturation as necessary Apply skin protectant to bilateral thighs and perineum monitor for incontinence change accordingly. Thera honey to left knee eschar followed by OPTi foam dressing wrap with Kerlix if necessary change daily and PRN saturation Zinc oxide cream for abdominal wound. Apply daily. Wash wounds daily. Turn every 2 hours offload pressure with pillows Air mattress given patient's current medical condition Nutritional optimization We will follow with recommendations thank you for let me participate patient's care (2) Renal failure (3) CVA (cerebral vascular accident) Assessment & Plan: Old infarcts are seen in the bilateral basal ganglia and inferior frontal deep white matter. No acute intracranial hemorrhage or edema. No mass effect nor midline shift. There is age-related enlargement of the ventricles and extra- axial CSF spaces. There is periventricular deep white matter low-attenuation consistent with chronic microvascular ischemic change. Visualized orbits are unremarkable. There is bilateral ethmoid and bilateral maxillary sinus mucosal disease. The mastoids are clear. Impression: Chronic and age-related changes, including multiple old infarcts Negative for acute intracranial bleed or mass effect Right common carotid artery: Unremarkable. No occlusion or significant stenosis on color flow and spectral Doppler imaging. Right internal carotid artery: Unremarkable. No occlusion or significant stenosis on color flow and spectral Doppler imaging. Right external carotid artery: Unremarkable. No occlusion or significant stenosis on color flow and spectral Doppler imaging. Right vertebral artery: Antegrade flow within the vertebral arteries. Right ICA/CCA ratio: Unremarkable. Within normal limits. Left common carotid artery: Unremarkable. No occlusion or significant stenosis on color flow and spectral Doppler imaging. Left internal carotid artery: Significant calcified atherosclerotic disease is noted within the left carotid bulb. No occlusion or significant stenosis on color flow and spectral Doppler imaging. Left external carotid artery: Unremarkable. No occlusion or significant stenosis on color flow and spectral Doppler imaging. Left vertebral artery: See above. Left ICA/CCA ratio: Unremarkable. Within normal limits. Lymph nodes: Unremarkable. No lymphadenopathy. Other findings: Evaluation of peak systolic velocities bilaterally throughout the carotid systems reveal no evidence of hemodynamically significant stenosis, based on established criteria. CAROTID STENOSIS REFERENCE USING SRU CRITERIA: Mild - <50% stenosis. ICA PSV is less than 125 cm/second and plaque or intimal thickening is visible. Moderate - 50-69% stenosis. ICA PSV is 125 to 230 cm/second and plaque is visible. Severe - 70-94% stenosis. ICA PSV is more than 230 cm/second and visible plaque with lumen narrowing is seen. Near occlusion - 95-99% stenosis. ICA PSV is variable and significant plaque with luminal narrowing is seen. Occluded - 100% stenosis. No flow identified. IMPRESSION: 1. Prominent calcified plaque within the left carotid bulb. 2. No evidence of hemodynamically significant stenosis based on established ultrasound criteria. (4) Right hemiparesis (5) Dehydration Assessment & Plan: 1. Increase self initiation for drinking with her left hand: Ms. Hutchinson was able to self drink nector thick liquid via cup with her left hand with visual and tactile cue 90% of the time without s.s of aspiration. 2. Increase initiation of verbal utterance: Pt was able to verbally repeat at word level with visual cues and repetition at 75% of the time. 3.Diet appropriateness: Ms. Hutchinson was reminded what happened to her and why she is in the hospital and and her diet was currently modified in Chinese. She appeared to be understanding my explanation. 4. Team approach to take care her case was initiated with communicating with RN and Rad dept to complete pending procedure (video swallow study at 13:00 today) A: 1. Oropharyngeal dysphagia due to multiple acute and subacute cerebral infarcts 2. 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 Likely presence of expressive aphasia P: 1. Modified diet with pureed and nector thick liquid with aspiration precaution 2. Encourage self drinking with her left hand with assistance -occupational therapist recommendation to follow 3. Full speech and language evaluation is needed for discharge plan - Strongly push for acute rehab if ultimate goal/support is to return to home. (6) Hypernatremia (7) Leukocytosis Assessment & Plan: wbc 20 on admission lactic acidosis - improving with hydration on abx as per ID no acute surgical intervention planned okay for tf diet nutrition eval local wound care will follow with recs and monitor thank you (8) UTI (urinary tract infection) Liam Hermosillo May 26, 2020 15:52
[2020-05-26 16:00] VITALS: BP 142/81
--- NOTE | 2020-05-26 19:09 | NUR ---
NURSE HAND-OFF REPORT: Important Events on Shift:antibiotic therapy Patient Status: Stable Diet: Cardiac pureed with NTL Pending Orders: N/A Pending Results/Labs:am labs Pending notification:NA Latest Vital Signs: Temperature 98.2 , Pulse 76 , B/P 142 /81 , Respiratory Rate 18 , O2 SAT 97 , Room Air, O2 Flow Rate . Vital Sign Comment: Stable EKG Rhythm: Sinus Rhythm Rhythm change?: N Notified?: Noemy Daley MD Response: entered new orders Latest Awad Fall Score: 95 Fall Risk: High Risk Safety Measures: Call light Within Reach, Bed Alarm Zone 1, Side Rails Side Rails x3, Bed position Low and Locked. Fall Precautions: Yellow Socks Yellow Gown Door Sign Patient Fall Education Report given to Rebekah Zhang RN.
--- NOTE | 2020-05-26 19:10 | NUR ---
NURSE NOTES: Received report from Troy Baker RN Pt in stable condition, will continue plan of care and close monitoring.
[2020-05-26 20:00] VITALS: BP 154/71
[2020-05-26] MEDS ORDERED: Vancomycin 750mg/NS 275ml IVPB SCH ×2 (23:00)
[2020-05-27] VITALS: BP 140/77
[2020-05-27] MEDS: Piperacillin/Tazobactam 3.375 GM in NS 110 ML IVPB SCH ×3 (00:22→17:27)
--- NOTE | 2020-05-27 01:42 | Cardiology Progress Note ---
Subjective DATE OF SERVICE: May 26, 2020 Remains withdrawn but alert Had rapid AFIb last nite - responded to IV diltiazem times 1. Troponin slightly elevated today. Stool OB positive, but hemoglobin stable MRI: reveals acute and subacute infarcts with distribution c/w cardioembolic source 2D Echo with normal LVEF and mild MR; no pulmonary hypertension. Monitor with AFib and episodes of fast and slow heart rates - no pauses. Objective Last 24 Hour Vital Signs Date Time Temp Pulse Resp B/P (MAP) Pulse Ox O2 Delivery O2 Flow Rate FiO2 05/27/20 00:00 97.9 68 18 140/77 (98) 96 05/27/20 00:00 62 05/26/20 21:00 Room Air 05/26/20 20:00 66 05/26/20 20:00 97.8 70 15 154/71 (98) 96 05/26/20 16:00 76 05/26/20 16:00 98.2 65 18 142/81 (101) 97 05/26/20 12:00 65 05/26/20 12:00 99.3 74 18 139/69 (92) 96 05/26/20 09:00 Room Air 05/26/20 08:00 66 05/26/20 08:00 96.1 63 18 131/77 (95) 98 05/26/20 04:18 151 130/86 05/26/20 04:00 151 05/26/20 04:00 99.5 81 20 126/78 (94) 96 ROS: unchanged from my note of 05/22/20. HEENT: normal ENT inspection RHYTHM: Afib LUNGS: lungs clear bilaterally CARDIAC: normal rate, normal S1 and S2, irregularly irregular, bradycardia ABDOMEN: normal bowel sounds, non tender, soft, no organomegaly, no mass EXTREMITIES: normal range of motion, non-tender, normal inspection, no calf tenderness Laboratory Tests Test 05/26/20 09:00 White Blood Count 10.8 K/UL (4.8-10.8) Red Blood Count 4.33 M/UL (4.20-5.40) Hemoglobin 13.4 G/DL (12.0-16.0) Hematocrit 39.1 % (37.0-47.0) Mean Corpuscular Volume 90 FL (80-99) Mean Corpuscular Hemoglobin 30.9 PG (27.0-31.0) Mean Corpuscular Hemoglobin Concent 34.3 G/DL (32.0-36.0) Red Cell Distribution Width 10.9 % (11.6-14.8) L Platelet Count 141 K/UL (150-450) L Mean Platelet Volume 8.7 FL (6.5-10.1) Neutrophils (%) (Auto) 75.0 % (45.0-75.0) Lymphocytes (%) (Auto) 16.4 % (20.0-45.0) L Monocytes (%) (Auto) 6.0 % (1.0-10.0) Eosinophils (%) (Auto) 1.8 % (0.0-3.0) Basophils (%) (Auto) 0.9 % (0.0-2.0) Sodium Level 142 MMOL/L (136-145) Potassium Level 3.4 MMOL/L (3.5-5.1) L Chloride Level 108 MMOL/L (98-107) H Carbon Dioxide Level 30 MMOL/L (21-32) Anion Gap 4 mmol/L (5-15) L Blood Urea Nitrogen 10 mg/dL (7-18) Creatinine 0.7 MG/DL (0.55-1.30) Estimat Glomerular Filtration Rate > 60 mL/min (>60) Glucose Level 135 MG/DL (74-106) H Calcium Level 8.2 MG/DL (8.5-10.1) L Phosphorus Level 3.1 MG/DL (2.5-4.9) Magnesium Level 2.0 MG/DL (1.8-2.4) Total Bilirubin 0.4 MG/DL (0.2-1.0) Aspartate Amino Transf (AST/SGOT) 30 U/L (15-37) Alanine Aminotransferase (ALT/SGPT) 35 U/L (12-78) Alkaline Phosphatase 74 U/L (46-116) Troponin I 0.133 ng/mL (0.000-0.056) Total Protein 5.8 G/DL (6.4-8.2) L Albumin 2.0 G/DL (3.4-5.0) L Globulin 3.8 g/dL Albumin/Globulin Ratio 0.5 (1.0-2.7) L Vancomycin Level Trough 5.1 ug/mL (5.0-12.0) Microbiology Date/Time Source Procedure Growth Status 05/24/20 23:30 Stool Clostridium difficile Toxin Assay - Final Complete Assessment/Plan Assessment/Plan Acute and subacute cardioembolic CVA Paroxysmal atrial flutter/fib with variable ventricular rates - likely associated with [employer] autonomic dysfxn Hypertension Lactic acidosis Dehydration/hypernatremia corrected Acute renal failure Acute myocardial infarction (NSTEMI) Toxic and metabolic encephalopathies Moderate protein/calorie malnutrition Possible UTI Hypokalemia Acute myocardial ischemia Cardiac monitoring IV abx Hold anti-coagulation for now to avoid hemorrhagic conversion; reassess in 2-3 weeks. Await GI input. IVF discont'd. Protein suppl Follow up renal parameters and lytes; replace as needed. No immediate indication for pacemaker Kirk Fung MD May 27, 2020 01:42
[2020-05-27] MEDS ORDERED: D5 1/2NS w/KCl 20mEq 1,000 ML IV SCH (03:00)
[2020-05-27 04:00] VITALS: BP 124/67
--- NOTE | 2020-05-27 06:50 | NUR ---
NURSE HAND-OFF REPORT: Important Events on Shift: None Patient Status: stable Diet: cardiac pureed nectar thick, 1:1 feeder Pending Orders: CT B knee w/o contrast Pending Results/Labs: vanco trough, BMP, Pending MD notification: none Latest Vital Signs: Temperature 98.0 , Pulse 60 , B/P 124 /67 , Respiratory Rate 15 , O2 SAT 96 , Room Air, O2 Flow Rate . Vital Sign Comment: none EKG Rhythm: Sinus Rhythm Rhythm change?: N MD Notified?: N MD Response: N Latest Awad Fall Score: 95 Fall Risk: High Risk Safety Measures: Call light Within Reach, Bed Alarm Zone 1, Side Rails Side Rails x3, Bed position Low and Locked. Fall Precautions: yes Yellow Socks yes Yellow Gown yes Door Sign yes Patient Fall Education yes Report to be given to Patricia Avilez RN
--- NOTE | 2020-05-27 07:25 | NUR ---
NURSE NOTES: Pt received from Kelly CHERRY. Pt in bed sleeping, no sign of distress. IV site lookd edematous, stopped IV, will swith to other arm. Bed low and locked, call light near left hand.
[2020-05-27 07:28] LABS: ANION GAP 3 mmol/L (5-15); BLOOD UREA NITROGEN 9 mg/dL (7-18); CALCIUM 8.4 MG/DL (8.5-10.1); CARBON DIOXIDE 30 MMOL/L (21-32); CHLORIDE 106 MMOL/L (98-107); CREATININE 0.8 MG/DL (0.55-1.30); PHOSPHORUS 2.6 MG/DL (2.5-4.9); POTASSIUM 3.8 MMOL/L (3.5-5.1); SODIUM 139 MMOL/L (136-145)
[2020-05-27] MEDS: Heparin 5000 units/ml inj SUBQ SCH ×2 (07:40→21:00)
--- NOTE | 2020-05-27 07:40 | NUR ---
NURSE NOTES: Heparin held as lats plt is 141.
[2020-05-27 08:00] VITALS: BP 133/82
[2020-05-27] MEDS: Aspirin Baby 81mg ORAL SCH (08:12)
[2020-05-27] MEDS: Pantoprazole Inj IVP SCH (08:12)
--- NOTE | 2020-05-27 11:06 | Infectious Diseases Prog Note ---
"Assessment/Plan Assessment/Plan antibiotics : zosyn A 1. enterococcus | clostridium sepsis 2. atrial fibrillation resolving 3. renal failure improving 4. hypertension P 1. continue iv zosyn 8 more days 2, will follow up cultures Subjective ROS Limited/Unobtainable: Yes Allergies: Coded Allergies: SULFAMETHOXAZOLE (Unverified Allergy, Unknown, 12/09/17) TRIMETHOPRIM (Unverified Allergy, Unknown, 12/09/17) Objective Last 24 Hour Vital Signs Date Time Temp Pulse Resp B/P (MAP) Pulse Ox O2 Delivery O2 Flow Rate FiO2 05/27/20 08:00 97.6 71 20 133/82 (99) 97 05/27/20 08:00 61 05/27/20 04:00 98.0 60 15 124/67 (86) 96 05/27/20 04:00 59 05/27/20 00:00 97.9 68 18 140/77 (98) 96 05/27/20 00:00 62 05/26/20 21:00 Room Air 05/26/20 20:00 66 05/26/20 20:00 97.8 70 15 154/71 (98) 96 05/26/20 16:00 76 05/26/20 16:00 98.2 65 18 142/81 (101) 97 05/26/20 12:00 65 05/26/20 12:00 99.3 74 18 139/69 (92) 96 Height (Feet): 5 Height (Inches): 5.00 Weight (Pounds): 120 Respiratory/Chest: lungs clear Cardiovascular: normal rate, regular rhythm, no gallop/murmur Abdomen: soft, non tender Extremities: no edema Microbiology Date/Time Source Procedure Growth Status 05/24/20 23:30 Stool Clostridium difficile Toxin Assay - Final Complete Laboratory Tests Test 05/27/20 06:07 Sodium Level 139 MMOL/L (136-145) Potassium Level 3.8 MMOL/L (3.5-5.1) Chloride Level 106 MMOL/L (98-107) Carbon Dioxide Level 30 MMOL/L (21-32) Anion Gap 3 mmol/L (5-15) L Blood Urea Nitrogen 9 mg/dL (7-18) Creatinine 0.8 MG/DL (0.55-1.30) Estimat Glomerular Filtration Rate > 60 mL/min (>60) Glucose Level 116 MG/DL (74-106) H Calcium Level 8.4 MG/DL (8.5-10.1) L Phosphorus Level 2.6 MG/DL (2.5-4.9) Current Medications Medications (Trade) Dose Ordered Sig/Marci Route PRN Reason Start Time Stop Time Status Last Admin Dose Admin Acetaminophen (Tylenol) 650 mg Q4H PRN ORAL FEVER 05/24/20 23:15 06/23/20 23:14 Acetaminophen (Tylenol) 650 mg Q6H PRN ORAL Pain Scale (3-5) 05/22/20 19:30 06/21/20 19:29 Aspirin (ASA) 81 mg DAILY ORAL 05/24/20 09:00 07/08/20 08:59 05/27/20 08:12 Dextrose/ Electrolytes 1,000 ml @ 75 mls/hr [id number] IV 05/27/20 03:00 06/26/20 02:59 05/27/20 03:09 Heparin Sodium (Porcine) (Heparin 5000 units/ml) 5,000 units EVERY 12 HOURS SUBQ 05/22/20 21:00 07/06/20 20:59 05/22/20 20:22 Pantoprazole (Protonix) 40 mg DAILY IVP 05/22/20 20:00 06/21/20 19:59 05/27/20 08:12 Piperacillin Sod/ Tazobactam Sod 3.375 gm/Sodium Chloride 110 ml @ 27.5 mls/hr Q8H IVPB 05/27/20 01:00 06/03/20 00:59 05/27/20 00:22 Ramirez Rojas MD May 27, 2020 11:06"
[2020-05-27] MEDS ORDERED: Omnipaque-300 100ml vial INJ PRN (11:45)
[2020-05-27 12:00] VITALS: BP 137/80
--- NOTE | 2020-05-27 14:01 | Surgery Progress Note ---
Surgery Progress Note Subjective Symptoms: improved Additional Comments awake, alert, responsive today no n/v/f/c states she is well is hungry. Objective Last 24 Hour Vital Signs Date Time Temp Pulse Resp B/P (MAP) Pulse Ox O2 Delivery O2 Flow Rate FiO2 05/27/20 09:00 Room Air 05/27/20 08:00 97.6 71 20 133/82 (99) 97 05/27/20 08:00 61 05/27/20 04:00 98.0 60 15 124/67 (86) 96 05/27/20 04:00 59 05/27/20 00:00 97.9 68 18 140/77 (98) 96 05/27/20 00:00 62 05/26/20 21:00 Room Air 05/26/20 20:00 66 05/26/20 20:00 97.8 70 15 154/71 (98) 96 05/26/20 16:00 76 05/26/20 16:00 98.2 65 18 142/81 (101) 97 I&O Intake and Output 05/26/20 05/27/20 19:00 07:00 Intake Total 590 ml Output Total 425 ml 700 ml Balance 165 ml -700 ml Intake Oral 590 ml Output Urine Total 425 ml 700 ml Dressing: saturated Wound: clean Cardiovascular: RSR Respiratory: clear Abdomen: soft, non-tender, present bowel sounds Extremities: edema, no tenderness, no cyanosis Laboratory Tests Test 05/27/20 06:07 05/27/20 12:16 Sodium Level 139 MMOL/L (136-145) Potassium Level 3.8 MMOL/L (3.5-5.1) Chloride Level 106 MMOL/L (98-107) Carbon Dioxide Level 30 MMOL/L (21-32) Anion Gap 3 mmol/L (5-15) L Blood Urea Nitrogen 9 mg/dL (7-18) Creatinine 0.8 MG/DL (0.55-1.30) Estimat Glomerular Filtration Rate > 60 mL/min (>60) Glucose Level 116 MG/DL (74-106) H Calcium Level 8.4 MG/DL (8.5-10.1) L Phosphorus Level 2.6 MG/DL (2.5-4.9) POC Whole Blood Glucose 118 MG/DL (74-106) H Plan Problems: (1) Decubitus skin ulcer Assessment & Plan: Patient presented on admission with multiple skin concerns. Patient was found down unknown duration and has developed significant injuries and skin concerns. Patient has a right shoulder 3 cm x 3 cm posterior deep tissue injury no fluctuance nontender no skin breakdown not open. Patient has sacral erythema identified. Patient has incontinence associated dermatitis identified in the perineum and bilateral thighs and groins. Patient has a right hip DTI with skin breakdown identified. Patient has a left knee unstageable decubitus ulcer with necrotic eschar. Patient has significant abdominal erythema and near cellulitis with burning rash. No abscess no drainage wounds unlikely source of patient's sepsis. Wound is likely attributed to patient being down for significant period of time. Will need nutritional optimization and local care plan to allow for healing and improvement. Care plan initiated. Treatment plan Wash all wounds daily with normal saline. Apply skin protectant and OPTi foam dressing to the right shoulder change every 3 days. Apply OPTi foam dressing patient sacral region monitor for incontinence change every 3 days and PRN saturation as necessary Apply skin protectant to bilateral thighs and perineum monitor for incontinence change accordingly. Thera honey to left knee eschar followed by OPTi foam dressing wrap with Kerlix if necessary change daily and PRN saturation Zinc oxide cream for abdominal wound. Apply daily. Wash wounds daily. Turn every 2 hours offload pressure with pillows Air mattress given patient's current medical condition Nutritional optimization We will follow with recommendations thank you for let me participate patient's care (2) Renal failure (3) CVA (cerebral vascular accident) Assessment & Plan: Old infarcts are seen in the bilateral basal ganglia and inferior frontal deep white matter. No acute intracranial hemorrhage or edema. No mass effect nor midline shift. There is age-related enlargement of the ventricles and extra- axial CSF spaces. There is periventricular deep white matter low-attenuation consistent with chronic microvascular ischemic change. Visualized orbits are unremarkable. There is bilateral ethmoid and bilateral maxillary sinus mucosal disease. The mastoids are clear. Impression: Chronic and age-related changes, including multiple old infarcts Negative for acute intracranial bleed or mass effect Right common carotid artery: Unremarkable. No occlusion or significant stenosis on color flow and spectral Doppler imaging. Right internal carotid artery: Unremarkable. No occlusion or significant stenosis on color flow and spectral Doppler imaging. Right external carotid artery: Unremarkable. No occlusion or significant stenosis on color flow and spectral Doppler imaging. Right vertebral artery: Antegrade flow within the vertebral arteries. Right ICA/CCA ratio: Unremarkable. Within normal limits. Left common carotid artery: Unremarkable. No occlusion or significant stenosis on color flow and spectral Doppler imaging. Left internal carotid artery: Significant calcified atherosclerotic disease is noted within the left carotid bulb. No occlusion or significant stenosis on color flow and spectral Doppler imaging. Left external carotid artery: Unremarkable. No occlusion or significant stenosis on color flow and spectral Doppler imaging. Left vertebral artery: See above. Left ICA/CCA ratio: Unremarkable. Within normal limits. Lymph nodes: Unremarkable. No lymphadenopathy. Other findings: Evaluation of peak systolic velocities bilaterally throughout the carotid systems reveal no evidence of hemodynamically significant stenosis, based on established criteria. CAROTID STENOSIS REFERENCE USING SRU CRITERIA: Mild - <50% stenosis. ICA PSV is less than 125 cm/second and plaque or intimal thickening is visible. Moderate - 50-69% stenosis. ICA PSV is 125 to 230 cm/second and plaque is visible. Severe - 70-94% stenosis. ICA PSV is more than 230 cm/second and visible plaque with lumen narrowing is seen. Near occlusion - 95-99% stenosis. ICA PSV is variable and significant plaque with luminal narrowing is seen. Occluded - 100% stenosis. No flow identified. IMPRESSION: 1. Prominent calcified plaque within the left carotid bulb. 2. No evidence of hemodynamically significant stenosis based on established ultrasound criteria. (4) Right hemiparesis (5) Dehydration Assessment & Plan: 1. Increase self initiation for drinking with her left hand: Ms. Hutchinson was able to self drink nector thick liquid via cup with her left hand with visual and tactile cue 90% of the time without s.s of aspiration. 2. Increase initiation of verbal utterance: Pt was able to verbally repeat at word level with visual cues and repetition at 75% of the time. 3.Diet appropriateness: Ms. Hutchinson was reminded what happened to her and why she is in the hospital and and her diet was currently modified in [place]. She appeared to be understanding my explanation. 4. Team approach to take care her case was initiated with communicating with RN and Rad dept to complete pending procedure (video swallow study at 13:00 today) A: 1. Oropharyngeal dysphagia due to multiple acute and subacute cerebral infarcts 2. 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 Likely presence of expressive aphasia P: 1. Modified diet with pureed and nector thick liquid with aspiration precaution 2. Encourage self drinking with her left hand with assistance -occupational therapist recommendation to follow 3. Full speech and language evaluation is needed for discharge plan - Strongly push for acute rehab if ultimate goal/support is to return to home. (6) Hypernatremia (7) Leukocytosis Assessment & Plan: wbc 20 on admission lactic acidosis - improving with hydration on abx as per ID no acute surgical intervention planned okay for tf diet nutrition eval local wound care leukocytosis resolved improving will follow with recs and monitor thank you (8) UTI (urinary tract infection) Liam Hermosillo May 27, 2020 14:01
--- NOTE | 2020-05-27 14:07 | NUR ---
CASE MANAGEMENT: REVIEW SI: ALOC . CVA . RENAL FAILURE . LEFT KNEE UNSTAGEABLE DECUBITUS SKIN ULCER T 97.6 HR 59 RR 15 BP 154/71 SAT 96% ROOM AIR GLUCOSE 118 CT ABD/PEL PENDING IS: D5 1/2 NS w/KCl 20MEQ IVF @ 75ML/HR ZOSYN IV Q8HR PROTONIX IV QD WOUND CARE DAILY TELEMETRY UNIT STATUS DCP: PATIENT IS FROM HOME
[2020-05-27 16:00] VITALS: BP 160/76
--- NOTE | 2020-05-27 16:06 | General Progress Note ---
Subjective ROS Limited/Unobtainable: No Constitutional: Reports: malaise, weakness HEENT: Reports: no symptoms Cardiovascular: Reports: no symptoms Respiratory: Reports: no symptoms Gastrointestinal/Abdominal: Reports: no symptoms Genitourinary: Reports: no symptoms Neurologic/Psychiatric: Reports: pre-existing deficit Endocrine: Reports: no symptoms Hematologic/Lymphatic: Reports: no symptoms Allergies: Coded Allergies: SULFAMETHOXAZOLE (Unverified Allergy, Unknown, 12/09/17) TRIMETHOPRIM (Unverified Allergy, Unknown, 12/09/17) All Systems: reviewed and negative except above Subjective stable. no new complaints. dense right sided hemiparesis. no fevers. tolerating pos. more alert. Objective Last 24 Hour Vital Signs Date Time Temp Pulse Resp B/P (MAP) Pulse Ox O2 Delivery O2 Flow Rate FiO2 05/27/20 09:00 Room Air 05/27/20 08:00 97.6 71 20 133/82 (99) 97 05/27/20 08:00 61 05/27/20 04:00 98.0 60 15 124/67 (86) 96 05/27/20 04:00 59 05/27/20 00:00 97.9 68 18 140/77 (98) 96 05/27/20 00:00 62 05/26/20 21:00 Room Air 05/26/20 20:00 66 05/26/20 20:00 97.8 70 15 154/71 (98) 96 05/26/20 16:00 76 05/26/20 16:00 98.2 65 18 142/81 (101) 97 Intake and Output 05/26/20 05/27/20 19:00 07:00 Intake Total 590 ml Output Total 425 ml 700 ml Balance 165 ml -700 ml Intake Oral 590 ml Output Urine Total 425 ml 700 ml Laboratory Tests 05/27/20 06:07: Sodium Level 139, Potassium Level 3.8, Chloride Level 106, Carbon Dioxide Level 30, Anion Gap 3L, Blood Urea Nitrogen 9, Creatinine 0.8, Estimat Glomerular Filtration Rate > 60, Glucose Level 116H, Calcium Level 8.4L, Phosphorus Level 2.6 05/27/20 12:16: POC Whole Blood Glucose 118H Height (Feet): 5 Height (Inches): 5.00 Weight (Pounds): 120 Objective General Appearance: WD/WN, alert Neck: supple Cardiovascular: normal rate, regular rhythm Respiratory/Chest: chest wall non-tender, lungs clear, normal breath sounds Abdomen: normal bowel sounds, non tender, soft Edema: no edema noted Arm (L), no edema noted Arm (R) Neurologic: motor weakness - right hemiparesis Skin: normal pigmentation. +black wound jany knees. + drainage Assessment/Plan Problem List: (1) CVA (cerebral vascular accident) ICD Codes: I63.9 - Cerebral infarction, unspecified SNOMED: 972358586 (2) Renal failure ICD Codes: N19 - Unspecified kidney failure SNOMED: 09301390, 155001463 (3) Right hemiparesis ICD Codes: G81.91 - Hemiplegia, unspecified affecting right dominant side SNOMED: 130117444, 730438552 (4) Dehydration ICD Codes: E86.0 - Dehydration SNOMED: 62243749, 120754704 (5) UTI (urinary tract infection) ICD Codes: N39.0 - Urinary tract infection, site not specified SNOMED: 70728491, 617928529 (6) Decubitus skin ulcer ICD Codes: L89.90 - Pressure ulcer of unspecified site, unspecified stage SNOMED: 365961526 (7) Hypernatremia ICD Codes: E87.0 - Hyperosmolality and hypernatremia SNOMED: 672010487 (8) Leukocytosis ICD Codes: D72.829 - Elevated white blood cell count, unspecified SNOMED: 310324234, 661707218 Status: stable, progressing Assessment/Plan: cont current rx antiplt rx neuro eval- anticoag to be determined 1-[address] or MRI prior to initiation GI consult regarding OB+ stools as pt will eventually need AC rate control per cards pt/ot/st iv abx per ID CT jany knees- r/o abscess Ct abd per ID surgery follow up ?I and D d/w pts dtr x 20 mins Vinay Lu MD May 27, 2020 16:06
--- NOTE | 2020-05-27 16:18 | Nephrology Progress Note ---
Assessment/Plan Problem List: (1) Hypophosphatemia (2) KVNG (acute kidney injury) (3) Leukocytosis (4) Hypernatremia (5) Dehydration (6) Right hemiparesis (7) CVA (cerebral vascular accident) (8) Hypokalemia (9) Clostridial infection (10) Enterococcal sepsis Plan rx sepsis, replete phos, replace K better, continue zosyn Subjective ROS Limited/Unobtainable: Yes Objective Objective Last 24 Hour Vital Signs Date Time Temp Pulse Resp B/P (MAP) Pulse Ox O2 Delivery O2 Flow Rate FiO2 05/27/20 09:00 Room Air 05/27/20 08:00 97.6 71 20 133/82 (99) 97 05/27/20 08:00 61 05/27/20 04:00 98.0 60 15 124/67 (86) 96 05/27/20 04:00 59 05/27/20 00:00 97.9 68 18 140/77 (98) 96 05/27/20 00:00 62 05/26/20 21:00 Room Air 05/26/20 20:00 66 05/26/20 20:00 97.8 70 15 154/71 (98) 96 Intake and Output 05/26/20 05/27/20 19:00 07:00 Intake Total 590 ml Output Total 425 ml 700 ml Balance 165 ml -700 ml Intake Oral 590 ml Output Urine Total 425 ml 700 ml Laboratory Tests 05/27/20 06:07: Sodium Level 139, Potassium Level 3.8, Chloride Level 106, Carbon Dioxide Level 30, Anion Gap 3L, Blood Urea Nitrogen 9, Creatinine 0.8, Estimat Glomerular Filtration Rate > 60, Glucose Level 116H, Calcium Level 8.4L, Phosphorus Level 2.6 05/27/20 12:16: POC Whole Blood Glucose 118H Height (Feet): 5 Height (Inches): 5.00 Weight (Pounds): 120 General Appearance: no apparent distress, confused EENT: normal ENT inspection Neck: normal alignment Cardiovascular: regular rhythm Respiratory/Chest: lungs clear Abdomen: non tender Extremities: moderate edema Neurologic: motor weakness Julio Sanchez MD May 27, 2020 16:17
--- NOTE | 2020-05-27 16:29 | Diagnostic Imaging Report ---
Indication: Knee pain Technique: No IV contrast, reason not stated Spiral acquisitions obtained through the left knee Multiplanar reconstructions were generated. Total dose length product 114 mGycm. CTDIvol(s) 3 mGy. Radiation dose was minimized using automated exposure control Comparison: none Findings: No joint effusion demonstrated. There is a slight degree of skin thickening and infiltration of the subcutaneous fat anterolateral at the joint level. No definite fluid collections, although evaluation for such is limited in the absence of IV contrast.. No fractures. No dislocations. The bony alignment is normal. The joint spaces are preserved.. Impression: Skin thickening and infiltration of the subcutaneous fat anterolateral to the knee joint. May indicate cellulitis, given stated clinical history. No definite abscess, although evaluation for such is limited in the absence of IV contrast No acute bony trauma The CT scanner at [facility] is accredited by the [employer] and the scans are performed using protocols designed to limit radiation exposure to as low as reasonably achievable to attain images of sufficient resolution adequate for diagnostic evaluation.
--- NOTE | 2020-05-27 16:32 | Diagnostic Imaging Report ---
Indication: Right knee pain Technique: No IV contrast utilized, reason not stated Spiral acquisitions obtained through the right knee Multiplanar reconstructions were generated. Total dose length product 114 mGycm. CTDIvol(s) 3 mGy. Radiation dose was minimized using automated exposure control Comparison: none Findings: There is a joint effusion, small. There is thickening of the skin and infiltration of the subcutaneous fat anterolateral to the knee joint. No definite organized fluid collection, although evaluation for such is limited in the absence of IV contrast. No acute fractures. No dislocation. The joint spaces are preserved. Impression: Joint effusion Slightly anterolateral skin thickening and infiltration of the subcutaneous fat. Nonspecific, could indicate cellulitis given stated clinical history No definite evidence of abscess. However, evaluation for such is limited in the absence of IV contrast. The CT scanner at [facility] is accredited by the [employer] and the scans are performed using protocols designed to limit radiation exposure to as low as reasonably achievable to attain images of sufficient resolution adequate for diagnostic evaluation.
--- NOTE | 2020-05-27 16:34 | NUR ---
NURSE NOTES: Reported warm and swelling to right hand and arm and CT result of knee. No new orders
--- NOTE | 2020-05-27 17:36 | Diagnostic Imaging Report ---
Clinical Indication: Abdominal pain Technique: Patient given oral contrast. IV administration nonionic contrast. Venous phase spiral acquisition obtained through the abdomen and pelvis. Multiplanar reconstructions were generated. Total dose length product 197 mGycm. CTDIvol(s) 3 mGy. Dose reduction achieved using automated exposure control Comparison: none Findings: The appendix is normal. No evidence of diverticulosis or diverticulitis. No small bowel distention. There is equivocal slight wall thickening of the rectum and infiltration of the perirectal fat. No small bowel wall thickening. No free or loculated intraperitoneal gas or fluid is evident. There is a small duodenal diverticulum incidentally noted. The gallbladder is mildly distended, but there is no wall thickening and no gallstones are evident. No biliary ductal dilatation. The liver, pancreas, spleen, adrenals are unremarkable. Left kidney is atrophic, demonstrates a cyst coming off of the interpolar region. The right kidney demonstrates one or more subcentimeter low-attenuation lesions which are too small to characterize. Surgical clips is seen just to the left of the abdominal aorta. No retroperitoneal or mesenteric mass or adenopathy. No pelvic mass or adenopathy. The bladder is empty, contains a Schneider catheter. The included lung bases demonstrate posterior dependent atelectatic changes. The bones are unremarkable. Impression: Questionable mild rectal wall thickening and inflammation of the perirectal fat, could indicate mild proctitis changes. Correlate with clinical findings No other acute abnormality Atrophic left kidney Other findings as noted, including basilar pulmonary atelectatic changes, Schneider catheter, evidence of prior periaortic surgery, small duodenal diverticulum The CT scanner at [facility] is accredited by the [employer] and the scans are performed using protocols designed to limit radiation exposure to as low as reasonably achievable to attain images of sufficient resolution adequate for diagnostic evaluation.
--- NOTE | 2020-05-27 17:53 | NUR ---
NURSE NOTES: noted that several meds including bp meds were not transferee from home to hospital. told Dr. Lu. Per restart losartan.
--- NOTE | 2020-05-27 19:22 | NUR ---
NURSE HAND-OFF REPORT: Important Events on Shift:[BP meds added from med recon. swollen and warm right arm draining] Patient Status: [in bed resting awake and tracks, responsive to voice although sklightly garbled] Diet: [cardiac puree mpoist nectar thick liquids 1:1 feeder] Pending Orders: [na] Pending Results/Labs:[na] Pending MD notification:[na] Latest Vital Signs: Temperature 98.1 , Pulse 78 , B/P 160 /76 , Respiratory Rate 20 , O2 SAT 97 , Room Air, O2 Flow Rate . Vital Sign Comment: [slightly elevated bp, discussed that she now has lasartan if 8pm is high] EKG Rhythm: Sinus Rhythm Rhythm change?: N Notified?: Noemy Daley MD Response: MD entered new orders Latest Awad Fall Score: 95 Fall Risk: High Risk Safety Measures: Call light Within Reach, Bed Alarm Zone 1, Side Rails Side Rails x3, Bed position Low and Locked. Fall Precautions: Yellow Socks Yellow Gown Door Sign Patient Fall Education Report given to [Herminia RN].
--- NOTE | 2020-05-27 19:30 | NUR ---
NURSE NOTES: Right arm swelling noted, DR. Fung made aware. Right elevated on pillow.
--- NOTE | 2020-05-27 19:30 | NUR ---
NURSE NOTES: Received report from JO ANN Wynn. Pt in bed awake, alert oriented to self. No resp distress noted. cafeteria monitor in place. F/c in place & patent draining to gravity yellow urine. Left AC 22G & left upper arm 22g IV in place & patent. Bed in low position & locked. Side rails up x3, bed alarm on. Call light with in reach. Low air loss mattress for skin maintenance.
[2020-05-27 20:00] VITALS: BP 155/79
[2020-05-28] VITALS: BP 152/76
[2020-05-28] MEDS: Piperacillin/Tazobactam 3.375 GM in NS 110 ML IVPB SCH ×3 (00:36→16:59)
--- NOTE | 2020-05-28 01:20 | Cardiology Progress Note ---
Subjective DATE OF SERVICE: May 27, 2020 Fully alert RUE swelling; per RN, had infiltrated IV. No recurrent episodes of rapid AFib. Stool OB positive, but hemoglobin stable MRI: reveals acute and subacute infarcts with distribution c/w cardioembolic source 2D Echo with normal LVEF and mild MR; no pulmonary hypertension. Monitor with AFib and episodes of fast and slow heart rates in past several days - no pauses. Objective Last 24 Hour Vital Signs Date Time Temp Pulse Resp B/P (MAP) Pulse Ox O2 Delivery O2 Flow Rate FiO2 05/28/20 00:00 68 05/28/20 00:00 99.5 73 17 152/76 (101) 94 05/27/20 21:00 Room Air 05/27/20 20:00 98.9 76 17 155/79 (104) 96 05/27/20 20:00 78 05/27/20 16:00 78 05/27/20 16:00 98.1 77 20 160/76 (104) 97 05/27/20 12:00 97.7 66 20 137/80 (99) 97 05/27/20 12:00 78 05/27/20 09:00 Room Air 05/27/20 08:00 97.6 71 20 133/82 (99) 97 05/27/20 08:00 61 05/27/20 04:00 98.0 60 15 124/67 (86) 96 05/27/20 04:00 59 ROS: unchanged from my note of 05/22/20. HEENT: normal ENT inspection RHYTHM: Afib LUNGS: lungs clear bilaterally CARDIAC: normal rate, normal S1 and S2, irregularly irregular, bradycardia ABDOMEN: normal bowel sounds, non tender, soft, no organomegaly, no mass EXTREMITIES: normal range of motion, non-tender, normal inspection, no calf tenderness Laboratory Tests Test 05/27/20 06:07 05/27/20 12:16 05/27/20 21:55 Sodium Level 139 MMOL/L (136-145) Potassium Level 3.8 MMOL/L (3.5-5.1) Chloride Level 106 MMOL/L (98-107) Carbon Dioxide Level 30 MMOL/L (21-32) Anion Gap 3 mmol/L (5-15) L Blood Urea Nitrogen 9 mg/dL (7-18) Creatinine 0.8 MG/DL (0.55-1.30) Estimat Glomerular Filtration Rate > 60 mL/min (>60) Glucose Level 116 MG/DL (74-106) H Calcium Level 8.4 MG/DL (8.5-10.1) L Phosphorus Level 2.6 MG/DL (2.5-4.9) POC Whole Blood Glucose 118 MG/DL (74-106) H Vancomycin Level Trough 3.5 ug/mL (5.0-12.0) L Assessment/Plan Assessment/Plan Acute and subacute cardioembolic CVA RUE edema due to IV infiltration Paroxysmal atrial flutter/fib with variable ventricular rates - likely 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 Await GI input. IVF discont'd; new IV access Protein suppl Follow up renal parameters and lytes; replace as needed. No immediate indication for pacemaker Kirk Fung MD May 28, 2020 01:20
[2020-05-28 04:00] VITALS: BP 135/72
[2020-05-28 06:44] LABS: BASOPHILS % (AUTO) 0.6 % (0.0-2.0); EOSINOPHILS % (AUTO) 1.8 % (0.0-3.0); HEMATOCRIT 36.2 % (37.0-47.0); HEMOGLOBIN 12.6 G/DL (12.0-16.0); MEAN CORPUSCULAR VOLUME 90 FL (80-99); MONOCYTES % (AUTO) 7.6 % (1.0-10.0); NEUTROPHILS % (AUTO) 75.1 % (45.0-75.0); PLATELET COUNT 168 K/UL (150-450); RED BLOOD COUNT 4.02 M/UL (4.20-5.40); RED CELL DISTRIBUTION WIDTH 11.2 % (11.6-14.8); WHITE BLOOD COUNT 11.3 K/UL (4.8-10.8)
[2020-05-28 07:06] LABS: ANION GAP 3 mmol/L (5-15); BLOOD UREA NITROGEN 10 mg/dL (7-18); CALCIUM 8.4 MG/DL (8.5-10.1); CARBON DIOXIDE 29 MMOL/L (21-32); CHLORIDE 105 MMOL/L (98-107); CREATININE 0.8 MG/DL (0.55-1.30); POTASSIUM 3.8 MMOL/L (3.5-5.1); SODIUM 137 MMOL/L (136-145)
--- NOTE | 2020-05-28 07:14 | NUR ---
NURSE HAND-OFF REPORT: Important Events on Shift: MRI OF BRAIN ORDERED WITHOUT CONTRAST Patient Status: STABLE Diet: PUREE CARDIAC MOIST NECTAR THICK LIQUID Pending Orders: [] Pending Results/Labs:[] Pending MD notification:[] Latest Vital Signs: Temperature 97.5 , Pulse 67 , B/P 135 /72 , Respiratory Rate 16 , O2 SAT 95 , Room Air, O2 Flow Rate . Vital Sign Comment: [] EKG Rhythm: Sinus Rhythm Rhythm change?: N Notified?: Noemy Daley MD Response: MD entered new orders Latest Awad Fall Score: 95 Fall Risk: High Risk Safety Measures: Call light Within Reach, Bed Alarm Zone 1, Side Rails Side Rails x3, Bed position Low and Locked. Fall Precautions: Yellow Socks Yellow Gown Door Sign Patient Fall Education Report given to JO ANN Wynn.
--- NOTE | 2020-05-28 07:46 | NUR ---
NURSE NOTES: Pt received from Molina RN. Pt in bed awake and resting. Bed low and locked. gannon draining. Call light near left hand. breakfast tray at bedside, PROPERTY MANAGEMENT ACCOUNTANT will feed shortly.
[2020-05-28 08:00] VITALS: BP 126/71
--- NOTE | 2020-05-28 08:06 | NUR ---
NURSE NOTES: Per Dr. Fung note "Hold anti-coagulation for now to avoid hemorrhagic conversion; reassess in 2-3 weeks." therefore heparin held
[2020-05-28] MEDS: Heparin 5000 units/ml inj SUBQ SCH ×2 (08:07→20:46)
--- NOTE | 2020-05-28 08:37 | NUR ---
Speech Pathology (Dysphagia [place]) Admission Date: 05/22/3030 Admission Dx: Acute CVA Hospital Stay dates: #6 S: Pt received her breakfast tray consists with pureed and nectar thick liquid. Pt is alert and awake. I discussed with dietary and RN to try regular diet with myself. O: 1. Advanced Diet trial: I prepared the tray to customize for her for physical deficits including right mony/neglect etc. Pt was able to self feed with her left hand well with support. She became more aware of swallowing deficits including pocketing food, throat clearing/coughing on thin liquid. She was able to compensate her deficits with my advise. She continued to required one:one support to tolerate regular diet at this time. She is able to tolerate solid with support. A: 1. Oropharyngeal dysphagia due to L side cerebral stroke 2. Apraxia of Swallow Overall, she is stable her condition and became aware of her current situation and functional deficits from this unfortunate event. P: 1. Advance to mechanical soft and nectar thick liquid diet with aspiration precaution 2. Encourage self feeding with supportive care. Isatu Putnam
--- NOTE | 2020-05-28 08:45 | Consultation ---
DATE OF CONSULTATION: 05/27/2020 NEUROLOGICAL CONSULTATION CONSULTING PHYSICIAN: Margarito Newell MD HISTORY OF PRESENT ILLNESS: Patient is a 70-year-old [place] woman with history of hypertension for many years, renal artery stenosis, previous strokes in the past, and a past medical history of atrial fibrillation. Patient was admitted after being found down by her caregivers. The patient is admitted with paroxysmal atrial fibrillation . Patient has also had chest pain at that time. The patient had an EKG, which revealed left ventricular hypertrophy. The patient was discharged on antihypertensive agents . The patient 3 days ago was brought to this hospital. left ventricular hypertrophy and repolarization abnormality. 2D echocardiogram done on 05/22/2020 revealed normal left ventricular chamber size function and wall motion. Ejection fraction is 50 to 55% with mild left ventricular hypertrophy. The left atrium is mildly enlarged. The right cardiac chambers are normal. aortic root calcification. The patient was white count and platelet count the patient was admitted with elevated hematocrit and elevated white count. Platelet count was normal on admission, but it dropped subsequently . The patient's electrolytes revealed low potassium of 3.4, glucose slightly elevated. BUN and creatinine were normal. is elevated. Potassium was low . The patient . Urinalysis revealed no urinary tract infection. normal. D-dimer was elevated at 35.2. The patient's head CT revealed chronic and age-related changes including multiple infarcts in both basal ganglia and inferior frontal deep white matter. The patient's chest x-ray was normal. The carotid duplex scan on 05/22/2020 revealed the prominent calcified plaque within the left carotid bulb. No evidence of hemodynamically significant stenosis based on criteria. The patient had a CT scan abdominal pelvic CT, which revealed questionable mild rectal wall thickening . This could indicate mild proctitis changes. One MRI on 05/23/2020 was abnormal, which revealed a large area of restricted diffusion subacute infarct with quite low attenuation of the chronic previous CT scan. a large cluster of foci of restricted diffusion involving small cluster restricted diffusion foci in the superior sagittal right parietal lobe consistent with acute infarct. There was no hemorrhage or mass effect with a suggestion of old scattered foci of susceptibility artifact . The patient's . Blood culture 05/22/2020 showing enterococcus . Patient was placed on Zosyn, vancomycin, heparin 5000 units subcutaneous, aspirin , Protonix. I was asked to see the patient because of the stroke. PAST MEDICAL HISTORY/PAST MEDICAL ILLNESSES: 1. Hypertension. 2. Paroxysmal atrial fibrillation. HABITS: the patient does not smoke or take illegal drugs. She is a nondrinker. ALLERGIES: No known allergies. REVIEW OF SYSTEMS: Unavailable. PHYSICAL EXAMINATION: GENERAL: Patient is a well-developed, well-nourished woman, in bed occasionally responding to . She speaks Kinyarwanda no spoken speech or comprehension. VITAL SIGNS: The blood pressure is 160/74, pulse of , respirations 20, temperature 98.0. HEENT: Examination of the head is intact. NECK: Supple. No obvious tenderness. Carotids +2. No bruits. LUNGS: Clear to auscultation. CARDIOVASCULAR: PMI not felt. JVP completely normal. Patient had a normal S1. The S2 is physiologically split. There is no S3, S4, murmurs, or rubs appreciated. ABDOMEN: Slightly obese. Bowel sounds intact. No tenderness, masses, or organomegaly. EXTREMITIES: Maori . Peripheral pulses are +2. NEUROLOGIC EXAMINATION: CRANIAL NERVE EXAMINATION: CRANIAL NERVE II: Visual angel appeared to be absent on right side. . CRANIAL NERVES III, IV, AND : . CRANIAL NERVES V: Corneals appeared to be decreased on the right compared to the left. CRANIAL NERVE VII: decreased . CRANIAL NERVE VIII: . CRANIAL NERVES IX AND X: . CRANIAL NERVES XI AND XII: . MUSCLE EXAMINATION: in the right upper extremity flaccid. There is no . She can left side including . REFLEXES: Zero in the upper extremities knees . IMPRESSION: This patient has multiple acute to subacute infarcts involving both hemispheres, which strokes of embolic, most likely coming from the heart. The patient should be on anticoagulation anticoagulation aspirin she should be placed on anticoagulation at this time . Patient also saw , the chucker. She had an acute kidney injury, likely from hyponatremia and dehydration. . The patient's BUN is mildly elevated suggesting that . The patient endocarditis at this time; however, she should be anticoagulated bacterial endocarditis until the infection is under control. No vegetations are seen in the echocardiogram. transesophageal echo . PLAN: 1. I will speak to you about this case. 2. No anticoagulation at this time. 3. MRA of the brain. Thank you for this interesting case. Margarito Newell MD DR: MARIAJOSE JOB#: [id number] CC:
[2020-05-28] MEDS: Pantoprazole Inj IVP SCH (08:48)
[2020-05-28] MEDS: Aspirin Baby 81mg ORAL SCH ×2 (08:48→09:00)
[2020-05-28] MEDS: Losartan 50mg tab ORAL SCH ×2 (08:48→09:00)
--- NOTE | 2020-05-28 09:15 | NUR ---
Plant Floor Automation Manager: Tried to pt medication in apple sauce, brought to her mouth and she said no, explained importance of aspirin and bp med losartan, still said no, expressed that it is important for her heart and blood to prevent another stroke, she kept repeating no. I have had this pt for several shifts she has always been cooperative, I will express new resistance to care to Dr. Newell.
--- NOTE | 2020-05-28 09:29 | General Progress Note ---
Subjective ROS Limited/Unobtainable: No Constitutional: Reports: malaise, weakness HEENT: Reports: no symptoms Cardiovascular: Reports: no symptoms Respiratory: Reports: no symptoms Gastrointestinal/Abdominal: Reports: no symptoms Neurologic/Psychiatric: Reports: pre-existing deficit Endocrine: Reports: no symptoms Hematologic/Lymphatic: Reports: no symptoms Allergies: Coded Allergies: SULFAMETHOXAZOLE (Unverified Allergy, Unknown, 12/09/17) TRIMETHOPRIM (Unverified Allergy, Unknown, 12/09/17) All Systems: reviewed and negative except above Subjective stable. no new complaints. neuro consult appreciated. alert. follows commands. remains on iv abx. Objective Last 24 Hour Vital Signs Date Time Temp Pulse Resp B/P (MAP) Pulse Ox O2 Delivery O2 Flow Rate FiO2 05/28/20 08:48 126/71 05/28/20 08:00 97.7 70 20 126/71 (89) 98 05/28/20 04:00 64 05/28/20 04:00 97.5 67 16 135/72 (93) 95 05/28/20 00:00 68 05/28/20 00:00 99.5 73 17 152/76 (101) 94 05/27/20 21:00 Room Air 05/27/20 20:00 98.9 76 17 155/79 (104) 96 05/27/20 20:00 78 05/27/20 16:00 78 05/27/20 16:00 98.1 77 20 160/76 (104) 97 05/27/20 12:00 97.7 66 20 137/80 (99) 97 05/27/20 12:00 78 Intake and Output 05/27/20 05/28/20 19:00 07:00 Intake Total 118 ml 240 ml Output Total 900 ml 1000 ml Balance -782 ml -760 ml Intake Oral 118 ml 240 ml Output Urine Total 900 ml 1000 ml # Voids 1 1 Laboratory Tests 05/27/20 12:16: POC Whole Blood Glucose 118H 05/27/20 21:55: Vancomycin Level Trough 3.5L 05/28/20 06:04: White Blood Count 11.3H, Red Blood Count 4.02L, Hemoglobin 12.6, Hematocrit 36.2L, Mean Corpuscular Volume 90, Mean Corpuscular Hemoglobin 31.3H, Mean Corpuscular Hemoglobin Concent 34.8, Red Cell Distribution Width 11.2L, Platelet Count 168, Mean Platelet Volume 6.9, Neutrophils (%) (Auto) 75.1H, Lymphocytes (%) (Auto) 15.0L, Monocytes (%) (Auto) 7.6, Eosinophils (%) (Auto) 1.8, Basophils (%) (Auto) 0.6, Sodium Level 137, Potassium Level 3.8, Chloride Level 105, Carbon Dioxide Level 29, Anion Gap 3L, Blood Urea Nitrogen 10, Creatinine 0.8, Estimat Glomerular Filtration Rate > 60, Glucose Level 110H, Calcium Level 8.4L Height (Feet): 5 Height (Inches): 5.00 Weight (Pounds): 120 Objective General Appearance: WD/WN, alert Neck: supple Cardiovascular: normal rate, regular rhythm Respiratory/Chest: chest wall non-tender, lungs clear, normal breath sounds Abdomen: normal bowel sounds, non tender, soft Edema: no edema noted Arm (L), no edema noted Arm (R) Neurologic: motor weakness - right hemiparesis Skin: normal pigmentation. +black wound jany knees. + drainage Assessment/Plan Problem List: (1) CVA (cerebral vascular accident) ICD Codes: I63.9 - Cerebral infarction, unspecified SNOMED: 348391583 (2) Renal failure ICD Codes: N19 - Unspecified kidney failure SNOMED: 17000449, 010888454 (3) Right hemiparesis ICD Codes: G81.91 - Hemiplegia, unspecified affecting right dominant side SNOMED: 927531980, 420212125 (4) Dehydration ICD Codes: E86.0 - Dehydration SNOMED: 55162375, 380954196 (5) UTI (urinary tract infection) ICD Codes: N39.0 - Urinary tract infection, site not specified SNOMED: 59396861, 189997072 (6) Decubitus skin ulcer ICD Codes: L89.90 - Pressure ulcer of unspecified site, unspecified stage SNOMED: 079017377 (7) Hypernatremia ICD Codes: E87.0 - Hyperosmolality and hypernatremia SNOMED: 131842190 (8) Leukocytosis ICD Codes: D72.829 - Elevated white blood cell count, unspecified SNOMED: 665975521, 720977177 Status: stable, progressing Assessment/Plan: cont current rx antiplt rx neuro eval- . MRA ordered anticoag to be determined 1-2 weeks- defer to neurology GI consult regarding OB+ stools as pt will eventually need AC. consult pending rate control per cards pt/ot/st iv abx per ID Ct abd per ID- ?proctitis. GI consult pending d/w DTr x 10 mins Vinay Lu MD May 28, 2020 09:29
--- NOTE | 2020-05-28 10:54 | Infectious Diseases Prog Note ---
"Assessment/Plan Assessment/Plan antibiotics : zosyn A 1. enterococcus | clostridium sepsis 2. atrial fibrillation resolving 3. renal failure improving 4. hypertension 5. mild proctitis P 1. continue iv zosyn 7 more days 2, will follow up cultures Subjective ROS Limited/Unobtainable: Yes Allergies: Coded Allergies: SULFAMETHOXAZOLE (Unverified Allergy, Unknown, 12/09/17) TRIMETHOPRIM (Unverified Allergy, Unknown, 12/09/17) Objective Last 24 Hour Vital Signs Date Time Temp Pulse Resp B/P (MAP) Pulse Ox O2 Delivery O2 Flow Rate FiO2 05/28/20 08:00 97.7 70 20 126/71 (89) 98 05/28/20 04:00 64 05/28/20 04:00 97.5 67 16 135/72 (93) 95 05/28/20 00:00 68 05/28/20 00:00 99.5 73 17 152/76 (101) 94 05/27/20 21:00 Room Air 05/27/20 20:00 98.9 76 17 155/79 (104) 96 05/27/20 20:00 78 05/27/20 16:00 78 05/27/20 16:00 98.1 77 20 160/76 (104) 97 05/27/20 12:00 97.7 66 20 137/80 (99) 97 05/27/20 12:00 78 Height (Feet): 5 Height (Inches): 5.00 Weight (Pounds): 120 Respiratory/Chest: lungs clear Cardiovascular: normal rate, regular rhythm, no gallop/murmur Abdomen: soft, non tender Extremities: no edema Laboratory Tests Test 05/27/20 12:16 05/27/20 21:55 05/28/20 06:04 POC Whole Blood Glucose 118 MG/DL (74-106) H Vancomycin Level Trough 3.5 ug/mL (5.0-12.0) L White Blood Count 11.3 K/UL (4.8-10.8) H Red Blood Count 4.02 M/UL (4.20-5.40) L Hemoglobin 12.6 G/DL (12.0-16.0) Hematocrit 36.2 % (37.0-47.0) L Mean Corpuscular Volume 90 FL (80-99) Mean Corpuscular Hemoglobin 31.3 PG (27.0-31.0) H Mean Corpuscular Hemoglobin Concent 34.8 G/DL (32.0-36.0) Red Cell Distribution Width 11.2 % (11.6-14.8) L Platelet Count 168 K/UL (150-450) Mean Platelet Volume 6.9 FL (6.5-10.1) Neutrophils (%) (Auto) 75.1 % (45.0-75.0) H Lymphocytes (%) (Auto) 15.0 % (20.0-45.0) L Monocytes (%) (Auto) 7.6 % (1.0-10.0) Eosinophils (%) (Auto) 1.8 % (0.0-3.0) Basophils (%) (Auto) 0.6 % (0.0-2.0) Sodium Level 137 MMOL/L (136-145) Potassium Level 3.8 MMOL/L (3.5-5.1) Chloride Level 105 MMOL/L (98-107) Carbon Dioxide Level 29 MMOL/L (21-32) Anion Gap 3 mmol/L (5-15) L Blood Urea Nitrogen 10 mg/dL (7-18) Creatinine 0.8 MG/DL (0.55-1.30) Estimat Glomerular Filtration Rate > 60 mL/min (>60) Glucose Level 110 MG/DL (74-106) H Calcium Level 8.4 MG/DL (8.5-10.1) L Current Medications Medications (Trade) Dose Ordered Sig/Marci Route PRN Reason Start Time Stop Time Status Last Admin Dose Admin Acetaminophen (Tylenol) 650 mg Q4H PRN ORAL FEVER 05/24/20 23:15 06/23/20 23:14 Acetaminophen (Tylenol) 650 mg Q6H PRN ORAL Pain Scale (3-5) 05/22/20 19:30 06/21/20 19:29 Aspirin (ASA) 81 mg DAILY ORAL 05/24/20 09:00 07/08/20 08:59 05/27/20 08:12 Barium Sulfate (Readi-Cat 2) 450 ml NOW PRN ORAL Radiology Procedure 05/27/20 11:45 05/29/20 11:44 Heparin Sodium (Porcine) (Heparin 5000 units/ml) 5,000 units EVERY 12 HOURS SUBQ 05/22/20 21:00 07/06/20 20:59 05/22/20 20:22 Iohexol (OMNIPAQUE-300 100ml) 100 ml NOW PRN INJ Radiology Procedure 05/27/20 11:45 05/29/20 11:44 Losartan Potassium (Cozaar) 100 mg DAILY ORAL 05/28/20 09:00 06/27/20 08:59 Pantoprazole (Protonix) 40 mg DAILY IVP 05/22/20 20:00 06/21/20 19:59 05/28/20 08:48 Piperacillin Sod/ Tazobactam Sod 3.375 gm/Sodium Chloride 110 ml @ 27.5 mls/hr Q8H IVPB 05/27/20 01:00 06/03/20 00:59 05/28/20 08:48 Ramirez Rojas MD May 28, 2020 10:54"
[2020-05-28 12:00] VITALS: BP_SYST 136; BP_SYST 160; BP_DIAS 77; BP_DIAS 79
--- NOTE | 2020-05-28 14:00 | Diagnostic Imaging Report ---
Indications: Severe left-sided weakness Technique: 3D [id number] images obtained through the [place] [facility] [place]. MIP reconstructions were generated in multiple rotational projections Comparison: Brain MRI dated 05/23/2020, brain CT 05/22/2020 Findings: Posterior circulation demonstrates dominant left, smaller caliber but patent right vertebral artery. No stenosis of either. Small caliber but patent and nonstenotic basilar artery. Patent bilateral superior cerebellar arteries. The P1 segment of the right posterior cerebral artery appears to be patent but very small in caliber; the right posterior cerebral artery is predominantly supplied by a large posterior communicating artery. The reconstructed images suggest a moderate to severe focal stenosis of the P2 segment near its origin. The left P1 segment is a equivocally patent but probably; likewise, predominantly supply to the left posterior cerebral artery is via the posterior communicating artery. There is an area of signal dropout in the P2 segment of the left posterior cerebral artery. This may indicate a severe stenosis Anterior circulation demonstrates patent nonstenotic distal internal carotid arteries. Patent nonstenotic right middle cerebral artery and proximal branches. Smaller caliber M1 segment of the left middle cerebral artery although without significant focal stenosis. The proximal sylvian branch of the left middle cerebral artery demonstrates what may be a focal significant stenosis. This is better appreciated on the MIP reconstructions. Absent right A1 segment. Larger caliber left A1 segment supplies both anterior cerebral arteries, presumably via anterior to indicating artery. There is no evidence of aneurysm or vascular malformation. Impression: Stenosis, possibly severe, of the P2 segment of the left posterior cerebral artery Stenosis, possibly severe, the sylvian branch of the left middle cerebral artery. [place] [facility] [place] anatomy as described All stenosis measurements are based on the diameter of the distal normal vessel as referenced vessel, per NASCET criteria
--- NOTE | 2020-05-28 14:16 | Surgery Progress Note ---
Surgery Progress Note Subjective Additional Comments CT a/p reviewed no n/v/f/c lab snoted exam stable Objective Last 24 Hour Vital Signs Date Time Temp Pulse Resp B/P (MAP) Pulse Ox O2 Delivery O2 Flow Rate FiO2 05/28/20 12:00 71 05/28/20 12:00 97.7 75 20 160/77 (104) 98 05/28/20 09:00 Room Air 05/28/20 08:00 97.7 70 20 126/71 (89) 98 05/28/20 08:00 72 05/28/20 04:00 64 05/28/20 04:00 97.5 67 16 135/72 (93) 95 05/28/20 00:00 68 05/28/20 00:00 99.5 73 17 152/76 (101) 94 05/27/20 21:00 Room Air 05/27/20 20:00 98.9 76 17 155/79 (104) 96 05/27/20 20:00 78 05/27/20 16:00 78 05/27/20 16:00 98.1 77 20 160/76 (104) 97 I&O Intake and Output 05/27/20 05/28/20 19:00 07:00 Intake Total 118 ml 240 ml Output Total 900 ml 1000 ml Balance -782 ml -760 ml Intake Oral 118 ml 240 ml Output Urine Total 900 ml 1000 ml # Voids 1 1 Dressing: saturated Cardiovascular: RSR Respiratory: decreased breath sounds Abdomen: soft, non-tender, present bowel sounds Extremities: no edema, no tenderness, no cyanosis Laboratory Tests Test 05/27/20 21:55 05/28/20 06:04 Vancomycin Level Trough 3.5 ug/mL (5.0-12.0) L White Blood Count 11.3 K/UL (4.8-10.8) H Red Blood Count 4.02 M/UL (4.20-5.40) L Hemoglobin 12.6 G/DL (12.0-16.0) Hematocrit 36.2 % (37.0-47.0) L Mean Corpuscular Volume 90 FL (80-99) Mean Corpuscular Hemoglobin 31.3 PG (27.0-31.0) H Mean Corpuscular Hemoglobin Concent 34.8 G/DL (32.0-36.0) Red Cell Distribution Width 11.2 % (11.6-14.8) L Platelet Count 168 K/UL (150-450) Mean Platelet Volume 6.9 FL (6.5-10.1) Neutrophils (%) (Auto) 75.1 % (45.0-75.0) H Lymphocytes (%) (Auto) 15.0 % (20.0-45.0) L Monocytes (%) (Auto) 7.6 % (1.0-10.0) Eosinophils (%) (Auto) 1.8 % (0.0-3.0) Basophils (%) (Auto) 0.6 % (0.0-2.0) Sodium Level 137 MMOL/L (136-145) Potassium Level 3.8 MMOL/L (3.5-5.1) Chloride Level 105 MMOL/L (98-107) Carbon Dioxide Level 29 MMOL/L (21-32) Anion Gap 3 mmol/L (5-15) L Blood Urea Nitrogen 10 mg/dL (7-18) Creatinine 0.8 MG/DL (0.55-1.30) Estimat Glomerular Filtration Rate > 60 mL/min (>60) Glucose Level 110 MG/DL (74-106) H Calcium Level 8.4 MG/DL (8.5-10.1) L Plan Problems: (1) Decubitus skin ulcer Assessment & Plan: Patient presented on admission with multiple skin concerns. Patient was found down unknown duration and has developed significant injuries and skin concerns. Patient has a right shoulder 3 cm x 3 cm posterior deep tissue injury no fluctuance nontender no skin breakdown not open. Patient has sacral erythema identified. Patient has incontinence associated dermatitis identified in the perineum and bilateral thighs and groins. Patient has a right hip DTI with skin breakdown identified. Patient has a left knee unstageable decubitus ulcer with necrotic eschar. Patient has significant abdominal erythema and near cellulitis with burning rash. No abscess no drainage wounds unlikely source of patient's sepsis. Wound is likely attributed to patient being down for significant period of time. Will need nutritional optimization and local care plan to allow for healing and improvement. Care plan initiated. Treatment plan Wash all wounds daily with normal saline. Apply skin protectant and OPTi foam dressing to the right shoulder change every 3 days. Apply OPTi foam dressing patient sacral region monitor for incontinence change every 3 days and PRN saturation as necessary Apply skin protectant to bilateral thighs and perineum monitor for incontinence change accordingly. Thera honey to left knee eschar followed by OPTi foam dressing wrap with Kerlix if necessary change daily and PRN saturation Zinc oxide cream for abdominal wound. Apply daily. Wash wounds daily. Turn every 2 hours offload pressure with pillows Air mattress given patient's current medical condition Nutritional optimization We will follow with recommendations thank you for let me participate patient's care (2) Renal failure (3) CVA (cerebral vascular accident) Assessment & Plan: Posterior circulation demonstrates dominant left, smaller caliber but patent right vertebral artery. No stenosis of either. Small caliber but patent and nonstenotic basilar artery. Patent bilateral superior cerebellar arteries. The P1 segment of the right posterior cerebral artery appears to be patent but very sm all in caliber; the right posterior cerebral artery is predominantly supplied by a large posterior communicating artery. The reconstructed images suggest a moderate to severe focal stenosis of the P2 segment near its origin. The left P1 segment is a equivocally patent but probably; likewise, predominantly supply to the left posterior cerebral artery is via the posterior communicating artery. There is an area of signal dropout in the P2 segment of the left posterior cerebral artery. This may indicate a severe stenosis Anterior circulation demonstrates patent nonstenotic distal internal carotid arteries. Patent nonstenotic right middle cerebral artery and proximal branches. Smaller caliber M1 segment of the left middle cerebral artery although without significant focal stenosis. The proximal sylvian branch of the left middle cerebral artery demonstrates what may be a focal significant stenosis. This is better appreciated on the MIP reconstructions. Absent right A1 segment. Larger caliber left A1 segment supplies both anterior cerebral arteries, presumably via anterior to indicating artery. There is no evidence of aneurysm or vascular malformation. Impression: Stenosis, possibly severe, of the P2 segment of the left posterior cerebral artery Stenosis, possibly severe, the sylvian branch of the left middle cerebral artery. [place] of [place] anatomy as described All stenosis measurements are based on the diameter of the distal normal vessel as referenced vessel, per NASCET criteria Old infarcts are seen in the bilateral basal ganglia and inferior frontal deep white matter. No acute intracranial hemorrhage or edema. No mass effect nor midline shift. There is age-related enlargement of the ventricles and extra- axial CSF spaces. There is periventricular deep white matter low-attenuation consistent with chronic microvascular ischemic change. Visualized orbits are unremarkable. There is bilateral ethmoid and bilateral maxillary sinus mucosal disease. The mastoids are clear. Impression: Chronic and age-related changes, including multiple old infarcts Negative for acute intracranial bleed or mass effect Right common carotid artery: Unremarkable. No occlusion or significant stenosis on color flow and spectral Doppler imaging. Right internal carotid artery: Unremarkable. No occlusion or significant stenosis on color flow and spectral Doppler imaging. Right external carotid artery: Unremarkable. No occlusion or significant stenosis on color flow and spectral Doppler imaging. Right vertebral artery: Antegrade flow within the vertebral arteries. Right ICA/CCA ratio: Unremarkable. Within normal limits. Left common carotid artery: Unremarkable. No occlusion or significant stenosis on color flow and spectral Doppler imaging. Left internal carotid artery: Significant calcified atherosclerotic disease is noted within the left carotid bulb. No occlusion or significant stenosis on color flow and spectral Doppler imaging. Left external carotid artery: Unremarkable. No occlusion or significant stenosis on color flow and spectral Doppler imaging. Left vertebral artery: See above. Left ICA/CCA ratio: Unremarkable. Within normal limits. Lymph nodes: Unremarkable. No lymphadenopathy. Other findings: Evaluation of peak systolic velocities bilaterally throughout the carotid systems reveal no evidence of hemodynamically significant stenosis, based on established criteria. CAROTID STENOSIS REFERENCE USING SRU CRITERIA: Mild - <50% stenosis. ICA PSV is less than 125 cm/second and plaque or intimal thickening is visible. Moderate - 50-69% stenosis. ICA PSV is 125 to 230 cm/second and plaque is visible. Severe - 70-94% stenosis. ICA PSV is more than 230 cm/second and visible plaque with lumen narrowing is seen. Near occlusion - 95-99% stenosis. ICA PSV is variable and significant plaque with luminal narrowing is seen. Occluded - 100% stenosis. No flow identified. IMPRESSION: 1. Prominent calcified plaque within the left carotid bulb. 2. No evidence of hemodynamically significant stenosis based on established ultrasound criteria. (4) Right hemiparesis (5) Dehydration Assessment & Plan: 1. Increase self initiation for drinking with her left hand: Ms. Hutchinson was able to self drink nector thick liquid via cup with her left hand with visual and tactile cue 90% of the time without s.s of aspiration. 2. Increase initiation of verbal utterance: Pt was able to verbally repeat at word level with visual cues and repetition at 75% of the time. 3.Diet appropriateness: Ms. Hutchinson was reminded what happened to her and why she is in the hospital and and her diet was currently modified in [place]. She appeared to be understanding my explanation. 4. Team approach to take care her case was initiated with communicating with RN and Rad dept to complete pending procedure (video swallow study at 13:00 today) A: 1. Oropharyngeal dysphagia due to multiple acute and subacute cerebral infarcts 2. 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 Likely presence of expressive aphasia P: 1. Modified diet with pureed and nector thick liquid with aspiration precaution 2. Encourage self drinking with her left hand with assistance -occupational therapist recommendation to follow 3. Full speech and language evaluation is needed for discharge plan - Strongly push for acute rehab if ultimate goal/support is to return to home. (6) Hypernatremia (7) Leukocytosis Assessment & Plan: wbc 20 on admission lactic acidosis - improving with hydration on abx as per ID no acute surgical intervention planned okay for tf diet nutrition eval local wound care leukocytosis resolved improving will follow with recs and monitor thank you (8) UTI (urinary tract infection) Liam Hermosillo May 28, 2020 14:16
--- NOTE | 2020-05-28 15:46 | NUR ---
CASE MANAGEMENT: REVIEW SI: ALOC . CVA . RENAL FAILURE . LEFT KNEE UNSTAGEABLE DECUBITUS SKIN ULCER T 99.5 HR 73 RR 17 BP 160/77 SAT 94% ROOM AIR WBC 11.3 A-GAP 3 IS: ZOSYN IV Q8HR PROTONIX IV QD WOUND CARE DAILY ST EVAL PENDING TELEMETRY UNIT STATUS DCP: PATIENT IS FROM HOME
[2020-05-28 16:00] VITALS: BP 135/79
--- NOTE | 2020-05-28 16:32 | Diagnostic Imaging Report ---
Indications: Reason For Exam: DYSPHAGIA Technique: Patient ingested multiple substances under the supervision of speech pathology. Video fluoroscopic recording performed. Total fluoroscopy time 79 seconds. Total dose area product 0.08692 mGycm2 Total number of images-5 Comparison: none Findings: With thin liquid barium, deep laryngeal penetration is noted. Multiple episodes of penetration of nectar thick liquid barium demonstrated. No aspiration. With ingestion of barium puree, delayed initiation of deglutition. No significant aspiration or penetration Impression: Positive for penetration of multiple substances. No definite aspiration graft please refer to speech pathology report for more detailed analysis
--- NOTE | 2020-05-28 16:49 | NUR ---
SPEECH PATHOLOGY NOTE: S: PATIENT CLEARED FOR ST INTERVENTION BY JO ANN ROGER. PATIENT HAD BEEN SEEN EARLIER TODAY TO ADDRESS DYSPHAGIA AND ENCOURAGE P.O. INTAKE. PER RN, PATIENT IS DEMONSTRATING A CHANGE IN CONDITION TODAY RELATIVE TO PARTICIPATION IN HER MEDICAL CARE/REFUSING MEDICATION AND ALSO REFUSING P.O. INTAKE. PATIENTS DAUGHTER DG AND CAREGIVER AZAEL WERE ALSO PRESENT FOR FAMILY/CAREGIVER EDUCATION. THE DAUGHTER LIVES IN ANOTHER COUNTY AND RECENTLY SAW HER MOTHERS HOME AND FOUND IT CLUTTERED/NOT CLEAN INDICATING THAT THE PATIENT HAD BEEN EXPERIENCING A STEADY DECLINE IN CONDITION. THE PATIENTS CAREGIVER WAS PROVIDING MINIMAL HELP WITH BUYING GROCERIES BUT NOT WITH HOUSE CLEANING THE PATIENTS DAUGHTER ALSO REPORTED THAT FOR MANY YEARS HER MOTHER SPOKE PREDOMINANTLY IN [place]. HOWEVER, IN THE PAST 5 YEARS, THE PATIENT HAS SPOKEN PREDOMINANTLY IN [place] AND HER SOCIAL [place] INCLUDES PRIMARILY [place]/SPEAKING FRIENDS O: VERBAL EXPRESSION, VOICING, AUDITORY COMPREHENSION TASKS, FAMILY/ CAREGIVER EDUCATION A: PATIENT POSITIONED UPRIGHT FOR SPEECH THERAPY TASKS. SHE WAS ALERT, SPEAKING SPONTANEOUSLY TO HER CAREGIVER AND HER DAUGHTER. HER SPEECH WAS NOT DISCERNIBLE TO THE CAREGIVER WHICH INDICATED THAT HER SPONTANEOUS SPEECH CONSISTS PRIMARILY OF JARGON. Y/N QUESTIONS: 2/10 CORRECT. ONE/STEP COMMAND WITH BODY PART I.D.: REQUIRED HAND/OVER/HAND MAX ASSIST FOR TOUCH YOUR NOSE, TOUCH YOUR MOUTH, ETC. AUTOMATIC SPEECH: MOD ASSIST/IN IMITATION: DAYS OF WEEK, MONTHS OF YEAR, COUNTING TO 20. VOWELS INTACT, INITIAL CONSONANT SOUNDS MISSING OR DISTORTED. FULL ROM OF VISUAL TRACKING IN BOTH VISUAL GUTIERREZ (A DRAMATIC CHANGE FROM 5 DAYS AGO), FLAT AFFECT. CLINICIAN: (POINTING TO DAUGHTER) "THIS IS DG" WHO IS THIS? PATIENT: "DG" CLINICIAN: LET'S SAY DG 5 TIMES PATIENT: REPEATS THE WORD DG X5 WITH MIN CUES FROM CLINICIAN CLINICIAN ALSO PROVIDED DAUGHTER WITH WEB SITES THAT HAVE INFORMATION ON STROKE/STROKE RECOVERY. P: CONTINUE ST TO ADDRESS BOTH DYSPHAGIA AND COMMUNICATION DISORDER PATIENT WOULD BENEFIT FROM ST AT NEXT LEVEL OF CARE RN PROVIDING ORAL CARE AND ONGOING ENCOURAGEMENT RE: P.O. INTAKE/AND INTAKE OF MEDICATION THANK YOU FOR THIS REFERRAL.
--- NOTE | 2020-05-28 19:42 | NUR ---
NURSE NOTES: Received report from JO ANN Wynn. Patient is awake on bed, alert and oriented x 1, [place] speaking. On cardiac diet, pureed moist, no straw, 1:1 feed assist, nectar thick fluid. monitoring coordinator is in place, shows sinus rhythm and no chest pain reported. Schneider catheter in in place, drained via gravity with yellow-orange output. IV site in on left AC g-22 and Left upper arm g-22 both are saline lock that is patent and intact. On fall and aspiration precaution, bed alarm is on. Safety measures are in place, bed in lowest and locked position, side rails up x 2. Call light button and bedside table within reach, instructed to call for any assistance needed. Will continue plan of care.
--- NOTE | 2020-05-28 19:48 | NUR ---
NURSE HAND-OFF REPORT: Important Events on Shift:[behavior change, refused medication, md's aware] Patient Status: [in bed rsting stable] Diet: [cardiac puree 1 to 1 feed] Pending Orders: [] Pending Results/Labs:[] Pending MD notification:[] Latest Vital Signs: Temperature 97.9 , Pulse 72 , B/P 135 /79 , Respiratory Rate 20 , O2 SAT 95 , Room Air, O2 Flow Rate . Vital Sign Comment: [stable] EKG Rhythm: Sinus Rhythm Rhythm change?: N Notified?: Noemy Daley MD Response: MD entered new orders Latest Awad Fall Score: 95 Fall Risk: High Risk Safety Measures: Call light Within Reach, Bed Alarm Zone 1, Side Rails Side Rails x3, Bed position Low and Locked. Fall Precautions: Yellow Socks Yellow Gown Door Sign Patient Fall Education Report given to [Dayanna Mejia RN].
--- NOTE | 2020-05-28 19:59 | Nephrology Progress Note ---
Assessment/Plan Problem List: (1) Hypophosphatemia (2) KVNG (acute kidney injury) (3) Leukocytosis (4) Hypernatremia (5) Dehydration (6) Right hemiparesis (7) CVA (cerebral vascular accident) (8) Hypokalemia (9) Clostridial infection (10) Enterococcal sepsis Plan rx sepsis, replete phos, replace K better, continue zosyn poor nutrition GI eval, try dc gannon am Subjective ROS Limited/Unobtainable: Yes Objective Objective Last 24 Hour Vital Signs Date Time Temp Pulse Resp B/P (MAP) Pulse Ox O2 Delivery O2 Flow Rate FiO2 05/28/20 16:00 97.9 70 20 135/79 (97) 95 05/28/20 16:00 72 05/28/20 12:00 71 05/28/20 12:00 97.7 75 20 136/79 (98) 98 05/28/20 09:00 Room Air 05/28/20 08:00 97.7 70 20 126/71 (89) 98 05/28/20 08:00 72 05/28/20 04:00 64 05/28/20 04:00 97.5 67 16 135/72 (93) 95 05/28/20 00:00 68 05/28/20 00:00 99.5 73 17 152/76 (101) 94 05/27/20 21:00 Room Air 05/27/20 20:00 98.9 76 17 155/79 (104) 96 05/27/20 20:00 78 Intake and Output 05/27/20 05/28/20 19:00 07:00 Intake Total 118 ml 240 ml Output Total 900 ml 1000 ml Balance -782 ml -760 ml Intake Oral 118 ml 240 ml Output Urine Total 900 ml 1000 ml # Voids 1 1 Laboratory Tests 05/27/20 21:55: Vancomycin Level Trough 3.5L 05/28/20 06:04: White Blood Count 11.3H, Red Blood Count 4.02L, Hemoglobin 12.6, Hematocrit 36.2L, Mean Corpuscular Volume 90, Mean Corpuscular Hemoglobin 31.3H, Mean Corpuscular Hemoglobin Concent 34.8, Red Cell Distribution Width 11.2L, Platelet Count 168, Mean Platelet Volume 6.9, Neutrophils (%) (Auto) 75.1H, Lymphocytes (%) (Auto) 15.0L, Monocytes (%) (Auto) 7.6, Eosinophils (%) (Auto) 1.8, Basophils (%) (Auto) 0.6, Sodium Level 137, Potassium Level 3.8, Chloride Level 105, Carbon Dioxide Level 29, Anion Gap 3L, Blood Urea Nitrogen 10, Creatinine 0.8, Estimat Glomerular Filtration Rate > 60, Glucose Level 110H, Calcium Level 8.4L Height (Feet): 5 Height (Inches): 5.00 Weight (Pounds): 120 General Appearance: lethargic, confused EENT: normal ENT inspection Neck: normal alignment Cardiovascular: regular rhythm Respiratory/Chest: lungs clear Extremities: trace edema Neurologic: abnormal bonsai tender II-XII, motor weakness Julio Sanchez MD May 28, 2020 19:59
[2020-05-28 20:00] VITALS: BP 168/82
--- NOTE | 2020-05-28 20:40 | NUR ---
NURSE NOTES: Patient's blood pressure at this time is 168/82, patient is awake, unable to voice out if she's having any pain, and based on assessment, no facial grimace, legs are in normal position. Dr. Fung made aware and no orders was made. Will continue to monitor.
--- NOTE | 2020-05-28 21:46 | NUR ---
NURSE NOTES: Patient has been Sinus rhythm, had an episode of Afib on 05/26. At this time patient has bigemini with PAC's, patient's blood pressure is 162/80, no discomfort noted. Dr. Fung made aware, no orders received yet. Will continue to monitor.
--- NOTE | 2020-05-28 23:37 | General Progress Note ---
Subjective Allergies: Coded Allergies: SULFAMETHOXAZOLE (Unverified Allergy, Unknown, 12/09/17) TRIMETHOPRIM (Unverified Allergy, Unknown, 12/09/17) Objective Last 24 Hour Vital Signs Date Time Temp Pulse Resp B/P (MAP) Pulse Ox O2 Delivery O2 Flow Rate FiO2 05/28/20 21:46 75 05/28/20 20:00 99.3 69 16 168/82 (110) 95 05/28/20 20:00 67 05/28/20 16:00 97.9 70 20 135/79 (97) 95 05/28/20 16:00 72 05/28/20 12:00 71 05/28/20 12:00 97.7 75 20 136/79 (98) 98 05/28/20 09:00 Room Air 05/28/20 08:00 97.7 70 20 126/71 (89) 98 05/28/20 08:00 72 05/28/20 04:00 64 05/28/20 04:00 97.5 67 16 135/72 (93) 95 05/28/20 00:00 68 05/28/20 00:00 99.5 73 17 152/76 (101) 94 Intake and Output 05/27/20 05/28/20 19:00 07:00 Intake Total 118 ml 240 ml Output Total 900 ml 1000 ml Balance -782 ml -760 ml Intake Oral 118 ml 240 ml Output Urine Total 900 ml 1000 ml # Voids 1 1 Laboratory Tests 05/28/20 06:04: White Blood Count 11.3H, Red Blood Count 4.02L, Hemoglobin 12.6, Hematocrit 36.2L, Mean Corpuscular Volume 90, Mean Corpuscular Hemoglobin 31.3H, Mean Corpuscular Hemoglobin Concent 34.8, Red Cell Distribution Width 11.2L, Platelet Count 168, Mean Platelet Volume 6.9, Neutrophils (%) (Auto) 75.1H, Lymphocytes (%) (Auto) 15.0L, Monocytes (%) (Auto) 7.6, Eosinophils (%) (Auto) 1.8, Baso phils (%) (Auto) 0.6, Sodium Level 137, Potassium Level 3.8, Chloride Level 105, Carbon Dioxide Level 29, Anion Gap 3L, Blood Urea Nitrogen 10, Creatinine 0.8, Estimat Glomerular Filtration Rate > 60, Glucose Level 110H, Calcium Level 8.4L Height (Feet): 5 Height (Inches): 5.00 Weight (Pounds): 120 Assessment/Plan Status: stable, progressing Assessment/Plan: Assessment - OB (+) stool w/o significant anemia - CVA , (R) mony - Renal failure - resolved leukocytosis - paroxysmal a fib Recommendations - monitor CBC - will search for next of kin for discussion of GI w/u for OB (+) - clear liquids in preparation of possible GI w/u Thank you MD Sumi Shepherd Payman MD May 28, 2020 23:37
[2020-05-28] MEDS ORDERED: Sorbitol Solution UD 30ml ORAL ONE (23:45)
[2020-05-29] VITALS: BP 136/76
--- NOTE | 2020-05-29 00:45 | Consultation ---
DATE OF CONSULTATION: 05/28/2020 GASTROENTEROLOGY CONSULTATION REPORT CONSULTING PHYSICIAN: Bob Jonas MD. CHIEF COMPLAINT: I was asked to see patient by Dr. Vinay Lu for evaluation of heme-positive stools. HISTORY OF PRESENT ILLNESS: The patient is an unfortunate 70-year-old [place] woman who was found down by a caregiver and was brought into the hospital where evaluation with imaging has shown embolic strokes with right-sided hemiparesis. Patient has been seen by multiple consultants including Cardiology, Internal Medicine, and Neurology services. She has been found to have atrial fibrillation, which is presumably her mode of stroke formation. The patient also had stool tests checked, which were Hemoccult positive. At some point in the future, it is planned for the patient to be on anticoagulation to reduce future risk of stroke. This consultation was therefore generated to evaluate the patient for endoscopy and colonoscopy to workup the heme-positive stools prior to anticoagulation. Patient is unable to provide any history and most of the information is only available from the chart. PAST MEDICAL HISTORY: History of stroke, atrial fibrillation. FAMILY HISTORY: Unknown. SOCIAL HISTORY: Patient has had no chart history of smoking or drinking. REVIEW OF SYSTEMS: Otherwise negative. MEDICATIONS: See the chart list for details. PHYSICAL EXAMINATION: GENERAL: Debilitated, elderly woman seen in her room. HEENT: Normocephalic and atraumatic. Sclerae anicteric. Oropharynx clear. NECK: Supple. CHEST: Clear to auscultation. CARDIAC: Revealed a regular rate. ABDOMEN: Soft, nontender. EXTREMITIES: Revealed no edema. LABORATORY DATA: Noted. ASSESSMENT: This patient presents with heme-positive stools in the setting which she eventually require systemic anticoagulation to treat her atrial fibrillation. It is reasonable to go ahead with endoscopy and colonoscopy to evaluate the upper and lower GI tract to allow for eventual anticoagulation. I will discuss this with the patient's next of kin. Thank you for asking me to participate in the care of this patient. Bob Jonas M.D. DR: MONIK JOB#: [id number] CC:
[2020-05-29] MEDS: Piperacillin/Tazobactam 3.375 GM in NS 110 ML IVPB SCH ×3 (01:09→17:26)
--- NOTE | 2020-05-29 02:49 | Cardiology Progress Note ---
Subjective DATE OF SERVICE: May 28, 2020 Fully alert MRA reveals left P2 posterior cerebral artery stenosis. No recurrent episodes of rapid AFib. Stool OB positive, but hemoglobin stable MRI: reveals acute and subacute infarcts with distribution c/w cardioembolic source 2D Echo with normal LVEF and mild MR; no pulmonary hypertension. Monitor with AFib and episodes of fast and slow heart rates in past several days - no pauses. Also with bigeminy today. Objective Last 24 Hour Vital Signs Date Time Temp Pulse Resp B/P (MAP) Pulse Ox O2 Delivery O2 Flow Rate FiO2 05/29/20 00:00 64 05/29/20 00:00 99.3 69 14 136/76 (96) 97 05/28/20 21:46 75 05/28/20 21:00 Room Air 05/28/20 20:00 99.3 69 16 168/82 (110) 95 05/28/20 20:00 67 05/28/20 16:00 97.9 70 20 135/79 (97) 95 05/28/20 16:00 72 05/28/20 12:00 71 05/28/20 12:00 97.7 75 20 136/79 (98) 98 05/28/20 09:00 Room Air 05/28/20 08:00 97.7 70 20 126/71 (89) 98 05/28/20 08:00 72 05/28/20 04:00 64 05/28/20 04:00 97.5 67 16 135/72 (93) 95 ROS: unchanged from my note of 05/22/20. HEENT: normal ENT inspection RHYTHM: Afib LUNGS: lungs clear bilaterally CARDIAC: normal rate, normal S1 and S2, irregularly irregular, bradycardia ABDOMEN: normal bowel sounds, non tender, soft, no organomegaly, no mass EXTREMITIES: normal range of motion, non-tender, normal inspection, no calf tenderness Laboratory Tests Test 05/28/20 06:04 White Blood Count 11.3 K/UL (4.8-10.8) H Red Blood Count 4.02 M/UL (4.20-5.40) L Hemoglobin 12.6 G/DL (12.0-16.0) Hematocrit 36.2 % (37.0-47.0) L Mean Corpuscular Volume 90 FL (80-99) Mean Corpuscular Hemoglobin 31.3 PG (27.0-31.0) H Mean Corpuscular Hemoglobin Concent 34.8 G/DL (32.0-36.0) Red Cell Distribution Width 11.2 % (11.6-14.8) L Platelet Count 168 K/UL (150-450) Mean Platelet Volume 6.9 FL (6.5-10.1) Neutrophils (%) (Auto) 75.1 % (45.0-75.0) H Lymphocytes (%) (Auto) 15.0 % (20.0-45.0) L Monocytes (%) (Auto) 7.6 % (1.0-10.0) Eosinophils (%) (Auto) 1.8 % (0.0-3.0) Basophils (%) (Auto) 0.6 % (0.0-2.0) Sodium Level 137 MMOL/L (136-145) Potassium Level 3.8 MMOL/L (3.5-5.1) Chloride Level 105 MMOL/L (98-107) Carbon Dioxide Level 29 MMOL/L (21-32) Anion Gap 3 mmol/L (5-15) L Blood Urea Nitrogen 10 mg/dL (7-18) Creatinine 0.8 MG/DL (0.55-1.30) Estimat Glomerular Filtration Rate > 60 mL/min (>60) Glucose Level 110 MG/DL (74-106) H Calcium Level 8.4 MG/DL (8.5-10.1) L Assessment/Plan Assessment/Plan 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 Cardiac monitoring IV abx Await GI input. IVF discont'd; new IV access Protein suppl Follow up renal parameters and lytes; replace as needed. No indication for pacemaker Kirk Fung MD May 29, 2020 02:49
[2020-05-29 04:00] VITALS: BP 144/77
[2020-05-29 06:37] LABS: BASOPHILS % (AUTO) 0.9 % (0.0-2.0); EOSINOPHILS % (AUTO) 1.4 % (0.0-3.0); HEMATOCRIT 38.8 % (37.0-47.0); HEMOGLOBIN 13.4 G/DL (12.0-16.0); LYMPHOCYTES % (AUTO) 15.8 % (20.0-45.0); MEAN CORPUSCULAR VOLUME 90 FL (80-99); MONOCYTES % (AUTO) 7.8 % (1.0-10.0); PLATELET COUNT 204 K/UL (150-450); RED BLOOD COUNT 4.32 M/UL (4.20-5.40); WHITE BLOOD COUNT 11.3 K/UL (4.8-10.8)
[2020-05-29 06:55] LABS: ANION GAP 10 mmol/L (5-15); BLOOD UREA NITROGEN 14 mg/dL (7-18); CALCIUM 8.3 MG/DL (8.5-10.1); CARBON DIOXIDE 25 MMOL/L (21-32); CHLORIDE 108 MMOL/L (98-107); CREATININE 0.8 MG/DL (0.55-1.30); POTASSIUM 3.7 MMOL/L (3.5-5.1); SODIUM 142 MMOL/L (136-145)
--- NOTE | 2020-05-29 07:15 | NUR ---
NURSE HAND-OFF REPORT: Important Events on Shift: Patient had an episode of Afib/RVR, Dr. Fung made aware Patient Status: Patient is awake on bed, in stable condition, plan of care endorsed. Diet: clear l;iquid Pending Orders: none Pending Results/Labs:none Pending notification: Latest Vital Signs: Temperature 98.1 , Pulse 140 , B/P 144 /77 , Respiratory Rate 16 , O2 SAT 97 , Room Air, O2 Flow Rate . Vital Sign Comment: Stable EKG Rhythm: AFIB/RVR Rhythm change?: Y Notified?: Y -Dr. Antonieta PINEDA Response: Message left await call Latest Awad Fall Score: 95 Fall Risk: High Risk Safety Measures: Call light Within Reach, Bed Alarm Zone 1, Side Rails Side Rails x2, Bed position Low and Locked. Fall Precautions: Yellow Socks Yellow Gown Door Sign Patient Fall Education Report given to JO ANN Wynn.
--- NOTE | 2020-05-29 07:18 | NUR ---
NURSE NOTES: Pt received from Day[facility] CHERRY. Pt in bed awake and resting. Eyes track and responsive to voice. Bed low and locked. Call light within reach near left hand. spoke to Dr. Lu with Dayanna regarding episode of Afib with RVR last night. Per MD still transfer to [facility].
[2020-05-29 08:00] VITALS: BP 133/82
[2020-05-29] MEDS ORDERED: Sorbitol Solution UD 30ml ORAL ONE (08:00)
[2020-05-29] MEDS: Aspirin Baby 81mg ORAL SCH (09:01)
[2020-05-29] MEDS: Pantoprazole Inj IVP SCH (09:01)
[2020-05-29] MEDS: Heparin 5000 units/ml inj SUBQ SCH ×2 (09:02→19:36)
[2020-05-29] MEDS: Losartan 50mg tab ORAL SCH (09:02)
--- NOTE | 2020-05-29 10:02 | NUR ---
CLEARING HAND NOTE PT is monolingual Khmer. This SW speaks Khmer. Pt appears as lethargic, was able to provide short answers, yes or no. Pt resides alone in her apartment. Pt resides on the 2nd floor and there is no elevator in the building. Pt's IHSS caregiver provided some assistance. Pt provided verbal consent to contact her caregiver, Angelo Frank [phone]. SW spoke w/ Angelo Frank, stating that pt has IHSS 74 hours/mo. PT was independent w/ ADLs and ambulatory w/o DME. Per Angelo, pt's condition deteriorated significantly. Angelo does not believe she will be able to provide sufficient support and assistance at home. Pt may need additional support/assistance if she returns home. However, it is unknown if such additional support can be met at this time. This SW recommends PT to evaluate mobility.
--- NOTE | 2020-05-29 10:15 | NUR ---
NURSE NOTES: Pt transferred from Tele, Received report from JO ANN Wynn. Pt awake in bed, on RA, A&Ox1, Swedish speaking, slurred speech. able to understand simple sentence. Breathing even and unlabored. No non verbal s/s of pain at this time. Endorsed by tele nurse that all belongings given to pt's daughter. Body checked done. Noted with open wounds on Reginaldo. left medial knee and right later knee, Scapes on right shoulder and right hip area, dryness on abdomen. All wound dressings clean and intact. Applied optifoam on both heels and sacral area for prevention of pressure ulcer. IVs intact and patent. Pt with right sided weakness. Pt on aspiration precaution. Elevated HOB. Will reposition Q2hr. Bed in low position and locked. Side rails up x3. Call light within reach. Will continue to monitor.
--- NOTE | 2020-05-29 10:15 | NUR ---
NURSE NOTES: Pt moved to 401-1, report given to yarelis CHERRY. pt awake, eyes track, speaks slurred Maltese. No strength on right extremeties, however left is 3/5. Endorsed that I did not give the zosyn as there was no pump or pole, RN says she will give it. Endorsed that diet has been changed to clear liquid with nectar thick Modification. Endorsed possible colonoscopy and endoscopy per . She is stable, bed has p200 matress, no belongings except for vase with cannon. Items signed for.
--- NOTE | 2020-05-29 10:44 | Infectious Diseases Prog Note ---
"Assessment/Plan Assessment/Plan antibiotics : zosyn A 1. enterococcus | clostridium sepsis 2. atrial fibrillation resolving 3. renal failure improving 4. hypertension 5. mild proctitis P 1. continue iv zosyn 6 more days 2, will follow up cultures Subjective ROS Limited/Unobtainable: Yes Allergies: Coded Allergies: SULFAMETHOXAZOLE (Unverified Allergy, Unknown, 12/09/17) TRIMETHOPRIM (Unverified Allergy, Unknown, 12/09/17) Objective Last 24 Hour Vital Signs Date Time Temp Pulse Resp B/P (MAP) Pulse Ox O2 Delivery O2 Flow Rate FiO2 05/29/20 09:02 133/82 05/29/20 08:00 100.0 78 18 133/82 (99) 95 05/29/20 05:37 140 05/29/20 04:36 78 05/29/20 04:00 98.1 86 16 144/77 (99) 97 05/29/20 03:33 73 05/29/20 00:00 64 05/29/20 00:00 99.3 69 14 136/76 (96) 97 05/28/20 21:46 75 05/28/20 21:00 Room Air 05/28/20 20:00 99.3 69 16 168/82 (110) 95 05/28/20 20:00 67 05/28/20 16:00 97.9 70 20 135/79 (97) 95 05/28/20 16:00 72 05/28/20 12:00 71 05/28/20 12:00 97.7 75 20 136/79 (98) 98 Height (Feet): 5 Height (Inches): 5.00 Weight (Pounds): 120 Respiratory/Chest: lungs clear Cardiovascular: normal rate, regular rhythm, no gallop/murmur Abdomen: soft, non tender Extremities: no edema Laboratory Tests Test 05/29/20 06:11 White Blood Count 11.3 K/UL (4.8-10.8) H Red Blood Count 4.32 M/UL (4.20-5.40) Hemoglobin 13.4 G/DL (12.0-16.0) Hematocrit 38.8 % (37.0-47.0) Mean Corpuscular Volume 90 FL (80-99) Mean Corpuscular Hemoglobin 31.1 PG (27.0-31.0) H Mean Corpuscular Hemoglobin Concent 34.6 G/DL (32.0-36.0) Red Cell Distribution Width 11.0 % (11.6-14.8) L Platelet Count 204 K/UL (150-450) Mean Platelet Volume 7.0 FL (6.5-10.1) Neutrophils (%) (Auto) 74.0 % (45.0-75.0) Lymphocytes (%) (Auto) 15.8 % (20.0-45.0) L Monocytes (%) (Auto) 7.8 % (1.0-10.0) Eosinophils (%) (Auto) 1.4 % (0.0-3.0) Basophils (%) (Auto) 0.9 % (0.0-2.0) Sodium Level 142 MMOL/L (136-145) Potassium Level 3.7 MMOL/L (3.5-5.1) Chloride Level 108 MMOL/L (98-107) H Carbon Dioxide Level 25 MMOL/L (21-32) Anion Gap 10 mmol/L (5-15) Blood Urea Nitrogen 14 mg/dL (7-18) Creatinine 0.8 MG/DL (0.55-1.30) Estimat Glomerular Filtration Rate > 60 mL/min (>60) Glucose Level 123 MG/DL (74-106) H Calcium Level 8.3 MG/DL (8.5-10.1) L Current Medications Medications (Trade) Dose Ordered Sig/Marci Route PRN Reason Start Time Stop Time Status Last Admin Dose Admin Acetaminophen (Tylenol) 650 mg Q4H PRN ORAL FEVER 05/24/20 23:15 06/23/20 23:14 Acetaminophen (Tylenol) 650 mg Q6H PRN ORAL Pain Scale (3-5) 05/22/20 19:30 06/21/20 19:29 Aspirin (ASA) 81 mg DAILY ORAL 05/24/20 09:00 07/08/20 08:59 05/29/20 09:01 Barium Sulfate (Readi-Cat 2) 450 ml NOW PRN ORAL Radiology Procedure 05/27/20 11:45 05/29/20 11:44 Heparin Sodium (Porcine) (Heparin 5000 units/ml) 5,000 units EVERY 12 HOURS SUBQ 05/22/20 21:00 07/06/20 20:59 05/29/20 09:02 Iohexol (OMNIPAQUE-300 100ml) 100 ml NOW PRN INJ Radiology Procedure 05/27/20 11:45 05/29/20 11:44 Losartan Potassium (Cozaar) 100 mg DAILY ORAL 05/28/20 09:00 06/27/20 08:59 05/29/20 09:02 Pantoprazole (Protonix) 40 mg DAILY IVP 05/22/20 20:00 06/21/20 19:59 05/29/20 09:01 Piperacillin Sod/ Tazobactam Sod 3.375 gm/Sodium Chloride 110 ml @ 27.5 mls/hr Q8H IVPB 05/27/20 01:00 06/03/20 00:59 05/29/20 01:09 Ramirez Rojas MD May 29, 2020 10:44"
[2020-05-29] MEDS: D5 1/2NS 1,000 ML IV SCH (11:00)
--- NOTE | 2020-05-29 11:10 | NUR ---
PT EVALUATION NOTE Patient seen for initial evaluation and treatment initiated. Patient presents with R hemiparesis, impaired sitting balance and impaired ability to complete mobility tasks. Patient requires mod/max assistance for bed mobility and min assist to maintain sitting at the EOB. Patient unable to attempt standing at this time. Patient will benefit from skilled inpatient PT intervention to facilitate R hemibody movement and increase postural stability for improved mobility skills and balance. Recommend discharge to SNF for continued rehab once medically cleared by MD. DME needs to be determined based on patient's progress. Addendum: 05/29/20 at 1304 by RICARDA GUZMAN PT Amended: Links added.
[2020-05-29 12:00] VITALS: BP 130/79
[2020-05-29] MEDS ORDERED: Magnesium Citrate Liq Btl ORAL SCH ×2 (12:00→13:00)
--- NOTE | 2020-05-29 12:30 | NUR ---
NURSE NOTES: New order received Mag citrate one bottle Stat for procedure tomorrow. Pt on aspiration precaution and was not able to drink medication that is thin liquid. Made thickened from kitchen. However, pt refused to drink med. explained with simple word about benefits of taking medication and offered again. Pt still refused. Pt's right respected. Will continue to offer
--- NOTE | 2020-05-29 14:22 | NUR ---
*-*DISCHARGE PLANNING*-* PATIENT HAS BEEN REFERRED TO: [facility] P: [phone] [facility] P: [phone] [facility] P: [phone]
--- NOTE | 2020-05-29 14:35 | NUR ---
*-*DISCHARGE PLANNING*-* PATIENT HAS BEEN REFERRED TO: [facility] P: [phone] [facility], WHO STATED THEY ARE ACCEPTING PATIENT. ROOM# 221.A SKILLED ~~ FEATHEREDGER AND REDUCER MACHINE NOTIFIED DAUGHTER, IN REGARDS TO PATIENT BEING ACCEPTED TO [facility].
--- NOTE | 2020-05-29 15:22 | Nephrology Progress Note ---
Assessment/Plan Problem List: (1) Hypophosphatemia (2) KVNG (acute kidney injury) (3) Leukocytosis (4) Hypernatremia (5) Dehydration (6) Right hemiparesis (7) CVA (cerebral vascular accident) (8) Hypokalemia (9) Clostridial infection (10) Enterococcal sepsis Plan rx sepsis, replete phos, replace K better, continue zosyn poor nutrition GI eval, try dc gannon am done check bladder scan, intake only 118 ml restarted iv fluids, CT perirectal thickening ? source of sepsis Subjective ROS Limited/Unobtainable: Yes Objective Objective Last 24 Hour Vital Signs Date Time Temp Pulse Resp B/P (MAP) Pulse Ox O2 Delivery O2 Flow Rate FiO2 05/29/20 12:00 99.8 83 18 130/79 (96) 96 05/29/20 09:02 133/82 05/29/20 09:00 Room Air 05/29/20 08:00 100.0 78 18 133/82 (99) 95 05/29/20 05:37 140 05/29/20 04:36 78 05/29/20 04:00 98.1 86 16 144/77 (99) 97 05/29/20 03:33 73 05/29/20 00:00 64 05/29/20 00:00 99.3 69 14 136/76 (96) 97 05/28/20 21:46 75 05/28/20 21:00 Room Air 05/28/20 20:00 99.3 69 16 168/82 (110) 95 05/28/20 20:00 67 05/28/20 16:00 97.9 70 20 135/79 (97) 95 05/28/20 16:00 72 Intake and Output 05/28/20 05/29/20 19:00 07:00 Intake Total 118 ml Output Total 800 ml 700 ml Balance -682 ml -700 ml Intake Oral 118 ml Output Urine Total 800 ml 700 ml # Voids 1 1 # Bowel Movements 2 Laboratory Tests 05/29/20 06:11: White Blood Count 11.3H, Red Blood Count 4.32, Hemoglobin 13.4, Hematocrit 38.8, Mean Corpuscular Volume 90, Mean Corpuscular Hemoglobin 31.1H, Mean Corpuscular Hemoglobin Concent 34.6, Red Cell Distribution Width 11.0L, Platelet Count 204, Mean Platelet Volume 7.0, Neutrophils (%) (Auto) 74.0, Lymphocytes (%) (Auto) 15.8L, Monocytes (%) (Auto) 7.8, Eosinophils (%) (Auto) 1.4, Basophils (%) (Auto) 0.9, Sodium Level 142, Potassium Level 3.7, Chloride Level 108H, Carbon Dioxide Level 25, Anion Gap 10, Blood Urea Nitrogen 14, Creatinine 0.8, Estimat Glomerular Filtration Rate > 60, Glucose Level 123H, Calcium Level 8.3L Height (Feet): 5 Height (Inches): 5.00 Weight (Pounds): 120 General Appearance: no apparent distress, alert EENT: normal ENT inspection Neck: normal alignment Cardiovascular: normal rate, regular rhythm Respiratory/Chest: lungs clear Abdomen: soft Extremities: moderate edema Neurologic: abnormal corporate development associate II-XII, motor weakness Julio Sanchez MD May 29, 2020 15:22
--- NOTE | 2020-05-29 15:42 | NUR ---
NURSE NOTES: pt had no void since pt was transferred from [facility] at 1015. void bladder scan done, 297ml. Will continue to monitor.
[2020-05-29 16:00] VITALS: BP 132/75
--- NOTE | 2020-05-29 16:36 | NUR ---
NURSE NOTES: Pt's daughter visited. Daughter informed of procedures for tomorrow and reasons by MD. Consent for EGD and colonoscopy signed by daughter. Daughter helped pt drink Mg citrate.
--- NOTE | 2020-05-29 17:00 | NUR ---
NURSE NOTES: Pt completed drinking whole bottle of Magnesium Citrate
--- NOTE | 2020-05-29 17:31 | Surgery Progress Note ---
Surgery Progress Note Subjective Symptoms: improved, tolerating diet, passing flatus Objective Last 24 Hour Vital Signs Date Time Temp Pulse Resp B/P (MAP) Pulse Ox O2 Delivery O2 Flow Rate FiO2 05/29/20 16:00 99.0 78 18 132/75 (94) 96 05/29/20 12:00 99.8 83 18 130/79 (96) 96 05/29/20 09:02 133/82 05/29/20 09:00 Room Air 05/29/20 08:00 100.0 78 18 133/82 (99) 95 05/29/20 05:37 140 05/29/20 04:36 78 05/29/20 04:00 98.1 86 16 144/77 (99) 97 05/29/20 03:33 73 05/29/20 00:00 64 05/29/20 00:00 99.3 69 14 136/76 (96) 97 05/28/20 21:46 75 05/28/20 21:00 Room Air 05/28/20 20:00 99.3 69 16 168/82 (110) 95 05/28/20 20:00 67 I&O Intake and Output 05/28/20 05/29/20 19:00 07:00 Intake Total 118 ml Output Total 800 ml 700 ml Balance -682 ml -700 ml Intake Oral 118 ml Output Urine Total 800 ml 700 ml # Voids 1 1 # Bowel Movements 2 Dressing: dry Wound: clean Cardiovascular: RSR Respiratory: clear Abdomen: soft, non-tender, present bowel sounds Extremities: no edema, no tenderness, no cyanosis, pulses, other Laboratory Tests Test 05/29/20 06:11 White Blood Count 11.3 K/UL (4.8-10.8) H Red Blood Count 4.32 M/UL (4.20-5.40) Hemoglobin 13.4 G/DL (12.0-16.0) Hematocrit 38.8 % (37.0-47.0) Mean Corpuscular Volume 90 FL (80-99) Mean Corpuscular Hemoglobin 31.1 PG (27.0-31.0) H Mean Corpuscular Hemoglobin Concent 34.6 G/DL (32.0-36.0) Red Cell Distribution Width 11.0 % (11.6-14.8) L Platelet Count 204 K/UL (150-450) Mean Platelet Volume 7.0 FL (6.5-10.1) Neutrophils (%) (Auto) 74.0 % (45.0-75.0) Lymphocytes (%) (Auto) 15.8 % (20.0-45.0) L Monocytes (%) (Auto) 7.8 % (1.0-10.0) Eosinophils (%) (Auto) 1.4 % (0.0-3.0) Basophils (%) (Auto) 0.9 % (0.0-2.0) Sodium Level 142 MMOL/L (136-145) Potassium Level 3.7 MMOL/L (3.5-5.1) Chloride Level 108 MMOL/L (98-107) H Carbon Dioxide Level 25 MMOL/L (21-32) Anion Gap 10 mmol/L (5-15) Blood Urea Nitrogen 14 mg/dL (7-18) Creatinine 0.8 MG/DL (0.55-1.30) Estimat Glomerular Filtration Rate > 60 mL/min (>60) Glucose Level 123 MG/DL (74-106) H Calcium Level 8.3 MG/DL (8.5-10.1) L Plan Problems: (1) Decubitus skin ulcer Assessment & Plan: Patient presented on admission with multiple skin concerns. Patient was found down unknown duration and has developed significant injuries and skin concerns. Patient has a right shoulder 3 cm x 3 cm posterior deep tissue injury no fluctuance nontender no skin breakdown not open. Patient has sacral erythema identified. Patient has incontinence associated dermatitis identified in the perineum and bilateral thighs and groins. Patient has a right hip DTI with skin breakdown identified. Patient has a left knee unstageable decubitus ulcer with necrotic eschar. Patient has significant abdominal erythema and near cellulitis with burning rash. No abscess no drainage wounds unlikely source of patient's sepsis. Wound is likely attributed to patient being down for significant period of time. Will need nutritional optimization and local care plan to allow for healing and improvement. Care plan initiated. Treatment plan Wash all wounds daily with normal saline. Apply skin protectant and OPTi foam dressing to the right shoulder change every 3 days. Apply OPTi foam dressing patient sacral region monitor for incontinence change every 3 days and PRN saturation as necessary Apply skin protectant to bilateral thighs and perineum monitor for incontinence change accordingly. Thera honey to left knee eschar followed by OPTi foam dressing wrap with Kerlix if necessary change daily and PRN saturation Zinc oxide cream for abdominal wound. Apply daily. Wash wounds daily. Turn every 2 hours offload pressure with pillows Air mattress given patient's current medical condition Nutritional optimization We will follow with recommendations thank you for let me participate patient's care (2) Renal failure (3) CVA (cerebral vascular accident) Assessment & Plan: Posterior circulation demonstrates dominant left, smaller caliber but patent right vertebral artery. No stenosis of either. Small caliber but patent and nonstenotic basilar artery. Patent bilateral superior cerebellar arteries. The P1 segment of the right posterior cerebral artery appears to be patent but very small in caliber; the right posterior cerebral artery is predominantly supplied by a large posterior communicating artery. The reconstructed images suggest a moderate to severe focal stenosis of the P2 segment near its origin. The left P1 segment is a equivocally patent but probably; likewise, predominantly supply to the left posterior cerebral artery is via the posterior communicating artery. There is an area of signal dropout in the P2 segment of the left posterior cerebral artery. This may indicate a severe stenosis Anterior circulation demonstrates patent nonstenotic distal internal carotid arteries. Patent nonstenotic right middle cerebral artery and proximal branches. Smaller caliber M1 segment of the left middle cerebral artery although without significant focal stenosis. The proximal sylvian branch of the left middle cerebral artery demonstrates what may be a focal significant stenosis. This is better appreciated on the MIP reconstructions. Absent right A1 segment. Larger caliber left A1 segment supplies both anterior cerebral arteries, presumably via anterior to indicating artery. There is no evidence of aneurysm or vascular malformation. Impression: Stenosis, possibly severe, of the P2 segment of the left posterior cerebral artery Stenosis, possibly severe, the sylvian branch of the left middle cerebral artery. [place] anatomy as described All stenosis measurements are based on the diameter of the distal normal vessel as referenced vessel, per NASCET criteria Old infarcts are seen in the bilateral basal ganglia and inferior frontal deep white matter. No acute intracranial hemorrhage or edema. No mass effect nor midline shift. There is age-related enlargement of the ventricles and extra- axial CSF spaces. There is periventricular deep white matter low-attenuation consistent with chronic microvascular ischemic change. Visualized orbits are unremarkable. There is bilateral ethmoid and bilateral maxillary sinus mucosal disease. The mastoids are clear. Impression: Chronic and age-related changes, including multiple old infarcts Negative for acute intracranial bleed or mass effect Right common carotid artery: Unremarkable. No occlusion or significant stenosis on color flow and spectral Doppler imaging. Right internal carotid artery: Unremarkable. No occlusion or significant stenosis on color flow and spectral Doppler imaging. Right external carotid artery: Unremarkable. No occlusion or significant stenosis on color flow and spectral Doppler imaging. Right vertebral artery: Antegrade flow within the vertebral arteries. Right ICA/CCA ratio: Unremarkable. Within normal limits. Left common carotid artery: Unremarkable. No occlusion or significant stenosis on color flow and spectral Doppler imaging. Left internal carotid artery: Significant calcified atherosclerotic disease is noted within the left carotid bulb. No occlusion or significant stenosis on color flow and spectral Doppler imaging. Left external carotid artery: Unremarkable. No occlusion or significant stenosis on color flow and spectral Doppler imaging. Left vertebral artery: See above. Left ICA/CCA ratio: Unremarkable. Within normal limits. Lymph nodes: Unremarkable. No lymphadenopathy. Other findings: Evaluation of peak systolic velocities bilaterally throughout the carotid systems reveal no evidence of hemodynamically significant stenosis, based on established criteria. CAROTID STENOSIS REFERENCE USING SRU CRITERIA: Mild - <50% stenosis. ICA PSV is less than 125 cm/second and plaque or intimal thickening is visible. Moderate - 50-69% stenosis. ICA PSV is 125 to 230 cm/second and plaque is visible. Severe - 70-94% stenosis. ICA PSV is more than 230 cm/second and visible plaque with lumen narrowing is seen. Near occlusion - 95-99% stenosis. ICA PSV is variable and significant plaque with luminal narrowing is seen. Occluded - 100% stenosis. No flow identified. IMPRESSION: 1. Prominent calcified plaque within the left carotid bulb. 2. No evidence of hemodynamically significant stenosis based on established ultrasound criteria. (4) Right hemiparesis (5) Dehydration Assessment & Plan: 1. Increase self initiation for drinking with her left hand: Ms. Hutchinson was able to self drink nector thick liquid via cup with her left hand with visual and tactile cue 90% of the time without s.s of aspiration. 2. Increase initiation of verbal utterance: Pt was able to verbally repeat at word level with visual cues and repetition at 75% of the time. 3.Diet appropriateness: Ms. Hutchinson was reminded what happened to her and why she is in the hospital and and her diet was currently modified in [place]. She appeared to be understanding my explanation. 4. Team approach to take care her case was initiated with communicating with RN and Rad dept to complete pending procedure (video swallow study at 13:00 today) A: 1. Oropharyngeal dysphagia due to multiple acute and subacute cerebral infarcts 2. 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 Likely presence of expressive aphasia P: 1. Modified diet with pureed and nector thick liquid with aspiration precaution 2. Encourage self drinking with her left hand with assistance -occupational therapist recommendation to follow 3. Full speech and language evaluation is needed for discharge plan - Strongly push for acute rehab if ultimate goal/support is to return to home. (6) Hypernatremia (7) Leukocytosis Assessment & Plan: wbc 20 on admission lactic acidosis - improving with hydration on abx as per ID no acute surgical intervention planned okay for tf diet nutrition eval local wound care leukocytosis resolved improving will follow with recs and monitor thank you (8) UTI (urinary tract infection) Liam Hermosillo May 29, 2020 17:31
--- NOTE | 2020-05-29 18:20 | NUR ---
NURSE NOTES: Noted pt had no void for 8 hours. Bladder scan done. 357ml. Notified orchid worker doctor covering Dr. Sanchez. Received new orders Straight catheter x1, bladder scan Q6h. Order read back. carried out.
--- NOTE | 2020-05-29 18:40 | NUR ---
NURSE NOTES: Straight cath done for urinary retention. Urine output 320ml, clear yellow urine.
[2020-05-29] MEDS ORDERED: Fleet's Enema 133ml RECTAL SCH (18:45)
--- NOTE | 2020-05-29 18:50 | NUR ---
NURSE NOTES: pt had no BM after Mg citrate given. Received new order from Dr. Jonas to give Fleet's enema. Read order back. Order carried out
--- NOTE | 2020-05-29 19:39 | NUR ---
NURSE HAND-OFF: Important Events on Shift:[Transfer from [facility],No voiding, Straight cath, bladder scan, Bowel prep, EGD&Colonoscopy tomorrow, NPO at midnight ] Patient Status: [] Diet: [Clear liquid] Pending Orders: [] Pending Results/Labs:[] Pending MD notification:[] Latest Vital Signs: Temperature 99.0 , Pulse 78 , B/P 132 /75 , Respiratory Rate 18 , O2 SAT 96 , Room Air, O2 Flow Rate . Vital Sign Comment: [stable] Latest Awad Fall Score: 95 Fall Risk: High Risk Safety Measures: Call light Within Reach, Bed Alarm Zone 1, Side Rails Side Rails x2, Bed position Low and Locked. Fall Precautions: Yellow Socks Yellow Gown Door Sign Patient Fall Education Report given to [,RN].
[2020-05-29 20:00] VITALS: BP 164/81
--- NOTE | 2020-05-29 20:00 | NUR ---
NURSE NOTES: Patient received in bed, asleep, arousable to voice and touch. In room air, appears in no acute distress. Right arm flaccid. IVF infusing as ordered. Will continue plan of care for prep for EGD/colo tomorrow.
--- NOTE | 2020-05-29 20:30 | NUR ---
NURSE NOTES: Spoke with Dr. Jonas re: patient still has loose but brown stool. MD ordered sorbitol at 2300 and fleets enema at 0500 in preparation for EGD/colo tomorrow. Will carry out and note order
--- NOTE | 2020-05-29 20:37 | General Progress Note ---
Subjective Allergies: Coded Allergies: SULFAMETHOXAZOLE (Unverified Allergy, Unknown, 12/09/17) TRIMETHOPRIM (Unverified Allergy, Unknown, 12/09/17) Subjective above noted d/w PMD and Neurology and cardiology --> all OK with EGD/Colon d/w Daughter DG - gave consent patient initially refused laxative, subsequently took it at presence of Daughter Objective Last 24 Hour Vital Signs Date Time Temp Pulse Resp B/P (MAP) Pulse Ox O2 Delivery O2 Flow Rate FiO2 05/29/20 16:00 99.0 78 18 132/75 (94) 96 05/29/20 12:00 99.8 83 18 130/79 (96) 96 05/29/20 09:02 133/82 05/29/20 09:00 Room Air 05/29/20 08:00 100.0 78 18 133/82 (99) 95 05/29/20 05:37 140 05/29/20 04:36 78 05/29/20 04:00 98.1 86 16 144/77 (99) 97 05/29/20 03:33 73 05/29/20 00:00 64 05/29/20 00:00 99.3 69 14 136/76 (96) 97 05/28/20 21:46 75 05/28/20 21:00 Room Air Intake and Output 05/28/20 05/29/20 19:00 07:00 Intake Total 118 ml Output Total 800 ml 700 ml Balance -682 ml -700 ml Intake Oral 118 ml Output Urine Total 800 ml 700 ml # Voids 1 1 # Bowel Movements 2 Laboratory Tests 05/29/20 06:11: White Blood Count 11.3H, Red Blood Count 4.32, Hemoglobin 13.4, Hematocrit 38.8, Mean Corpuscular Volume 90, Mean Corpuscular Hemoglobin 31.1H, Mean Corpuscular Hemoglobin Concent 34.6, Red Cell Distribution Width 11.0L, Platelet Count 204, Mean Platelet Volume 7.0, Neutrophils (%) (Auto) 74.0, Lymphocytes (%) (Auto) 15.8L, Monocytes (%) (Auto) 7.8, Eosinophils (%) (Auto) 1.4, Basophils (%) (Auto) 0.9, Sodium Level 142, Potassium Level 3.7, Chloride Level 108H, Carbon Dioxide Level 25, Anion Gap 10, Blood Urea Nitrogen 14, Creatinine 0.8, Estimat Glomerular Filtration Rate > 60, Glucose Level 123H, Calcium Level 8.3L Height (Feet): 5 Height (Inches): 5.00 Weight (Pounds): 120 Objective Thin woman NCAT supple CTA RRR Abd soft ND NT no edema Assessment/Plan Status: stable, progressing Assessment/Plan: Assessment - OB (+) stool w/o significant anemia - CVA , (R) mony - Renal failure - resolved leukocytosis - paroxysmal a fib Recommendations - monitor CBC - GI prep - EGD/Colon in am Bob Jonas MD May 29, 2020 20:37
--- NOTE | 2020-05-29 22:23 | General Progress Note ---
Subjective ROS Limited/Unobtainable: No Constitutional: Reports: malaise, weakness HEENT: Reports: no symptoms Cardiovascular: Reports: no symptoms Respiratory: Reports: no symptoms Gastrointestinal/Abdominal: Reports: no symptoms Genitourinary: Reports: no symptoms Neurologic/Psychiatric: Reports: no symptoms Endocrine: Reports: no symptoms Hematologic/Lymphatic: Reports: no symptoms Allergies: Coded Allergies: SULFAMETHOXAZOLE (Unverified Allergy, Unknown, 12/09/17) TRIMETHOPRIM (Unverified Allergy, Unknown, 12/09/17) All Systems: reviewed and negative except above Subjective stable. no new complaints. neuro consult appreciated. alert. follows commands. gi noted. MRA noted. Objective Last 24 Hour Vital Signs Date Time Temp Pulse Resp B/P (MAP) Pulse Ox O2 Delivery O2 Flow Rate FiO2 05/29/20 16:00 99.0 78 18 132/75 (94) 96 05/29/20 12:00 99.8 83 18 130/79 (96) 96 05/29/20 09:02 133/82 05/29/20 09:00 Room Air 05/29/20 08:00 100.0 78 18 133/82 (99) 95 05/29/20 05:37 140 05/29/20 04:36 78 05/29/20 04:00 98.1 86 16 144/77 (99) 97 05/29/20 03:33 73 05/29/20 00:00 64 05/29/20 00:00 99.3 69 14 136/76 (96) 97 Intake and Output 05/28/20 05/29/20 19:00 07:00 Intake Total 118 ml Output Total 800 ml 700 ml Balance -682 ml -700 ml Intake Oral 118 ml Output Urine Total 800 ml 700 ml # Voids 1 1 # Bowel Movements 2 Laboratory Tests 05/29/20 06:11: White Blood Count 11.3H, Red Blood Count 4.32, Hemoglobin 13.4, Hematocrit 38.8, Mean Corpuscular Volume 90, Mean Corpuscular Hemoglobin 31.1H, Mean Corpuscular Hemoglobin Concent 34.6, Red Cell Distribution Width 11.0L, Platelet Count 204, Mean Platelet Volume 7.0, Neutrophils (%) (Auto) 74.0, Lymphocytes (%) (Auto) 15.8L, Monocytes (%) (Auto) 7.8, Eosinophils (%) (Auto) 1.4, Basophils (%) (Auto) 0.9, Sodium Level 142, Potassium Level 3.7, Chloride Level 108H, Carbon Dioxide Level 25, Anion Gap 10, Blood Urea Nitrogen 14, Creatinine 0.8, Estimat Glomerular Filtration Rate > 60, Glucose Level 123H, Calcium Level 8.3L Height (Feet): 5 Height (Inches): 5.00 Weight (Pounds): 120 Objective General Appearance: WD/WN, alert Neck: supple Cardiovascular: normal rate, regular rhythm Respiratory/Chest: chest wall non-tender, lungs clear, normal breath sounds Abdomen: normal bowel sounds, non tender, soft Edema: no edema noted Arm (L), no edema noted Arm (R) Neurologic: motor weakness - right hemiparesis Skin: normal pigmentation. +black wound jany knees. + drainage Assessment/Plan Problem List: (1) CVA (cerebral vascular accident) ICD Codes: I63.9 - Cerebral infarction, unspecified SNOMED: 944134087 (2) Renal failure ICD Codes: N19 - Unspecified kidney failure SNOMED: 60638256, 135128587 (3) Right hemiparesis ICD Codes: G81.91 - Hemiplegia, unspecified affecting right dominant side SNOMED: 421669103, 250459979 (4) Dehydration ICD Codes: E86.0 - Dehydration SNOMED: 68362818, 589575189 (5) UTI (urinary tract infection) ICD Codes: N39.0 - Urinary tract infection, site not specified SNOMED: 22182074, 863075697 (6) Decubitus skin ulcer ICD Codes: L89.90 - Pressure ulcer of unspecified site, unspecified stage SNOMED: 736905680 (7) Hypernatremia ICD Codes: E87.0 - Hyperosmolality and hypernatremia SNOMED: 829223020 (8) Leukocytosis ICD Codes: D72.829 - Elevated white blood cell count, unspecified SNOMED: 019481640, 164441944 Status: stable, progressing Assessment/Plan: cont current rx antiplt rx neuro eval- . MRA reviewed anticoag to be determined 1-2 weeks- defer to neurology endoscopy per GI- +ob stool. needs AC in the near future rate control per cards pt/ot/st iv abx per ID d/w DTr x 10 mins Vinay Lu MD May 29, 2020 22:23
[2020-05-29] MEDS ORDERED: Sorbitol Solution UD 30ml ORAL SCH (23:00)
[2020-05-30] VITALS (11 sets, daily range): BP systolic 101–141; BP diastolic 56–82
--- NOTE | 2020-05-30 00:04 | Cardiology Progress Note ---
Subjective DATE OF SERVICE: May 29, 2020 MRA reveals left P2 posterior cerebral artery stenosis. No recurrent episodes of rapid AFib. Stool OB positive, but hemoglobin stable MRI: reveals acute and subacute infarcts with distribution c/w cardioembolic source 2D Echo with normal LVEF and mild MR; no pulmonary hypertension. Monitor with AFib and episodes of fast and slow heart rates in past several days - no pauses. Also with bigeminy today. Objective Last 24 Hour Vital Signs Date Time Temp Pulse Resp B/P (MAP) Pulse Ox O2 Delivery O2 Flow Rate FiO2 05/29/20 21:00 Room Air 05/29/20 20:00 100.4 87 16 164/81 (108) 97 05/29/20 16:00 99.0 78 18 132/75 (94) 96 05/29/20 12:00 99.8 83 18 130/79 (96) 96 05/29/20 09:02 133/82 05/29/20 09:00 Room Air 05/29/20 08:00 100.0 78 18 133/82 (99) 95 05/29/20 05:37 140 05/29/20 04:36 78 05/29/20 04:00 98.1 86 16 144/77 (99) 97 05/29/20 03:33 73 ROS: unchanged from my note of 05/22/20. HEENT: normal ENT inspection RHYTHM: Afib LUNGS: lungs clear bilaterally CARDIAC: normal rate, normal S1 and S2, irregularly irregular, bradycardia ABDOMEN: normal bowel sounds, non tender, soft, no organomegaly, no mass EXTREMITIES: normal range of motion, non-tender, normal inspection, no calf tenderness Laboratory Tests Test 05/29/20 06:11 White Blood Count 11.3 K/UL (4.8-10.8) H Red Blood Count 4.32 M/UL (4.20-5.40) Hemoglobin 13.4 G/DL (12.0-16.0) Hematocrit 38.8 % (37.0-47.0) Mean Corpuscular Volume 90 FL (80-99) Mean Corpuscular Hemoglobin 31.1 PG (27.0-31.0) H Mean Corpuscular Hemoglobin Concent 34.6 G/DL (32.0-36.0) Red Cell Distribution Width 11.0 % (11.6-14.8) L Platelet Count 204 K/UL (150-450) Mean Platelet Volume 7.0 FL (6.5-10.1) Neutrophils (%) (Auto) 74.0 % (45.0-75.0) Lymphocytes (%) (Auto) 15.8 % (20.0-45.0) L Monocytes (%) (Auto) 7.8 % (1.0-10.0) Eosinophils (%) (Auto) 1.4 % (0.0-3.0) Basophils (%) (Auto) 0.9 % (0.0-2.0) Sodium Level 142 MMOL/L (136-145) Potassium Level 3.7 MMOL/L (3.5-5.1) Chloride Level 108 MMOL/L (98-107) H Carbon Dioxide Level 25 MMOL/L (21-32) Anion Gap 10 mmol/L (5-15) Blood Urea Nitrogen 14 mg/dL (7-18) Creatinine 0.8 MG/DL (0.55-1.30) Estimat Glomerular Filtration Rate > 60 mL/min (>60) Glucose Level 123 MG/DL (74-106) H Calcium Level 8.3 MG/DL (8.5-10.1) L Assessment/Plan Assessment/Plan 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 RUE edema due to IV infiltration Paroxysmal atrial flutter/fib with variable ventricular rates - likely associated with [employer]ENT autonomic dysfxn Hypertension Lactic acidosis resolved Dehydration/hypernatremia corrected Acute renal failure Acute myocardial infarction (NSTEMI) Toxic and metabolic encephalopathies Moderate protein/calorie malnutrition Possible UTI Hypokalemia Acute myocardial ischemia Discussed with neuro; start anticoagulation approximately 10-14 days post CVA. Cardiac monitoring IV abx Await GI intervention for clearance to start anticoagulation; patient stable for procedure from CV standpoint IVF discont'd; new IV access Protein suppl Follow up renal parameters and lytes; replace as needed. No indication for pacemaker Kirk Fung MD May 30, 2020 00:04
[2020-05-30] MEDS: D5 1/2NS 1,000 ML IV SCH (00:53)
[2020-05-30] MEDS: Piperacillin/Tazobactam 3.375 GM in NS 110 ML IVPB SCH ×4 (00:53→17:01)
[2020-05-30] MEDS ORDERED: Fleet's Enema 133ml RECTAL SCH (05:00)
--- NOTE | 2020-05-30 06:21 | NUR ---
NURSE NOTES: Dr. Jonas made aware that after fleets enema, patient passed bloody loose stool then followed by light brown liquid stool with some small particles. Tap water enema 250cc was ordered and given to patient, patient unable to hold enema. Incontinence care provided. Triad cream placed all over buttocks sacral and thighs. Bladder scan showed 276cc; unable to tell if patient voided because of the continuous incontinent diarrhea due to bowel prep. Dr. Sanchez was contacted and made aware. Per Dr. Sanchez, just monitor patient for now.
--- NOTE | 2020-05-30 06:47 | NUR ---
NURSE HAND-OFF: Important Events on Shift:[bowel prep. pre op procedure for egd/colo. given fleets and tap water enema. Dr. aj made aware of not clear bowel yet prior to tap water enema. dr. segura aware of 276cc of pvr, no orders] Patient Status: [asleep] Diet: [npo] Pending Orders: [for egd/colo] Pending Results/Labs:[see chart] Pending MD notification:[] Latest Vital Signs: Temperature 98.1 , Pulse 58 , B/P 127 /82 , Respiratory Rate 19 , O2 SAT 95 , Room Air, O2 Flow Rate . Vital Sign Comment: [stable] Latest Awad Fall Score: 95 Fall Risk: High Risk Safety Measures: Call light Within Reach, Bed Alarm Zone 1, Side Rails Side Rails x2, Bed position Low and Locked. Fall Precautions: Yellow Socks Yellow Gown Door Sign Patient Fall Education
[2020-05-30 06:54] LABS: ANION GAP 9 mmol/L (5-15); BLOOD UREA NITROGEN 15 mg/dL (7-18); CALCIUM 7.8 MG/DL (8.5-10.1); CARBON DIOXIDE 24 MMOL/L (21-32); CHLORIDE 110 MMOL/L (98-107); CREATININE 0.8 MG/DL (0.55-1.30); POTASSIUM 3.3 MMOL/L (3.5-5.1); SODIUM 143 MMOL/L (136-145)
--- NOTE | 2020-05-30 07:19 | NUR ---
HAND-OFF: Report given to Liliane RN. Report given to GI Lab. Patient to be picked up at 0730.
--- NOTE | 2020-05-30 07:19 | NUR ---
NURSE NOTES: Received report from JO ANN Rivas. Patient observed to be asleep with HOB elevated, currently on room air. No s/sx of SOB/Distress, no s/sx of any discomfort at the moment. Patient on NPO for EGD and colonoscopy scheduled for later today. IV site located on LAC gauge 22 and Left hand gauge 22. Both IV sites asymptomatic, inplace and intact. Bed placed in lowest and locked position, call light placed within reach and will continue to monitor for any changes in condition.
--- NOTE | 2020-05-30 07:30 | NUR ---
NURSE NOTES: Patient picked up by GI Personnel. Patient left unit via gurney on stable condition.
[2020-05-30] MEDS ORDERED: NS 500ML IVPB ONE (07:50)
[2020-05-30] MEDS ORDERED: ePHEDrine 50mg/ml Inj ONE (08:00)
[2020-05-30] MEDS ORDERED: Lidocaine 1% MPF 10mg/ml 5ml ONE (08:00)
[2020-05-30] MEDS: Losartan 50mg tab ORAL SCH ×2 (08:05→09:45)
[2020-05-30] MEDS: Pantoprazole Inj IVP SCH ×2 (08:05→09:45)
[2020-05-30] MEDS: Aspirin Baby 81mg ORAL SCH ×2 (08:05→09:44)
[2020-05-30] MEDS: Heparin 5000 units/ml inj SUBQ SCH ×3 (08:06→20:01)
--- NOTE | 2020-05-30 08:11 | General Progress Note ---
Subjective Allergies: Coded Allergies: SULFAMETHOXAZOLE (Unverified Allergy, Unknown, 12/09/17) TRIMETHOPRIM (Unverified Allergy, Unknown, 12/09/17) Subjective above noted NPO for EGD / colon Objective Last 24 Hour Vital Signs Date Time Temp Pulse Resp B/P (MAP) Pulse Ox O2 Delivery O2 Flow Rate FiO2 05/30/20 04:09 98.1 58 19 127/82 (97) 95 05/30/20 00:00 98.7 71 17 140/56 (84) 97 05/29/20 22:12 99.9 05/29/20 21:00 Room Air 05/29/20 20:00 100.4 87 16 164/81 (108) 97 05/29/20 16:00 99.0 78 18 132/75 (94) 96 05/29/20 12:00 99.8 83 18 130/79 (96) 96 05/29/20 09:02 133/82 05/29/20 09:00 Room Air Intake and Output 05/29/20 05/30/20 18:59 06:59 Intake Total 360 ml 1045.0 ml Output Total 433 ml Balance 360 ml 612.0 ml Intake Oral 360 ml IV Total 1045.0 ml Post Void Residual 433 ml Bladder Scan Volume Amount 151-200 ml 201-300 ml # Voids 1 2 # Bowel Movements 2 6 Laboratory Tests 05/30/20 05:50: Sodium Level 143, Potassium Level 3.3L, Chloride Level 110H, Carbon Dioxide Level 24, Anion Gap 9, Blood Urea Nitrogen 15, Creatinine 0.8, Estimat Glomerular Filtration Rate > 60, Glucose Level 138H, Calcium Level 7.8L Height (Feet): 5 Height (Inches): 5.00 Weight (Pounds): 109 Objective Thin woman NCAT supple CTA RRR Abd soft ND NT no edema Assessment/Plan Status: stable, progressing Assessment/Plan: Assessment - OB (+) stool w/o significant anemia - CVA , (R) mony - Renal failure - resolved leukocytosis - paroxysmal a fib - anorexia Recommendations - monitor CBC - EGD/Colon today POT PROCEDURE ADDENDUM (9793) EGD: Erosive: gastritis [place]: Rare diverticulosis, (+) multiple large stellate rectal stercoral ulcers Bob Jonas MD May 30, 2020 08:11
--- NOTE | 2020-05-30 08:11 | Pre-Procedure Note/Attestation ---
Pre-Procedure Note/Attestation Complete Prior to Procedure Planned Procedure: not applicable Procedure Narrative: esophagogastroduodenoscopy colon Indications for Procedure Pre-Operative Diagnosis: heme (+) Attestation I attest that I discussed the nature of the procedure; its benefits; risks and complications; and alternatives (and the risks and benefits of such alternatives), prior to the procedure, with the patient (or the patient's legal transportation services representative). I attest that, if there was a reasonable possibility of needing a blood transfusion, the patient (or the patient's legal transportation services representative) was given the [facility] standardized written summary, pursuant to the Brennen [place] Blood Safety Act ([place] Health and Safety Code # 1645, as amended). I attest that I re-evaluated the patient just prior to the surgery and that there has been no change in the patient's H&P, except as documented below: Bob Jnoas MD May 30, 2020 08:11
--- NOTE | 2020-05-30 09:00 | Immediate Post-Op Evaluation ---
Immediate Post-Op Evalulation Immediate Post-Op Evalulation Procedure: EGD/Colonoscopy Date of Evaluation: May 30, 2020 Time of Evaluation: 08:59 IV Fluids: 500 Blood Pressure Systolic: 101 Blood Pressure Diastolic: 70 Pulse Rate: 78 Respiratory Rate: 14 O2 Sat by Pulse Oximetry: 99 Temperature (Fahrenheit): 98.4 Nausea: No Vomiting: No Complications none Patient Status: awake, reacts, patent Hydration Status: adequate Drug: none ShwetariKristi ibrahim CRNA May 30, 2020 09:00
--- NOTE | 2020-05-30 09:03 | Anethesia Preoperative Eval ---
Anesthesia Pre-op PMH/ROS General Date of Evaluation: May 30, 2020 Time of Evaluation: 08:00 Anesthesiologist: arma ASA Score: ASA 3 Mallampati Score Class I : Soft palate, uvula, fauces, pillars visible Class II: Soft palate, uvula, fauces visible Class III: Soft palate, base of uvula visible Class IV: Only hard plate visible Mallampati Classification: Class II Surgeon: Eileen Diagnosis: Anemia; Gerd Surgical Procedure: EGD/Colonoscopy Anesthesia History: none Family History: no anesthesia problems Allergies: Coded Allergies: SULFAMETHOXAZOLE (Unverified Allergy, Unknown, 12/09/17) TRIMETHOPRIM (Unverified Allergy, Unknown, 12/09/17) Medications: see eMAR Patient NPO?: Yes NPO Date: May 30, 2020 NPO Time: 00:01 Past Medical History Cardiovascular: Reports: HTN, CAD Pulmonary: Denies: asthma, COPD, JORGE LUIS, other Gastrointestinal/Genitourinary: Reports: GERD, CRI; Denies: ESRD, other Neurologic/Psychiatric: Reports: dementia, CVA Endocrine: Denies: DM, hypothyroidism, steroids, other HEENT: Denies: cataract (L), cataract (R), glaucoma, NIKOLAI (L), NIKOLAI (R), other Hematology/Immune: Reports: anemia; Denies: DVT, bleeding disorder, other Musculoskeletal/Integumentary: Denies: OA, RA, DJD, DDD, edema, other PSxH Narrative: see chart Anesthesia Pre-op Phys. Exam Physician Exam Last Vital Signs Date Time Temp Pulse Resp B/P (MAP) Pulse Ox O2 Delivery O2 Flow Rate FiO2 05/30/20 04:09 98.1 58 19 127/82 (97) 95 05/29/20 21:00 Room Air Constitutional: other - weakness, demential Neurologic: other - responsive to pain Cardiovascular: RRR Respiratory: CTA Gastrointestinal: S/NT/ND Airway Exam Mallampati Classification 2 Mallampati Score: Class II MO: full ROM: full Dentures: no upper, no lower Anesthesia Pre-op A/P Labs Chemistry Test 05/30/20 05:50 Sodium Level 143 MMOL/L (136-145) Potassium Level 3.3 MMOL/L (3.5-5.1) L Chloride Level 110 MMOL/L (98-107) H Carbon Dioxide Level 24 MMOL/L (21-32) Anion Gap 9 mmol/L (5-15) Blood Urea Nitrogen 15 mg/dL (7-18) Creatinine 0.8 MG/DL (0.55-1.30) Estimat Glomerular Filtration Rate > 60 mL/min (>60) Glucose Level 138 MG/DL (74-106) H Calcium Level 7.8 MG/DL (8.5-10.1) L Studies Pre-op Studies: EKG - sr Risk Assessment & Plan Plan: mac Status Change Before Surgery: No Pre-Antibiotics Drug: none Kristi Altamirano PUBLIC RELATIONS SUPERVISOR May 30, 2020 09:03
--- NOTE | 2020-05-30 09:30 | NUR ---
NURSE NOTES: Received report from Dilma Mclaughlin RN (PACU). Patient arrived back to unit via gurney in stable condition.
--- NOTE | 2020-05-30 09:50 | 48 Hour Post Anesthesia Eval ---
Post Anesthesia Evaluation Procedure: EGD/Colonoscopy Date of Evaluation: May 30, 2020 Time of Evaluation: 09:49 Blood Pressure Systolic: 144 0: 71 Pulse Rate: 80 Respiratory Rate: 14 O2 Sat by Pulse Oximetry: 98 Airway: patent Nausea: No Vomiting: No Hydration Status: adequate Cardiopulmonary Status: stable Mental Status/LOC: patient returned to baseline Post-Anesthesia Complications: none Follow-up care needed: N/A Kristi Altamirano CRNA May 30, 2020 09:50
--- NOTE | 2020-05-30 09:50 | Nephrology Progress Note ---
Assessment/Plan Problem List: (1) Hypophosphatemia (2) KVNG (acute kidney injury) (3) Leukocytosis (4) Hypernatremia (5) Dehydration (6) Right hemiparesis (7) CVA (cerebral vascular accident) (8) Hypokalemia (9) Clostridial infection (10) Enterococcal sepsis (11) Malnutrition of moderate degree Plan rx sepsis, replete phos, replace K , iv adjusted, continue zosyn poor nutrition GI eval reviewed, try dc gannon done check bladder scan, intake poor encourage diet Subjective ROS Limited/Unobtainable: Yes Objective Objective Last 24 Hour Vital Signs Date Time Temp Pulse Resp B/P (MAP) Pulse Ox O2 Delivery O2 Flow Rate FiO2 05/30/20 09:45 141/77 05/30/20 09:14 98.0 69 18 141/77 98 Room Air 05/30/20 09:05 70 18 141/78 99 Room Air 05/30/20 09:00 70 17 116/65 100 Room Air 05/30/20 09:00 78 14 99 05/30/20 08:55 71 18 110/62 100 Nasal Cannula 3 05/30/20 08:50 98.4 72 17 101/65 100 Nasal Cannula 3 05/30/20 04:09 98.1 58 19 127/82 (97) 95 05/30/20 00:00 98.7 71 17 140/56 (84) 97 05/29/20 22:12 99.9 05/29/20 21:00 Room Air 05/29/20 20:00 100.4 87 16 164/81 (108) 97 05/29/20 16:00 99.0 78 18 132/75 (94) 96 05/29/20 12:00 99.8 83 18 130/79 (96) 96 Intake and Output 05/29/20 05/30/20 18:59 06:59 Intake Total 360 ml 1045.0 ml Output Total 433 ml Balance 360 ml 612.0 ml Intake Oral 360 ml IV Total 1045.0 ml Post Void Residual 433 ml Bladder Scan Volume Amount 151-200 ml 201-300 ml # Voids 1 2 # Bowel Movements 2 6 Laboratory Tests 05/30/20 05:50: Sodium Level 143, Potassium Level 3.3L, Chloride Level 110H, Carbon Dioxide Level 24, Anion Gap 9, Blood Urea Nitrogen 15, Creatinine 0.8, Estimat Glomerular Filtration Rate > 60, Glucose Level 138H, Calcium Level 7.8L Height (Feet): 5 Height (Inches): 5.00 Weight (Pounds): 109 General Appearance: no apparent distress, alert EENT: normal ENT inspection Neck: normal alignment Cardiovascular: regular rhythm Respiratory/Chest: lungs clear Abdomen: non tender Extremities: moderate edema 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
[2020-05-30] MEDS ORDERED: Potassium Chloride 30 MEQ in 1/2 NS 1000ml 1,000 ML IV SCH (12:00)
--- NOTE | 2020-05-30 12:29 | NUR ---
SPEECH PATHOLOGY/SWALLOW/COMMUNICATION STATUS AND WEEKLY SUMMARY S: PATIENT CLEARED FOR ST INTERVENTION BY JO ANN PRESTON. PER RN, PATIENTS P.O. INTAKE OF BREAKFAST WAS LESS THAN 40% PERCENT. O: DYSPHAGIA TX/MANAGEMENT, VERBAL/EXPRESSION-AUDITORY COMPREHENSION TASKS, DIET TEXTURE ANALYSIS/ADJUSTMENT A: PATIENT IS UNABLE TO CUT UP SOLIDS AND PRESENTS WITH PROLONGED MASTICATION OF SOLIDS, THEREFORT DIET TEXTURE IS BEING MODIFIED MECHANICAL SOFT/FINELY CHOPPED. PATIENT ABLE TO INDEPENDENTLY CUP/SIP W/LEFT HAND. SENSORIMOTOR DEFICITS RESULT IN RESIDUE ON LABIAL AND LINGUAL SURFACE DURING AND POST SWALLOW. SHE IS ALSO POCKETING SOLIDS IN R/LATERAL SULCUS. COUNTING TO 20: IN UNISON/AND PARTIALLY INDEPENDENTLY WITH CLINICIAN UNRELIABLE Y/N RESPONSES BODY PART I.D. REQUIRES MAX ASSIST/[id number] WHEN CUED PATIENT WILL VERBALIZE "HI" AND "BYE" SHE IS NOW VISUALLY ATTENDING IN THE RIGHT VISUAL FIELD DURING THIS PAST WEEK SHE HAS RESPONDED TO INTERVENTION WITH MEASURABLE ADVANCES IN VERBAL EXPRESSION AND P.O. INTAKE STAFF GOALS MET RELATIVE TO UTILIZATION OF MEALTIME PROTOCOL AND IN ENCOURAGING VERBAL EXPRESSION AND CUP/SIPS OF NTL DURING WELL IN BETWEEN MEALS. P: 1. CONTINUE ST WHILE IN HOUSE. SHE NEEDS ST INTERVENTION AT THE NEXT LEVEL OF CARE TO ADDRESS DYSPHAGA/APHASIA DEFICITS 2. MODIFY CURRENT [facility] TEXTURE [facility] SOFT/FINELY CHOPPED 3. STAFF TO PROVIDE ORAL CARE POST P.O. TO CLEAR PATIENTS MOUTH OF ANY SOLID RESIDUE THANK YOU FOR THIS REFERRAL.
--- NOTE | 2020-05-30 15:18 | Infectious Diseases Prog Note ---
Assessment/Plan Assessment/Plan A 1. Enterococcus & clostridial sepsis 2. atrial fibrillation 3. Acute renal failure improving 4. hypertension P 1. continue Zosyn X 4 days, 3, will follow up cultures Subjective ROS Limited/Unobtainable: Yes Constitutional: Reports: fever, other - low grade fever last night Allergies: Coded Allergies: SULFAMETHOXAZOLE (Unverified Allergy, Unknown, 12/09/17) TRIMETHOPRIM (Unverified Allergy, Unknown, 12/09/17) Objective Last 24 Hour Vital Signs Date Time Temp Pulse Resp B/P (MAP) Pulse Ox O2 Delivery O2 Flow Rate FiO2 05/30/20 12:00 97.5 69 18 141/72 (95) 97 05/30/20 09:50 80 14 98 05/30/20 09:45 141/77 05/30/20 09:14 98.0 69 18 141/77 98 Room Air 05/30/20 09:05 70 18 141/78 99 Room Air 05/30/20 09:00 Room Air 05/30/20 09:00 70 17 116/65 100 Room Air 05/30/20 09:00 78 14 99 05/30/20 08:55 71 18 110/62 100 Nasal Cannula 3 05/30/20 08:50 98.4 72 17 101/65 100 Nasal Cannula 3 05/30/20 04:09 98.1 58 19 127/82 (97) 95 05/30/20 00:00 98.7 71 17 140/56 (84) 97 05/29/20 22:12 99.9 05/29/20 21:00 Room Air 05/29/20 20:00 100.4 87 16 164/81 (108) 97 05/29/20 16:00 99.0 78 18 132/75 (94) 96 Height (Feet): 5 Height (Inches): 5.00 Weight (Pounds): 109 General Appearance: no acute distress HEENT: mucous membranes moist Respiratory/Chest: lungs clear Cardiovascular: normal rate Abdomen: soft, non tender Extremities: no edema Skin: ulcers, other - left knee ulcer Neurologic/Psychiatric: alert, responsive Microbiology Date/Time Source Procedure Growth Status 05/28/20 21:00 Indwelling Cath Urine Culture - Preliminary NO GROWTH Resulted Laboratory Tests Test 05/30/20 05:50 Sodium Level 143 MMOL/L (136-145) Potassium Level 3.3 MMOL/L (3.5-5.1) L Chloride Level 110 MMOL/L (98-107) H Carbon Dioxide Level 24 MMOL/L (21-32) Anion Gap 9 mmol/L (5-15) Blood Urea Nitrogen 15 mg/dL (7-18) Creatinine 0.8 MG/DL (0.55-1.30) Estimat Glomerular Filtration Rate > 60 mL/min (>60) Glucose Level 138 MG/DL (74-106) H Calcium Level 7.8 MG/DL (8.5-10.1) L Current Medications Medications (Trade) Dose Ordered Sig/Marci Route PRN Reason Start Time Stop Time Status Last Admin Dose Admin Acetaminophen (Tylenol) 650 mg Q4H PRN ORAL FEVER 05/24/20 23:15 06/23/20 23:14 05/29/20 21:42 Acetaminophen (Tylenol) 650 mg Q6H PRN ORAL Pain Scale (3-5) 05/22/20 19:30 06/21/20 19:29 Aspirin (ASA) 81 mg DAILY ORAL 05/24/20 09:00 07/08/20 08:59 05/30/20 09:44 Heparin Sodium (Porcine) (Heparin 5000 units/ml) 5,000 units EVERY 12 HOURS SUBQ 05/22/20 21:00 07/06/20 20:59 05/30/20 09:46 Losartan Potassium (Cozaar) 100 mg DAILY ORAL 05/28/20 09:00 06/27/20 08:59 05/30/20 09:45 Pantoprazole (Protonix) 40 mg DAILY IVP 05/22/20 20:00 06/21/20 19:59 05/30/20 09:45 Piperacillin Sod/ Tazobactam Sod 3.375 gm/Sodium Chloride 110 ml @ 27.5 mls/hr Q8H IVPB 05/27/20 01:00 06/03/20 00:59 05/30/20 09:59 Potassium Chloride 30 meq/ Sodium Chloride 1,015 ml @ 75 mls/hr [id number] IV 05/30/20 12:00 06/29/20 11:59 05/30/20 12:03 Lonny Ramos MD May 30, 2020 15:18
--- NOTE | 2020-05-30 15:41 | General Progress Note ---
Subjective Constitutional: Reports: malaise, weakness HEENT: Reports: no symptoms Cardiovascular: Reports: no symptoms Respiratory: Reports: no symptoms Gastrointestinal/Abdominal: Reports: difficulty swallowing Genitourinary: Reports: no symptoms Neurologic/Psychiatric: Reports: pre-existing deficit Endocrine: Reports: no symptoms Hematologic/Lymphatic: Reports: no symptoms Allergies: Coded Allergies: SULFAMETHOXAZOLE (Unverified Allergy, Unknown, 12/09/17) TRIMETHOPRIM (Unverified Allergy, Unknown, 12/09/17) All Systems: reviewed and negative except above Subjective stable. no new complaints. neuro consult appreciated. not compliant with care at times. npo for endoscopy. Objective Last 24 Hour Vital Signs Date Time Temp Pulse Resp B/P (MAP) Pulse Ox O2 Delivery O2 Flow Rate FiO2 05/30/20 12:00 97.5 69 18 141/72 (95) 97 05/30/20 09:50 80 14 98 05/30/20 09:45 141/77 05/30/20 09:14 98.0 69 18 141/77 98 Room Air 05/30/20 09:05 70 18 141/78 99 Room Air 05/30/20 09:00 Room Air 05/30/20 09:00 70 17 116/65 100 Room Air 05/30/20 09:00 78 14 99 05/30/20 08:55 71 18 110/62 100 Nasal Cannula 3 05/30/20 08:50 98.4 72 17 101/65 100 Nasal Cannula 3 05/30/20 04:09 98.1 58 19 127/82 (97) 95 05/30/20 00:00 98.7 71 17 140/56 (84) 97 05/29/20 22:12 99.9 05/29/20 21:00 Room Air 05/29/20 20:00 100.4 87 16 164/81 (108) 97 05/29/20 16:00 99.0 78 18 132/75 (94) 96 Intake and Output 05/29/20 05/30/20 19:00 07:00 Intake Total 462.5 ml 942.5 ml Output Total 433 ml Balance 462.5 ml 509.5 ml Intake Oral 360 ml IV Total 102.5 ml 942.5 ml Post Void Residual 433 ml Bladder Scan Volume Amount 151-200 ml 201-300 ml # Voids 1 2 # Bowel Movements 2 6 Laboratory Tests 05/30/20 05:50: Sodium Level 143, Potassium Level 3.3L, Chloride Level 110H, Carbon Dioxide Level 24, Anion Gap 9, Blood Urea Nitrogen 15, Creatinine 0.8, Estimat Glomerular Filtration Rate > 60, Glucose Level 138H, Calcium Level 7.8L Height (Feet): 5 Height (Inches): 5.00 Weight (Pounds): 109 Objective General Appearance: WD/WN, alert Neck: supple Cardiovascular: normal rate, regular rhythm Respiratory/Chest: chest wall non-tender, lungs clear, normal breath sounds Abdomen: normal bowel sounds, non tender, soft Edema: no edema noted Arm (L), no edema noted Arm (R) Neurologic: motor weakness - right hemiparesis Skin: normal pigmentation. +black wound jany knees. + drainage Assessment/Plan Problem List: (1) CVA (cerebral vascular accident) ICD Codes: I63.9 - Cerebral infarction, unspecified SNOMED: 594607316 (2) Renal failure ICD Codes: N19 - Unspecified kidney failure SNOMED: 75596312, 657715187 (3) Right hemiparesis ICD Codes: G81.91 - Hemiplegia, unspecified affecting right dominant side SNOMED: 734847089, 646029310 (4) Dehydration ICD Codes: E86.0 - Dehydration SNOMED: 70925387, 671382710 (5) UTI (urinary tract infection) ICD Codes: N39.0 - Urinary tract infection, site not specified SNOMED: 53486227, 195021371 (6) Decubitus skin ulcer ICD Codes: L89.90 - Pressure ulcer of unspecified site, unspecified stage SNOMED: 268712850 (7) Hypernatremia ICD Codes: E87.0 - Hyperosmolality and hypernatremia SNOMED: 380060760 (8) Leukocytosis ICD Codes: D72.829 - Elevated white blood cell count, unspecified SNOMED: 716145183, 649817537 Status: stable, progressing Assessment/Plan: cont current rx antiplt rx neuro follow up anticoag to be determined 1-2 weeks- defer to neurology endoscopy per GI- +ob stool. needs AC in the near future rate control per cards pt/ot/st iv abx per ID monitor for bleeding Vinay Lu MD May 30, 2020 15:41
--- NOTE | 2020-05-30 15:55 | Surgery Progress Note ---
Surgery Progress Note Subjective Symptoms: improved, tolerating diet, voiding well, passing flatus, BM Objective Last 24 Hour Vital Signs Date Time Temp Pulse Resp B/P (MAP) Pulse Ox O2 Delivery O2 Flow Rate FiO2 05/30/20 12:00 97.5 69 18 141/72 (95) 97 05/30/20 09:50 80 14 98 05/30/20 09:45 141/77 05/30/20 09:14 98.0 69 18 141/77 98 Room Air 05/30/20 09:05 70 18 141/78 99 Room Air 05/30/20 09:00 Room Air 05/30/20 09:00 70 17 116/65 100 Room Air 05/30/20 09:00 78 14 99 05/30/20 08:55 71 18 110/62 100 Nasal Cannula 3 05/30/20 08:50 98.4 72 17 101/65 100 Nasal Cannula 3 05/30/20 04:09 98.1 58 19 127/82 (97) 95 05/30/20 00:00 98.7 71 17 140/56 (84) 97 05/29/20 22:12 99.9 05/29/20 21:00 Room Air 05/29/20 20:00 100.4 87 16 164/81 (108) 97 05/29/20 16:00 99.0 78 18 132/75 (94) 96 I&O Intake and Output 05/29/20 05/30/20 19:00 07:00 Intake Total 462.5 ml 942.5 ml Output Total 433 ml Balance 462.5 ml 509.5 ml Intake Oral 360 ml IV Total 102.5 ml 942.5 ml Post Void Residual 433 ml Bladder Scan Volume Amount 151-200 ml 201-300 ml # Voids 1 2 # Bowel Movements 2 6 Dressing: dry Wound: clean Cardiovascular: RSR Respiratory: clear Abdomen: soft, non-tender, present bowel sounds Extremities: no edema, no tenderness, no cyanosis, other Laboratory Tests Test 05/30/20 05:50 Sodium Level 143 MMOL/L (136-145) Potassium Level 3.3 MMOL/L (3.5-5.1) L Chloride Level 110 MMOL/L (98-107) H Carbon Dioxide Level 24 MMOL/L (21-32) Anion Gap 9 mmol/L (5-15) Blood Urea Nitrogen 15 mg/dL (7-18) Creatinine 0.8 MG/DL (0.55-1.30) Estimat Glomerular Filtration Rate > 60 mL/min (>60) Glucose Level 138 MG/DL (74-106) H Calcium Level 7.8 MG/DL (8.5-10.1) L Plan Problems: (1) Decubitus skin ulcer Assessment & Plan: Patient presented on admission with multiple skin concerns. Patient was found down unknown duration and has developed significant injuries and skin concerns. Patient has a right shoulder 3 cm x 3 cm posterior deep tissue injury no fluctuance nontender no skin breakdown not open. Patient has sacral erythema identified. Patient has incontinence associated dermatitis identified in the perineum and bilateral thighs and groins. Patient has a right hip DTI with skin breakdown identified. Patient has a left knee unstageable decubitus ulcer with necrotic eschar. Patient has significant abdominal erythema and near cellulitis with burning rash. No abscess no drainage wounds unlikely source of patient's sepsis. Wound is likely attributed to patient being down for significant period of time. Will need nutritional optimization and local care plan to allow for healing and improvement. Care plan initiated. Treatment plan Wash all wounds daily with normal saline. Apply skin protectant and OPTi foam dressing to the right shoulder change every 3 days. Apply OPTi foam dressing patient sacral region monitor for incontinence change every 3 days and PRN saturation as necessary Apply skin protectant to bilateral thighs and perineum monitor for incontinence change accordingly. Thera honey to left knee eschar followed by OPTi foam dressing wrap with Kerlix if necessary change daily and PRN saturation Zinc oxide cream for abdominal wound. Apply daily. Wash wounds daily. Turn every 2 hours offload pressure with pillows Air mattress given patient's current medical condition Nutritional optimization We will follow with recommendations thank you for let me participate patient's care (2) Renal failure (3) CVA (cerebral vascular accident) Assessment & Plan: Posterior circulation demonstrates dominant left, smaller caliber but patent right vertebral artery. No stenosis of either. Small caliber but patent and nonstenotic basilar artery. Patent bilateral superior cerebellar arteries. The P1 segment of the right posterior cerebral artery appears to be patent but very small in caliber; the right posterior cerebral artery is predominantly supplied by a large posterior communicating artery. The reconstructed images suggest a moderate to severe focal stenosis of the P2 segment near its origin. The left P1 segment is a equivocally patent but probably; likewise, predominantly supply to the left posterior cerebral artery is via the posterior communicating artery. There is an area of signal dropout in the P2 segment of the left posterior cerebral artery. This may indicate a severe stenosis Anterior circulation demonstrates patent nonstenotic distal internal carotid arteries. Patent nonstenotic right middle cerebral artery and proximal branches. Smaller caliber M1 segment of the left middle cerebral artery although without significant focal stenosis. The proximal sylvian branch of the left middle cerebral artery demonstrates what may be a focal significant stenosis. This is better appreciated on the MIP reconstructions. Absent right A1 segment. Larger caliber left A1 segment supplies both anterior cerebral arteries, presumably via anterior to indicating artery. There is no evidence of aneurysm or vascular malformation. Impression: Stenosis, possibly severe, of the P2 segment of the left posterior cerebral artery Stenosis, possibly severe, the sylvian branch of the left middle cerebral artery. [place] anatomy as described All stenosis measurements are based on the diameter of the distal normal vessel as referenced vessel, per NASCET criteria Old infarcts are seen in the bilateral basal ganglia and inferior frontal deep white matter. No acute intracranial hemorrhage or edema. No mass effect nor midline shift. There is age-related enlargement of the ventricles and extra- axial CSF spaces. There is periventricular deep white matter low-attenuation consistent with chronic microvascular ischemic change. Visualized orbits are unremarkable. There is bilateral ethmoid and bilateral maxillary sinus mucosal disease. The mastoids are clear. Impression: Chronic and age-related changes, including multiple old infarcts Negative for acute intracranial bleed or mass effect Right common carotid artery: Unremarkable. No occlusion or significant stenosis on color flow and spectral Doppler imaging. Right internal carotid artery: Unremarkable. No occlusion or significant stenosis on color flow and spectral Doppler imaging. Right external carotid artery: Unremarkable. No occlusion or significant stenosis on color flow and spectral Doppler imaging. Right vertebral artery: Antegrade flow within the vertebral arteries. Right ICA/CCA ratio: Unremarkable. Within normal limits. Left common carotid artery: Unremarkable. No occlusion or significant stenosis on color flow and spectral Doppler imaging. Left internal carotid artery: Significant calcified atherosclerotic disease is noted within the left carotid bulb. No occlusion or significant stenosis on color flow and spectral Doppler imaging. Left external carotid artery: Unremarkable. No occlusion or significant stenosis on color flow and spectral Doppler imaging. Left vertebral artery: See above. Left ICA/CCA ratio: Unremarkable. Within normal limits. Lymph nodes: Unremarkable. No lymphadenopathy. Other findings: Evaluation of peak systolic velocities bilaterally throughout the carotid systems reveal no evidence of hemodynamically significant stenosis, based on established criteria. CAROTID STENOSIS REFERENCE USING SRU CRITERIA: Mild - <50% stenosis. ICA PSV is less than 125 cm/second and plaque or intimal thickening is visible. Moderate - 50-69% stenosis. ICA PSV is 125 to 230 cm/second and plaque is visible. Severe - 70-94% stenosis. ICA PSV is more than 230 cm/second and visible plaque with lumen narrowing is seen. Near occlusion - 95-99% stenosis. ICA PSV is variable and significant plaque with luminal narrowing is seen. Occluded - 100% stenosis. No flow identified. IMPRESSION: 1. Prominent calcified plaque within the left carotid bulb. 2. No evidence of hemodynamically significant stenosis based on established ultrasound criteria. (4) Right hemiparesis (5) Dehydration Assessment & Plan: 1. Increase self initiation for drinking with her left hand: Ms. Hutchinson was able to self drink nector thick liquid via cup with her left hand with visual and tactile cue 90% of the time without s.s of aspiration. 2. Increase initiation of verbal utterance: Pt was able to verbally repeat at word level with visual cues and repetition at 75% of the time. 3.Diet appropriateness: Ms. Hutchinson was reminded what happened to her and why she is in the hospital and and her diet was currently modified in [place]. She appeared to be understanding my explanation. 4. Team approach to take care her case was initiated with communicating with RN and Rad dept to complete pending procedure (video swallow study at 13:00 today) A: 1. Oropharyngeal dysphagia due to multiple acute and subacute cerebral infarcts 2. 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 Likely presence of expressive aphasia P: 1. Modified diet with pureed and nector thick liquid with aspiration precaution 2. Encourage self drinking with her left hand with assistance -occupational therapist recommendation to follow 3. Full speech and language evaluation is needed for discharge plan - Strongly push for acute rehab if ultimate goal/support is to return to home. (6) Hypernatremia (7) Leukocytosis Assessment & Plan: wbc 20 on admission lactic acidosis - improving with hydration on abx as per ID no acute surgical intervention planned okay for tf diet nutrition eval local wound care leukocytosis resolved improving will follow with recs and monitor thank you (8) UTI (urinary tract infection) Liam Hermosillo May 30, 2020 15:55
--- NOTE | 2020-05-30 19:23 | NUR ---
NURSE HAND-OFF: Important Events on Shift:s/p EGD and colonoscopy; gannon catheter insertion Patient Status:stable Diet:mechanical soft diet nectar thick Pending Orders: n/a Pending Results/Labs:n/a Pending MD notification:n/a Latest Vital Signs: Temperature 98.1 , Pulse 74 , B/P 137 /79 , Respiratory Rate 18 , O2 SAT 96 , Room Air, O2 Flow Rate 3 . Vital Sign Comment: stable Latest Awad Fall Score: 95 Fall Risk: High Risk Safety Measures: Call light Within Reach, Bed Alarm Zone 1, Side Rails Side Rails x2, Bed position Low and Locked. Fall Precautions: Yellow Socks Yellow Gown Door Sign Patient Fall Education Report given to JO ANN Rivas.
--- NOTE | 2020-05-30 20:00 | NUR ---
NURSE NOTES: Received patient in bed, awake, nonverbal. IVF infusing as ordered. New order to insert gannon catheter due to retention. Will insert as ordered. patient is not in any distress at this time. Will continue with plan of care.
--- NOTE | 2020-05-30 20:30 | Operative Note - Dictated ---
DATE OF OPERATION: 05/30/2020 GASTROENTEROLOGY PROCEDURE REPORT PROCEDURE: Upper gastrointestinal endoscopy with biopsy as well as colonoscopy with biopsy. SURGEON: Bob Jonas MD ANESTHESIA: Please see the separate anesthesiologist notes for details. PRE-ENDOSCOPIC DIAGNOSIS: Heme-positive stools. POST-ENDOSCOPIC DIAGNOSES: 1. Erosive gastritis, status post biopsy of the antrum. 2. Rare diverticulosis. 3. Multiple large stellate rectal stercoral ulcers. DESCRIPTION OF PROCEDURE: The procedure, its risks, indications, alternatives, and possible complications including but not limited to bleeding, infection, perforation, , and anesthesia complications were explained to the patient's family and informed consent was obtained. The patient was then sedated and a diagnostic upper endoscope was introduced through the oropharynx and advanced to the duodenum. The endoscope was then gradually withdrawn and then rectal exam was done. The colonoscope was introduced into the rectum and advanced to the cecum. The colonoscope was then gradually withdrawn. The mucosa examined carefully. Examination was notable for findings listed above. The patient was left to recovery in good condition. Biopsies of the rectal ulcers were submitted to pathology for review. ASSESSMENT: This patient's heme-positive stools is due to a combination of the rectal ulcers and also the erosive gastritis. The former is presumed to be due to fecal pressure and therefore the patient should be on long-term bowel regimen. The ulcers do slightly increase patient's bleeding risk with anticoagulation, but the rectal bleeding would also be noticed immediately since the location is distal. Once the patient has cleared from a neurological standpoint to be placed on anticoagulation, she will also be at an acceptable risk for anticoagulation from a GI standpoint. The patient's Helicobacter pylori should be checked and treated if positive. I would continue proton pump inhibitor therapy. RECOMMENDATIONS: 1. Proton pump inhibitor. 2. Check and treat Helicobacter pylori if positive. 3. Long-term MiraLAX. 4. Hold anticoagulation for few more days. Bob Jonas M.D. DR: MONIK JOB#: [id number] CC: MARVIN
--- NOTE | 2020-05-30 21:00 | NUR ---
NURSE NOTES: 16Fr Schneider catheter inserted for retention as ordered. With yellow urine output. Tolerated well. Secured to right thigh.
--- NOTE | 2020-05-31 00:19 | NUR ---
NURSE NOTES: Unable to locate patient's IVF of 1/2NS+30meq KCl. Charge nurse and [facility] made aware; medication not available in ED or night locker. Messaged [facility] pharmacy regarding my options; they recommended to check the refrigerator (medication not found there) and ask MD to change IVF. Dr. Sanchez was called and received order to change to 1/2NS+20Meq Kcl @ 75. Will carry out as ordered.
[2020-05-31] MEDS: Piperacillin/Tazobactam 3.375 GM in NS 110 ML IVPB SCH ×3 (00:54→17:43)
[2020-05-31] MEDS ORDERED: 1/2NS w/KCl 20mEq 1000ml 1,000 ML IV SCH (01:00)
--- NOTE | 2020-05-31 02:17 | Cardiology Progress Note ---
Subjective DATE OF SERVICE: May 30, 2020 EGD/colon - erosive gastritis and rectal ulcers MRA reveals left P2 posterior cerebral artery stenosis. No recurrent episodes of rapid AFib. Stool OB positive, but hemoglobin stable MRI: reveals acute and subacute infarcts with distribution c/w cardioembolic source 2D Echo with normal LVEF and mild MR; no pulmonary hypertension. Objective Last 24 Hour Vital Signs Date Time Temp Pulse Resp B/P (MAP) Pulse Ox O2 Delivery O2 Flow Rate FiO2 05/30/20 23:37 97.3 67 18 138/77 (97) 96 05/30/20 21:00 Room Air 05/30/20 19:55 97.7 69 18 125/77 (93) 98 05/30/20 16:00 98.1 74 18 137/79 (98) 96 05/30/20 12:00 97.5 69 18 141/72 (95) 97 05/30/20 09:50 80 14 98 05/30/20 09:45 141/77 05/30/20 09:14 98.0 69 18 141/77 98 Room Air 05/30/20 09:05 70 18 141/78 99 Room Air 05/30/20 09:00 Room Air 05/30/20 09:00 70 17 116/65 100 Room Air 05/30/20 09:00 78 14 99 05/30/20 08:55 71 18 110/62 100 Nasal Cannula 3 05/30/20 08:50 98.4 72 17 101/65 100 Nasal Cannula 3 05/30/20 04:09 98.1 58 19 127/82 (97) 95 ROS: unchanged from my note of 05/22/20. HEENT: normal ENT inspection RHYTHM: Afib LUNGS: lungs clear bilaterally CARDIAC: normal rate, normal S1 and S2, irregularly irregular, bradycardia ABDOMEN: normal bowel sounds, non tender, soft, no organomegaly, no mass EXTREMITIES: normal range of motion, non-tender, normal inspection, no calf tenderness Laboratory Tests Test 05/30/20 05:50 Sodium Level 143 MMOL/L (136-145) Potassium Level 3.3 MMOL/L (3.5-5.1) L Chloride Level 110 MMOL/L (98-107) H Carbon Dioxide Level 24 MMOL/L (21-32) Anion Gap 9 mmol/L (5-15) Blood Urea Nitrogen 15 mg/dL (7-18) Creatinine 0.8 MG/DL (0.55-1.30) Estimat Glomerular Filtration Rate > 60 mL/min (>60) Glucose Level 138 MG/DL (74-106) H Calcium Level 7.8 MG/DL (8.5-10.1) L Microbiology Date/Time Source Procedure Growth Status 05/28/20 21:00 Indwelling Cath Urine Culture - Preliminary NO GROWTH Resulted Assessment/Plan Assessment/Plan 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 No indication for pacemaker Kirk Fung MD May 31, 2020 02:17
[2020-05-31 04:00] VITALS: BP 159/89
[2020-05-31 07:14] LABS: ANION GAP 5 mmol/L (5-15); BLOOD UREA NITROGEN 8 mg/dL (7-18); CALCIUM 8.3 MG/DL (8.5-10.1); CARBON DIOXIDE 27 MMOL/L (21-32); CHLORIDE 107 MMOL/L (98-107); CREATININE 0.7 MG/DL (0.55-1.30); PHOSPHORUS 2.6 MG/DL (2.5-4.9); POTASSIUM 3.8 MMOL/L (3.5-5.1); SODIUM 139 MMOL/L (136-145)
--- NOTE | 2020-05-31 07:30 | NUR ---
NURSE HAND-OFF: Important Events on Shift:Schneider catheter inserted 16Fr. IVF changed to 1/2 NS +20KCl Patient Status: [stable] Diet: [Soft Mech soft finely chopped nectar thick liquid] Pending Orders: [for CT head no contrast] Pending Results/Labs:[] Pending MD notification:[] Latest Vital Signs: Temperature 97.9 , Pulse 61 , B/P 159 /89 , Respiratory Rate 20 , O2 SAT 96 , Room Air, O2 Flow Rate 3 . Vital Sign Comment: [] Latest Awad Fall Score: 95 Fall Risk: High Risk Safety Measures: Call light Within Reach, Bed Alarm Zone 1, Side Rails Side Rails x2, Bed position Low and Locked. Fall Precautions: Yellow Socks Yellow Gown Door Sign Patient Fall Education Report given to [Sera CHERRY].
--- NOTE | 2020-05-31 07:36 | NUR ---
NURSE NOTES: patient awake and alert when name called,respirations unlabored.IV fluids infusing as ordered.Schneider catheter is in place and clear light yellow urine noted in collection bag.Breakfast at bedside will assist patient with meals. Bed alarm is on,call light within reach.
[2020-05-31] MEDS ORDERED: D5 1/2NS 1000ml IV ONE (08:52)
[2020-05-31 08:55] VITALS: BP 143/85
[2020-05-31 08:59] VITALS: BP 143/85
[2020-05-31] MEDS: Losartan 50mg tab ORAL SCH (09:01)
[2020-05-31] MEDS: Aspirin Baby 81mg ORAL SCH (09:01)
[2020-05-31] MEDS: Pantoprazole Inj IVP SCH (09:04)
[2020-05-31] MEDS: Heparin 5000 units/ml inj SUBQ SCH ×2 (09:06→21:24)
--- NOTE | 2020-05-31 09:24 | Nephrology Progress Note ---
Assessment/Plan Problem List: (1) Hypophosphatemia (2) KVNG (acute kidney injury) (3) Leukocytosis (4) Hypernatremia (5) Dehydration (6) Right hemiparesis (7) CVA (cerebral vascular accident) (8) Hypokalemia (9) Clostridial infection (10) Enterococcal sepsis (11) Malnutrition of moderate degree Plan rx sepsis, replete phos, replace K , iv stopping, continue zosyn poor nutrition GI eval reviewed, try dc gannon done check bladder scan >600 gannon placed last pm will remove today and start urecholine, intake poor encourage diet--better so far today seen with ST Subjective ROS Limited/Unobtainable: Yes Objective Objective Last 24 Hour Vital Signs Date Time Temp Pulse Resp B/P (MAP) Pulse Ox O2 Delivery O2 Flow Rate FiO2 05/31/20 09:01 143/85 05/31/20 08:59 97.8 76 20 143/85 (104) 95 05/31/20 04:00 97.9 61 20 159/89 (112) 96 05/30/20 23:37 97.3 67 18 138/77 (97) 96 05/30/20 21:00 Room Air 05/30/20 19:55 97.7 69 18 125/77 (93) 98 05/30/20 16:00 98.1 74 18 137/79 (98) 96 05/30/20 12:00 97.5 69 18 141/72 (95) 97 05/30/20 09:50 80 14 98 05/30/20 09:45 141/77 Intake and Output 05/30/20 05/31/20 19:00 07:00 Intake Total 792.5 ml 942.5 ml Output Total 774 ml 1400 ml Balance 18.5 ml -457.5 ml Intake Oral 240 ml IV Total 552.5 ml 942.5 ml Output Urine Total 1400 ml Post Void Residual 774 ml Estimated Blood Loss 0 ml Bladder Scan Volume Amount 101-150 ml > 300 ml # Voids 3 # Bowel Movements 1 Laboratory Tests 05/31/20 06:15: Sodium Level 139, Potassium Level 3.8, Chloride Level 107, Carbon Dioxide Level 27, Anion Gap 5, Blood Urea Nitrogen 8, Creatinine 0.7, Estimat Glomerular Filtration Rate > 60, Glucose Level 116H, Calcium Level 8.3L, Phosphorus Level 2.6, Magnesium Level 2.1 Height (Feet): 5 Height (Inches): 5.00 Weight (Pounds): 109 General Appearance: no apparent distress, alert EENT: normal ENT inspection Neck: normal alignment Cardiovascular: regular rhythm Respiratory/Chest: lungs clear Abdomen: non tender Extremities: trace edema Neurologic: 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
--- NOTE | 2020-05-31 09:26 | NUR ---
RD ASSESSMENT & RECOMMENDATIONS SEE CARE ACTIVITY FOR COMPLETE ASSESSMENT DAILY ESTIMATED NEEDS: Needs based on cardiac, wound/ 56kg 25-30 kcals/kg 5918-7689 total kcals 1.25-1.5 g protein/kg 70-84 g total protein 25-30 mL/kg 8105-7104 total fluid mLs NUTRITION DIAGNOSIS: * Swallowing difficulty R/T dysphagia, h/o CVA w/ rt sided hemiparesis as evidenced by s/p VSS w/ rec for pureed moist texture w/ NTL * Increased kcal/prot needs R/T wound healing as evidenced by pt admitted w/ unstageable pressure injury @ left medial knee and right lateral knee CURRENT DIET:Now Soft diet, ms finely chopped, NTL PO DIET RECOMMENDATIONS: Low Na diet/ texture per TECHNICAL AGRONOMIST ADDITIONAL RECOMMENDATIONS: * Calibrated bedscale wt- w/ added p200 mattress * Ensure Enlive BID w/ variable intake * Wound healing: add MVI x 1, Vit C 250mg QD Malvin BID as tolerated * elev cholesterol and LDL -> liberalized diet until po intake is consistently >75% * Check A1C: h/o CVA, mildly elev BGs
--- NOTE | 2020-05-31 10:40 | Surgery Progress Note ---
Surgery Progress Note Subjective Additional Comments afebrile, HD stable improving tolerating diet Objective Last 24 Hour Vital Signs Date Time Temp Pulse Resp B/P (MAP) Pulse Ox O2 Delivery O2 Flow Rate FiO2 05/31/20 09:01 143/85 05/31/20 08:59 97.8 76 20 143/85 (104) 95 05/31/20 04:00 97.9 61 20 159/89 (112) 96 05/30/20 23:37 97.3 67 18 138/77 (97) 96 05/30/20 21:00 Room Air 05/30/20 19:55 97.7 69 18 125/77 (93) 98 05/30/20 16:00 98.1 74 18 137/79 (98) 96 05/30/20 12:00 97.5 69 18 141/72 (95) 97 I&O Intake and Output 05/30/20 05/31/20 19:00 07:00 Intake Total 792.5 ml 942.5 ml Output Total 774 ml 1400 ml Balance 18.5 ml -457.5 ml Intake Oral 240 ml IV Total 552.5 ml 942.5 ml Output Urine Total 1400 ml Post Void Residual 774 ml Estimated Blood Loss 0 ml Bladder Scan Volume Amount 101-150 ml > 300 ml # Voids 3 # Bowel Movements 1 Dressing: saturated Wound: clean Cardiovascular: RSR Respiratory: decreased breath sounds Abdomen: soft, non-tender, present bowel sounds Extremities: no edema, no tenderness, no cyanosis Laboratory Tests Test 05/31/20 06:15 Sodium Level 139 MMOL/L (136-145) Potassium Level 3.8 MMOL/L (3.5-5.1) Chloride Level 107 MMOL/L (98-107) Carbon Dioxide Level 27 MMOL/L (21-32) Anion Gap 5 mmol/L (5-15) Blood Urea Nitrogen 8 mg/dL (7-18) Creatinine 0.7 MG/DL (0.55-1.30) Estimat Glomerular Filtration Rate > 60 mL/min (>60) Glucose Level 116 MG/DL (74-106) H Calcium Level 8.3 MG/DL (8.5-10.1) L Phosphorus Level 2.6 MG/DL (2.5-4.9) Magnesium Level 2.1 MG/DL (1.8-2.4) Plan Problems: (1) Decubitus skin ulcer Assessment & Plan: Patient presented on admission with multiple skin concerns. Patient was found down unknown duration and has developed significant injuries and skin concerns. Patient has a right shoulder 3 cm x 3 cm posterior deep tissue injury no fluctuance nontender no skin breakdown not open. Patient has sacral erythema identified. Patient has incontinence associated dermatitis identified in the perineum and bilateral thighs and groins. Patient has a right hip DTI with skin breakdown identified. Patient has a left knee unstageable decubitus ulcer with necrotic eschar. Patient has significant abdominal erythema and near cellulitis with burning rash. No abscess no drainage wounds unlikely source of patient's sepsis. Wound is likely attributed to patient being down for significant period of time. Will need nutritional optimization and local care plan to allow for healing and improvement. Care plan initiated. Treatment plan Wash all wounds daily with normal saline. Apply skin protectant and OPTi foam dressing to the right shoulder change every 3 days. Apply OPTi foam dressing patient sacral region monitor for incontinence change every 3 days and PRN saturation as necessary Apply skin protectant to bilateral thighs and perineum monitor for incontinence change accordingly. Thera honey to left knee eschar followed by OPTi foam dressing wrap with Kerlix if necessary change daily and PRN saturation Zinc oxide cream for abdominal wound. Apply daily. Wash wounds daily. Turn every 2 hours offload pressure with pillows Air mattress given patient's current medical condition Nutritional optimization We will follow with recommendations thank you for let me participate patient's care (2) Renal failure (3) CVA (cerebral vascular accident) Assessment & Plan: Posterior circulation demonstrates dominant left, smaller caliber but patent right vertebral artery. No stenosis of either. Small caliber but patent and nonstenotic basilar artery. Patent bilateral superior cerebellar arteries. The P1 segment of the right posterior cerebral artery appears to be patent but very small in caliber; the right posterior cerebral artery is predominantly supplied by a large posterior communicating artery. The reconstructed images suggest a moderate to severe focal stenosis of the P2 segment near its origin. The left P1 segment is a equivocally patent but probably; likewise, predominantly supply to the left posterior cerebral artery is via the posterior communicating artery. There is an area of signal dropout in the P2 segment of the left posterior cerebral artery. This may indicate a severe stenosis Anterior circulation demonstrates patent nonstenotic distal internal carotid arteries. Patent nonstenotic right middle cerebral artery and proximal branches. Smaller caliber M1 segment of the left middle cerebral artery although without significant focal stenosis. The proximal sylvian branch of the left middle cerebral artery demonstrates what may be a focal significant stenosis. This is better appreciated on the MIP reconstructions. Absent right A1 segment. Larger caliber left A1 segment supplies both anterior cerebral arteries, presumably via anterior to indicating artery. There is no evidence of aneurysm or vascular malformation. Impression: Stenosis, possibly severe, of the P2 segment of the left posterior cerebral artery Stenosis, possibly severe, the sylvian branch of the left middle cerebral artery. [place] anatomy as described All stenosis measurements are based on the diameter of the distal normal vessel as referenced vessel, per NASCET criteria Old infarcts are seen in the bilateral basal ganglia and inferior frontal deep white matter. No acute intracranial hemorrhage or edema. No mass effect nor midline shift. There is age-related enlargement of the ventricles and extra- axial CSF spaces. There is periventricular deep white matter low-attenuation consistent with chronic microvascular ischemic change. Visualized orbits are unremarkable. There is bilateral ethmoid and bilateral maxillary sinus mucosal disease. The mastoids are clear. Impression: Chronic and age-related changes, including multiple old infarcts Negative for acute intracranial bleed or mass effect Right common carotid artery: Unremarkable. No occlusion or significant stenosis on color flow and spectral Doppler imaging. Right internal carotid artery: Unremarkable. No occlusion or significant stenosis on color flow and spectral Doppler imaging. Right external carotid artery: Unremarkable. No occlusion or significant stenosis on color flow and spectral Doppler imaging. Right vertebral artery: Antegrade flow within the vertebral arteries. Right ICA/CCA ratio: Unremarkable. Within normal limits. Left common carotid artery: Unremarkable. No occlusion or significant stenosis on color flow and spectral Doppler imaging. Left internal carotid artery: Significant calcified atherosclerotic disease is noted within the left carotid bulb. No occlusion or significant stenosis on color flow and spectral Doppler imaging. Left external carotid artery: Unremarkable. No occlusion or significant stenosis on color flow and spectral Doppler imaging. Left vertebral artery: See above. Left ICA/CCA ratio: Unremarkable. Within normal limits. Lymph nodes: Unremarkable. No lymphadenopathy. Other findings: Evaluation of peak systolic velocities bilaterally throughout the carotid systems reveal no evidence of hemodynamically significant stenosis, based on established criteria. CAROTID STENOSIS REFERENCE USING SRU CRITERIA: Mild - <50% stenosis. ICA PSV is less than 125 cm/second and plaque or intimal thickening is visible. Moderate - 50-69% stenosis. ICA PSV is 125 to 230 cm/second and plaque is visible. Severe - 70-94% stenosis. ICA PSV is more than 230 cm/second and visible plaque with lumen narrowing is seen. Near occlusion - 95-99% stenosis. ICA PSV is variable and significant plaque with luminal narrowing is seen. Occluded - 100% stenosis. No flow identified. IMPRESSION: 1. Prominent calcified plaque within the left carotid bulb. 2. No evidence of hemodynamically significant stenosis based on established ultrasound criteria. (4) Right hemiparesis (5) Dehydration Assessment & Plan: 1. Increase self initiation for drinking with her left hand: Ms. Hutchinson was able to self drink nector thick liquid via cup with her left hand with visual and tactile cue 90% of the time without s.s of aspiration. 2. Increase initiation of verbal utterance: Pt was able to verbally repeat at word level with visual cues and repetition at 75% of the time. 3.Diet appropriateness: Ms. Hutchinson was reminded what happened to her and why she is in the hospital and and her diet was currently modified in [place]. She appeared to be understanding my explanation. 4. Team approach to take care her case was initiated with communicating with RN and Rad dept to complete pending procedure (video swallow study at 13:00 today) A: 1. Oropharyngeal dysphagia due to multiple acute and subacute cerebral infarcts 2. 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 Likely presence of expressive aphasia P: 1. Modified diet with pureed and nector thick liquid with aspiration precaution 2. Encourage self drinking with her left hand with assistance -occupational therapist recommendation to follow 3. Full speech and language evaluation is needed for discharge plan - Strongly push for acute rehab if ultimate goal/support is to return to home. (6) Hypernatremia (7) Leukocytosis Assessment & Plan: wbc 20 on admission lactic acidosis - improving with hydration on abx as per ID no acute surgical intervention planned okay for tf diet nutrition eval local wound care leukocytosis resolved improving will follow with recs and monitor thank you (8) UTI (urinary tract infection) Liam Hermosillo May 31, 2020 10:40
--- NOTE | 2020-05-31 11:15 | Infectious Diseases Prog Note ---
"Assessment/Plan Assessment/Plan antibiotics : zosyn A 1. enterococcus | clostridium sepsis 2. atrial fibrillation resolving 3. renal failure improving 4. hypertension 5. mild proctitis P 1. continue iv zosyn 4 more days 2, will follow up cultures Subjective ROS Limited/Unobtainable: Yes Allergies: Coded Allergies: SULFAMETHOXAZOLE (Unverified Allergy, Unknown, 12/09/17) TRIMETHOPRIM (Unverified Allergy, Unknown, 12/09/17) Objective Last 24 Hour Vital Signs Date Time Temp Pulse Resp B/P (MAP) Pulse Ox O2 Delivery O2 Flow Rate FiO2 05/31/20 09:01 143/85 05/31/20 08:59 97.8 76 20 143/85 (104) 95 05/31/20 04:00 97.9 61 20 159/89 (112) 96 05/30/20 23:37 97.3 67 18 138/77 (97) 96 05/30/20 21:00 Room Air 05/30/20 19:55 97.7 69 18 125/77 (93) 98 05/30/20 16:00 98.1 74 18 137/79 (98) 96 05/30/20 12:00 97.5 69 18 141/72 (95) 97 Height (Feet): 5 Height (Inches): 5.00 Weight (Pounds): 109 Respiratory/Chest: lungs clear Cardiovascular: normal rate, regular rhythm, no gallop/murmur Abdomen: soft, non tender Extremities: no edema Microbiology Date/Time Source Procedure Growth Status 05/28/20 21:00 Indwelling Cath Urine Culture - Final NO GROWTH AFTER 48 HOURS Complete Laboratory Tests Test 05/31/20 06:15 Sodium Level 139 MMOL/L (136-145) Potassium Level 3.8 MMOL/L (3.5-5.1) Chloride Level 107 MMOL/L (98-107) Carbon Dioxide Level 27 MMOL/L (21-32) Anion Gap 5 mmol/L (5-15) Blood Urea Nitrogen 8 mg/dL (7-18) Creatinine 0.7 MG/DL (0.55-1.30) Estimat Glomerular Filtration Rate > 60 mL/min (>60) Glucose Level 116 MG/DL (74-106) H Calcium Level 8.3 MG/DL (8.5-10.1) L Phosphorus Level 2.6 MG/DL (2.5-4.9) Magnesium Level 2.1 MG/DL (1.8-2.4) Current Medications Medications (Trade) Dose Ordered Sig/Marci Route PRN Reason Start Time Stop Time Status Last Admin Dose Admin Acetaminophen (Tylenol) 650 mg Q4H PRN ORAL FEVER 05/24/20 23:15 06/23/20 23:14 05/29/20 21:42 Acetaminophen (Tylenol) 650 mg Q6H PRN ORAL Pain Scale (3-5) 05/22/20 19:30 06/21/20 19:29 Aspirin (ASA) 81 mg DAILY ORAL 05/24/20 09:00 07/08/20 08:59 05/31/20 09:01 Bethanechol Chloride (Urecholine) 25 mg FOUR TIMES A DAY ORAL 05/31/20 09:30 06/30/20 09:29 Heparin Sodium (Porcine) (Heparin 5000 units/ml) 5,000 units EVERY 12 HOURS SUBQ 05/22/20 21:00 07/06/20 20:59 05/31/20 09:06 Losartan Potassium (Cozaar) 100 mg DAILY ORAL 05/28/20 09:00 06/27/20 08:59 05/31/20 09:01 Pantoprazole (Protonix) 40 mg DAILY IVP 05/22/20 20:00 06/21/20 19:59 05/31/20 09:04 Piperacillin Sod/ Tazobactam Sod 3.375 gm/Sodium Chloride 110 ml @ 27.5 mls/hr Q8H IVPB 05/27/20 01:00 06/03/20 00:59 05/31/20 09:20 Ramirez Rojas MD May 31, 2020 11:15"
[2020-05-31] MEDS: Bethanechol 25mg Tab ORAL SCH ×4 (11:17→21:24)
[2020-05-31 12:00] VITALS: BP 115/70
--- NOTE | 2020-05-31 15:26 | NUR ---
CASE MANAGEMENT:REVIEW 05/31/20 SI: CVA. DEHYDRATION. UTI 98.4 67 18 115/70 96% ON RA IS: URECHOLINE PO QID IVF@75/HR IV ZOSYN Q8HRS ASA PO QD : MED/SURG STATUS 4 [facility]; BED HAS BEEN SECURED AT [facility] PLAN: CT HEAD DC CRUZ...POST VOID RESIDUAL
--- NOTE | 2020-05-31 15:30 | General Progress Note ---
Subjective ROS Limited/Unobtainable: No Constitutional: Reports: malaise, weakness HEENT: Reports: no symptoms Cardiovascular: Reports: no symptoms Respiratory: Reports: no symptoms Gastrointestinal/Abdominal: Reports: no symptoms Genitourinary: Reports: no symptoms Neurologic/Psychiatric: Reports: pre-existing deficit Endocrine: Reports: no symptoms Hematologic/Lymphatic: Reports: no symptoms Allergies: Coded Allergies: SULFAMETHOXAZOLE (Unverified Allergy, Unknown, 12/09/17) TRIMETHOPRIM (Unverified Allergy, Unknown, 12/09/17) All Systems: reviewed and negative except above Subjective stable. no new complaints. neuro consult appreciated. not compliant with care at times. Objective Last 24 Hour Vital Signs Date Time Temp Pulse Resp B/P (MAP) Pulse Ox O2 Delivery O2 Flow Rate FiO2 05/31/20 12:00 98.4 67 18 115/70 (85) 96 05/31/20 09:01 143/85 05/31/20 09:00 Room Air 05/31/20 08:59 97.8 76 20 143/85 (104) 95 05/31/20 08:55 97.8 76 20 143/85 (104) 95 05/31/20 04:00 97.9 61 20 159/89 (112) 96 05/30/20 23:37 97.3 67 18 138/77 (97) 96 05/30/20 21:00 Room Air 05/30/20 19:55 97.7 69 18 125/77 (93) 98 05/30/20 16:00 98.1 74 18 137/79 (98) 96 Intake and Output 05/30/20 05/31/20 19:00 07:00 Intake Total 792.5 ml 942.5 ml Output Total 774 ml 1400 ml Balance 18.5 ml -457.5 ml Intake Oral 240 ml IV Total 552.5 ml 942.5 ml Output Urine Total 1400 ml Post Void Residual 774 ml Estimated Blood Loss 0 ml Bladder Scan Volume Amount 101-150 ml > 300 ml # Voids 3 # Bowel Movements 1 Laboratory Tests 05/31/20 06:15: Sodium Level 139, Potassium Level 3.8, Chloride Level 107, Carbon Dioxide Level 27, Anion Gap 5, Blood Urea Nitrogen 8, Creatinine 0.7, Estimat Glomerular Filtration Rate > 60, Glucose Level 116H, Calcium Level 8.3L, Phosphorus Level 2.6, Magnesium Level 2.1 Height (Feet): 5 Height (Inches): 5.00 Weight (Pounds): 109 Objective General Appearance: WD/WN, alert Neck: supple Cardiovascular: normal rate, regular rhythm Respiratory/Chest: chest wall non-tender, lungs clear, normal breath sounds Abdomen: normal bowel sounds, non tender, soft Edema: no edema noted Arm (L), no edema noted Arm (R) Neurologic: motor weakness - right hemiparesis Skin: normal pigmentation. +black wound jany knees. + drainage Assessment/Plan Problem List: (1) CVA (cerebral vascular accident) ICD Codes: I63.9 - Cerebral infarction, unspecified SNOMED: 396474120 (2) Renal failure ICD Codes: N19 - Unspecified kidney failure SNOMED: 37716780, 452235110 (3) Right hemiparesis ICD Codes: G81.91 - Hemiplegia, unspecified affecting right dominant side SNOMED: 732626607, 400888512 (4) Dehydration ICD Codes: E86.0 - Dehydration SNOMED: 50295903, 345001915 (5) UTI (urinary tract infection) ICD Codes: N39.0 - Urinary tract infection, site not specified SNOMED: 12484132, 330591348 (6) Decubitus skin ulcer ICD Codes: L89.90 - Pressure ulcer of unspecified site, unspecified stage SNOMED: 962624349 (7) Hypernatremia ICD Codes: E87.0 - Hyperosmolality and hypernatremia SNOMED: 719627902 (8) Leukocytosis ICD Codes: D72.829 - Elevated white blood cell count, unspecified SNOMED: 780898412, 674392677 Status: stable, progressing Assessment/Plan: cont current rx antiplt rx neuro follow up anticoag to be determined 1-2 weeks- defer to neurology endoscopy per GI- +ob stool. needs AC in the near future rate control per cards pt/ot/st iv abx per ID monitor for bleeding Vinay Lu MD May 31, 2020 15:30
[2020-05-31 16:00] VITALS: BP 111/65
--- NOTE | 2020-05-31 16:20 | Diagnostic Imaging Report ---
Indications: Altered mental status Technique: Spiral acquisitions obtained through the brain. Angled axial and coronal 5 x 5 mm slices were reconstructed. Total dose length product 1098 mGycm. CTDI vol(s) 53 mGy. Dose reduction achieved using automated exposure control Comparison: 05/22/2020; also brain MRI 05/23/2020 Findings: Previously demonstrated subacute left mcclain radiata/basal ganglia infarct has decreased slightly in attenuation, consistent with evolution to chronicity. Other bilateral basal ganglia infarcts appear unchanged. Again demonstrated is periventricular deep white matter low-attenuation consistent with chronic ischemic change. There is suggestion of some low-attenuation in the left occipital lobe which is not clearly evident previously. This is consistent with location of the acute occipital infarct described on prior MRI. No acute intracranial hemorrhage. No mass effect nor midline shift. Normal campbell-white differentiation otherwise. Intact calvarium. Visualized orbits and sinuses are unremarkable. The mastoids are clear Impression: Evolving left mcclain radiata/basal ganglia and left occipital lobe subacute infarcts, as described No evidence of acute intracranial bleed or mass effect Other chronic and age-related changes as described The CT scanner at [facility] is accredited by the [employer] and the scans are performed using protocols designed to limit radiation exposure to as low as reasonably achievable to attain images of sufficient resolution adequate for diagnostic evaluation.
--- NOTE | 2020-05-31 16:30 | NUR ---
NURSE NOTES Patient gannon catheter was discontinued [id number].gannon catheter 1100cc at that time was emptied.patient has not voided at this time ,bladder scan was done and scan shows 169ml No distension noted .
--- NOTE | 2020-05-31 19:20 | NUR ---
NURSE HAND-OFF: Korin CHERRY Important Events on Shift:[gannon cath DCD today bladder scan for post void residual ] Patient Status: [] Diet: []soft mechanical chopped. Pending Orders: [] Pending Results/Labs:[] Pending MD notification:[] Latest Vital Signs: Temperature 97.5 , Pulse 66 , B/P 111 /65 , Respiratory Rate 18 , O2 SAT 97 , Room Air, O2 Flow Rate 3 . Vital Sign Comment: [] Latest Awad Fall Score: 95 Fall Risk: High Risk Safety Measures: Call light Within Reach, Bed Alarm Zone 1, Side Rails Side Rails x2, Bed position Low and Locked. Fall Precautions: Yellow Socks Yellow Gown y Door Sign y Patient Fall Education Report given to [].
--- NOTE | 2020-05-31 19:35 | NUR ---
NURSE NOTES: Received report from JO ANN Zamora. AAO x 1, on room air, confused. Jennie PIÑA earlier today. Pt has noted voided yet. Will do bladder scan. IV sites intact and patent. Wound dressing intact. Fall risk and aspiration precaution maintained. Bed locked, lowest position, alarm on, side rails up, call light within reach. Will continue to monitor.
[2020-05-31 20:00] VITALS: BP 131/69
--- NOTE | 2020-05-31 21:49 | General Progress Note ---
Subjective Allergies: Coded Allergies: SULFAMETHOXAZOLE (Unverified Allergy, Unknown, 12/09/17) TRIMETHOPRIM (Unverified Allergy, Unknown, 12/09/17) Subjective above noted calm and comfortable d/w PMD Objective Last 24 Hour Vital Signs Date Time Temp Pulse Resp B/P (MAP) Pulse Ox O2 Delivery O2 Flow Rate FiO2 05/31/20 20:00 98.2 62 18 131/69 (89) 96 05/31/20 16:00 97.5 66 18 111/65 (80) 97 05/31/20 12:00 98.4 67 18 115/70 (85) 96 05/31/20 09:01 143/85 05/31/20 09:00 Room Air 05/31/20 08:59 97.8 76 20 143/85 (104) 95 05/31/20 08:55 97.8 76 20 143/85 (104) 95 05/31/20 04:00 97.9 61 20 159/89 (112) 96 05/30/20 23:37 97.3 67 18 138/77 (97) 96 Intake and Output 05/30/20 05/31/20 19:00 07:00 Intake Total 792.5 ml 942.5 ml Output Total 774 ml 1400 ml Balance 18.5 ml -457.5 ml Intake Oral 240 ml IV Total 552.5 ml 942.5 ml Output Urine Total 1400 ml Post Void Residual 774 ml Estimated Blood Loss 0 ml Bladder Scan Volume Amount 101-150 ml > 300 ml # Voids 3 # Bowel Movements 1 Laboratory Tests 05/31/20 06:15: Sodium Level 139, Potassium Level 3.8, Chloride Level 107, Carbon Dioxide Level 27, Anion Gap 5, Blood Urea Nitrogen 8, Creatinine 0.7, Estimat Glomerular Filtration Rate > 60, Glucose Level 116H, Calcium Level 8.3L, Phosphorus Level 2.6, Magnesium Level 2.1 Height (Feet): 5 Height (Inches): 5.00 Weight (Pounds): 109 Objective Thin woman NCAT supple CTA RRR Abd soft ND NT no edema Assessment/Plan Status: stable, progressing Assessment/Plan: Assessment - OB (+) stool due to: - erosive gastritis - Stercoral rectal ulcers - diverticulosis - CVA , (R) mony - Renal failure - resolved leukocytosis - paroxysmal a fib - anorexia Recommendations - monitor CBC - po diet - shelter laxatives - OK from GI stand point for anticoagulation Wednesday Bob Jonas MD May 31, 2020 21:49
--- NOTE | 2020-05-31 23:46 | Cardiology Progress Note ---
Subjective DATE OF SERVICE: May 31, [address] (05/31) - no bleeding EGD/colon - erosive gastritis and rectal ulcers MRA reveals left P2 posterior cerebral artery stenosis. No recurrent episodes of rapid AFib. Stool OB positive, but hemoglobin stable MRI: reveals acute and subacute infarcts with distribution c/w cardioembolic source 2D Echo with normal LVEF and mild MR; no pulmonary hypertension. Objective Last 24 Hour Vital Signs Date Time Temp Pulse Resp B/P (MAP) Pulse Ox O2 Delivery O2 Flow Rate FiO2 05/31/20 21:00 Room Air 05/31/20 20:00 98.2 62 18 131/69 (89) 96 05/31/20 16:00 97.5 66 18 111/65 (80) 97 05/31/20 12:00 98.4 67 18 115/70 (85) 96 05/31/20 09:01 143/85 05/31/20 09:00 Room Air 05/31/20 08:59 97.8 76 20 143/85 (104) 95 05/31/20 08:55 97.8 76 20 143/85 (104) 95 05/31/20 04:00 97.9 61 20 159/89 (112) 96 ROS: unchanged from my note of 05/22/20. HEENT: normal ENT inspection RHYTHM: Afib LUNGS: lungs clear bilaterally CARDIAC: normal rate, normal S1 and S2, irregularly irregular, bradycardia ABDOMEN: normal bowel sounds, non tender, soft, no organomegaly, no mass EXTREMITIES: normal range of motion, non-tender, normal inspection, no calf tenderness Laboratory Tests Test 05/31/20 06:15 Sodium Level 139 MMOL/L (136-145) Potassium Level 3.8 MMOL/L (3.5-5.1) Chloride Level 107 MMOL/L (98-107) Carbon Dioxide Level 27 MMOL/L (21-32) Anion Gap 5 mmol/L (5-15) Blood Urea Nitrogen 8 mg/dL (7-18) Creatinine 0.7 MG/DL (0.55-1.30) Estimat Glomerular Filtration Rate > 60 mL/min (>60) Glucose Level 116 MG/DL (74-106) H Calcium Level 8.3 MG/DL (8.5-10.1) L Phosphorus Level 2.6 MG/DL (2.5-4.9) Magnesium Level 2.1 MG/DL (1.8-2.4) Assessment/Plan Assessment/Plan 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 RUE edema due to IV infiltration Paroxysmal atrial flutter/fib with variable ventricular rates - likely associated with CONTACT LENS ASSISTANT autonomic dysfxn Hypertension Lactic acidosis resolved Dehydration/hypernatremia corrected Acute renal failure Acute myocardial infarction (NSTEMI) Toxic and metabolic encephalopathies Moderate protein/calorie malnutrition Possible UTI Hypokalemia Acute myocardial ischemia Stop aspirin Start anti-coagulation in 24 hrs. Protein suppl Follow up renal parameters and lytes; replace as needed. No indication for pacemaker DC plan to F Kirk Fung MD May 31, 2020 23:46
[2020-06-01] VITALS: BP 136/90
[2020-06-01] MEDS: Piperacillin/Tazobactam 3.375 GM in NS 110 ML IVPB SCH ×3 (00:34→16:36)
[2020-06-01 04:00] VITALS: BP 132/77
--- NOTE | 2020-06-01 04:20 | NUR ---
NURSE NOTES: Pt has not voided yet. Bladder scan residual 350ml noted. Straight cath inserted and 280cc output noted.
--- NOTE | 2020-06-01 06:18 | NUR ---
NURSE HAND-OFF: Important Events on Shift:unable to urinate, bladder scan q6h, straight cath inserted 280cc output noted Patient Status: urinary retention Diet: soft, mech soft fine chopped Pending Orders: N Pending Results/Labs:N Pending MD notification:N Latest Vital Signs: Temperature 97.6 , Pulse 68 , B/P 132 /77 , Respiratory Rate 18 , O2 SAT 98 , Room Air, O2 Flow Rate 3 . Vital Sign Comment: [] Latest [place] Fall Score: 95 Fall Risk: High Risk Safety Measures: Call light Within Reach, Bed Alarm Zone 1, Side Rails Side Rails x2, Bed position Low and Locked. Fall Precautions: Yellow Socks Yellow Gown Door Sign Patient Fall Education Addendum: 06/01/20 at 0736 by RALPH LOWRY RN RN HAND-OFF: Report given to Altagracia.
--- NOTE | 2020-06-01 06:54 | General Progress Note ---
Subjective ROS Limited/Unobtainable: No Constitutional: Reports: malaise, weakness HEENT: Reports: no symptoms Cardiovascular: Reports: no symptoms Respiratory: Reports: no symptoms Gastrointestinal/Abdominal: Reports: no symptoms Genitourinary: Reports: no symptoms Neurologic/Psychiatric: Reports: pre-existing deficit, weakness Endocrine: Reports: no symptoms Hematologic/Lymphatic: Reports: no symptoms Allergies: Coded Allergies: SULFAMETHOXAZOLE (Unverified Allergy, Unknown, 12/09/17) TRIMETHOPRIM (Unverified Allergy, Unknown, 12/09/17) All Systems: reviewed and negative except above Subjective stable. no new complaints. neuro consult appreciated. not compliant with care at times. GI noted. Objective Last 24 Hour Vital Signs Date Time Temp Pulse Resp B/P (MAP) Pulse Ox O2 Delivery O2 Flow Rate FiO2 06/01/20 04:00 97.6 68 18 132/77 (95) 98 06/01/20 00:00 97.0 64 18 136/90 (105) 97 05/31/20 21:00 Room Air 05/31/20 20:00 98.2 62 18 131/69 (89) 96 05/31/20 16:00 97.5 66 18 111/65 (80) 97 05/31/20 12:00 98.4 67 18 115/70 (85) 96 05/31/20 09:01 143/85 05/31/20 09:00 Room Air 05/31/20 08:59 97.8 76 20 143/85 (104) 95 05/31/20 08:55 97.8 76 20 143/85 (104) 95 Intake and Output0 05/31/20 06/01/20 19:00 07:00 Intake Total 660 ml Output Total 1269 ml 525 ml Balance -609 ml -525 ml Intake Oral 360 ml IV Total 300 ml Output Urine Total 1100 ml Post Void Residual 169 ml 525 ml Bladder Scan Volume Amount 151-200 ml 201-300 ml > 300 ml Height (Feet): 5 Height (Inches): 5.00 Weight (Pounds): 109 Objective General Appearance: WD/WN, alert Neck: supple Cardiovascular: normal rate, regular rhythm Respiratory/Chest: chest wall non-tender, lungs clear, normal breath sounds Abdomen: normal bowel sounds, non tender, soft Edema: no edema noted Arm (L), no edema noted Arm (R) Neurologic: motor weakness - right hemiparesis Skin: normal pigmentation. +black wound jany knees. + drainage Assessment/Plan Problem List: (1) CVA (cerebral vascular accident) ICD Codes: I63.9 - Cerebral infarction, unspecified SNOMED: 635423002 (2) Renal failure ICD Codes: N19 - Unspecified kidney failure SNOMED: 82384575, 897228159 (3) Right hemiparesis ICD Codes: G81.91 - Hemiplegia, unspecified affecting right dominant side SNOMED: 279124638, 545102638 (4) Dehydration ICD Codes: E86.0 - Dehydration SNOMED: 84055107, 849062223 (5) UTI (urinary tract infection) ICD Codes: N39.0 - Urinary tract infection, site not specified SNOMED: 80847504, 339883439 (6) Decubitus skin ulcer ICD Codes: L89.90 - Pressure ulcer of unspecified site, unspecified stage SNOMED: 303965276 (7) Hypernatremia ICD Codes: E87.0 - Hyperosmolality and hypernatremia SNOMED: 220706903 (8) Leukocytosis ICD Codes: D72.829 - Elevated white blood cell count, unspecified SNOMED: 235187840, 363603169 Status: stable, progressing Assessment/Plan: cont current rx antiplt rx neuro follow up repeat ct noted- no bleeding d/w GI ok to start anticoag on wednesday rate control per cards pt/ot/st iv abx per ID monitor for bleeding POC d/w DTR. dc planning wednesday Vinay Lu MD Jun 01, 2020 06:54
--- NOTE | 2020-06-01 06:58 | NUR ---
NURSE NOTES: Dr. Lu made rounding and notified pt has urinary retention, unable to void.
--- NOTE | 2020-06-01 07:30 | NUR ---
NURSE NOTES: Report received from JO ANN Langley. Patient in bed, awake, alert and oriented x 1, non verbal per endorsement, no SOB, be din lowest position with alarm on and break engaged, on room air, denies any pain or discomfort at this time, IV present on left AC, on 1-1 feed, will continue to monitor and proceed with plan of care, call light within reach.
[2020-06-01 08:00] VITALS: BP 114/73
[2020-06-01] MEDS: Losartan 50mg tab ORAL SCH (08:21)
[2020-06-01] MEDS: Bethanechol 25mg Tab ORAL SCH ×4 (08:21→21:13)
[2020-06-01] MEDS: Pantoprazole Inj IVP SCH (08:21)
[2020-06-01] MEDS: Heparin 5000 units/ml inj SUBQ SCH ×2 (08:22→21:16)
--- NOTE | 2020-06-01 10:06 | Nephrology Progress Note ---
Assessment/Plan Problem List: (1) Hypophosphatemia (2) KVNG (acute kidney injury) (3) Leukocytosis (4) Hypernatremia (5) Dehydration (6) Right hemiparesis (7) CVA (cerebral vascular accident) (8) Hypokalemia (9) Clostridial infection (10) Enterococcal sepsis (11) Malnutrition of moderate degree Plan rx sepsis, replete phos, replace K , iv stopping, continue zosyn poor nutrition GI eval reviewed, try dc gannon done check bladder scan >600 gannon placed will remove 05/31 and start urecholine,bladder scan 350+ last pm and in/out cath, only 20 ml this am, to monitor, intake poor encourage diet--better so far today Subjective ROS Limited/Unobtainable: Yes Objective Objective Last 24 Hour Vital Signs Date Time Temp Pulse Resp B/P (MAP) Pulse Ox O2 Delivery O2 Flow Rate FiO2 06/01/20 09:00 Room Air 06/01/20 08:21 114/78 06/01/20 08:00 98.2 74 18 114/73 (87) 96 06/01/20 04:00 97.6 68 18 132/77 (95) 98 06/01/20 00:00 97.0 64 18 136/90 (105) 97 05/31/20 21:00 Room Air 05/31/20 20:00 98.2 62 18 131/69 (89) 96 05/31/20 16:00 97.5 66 18 111/65 (80) 97 05/31/20 12:00 98.4 67 18 115/70 (85) 96 Intake and Output 05/31/20 06/01/20 19:00 07:00 Intake Total 660 ml Output Total 1269 ml 805 ml Balance -609 ml -805 ml Intake Oral 360 ml IV Total 300 ml Output Urine Total 1100 ml 280 ml Post Void Residual 169 ml 525 ml Bladder Scan Volume Amount 151-200 ml 201-300 ml > 300 ml Height (Feet): 5 Height (Inches): 5.00 Weight (Pounds): 109 General Appearance: no apparent distress, alert EENT: normal ENT inspection Neck: normal alignment Cardiovascular: normal rate, regular rhythm Respiratory/Chest: lungs clear Abdomen: non tender, soft Extremities: moderate edema Neurologic: motor weakness Julio Sanchez MD Jun 01, 2020 10:06
[2020-06-01 12:00] VITALS: BP 126/75
--- NOTE | 2020-06-01 12:11 | Surgery Progress Note ---
Surgery Progress Note Subjective Additional Comments no acute events doing better states feels well n on/v/f/c labs okay Objective Last 24 Hour Vital Signs Date Time Temp Pulse Resp B/P (MAP) Pulse Ox O2 Delivery O2 Flow Rate FiO2 06/01/20 09:00 Room Air 06/01/20 08:21 114/78 06/01/20 08:00 98.2 74 18 114/73 (87) 96 06/01/20 04:00 97.6 68 18 132/77 (95) 98 06/01/20 00:00 97.0 64 18 136/90 (105) 97 05/31/20 21:00 Room Air 05/31/20 20:00 98.2 62 18 131/69 (89) 96 05/31/20 16:00 97.5 66 18 111/65 (80) 97 I&O Intake and Output 05/31/20 06/01/20 19:00 07:00 Intake Total 660 ml Output Total 1269 ml 805 ml Balance -609 ml -805 ml Intake Oral 360 ml IV Total 300 ml Output Urine Total 1100 ml 280 ml Post Void Residual 169 ml 525 ml Bladder Scan Volume Amount 151-200 ml 201-300 ml > 300 ml Dressing: saturated Cardiovascular: RSR Respiratory: clear, decreased breath sounds Abdomen: soft, non-tender, present bowel sounds Extremities: no edema, no tenderness, no cyanosis, other Plan Problems: (1) Decubitus skin ulcer Assessment & Plan: Patient presented on admission with multiple skin concerns. Patient was found down unknown duration and has developed significant injuries and skin concerns. Patient has a right shoulder 3 cm x 3 cm posterior deep tissue injury no fluctuance nontender no skin breakdown not open. Patient has sacral erythema identified. Patient has incontinence associated dermatitis identified in the perineum and bilateral thighs and groins. Patient has a right hip DTI with skin breakdown identified. Patient has a left knee unstageable decubitus ulcer with necrotic eschar. Patient has significant abdominal erythema and near cellulitis with burning rash. No abscess no drainage wounds unlikely source of patient's sepsis. Wound is likely attributed to patient being down for significant period of time. Will need nutritional optimization and local care plan to allow for healing and improvement. Care plan initiated. Treatment plan Wash all wounds daily with normal saline. Apply skin protectant and OPTi foam dressing to the right shoulder change every 3 days. Apply OPTi foam dressing patient sacral region monitor for incontinence change every 3 days and PRN saturation as necessary Apply skin protectant to bilateral thighs and perineum monitor for incontinence change accordingly. Thera honey to left knee eschar followed by OPTi foam dressing wrap with Kerlix if necessary change daily and PRN saturation Zinc oxide cream for abdominal wound. Apply daily. Wash wounds daily. Turn every 2 hours offload pressure with pillows Air mattress given patient's current medical condition Nutritional optimization We will follow with recommendations thank you for let me participate patient's care (2) Renal failure (3) CVA (cerebral vascular accident) Assessment & Plan: Posterior circulation demonstrates dominant left, smaller caliber but patent right vertebral artery. No stenosis of either. Small caliber but patent and nonstenotic basilar artery. Patent bilateral superior cerebellar arteries. The P1 segment of the right posterior cerebral artery appears to be patent but very small in caliber; the right posterior cerebral artery is predominantly supplied by a large posterior communicating artery. The reconstructed images suggest a moderate to severe focal stenosis of the P2 segment near its origin. The left P1 segment is a equivocally patent but probably; likewise, predominantly supply to the left posterior cerebral artery is via the posterior communicating artery. There is an area of signal dropout in the P2 segment of the left posterior cerebral artery. This may indicate a severe stenosis Anterior circulation demonstrates patent nonstenotic distal internal carotid arteries. Patent nonstenotic right middle cerebral artery and proximal branches. Smaller caliber M1 segment of the left middle cerebral artery although without significant focal stenosis. The proximal sylvian branch of the left middle cerebral artery demonstrates what may be a focal significant stenosis. This is better appreciated on the MIP reconstructions. Absent right A1 segment. Larger caliber left A1 segment supplies both anterior cerebral arteries, presumably via anterior to indicating artery. There is no evidence of aneurysm or vascular malformation. Impression: Stenosis, possibly severe, of the P2 segment of the left posterior cerebral artery Stenosis, possibly severe, the sylvian branch of the left middle cerebral artery. [place] anatomy as described All stenosis measurements are based on the diameter of the distal normal vessel as referenced vessel, per NASCET criteria Old infarcts are seen in the bilateral basal ganglia and inferior frontal deep white matter. No acute intracranial hemorrhage or edema. No mass effect nor midline shift. There is age-related enlargement of the ventricles and extra- axial CSF spaces. There is periventricular deep white matter low-attenuation consistent with chronic microvascular ischemic change. Visualized orbits are unremarkable. There is bilateral ethmoid and bilateral maxillary sinus mucosal disease. The mastoids are clear. Impression: Chronic and age-related changes, including multiple old infarcts Negative for acute intracranial bleed or mass effect Right common carotid artery: Unremarkable. No occlusion or significant stenosis on color flow and spectral Doppler imaging. Right internal carotid artery: Unremarkable. No occlusion or significant stenosis on color flow and spectral Doppler imaging. Right external carotid artery: Unremarkable. No occlusion or significant stenosis on color flow and spectral Doppler imaging. Right vertebral artery: Antegrade flow within the vertebral arteries. Right ICA/CCA ratio: Unremarkable. Within normal limits. Left common carotid artery: Unremarkable. No occlusion or significant stenosis on color flow and spectral Doppler imaging. Left internal carotid artery: Significant calcified atherosclerotic disease is noted within the left carotid bulb. No occlusion or significant stenosis on color flow and spectral Doppler imaging. Left external carotid artery: Unremarkable. No occlusion or significant stenosis on color flow and spectral Doppler imaging. Left vertebral artery: See above. Left ICA/CCA ratio: Unremarkable. Within normal limits. Lymph nodes: Unremarkable. No lymphadenopathy. Other findings: Evaluation of peak systolic velocities bilaterally throughout the carotid systems reveal no evidence of hemodynamically significant stenosis, based on established criteria. CAROTID STENOSIS REFERENCE USING SRU CRITERIA: Mild - <50% stenosis. ICA PSV is less than 125 cm/second and plaque or intimal thickening is visible. Moderate - 50-69% stenosis. ICA PSV is 125 to 230 cm/second and plaque is visible. Severe - 70-94% stenosis. ICA PSV is more than 230 cm/second and visible plaque with lumen narrowing is seen. Near occlusion - 95-99% stenosis. ICA PSV is variable and significant plaque with luminal narrowing is seen. Occluded - 100% stenosis. No flow identified. IMPRESSION: 1. Prominent calcified plaque within the left carotid bulb. 2. No evidence of hemodynamically significant stenosis based on established ultrasound criteria. (4) Right hemiparesis Assessment & Plan: Previously demonstrated subacute left mcclain radiata/basal ganglia infarct has decreased slightly in attenuation, consistent with evolution to chronicity. Other bilateral basal ganglia infarcts appear unchanged. Again demonstrated is periventricular deep white matter low-attenuation consistent with chronic ischemic change. There is suggestion of some low-attenuation in the left occipital lobe which is not clearly evident previously. This is consistent with location of the acute occipital infarct described on prior MRI. No acute intracranial hemorrhage. No mass effect nor midline shift. Normal campbell- white differentiation otherwise. Intact calvarium. Visualized orbits and sinuses are unremarkable. The mastoids are clear Impression: Evolving left mcclain radiata/basal ganglia and left occipital lobe subacute infarcts, as described No evidence of acute intracranial bleed or mass effect (5) Dehydration Assessment & Plan: 1. Increase self initiation for drinking with her left hand: Ms. Hutchinson was able to self drink nector thick liquid via cup with her left hand with visual and tactile cue 90% of the time without s.s of aspiration. 2. Increase initiation of verbal utterance: Pt was able to verbally repeat at word level with visual cues and repetition at 75% of the time. 3.Diet appropriateness: Ms. Hutchinson was reminded what happened to her and why she is in the hospital and and her diet was currently modified in Thai. She appeared to be understanding my explanation. 4. Team approach to take care her case was initiated with communicating with RN and Rad dept to complete pending procedure (video swallow study at 13:00 today) A: 1. Oropharyngeal dysphagia due to multiple acute and subacute cerebral infarcts 2. 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 Likely presence of expressive aphasia P: 1. Modified diet with pureed and nector thick liquid with aspiration precaution 2. Encourage self drinking with her left hand with assistance -occupational therapist recommendation to follow 3. Full speech and language evaluation is needed for discharge plan - Strongly push for acute rehab if ultimate goal/support is to return to home. (6) Hypernatremia (7) Leukocytosis Assessment & Plan: wbc 20 on admission lactic acidosis - improving with hydration on abx as per ID no acute surgical intervention planned okay for tf diet nutrition eval local wound care leukocytosis resolved improving d/c planning will follow with recs and monitor thank you (8) UTI (urinary tract infection) Liam Hermosillo Jun 01, 2020 12:11
--- NOTE | 2020-06-01 13:05 | Cardiology Progress Note ---
Subjective DATE OF SERVICE: Jun 01, [address] Aspir[address] stopped [address] Head CT (05/31) - no bleeding EGD/colon - erosive gastritis and rectal ulcers MRA reveals left P2 posterior cerebral artery stenosis. No recurrent episodes of rapid AFib. Stool OB positive, but hemoglobin stable MRI: reveals acute and subacute infarcts with distribution c/w cardioembolic source 2D Echo with normal LVEF and mild MR; no pulmonary hypertension. Objective Last 24 Hour Vital Signs Date Time Temp Pulse Resp B/P (MAP) Pulse Ox O2 Delivery O2 Flow Rate FiO2 06/01/20 12:00 98.2 70 18 126/75 (92) 96 06/01/20 09:00 Room Air 06/01/20 08:21 114/78 06/01/20 08:00 98.2 74 18 114/73 (87) 96 06/01/20 04:00 97.6 68 18 132/77 (95) 98 06/01/20 00:00 97.0 64 18 136/90 (105) 97 05/31/20 21:00 Room Air 05/31/20 20:00 98.2 62 18 131/69 (89) 96 05/31/20 16:00 97.5 66 18 111/65 (80) 97 ROS: unchanged from my note of 05/22/20. 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 RUE edema due to IV infiltration Paroxysmal atrial flutter/fib with variable ventricular rates - likely associated with DIRECTOR MICROBIOLOGY autonomic dysfxn Hypertension Lactic acidosis resolved Dehydration/hypernatremia corrected Acute renal failure Acute myocardial infarction (NSTEMI) Toxic and metabolic encephalopathies Moderate protein/calorie malnutrition Possible UTI Hypokalemia Acute myocardial ischemia Off aspirin in anticipation of full anticoagulation within 48hrs IV abx per ID Await GI intervention for clearance to start anticoagulation; patient stable for procedure from CV standpoint IVF discont'd; new IV access Protein suppl Follow up renal parameters and lytes; replace as needed. No indication for pacemaker Kirk Fung MD Jun 01, 2020 13:05
[2020-06-01 16:00] VITALS: BP 129/61
--- NOTE | 2020-06-01 17:56 | NUR ---
NURSE NOTES: Wound care done on left and right knee and on right shoulder/right groin area. Dressings clean, dry and intact, weekly wound pictures taken and uploaded. Will continue to monitor.
--- NOTE | 2020-06-01 19:28 | NUR ---
NURSE HAND-OFF: Important Events on Shift:[bladder scan Q6, turning and repositioning, assisting with meals, wound care] Patient Status: [stable] Diet: [soft diet MS chopped 1-1 feed] Pending Orders: [] Pending Results/Labs:[] Pending MD notification:[] Latest Vital Signs: Temperature 98.2 , Pulse 64 , B/P 129 /61 , Respiratory Rate 18 , O2 SAT 96 , Room Air, O2 Flow Rate 3 . Vital Sign Comment: [] Latest [place] Fall Score: 95 Fall Risk: High Risk Safety Measures: Call light Within Reach, Bed Alarm Zone 1, Side Rails Side Rails x2, Bed position Low and Locked. Fall Precautions: Yellow Socks Yellow Gown Door Sign Patient Fall Education Report given to [Nancy, RN].
--- NOTE | 2020-06-01 19:30 | NUR ---
NURSE NOTES: Received report from Altagracia. Patient awake with delay, garbled, and incomprehensible speech in [place]. Breathing unlabored on room air without distress. No signs or symptoms of pain noted at this time. IV noted on left antecubital and left wrist intact and patent. Patient on air mattress. Bed placed at the lowest with alarm, brake, and siderails up for patient safety. Call light placed within reach. Will continue to monitor and provide care as ordered.
--- NOTE | 2020-06-01 19:34 | General Progress Note ---
Subjective Allergies: Coded Allergies: SULFAMETHOXAZOLE (Unverified Allergy, Unknown, 12/09/17) TRIMETHOPRIM (Unverified Allergy, Unknown, 12/09/17) Subjective above noted calm and comfortable Objective Last 24 Hour Vital Signs Date Time Temp Pulse Resp B/P (MAP) Pulse Ox O2 Delivery O2 Flow Rate FiO2 06/01/20 16:00 98.2 64 18 129/61 (83) 96 06/01/20 12:00 98.2 70 18 126/75 (92) 96 06/01/20 09:00 Room Air 06/01/20 08:21 114/78 06/01/20 08:00 98.2 74 18 114/73 (87) 96 06/01/20 04:00 97.6 68 18 132/77 (95) 98 06/01/20 00:00 97.0 64 18 136/90 (105) 97 05/31/20 21:00 Room Air 05/31/20 20:00 98.2 62 18 131/69 (89) 96 Intake and Output 05/31/20 06/01/20 19:00 07:00 Intake Total 660 ml Output Total 1269 ml 805 ml Balance -609 ml -805 ml Intake Oral 360 ml IV Total 300 ml Output Urine Total 1100 ml 280 ml Post Void Residual 169 ml 525 ml Bladder Scan Volume Amount 151-200 ml 201-300 ml > 300 ml Height (Feet): 5 Height (Inches): 5.00 Weight (Pounds): 109 Objective Thin woman NCAT supple CTA RRR Abd soft ND NT no edema Assessment/Plan Status: stable, progressing Assessment/Plan: Assessment - OB (+) stool due to: - erosive gastritis - Stercoral rectal ulcers - diverticulosis - CVA , (R) mony - Renal failure - resolved leukocytosis - paroxysmal a fib - anorexia Recommendations - monitor CBC - po diet - termite helper laxatives - OK from GI stand point for anticoagulation Wednesday Bob Jonas MD Jun 01, 2020 19:34
[2020-06-01 20:00] VITALS: BP 122/71
--- NOTE | 2020-06-01 23:36 | NUR ---
NURSE NOTES: No episode of voiding yet. Performed QID Bladder Scan. Bladder scan noted 391 mls of urinary retention. Performed in/out cath per MD order for residual >350 mls. Actual total output 300 mls of clear and yellow urine. Patient explained procedure prior and during. Patient tolerated well. Will continue to monitor.
[2020-06-02] VITALS: BP 127/79
[2020-06-02] MEDS: Piperacillin/Tazobactam 3.375 GM in NS 110 ML IVPB SCH ×3 (01:01→18:25)
[2020-06-02 04:00] VITALS: BP 121/78
--- NOTE | 2020-06-02 05:45 | NUR ---
NURSE NOTES: Bladder scan showing 214mls of urine retention. Per MD order in/out cath when residual is greater than 350mls. Will continue to monitor.
[2020-06-02 07:22] LABS: BASOPHILS % (AUTO) 1.9 % (0.0-2.0); HEMATOCRIT 36.4 % (37.0-47.0); HEMOGLOBIN 12.5 G/DL (12.0-16.0); LYMPHOCYTES % (AUTO) 29.7 % (20.0-45.0); MEAN CORPUSCULAR VOLUME 90 FL (80-99); MONOCYTES % (AUTO) 8.1 % (1.0-10.0); NEUTROPHILS % (AUTO) 58.3 % (45.0-75.0); PLATELET COUNT 131 K/UL (150-450); RED BLOOD COUNT 4.05 M/UL (4.20-5.40); RED CELL DISTRIBUTION WIDTH 11.7 % (11.6-14.8); WHITE BLOOD COUNT 7.6 K/UL (4.8-10.8)
--- NOTE | 2020-06-02 07:39 | NUR ---
NURSE HAND-OFF: Important Events on Shift: No adverse event. Patient Status:Stable Diet:Soft Diet: Mechanical soft finely chopped with nectar thick liquid Pending Orders:None Pending Results/Labs:None Pending MD notification:None Latest Vital Signs: Temperature 96.8 , Pulse 68 , B/P 121 /78 , Respiratory Rate 17 , O2 SAT 96 , Room Air, O2 Flow Rate 3 . Vital Sign Comment:Stable Latest [place] Fall Score: 95 Fall Risk: High Risk Safety Measures: Call light Within Reach, Bed Alarm Zone 1, Side Rails Side Rails x2, Bed position Low and Locked. Fall Precautions: Yellow Socks Yellow Gown Door Sign Patient Fall Education Report given to JO ANN Mahmood.
--- NOTE | 2020-06-02 07:40 | NUR ---
NURSE NOTES: Received patient in bed,awake, patient follows directions and answers by nodding and shaking her head to questions and noted with slurred speech. Denies pain or discomfort. Patient is calm @ this time. Lung sound is clear with unlabored breathing. Bed is in lowest position and locked. Call light within reach, reminded patient to call nurses. Wound dressings are intact, on low air loss mattress.Abdomen is soft, will continue to monitor urine output. Will continue plan of care.
[2020-06-02 07:50] LABS: ALANINE AMINOTRANSFERASE 50 U/L (12-78); ALBUMIN 2.3 G/DL (3.4-5.0); ALBUMIN/GLOBULIN RATIO 0.7 (1.0-2.7); ALKALINE PHOSPHATASE 83 U/L (46-116); ANION GAP 7 mmol/L (5-15); ASPARTATE AMINO TRANSFERASE 41 U/L (15-37); BILIRUBIN,TOTAL 0.5 MG/DL (0.2-1.0); BLOOD UREA NITROGEN 11 mg/dL (7-18); CALCIUM 8.6 MG/DL (8.5-10.1); CARBON DIOXIDE 26 MMOL/L (21-32); CHLORIDE 108 MMOL/L (98-107); CREATININE 0.8 MG/DL (0.55-1.30); POTASSIUM 3.5 MMOL/L (3.5-5.1); SODIUM 141 MMOL/L (136-145)
[2020-06-02 08:00] VITALS: BP 140/78
[2020-06-02] MEDS: Bethanechol 25mg Tab ORAL SCH ×4 (08:22→20:20)
[2020-06-02] MEDS: Pantoprazole Inj IVP SCH (08:23)
[2020-06-02] MEDS: Losartan 50mg tab ORAL SCH (08:23)
[2020-06-02] MEDS: Heparin 5000 units/ml inj SUBQ SCH ×3 (08:24→20:22)
--- NOTE | 2020-06-02 08:35 | NUR ---
NURSE NOTES: Patient's PLT is 131K, no s/s of bleeding. RN made Dr. Lu aware.Dr. Lu said ok to give heparin SQ and did not want to add parameter.
--- NOTE | 2020-06-02 09:30 | NUR ---
NURSE NOTES: Performed bladder scan since patient did not void and last bladder scan showed around 6am was >200ml. bladder scan shows 347ml of urine. Dr. Sanchez is aware and told RN to wait for 2-3 hours to do strait cath. Will continue to monitor. Dr. Sanchez will order flomax.
--- NOTE | 2020-06-02 10:20 | Nephrology Progress Note ---
Assessment/Plan Problem List: (1) Hypophosphatemia (2) KVNG (acute kidney injury) (3) Leukocytosis (4) Hypernatremia (5) Dehydration (6) Right hemiparesis (7) CVA (cerebral vascular accident) (8) Hypokalemia (9) Clostridial infection (10) Enterococcal sepsis (11) Malnutrition of moderate degree Plan rx sepsis, replete phos, replace K , iv stopping, continue zosyn poor nutrition GI eval reviewed, try dc gannon done check bladder scan >600 gannon placed will remove 05/31 and start urecholine,bladder scan 200's-300's, to monitor add flomax+urecholine Subjective ROS Limited/Unobtainable: Yes Objective Objective Last 24 Hour Vital Signs Date Time Temp Pulse Resp B/P (MAP) Pulse Ox O2 Delivery O2 Flow Rate FiO2 06/02/20 09:00 Room Air 06/02/20 08:23 140/78 06/02/20 08:00 98.6 62 19 140/78 (98) 96 06/02/20 04:00 96.8 68 17 121/78 (92) 96 06/02/20 00:00 97.3 74 18 127/79 (95) 95 06/01/20 21:00 Room Air 06/01/20 20:00 98.4 74 18 122/71 (88) 94 06/01/20 16:00 98.2 64 18 129/61 (83) 96 06/01/20 12:00 98.2 70 18 126/75 (92) 96 Intake and Output 06/01/20 06/02/20 19:00 07:00 Intake Total 840 ml 110.0 ml Output Total 773 ml 814 ml Balance 67 ml -704.0 ml Intake Oral 840 ml IV Total 110.0 ml Output Urine Total 300 ml 300 ml Post Void Residual 473 ml 514 ml Bladder Scan Volume Amount 101-150 ml > 300 ml > 300 ml 201-300 ml Laboratory Tests 06/02/20 06:10: White Blood Count 7.6, Red Blood Count 4.05L, Hemoglobin 12.5, Hematocrit 36.4L, Mean Corpuscular Volume 90, Mean Corpuscular Hemoglobin 30.9, Mean Corpuscular Hemoglobin Concent 34.5, Red Cell Distribution Width 11.7, Platelet Count 131L, Mean Platelet Volume 7.0, Neutrophils (%) (Auto) 58.3, Lymphocytes (%) (Auto) 29.7, Monocytes (%) (Auto) 8.1, Eosinophils (%) (Auto) 2.0, Basophils (%) (Auto) 1.9, Sodium Level 141, Potassium Level 3.5, Chloride Level 108H, Carbon Dioxide Level 26, Anion Gap 7, Blood Urea Nitrogen 11, Creatinine 0.8, Estimat Glomerular Filtration Rate > 60, Glucose Level 107H, Calcium Level 8.6, Total Bilirubin 0.5, Aspartate Amino Transf (AST/SGOT) 41H, Alanine Aminotransferase (ALT/SGPT) 50, Alkaline Phosphatase 83, Total Protein 5.5L, Albumin 2.3L, Globulin 3.2, Albumin/Globulin Ratio 0.7L Height (Feet): 5 Height (Inches): 5.00 Weight (Pounds): 109 General Appearance: no apparent distress EENT: normal ENT inspection Neck: normal alignment Cardiovascular: regular rhythm Respiratory/Chest: lungs clear Abdomen: non tender Extremities: trace edema Neurologic: motor weakness Julio Sanchez MD Jun 02, 2020 10:20
[2020-06-02] MEDS: Tamsulosin 0.4mg cap ORAL SCH ×2 (10:51→18:25)
--- NOTE | 2020-06-02 11:30 | NUR ---
NURSE NOTES: bladder scan done, noted with 597ml of urine. RN performed straight cath and took 590ml of yellowish urine without foul smell or sediment without any issues. V/S stable.Will continue to monitor.
--- NOTE | 2020-06-02 11:50 | NUR ---
NURSE NOTES: Patient is in bed, noted with irregular pulse. V/S machine shows pulse rate ranging from 72-135. RN checked patient's pulse manually noted with pulse rate of 107 AP 106 but pulse is pounding and irregular. Patient is calm, no s/s of pain or discomfort. BP is stable, afebrile. No changes of LOC, no clammy skin. RN informed Dr. Lu that patient has a h/x of paroxysmal A-fib with RVR prior to transferring to [facility] surge from [facility] and episodes of irregular heart beat. MD is aware with no new order but monitor. Will continue to monitor.
[2020-06-02 12:00] VITALS: BP 125/82
--- NOTE | 2020-06-02 12:30 | NUR ---
NURSE NOTES: Patient is in bed, RN rechecked pulse and AP. Pulse is regular and not pounding @ this time. v/S stable. pulse is 79. Informed Dr. Lu.Will continue to monitor.
--- NOTE | 2020-06-02 15:41 | NUR ---
NURSE NOTES: Patient is stable with regular pulse.
--- NOTE | 2020-06-02 15:42 | General Progress Note ---
Subjective ROS Limited/Unobtainable: No Constitutional: Reports: malaise, weakness HEENT: Reports: no symptoms Cardiovascular: Reports: no symptoms Respiratory: Reports: no symptoms Gastrointestinal/Abdominal: Reports: no symptoms Genitourinary: Reports: no symptoms Neurologic/Psychiatric: Reports: anxiety, pre-existing deficit Endocrine: Reports: no symptoms Hematologic/Lymphatic: Reports: no symptoms Allergies: Coded Allergies: SULFAMETHOXAZOLE (Unverified Allergy, Unknown, 12/09/17) TRIMETHOPRIM (Unverified Allergy, Unknown, 12/09/17) All Systems: reviewed and negative except above Subjective noted to elevated HR this am. alert. no distress. no bleeding. confused. mostly cooperative with care. Objective Last 24 Hour Vital Signs Date Time Temp Pulse Resp B/P (MAP) Pulse Ox O2 Delivery O2 Flow Rate FiO2 06/02/20 12:00 98.1 109 19 125/82 (96) 97 06/02/20 09:00 Room Air 06/02/20 08:23 140/78 06/02/20 08:00 98.6 62 19 140/78 (98) 96 06/02/20 04:00 96.8 68 17 121/78 (92) 96 06/02/20 00:00 97.3 74 18 127/79 (95) 95 06/01/20 21:00 Room Air 06/01/20 20:00 98.4 74 18 122/71 (88) 94 06/01/20 16:00 98.2 64 18 129/61 (83) 96 Intake and Output 06/01/20 06/02/20 19:00 07:00 Intake Total 840 ml 110.0 ml Output Total 773 ml 814 ml Balance 67 ml -704.0 ml Intake Oral 840 ml IV Total 110.0 ml Output Urine Total 300 ml 300 ml Post Void Residual 473 ml 514 ml Bladder Scan Volume Amount 101-150 ml > 300 ml > 300 ml 201-300 ml Laboratory Tests 06/02/20 06:10: White Blood Count 7.6, Red Blood Count 4.05L, Hemoglobin 12.5, Hematocrit 36.4L, Mean Corpuscular Volume 90, Mean Corpuscular Hemoglobin 30.9, Mean Corpuscular Hemoglobin Concent 34.5, Red Cell Distribution Width 11.7, Platelet Count 131L, Mean Platelet Volume 7.0, Neutrophils (%) (Auto) 58.3, Lymphocytes (%) (Auto) 29.7, Monocytes (%) (Auto) 8.1, Eosinophils (%) (Auto) 2.0, Basophils (%) (Auto) 1.9, Sodium Level 141, Potassium Level 3.5, Chloride Level 108H, Carbon Dioxide Level 26, Anion Gap 7, Blood Urea Nitrogen 11, Creatinine 0.8, Estimat Glomerular Filtration Rate > 60, Glucose Level 107H, Calcium Level 8.6, Total Bilirubin 0.5, Aspartate Amino Transf (AST/SGOT) 41H, Alanine Aminotransferase (ALT/SGPT) 50, Alkaline Phosphatase 83, Total Protein 5.5L, Albumin 2.3L, Globulin 3.2, Albumin/Globulin Ratio 0.7L Height (Feet): 5 Height (Inches): 5.00 Weight (Pounds): 109 Objective General Appearance: WD/WN, alert Neck: supple Cardiovascular: normal rate, regular rhythm Respiratory/Chest: chest wall non-tender, lungs clear, normal breath sounds Abdomen: normal bowel sounds, non tender, soft Edema: no edema noted Arm (L), no edema noted Arm (R) Neurologic: motor weakness - right hemiparesis Skin: normal pigmentation. +black wound jany knees. + drainage Assessment/Plan Problem List: (1) CVA (cerebral vascular accident) ICD Codes: I63.9 - Cerebral infarction, unspecified SNOMED: 597785684 (2) Renal failure ICD Codes: N19 - Unspecified kidney failure SNOMED: 79341484, 929233303 (3) Right hemiparesis ICD Codes: G81.91 - Hemiplegia, unspecified affecting right dominant side SNOMED: 515168440, 778053254 (4) Dehydration ICD Codes: E86.0 - Dehydration SNOMED: 45411109, 072570442 (5) UTI (urinary tract infection) ICD Codes: N39.0 - Urinary tract infection, site not specified SNOMED: 34319979, 686682278 (6) Decubitus skin ulcer ICD Codes: L89.90 - Pressure ulcer of unspecified site, unspecified stage SNOMED: 914973886 (7) Hypernatremia ICD Codes: E87.0 - Hyperosmolality and hypernatremia SNOMED: 393205787 (8) Leukocytosis ICD Codes: D72.829 - Elevated white blood cell count, unspecified SNOMED: 846266334, 859640843 Status: stable, progressing Assessment/Plan: cont current rx antiplt rx neuro follow up repeat ct noted- no bleeding d/w GI ok to start anticoag on wednesday. will start eliquis tomorrow rate control per cards- may need to resume b shay if elevated HR persists pt/ot/st iv abx per ID monitor for bleeding POC d/w DTR. dc planning [facility] wednesday Vinay Lu MD Jun 02, 2020 15:42
--- NOTE | 2020-06-02 15:49 | Infectious Diseases Prog Note ---
Assessment/Plan Assessment/Plan A 1. Enterococcus & clostridial sepsis 2. atrial fibrillation 3. Acute renal failure improving 4. hypertension P 1. continue Zosyn X 2 days, 3, will follow up cultures Subjective ROS Limited/Unobtainable: Yes Constitutional: Denies: fever Allergies: Coded Allergies: SULFAMETHOXAZOLE (Unverified Allergy, Unknown, 12/09/17) TRIMETHOPRIM (Unverified Allergy, Unknown, 12/09/17) Objective Last 24 Hour Vital Signs Date Time Temp Pulse Resp B/P (MAP) Pulse Ox O2 Delivery O2 Flow Rate FiO2 06/02/20 12:00 98.1 109 19 125/82 (96) 97 06/02/20 09:00 Room Air 06/02/20 08:23 140/78 06/02/20 08:00 98.6 62 19 140/78 (98) 96 06/02/20 04:00 96.8 68 17 121/78 (92) 96 06/02/20 00:00 97.3 74 18 127/79 (95) 95 06/01/20 21:00 Room Air 06/01/20 20:00 98.4 74 18 122/71 (88) 94 06/01/20 16:00 98.2 64 18 129/61 (83) 96 Height (Feet): 5 Height (Inches): 5.00 Weight (Pounds): 109 General Appearance: no acute distress HEENT: mucous membranes moist Respiratory/Chest: lungs clear Cardiovascular: tachycardia Abdomen: soft, non tender Extremities: no edema Skin: ulcers Neurologic/Psychiatric: other - sleeping Laboratory Tests Test 06/02/20 06:10 White Blood Count 7.6 K/UL (4.8-10.8) Red Blood Count 4.05 M/UL (4.20-5.40) L Hemoglobin 12.5 G/DL (12.0-16.0) Hematocrit 36.4 % (37.0-47.0) L Mean Corpuscular Volume 90 FL (80-99) Mean Corpuscular Hemoglobin 30.9 PG (27.0-31.0) Mean Corpuscular Hemoglobin Concent 34.5 G/DL (32.0-36.0) Red Cell Distribution Width 11.7 % (11.6-14.8) Platelet Count 131 K/UL (150-450) L Mean Platelet Volume 7.0 FL (6.5-10.1) Neutrophils (%) (Auto) 58.3 % (45.0-75.0) Lymphocytes (%) (Auto) 29.7 % (20.0-45.0) Monocytes (%) (Auto) 8.1 % (1.0-10.0) Eosinophils (%) (Auto) 2.0 % (0.0-3.0) Basophils (%) (Auto) 1.9 % (0.0-2.0) Sodium Level 141 MMOL/L (136-145) Potassium Level 3.5 MMOL/L (3.5-5.1) Chloride Level 108 MMOL/L (98-107) H Carbon Dioxide Level 26 MMOL/L (21-32) Anion Gap 7 mmol/L (5-15) Blood Urea Nitrogen 11 mg/dL (7-18) Creatinine 0.8 MG/DL (0.55-1.30) Estimat Glomerular Filtration Rate > 60 mL/min (>60) Glucose Level 107 MG/DL (74-106) H Calcium Level 8.6 MG/DL (8.5-10.1) Total Bilirubin 0.5 MG/DL (0.2-1.0) Aspartate Amino Transf (AST/SGOT) 41 U/L (15-37) H Alanine Aminotransferase (ALT/SGPT) 50 U/L (12-78) Alkaline Phosphatase 83 U/L (46-116) Total Protein 5.5 G/DL (6.4-8.2) L Albumin 2.3 G/DL (3.4-5.0) L Globulin 3.2 g/dL Albumin/Globulin Ratio 0.7 (1.0-2.7) L Current Medications Medications (Trade) Dose Ordered Sig/Marci Route PRN Reason Start Time Stop Time Status Last Admin Dose Admin Acetaminophen (Tylenol) 650 mg Q4H PRN ORAL FEVER 05/24/20 23:15 06/23/20 23:14 05/29/20 21:42 Acetaminophen (Tylenol) 650 mg Q6H PRN ORAL Pain Scale (3-5) 05/22/20 19:30 06/21/20 19:29 Bethanechol Chloride (Urecholine) 25 mg FOUR TIMES A DAY ORAL 05/31/20 09:30 06/30/20 09:29 06/02/20 14:13 Heparin Sodium (Porcine) (Heparin 5000 units/ml) 5,000 units EVERY 12 HOURS SUBQ 05/22/20 21:00 07/06/20 20:59 06/02/20 08:37 Losartan Potassium (Cozaar) 100 mg DAILY ORAL 05/28/20 09:00 06/27/20 08:59 06/02/20 08:23 Pantoprazole (Protonix) 40 mg DAILY IVP 05/22/20 20:00 06/21/20 19:59 06/02/20 08:23 Piperacillin Sod/ Tazobactam Sod 3.375 gm/Sodium Chloride 110 ml @ 27.5 mls/hr Q8H IVPB 05/27/20 01:00 06/04/20 23:59 06/02/20 08:24 Tamsulosin HCl (Flomax) 0.4 mg BID ORAL 06/02/20 10:30 07/02/20 10:29 06/02/20 10:51 Lonny Ramos MD Jun 02, 2020 15:49
[2020-06-02 16:00] VITALS: BP 101/70
--- NOTE | 2020-06-02 17:52 | Surgery Progress Note ---
Surgery Progress Note Subjective Additional Comments labs improved exam stable comfortable no complaints Objective Last 24 Hour Vital Signs Date Time Temp Pulse Resp B/P (MAP) Pulse Ox O2 Delivery O2 Flow Rate FiO2 06/02/20 16:00 98.1 70 20 101/70 (80) 97 06/02/20 12:30 79 06/02/20 12:00 98.1 109 19 125/82 (96) 97 06/02/20 09:00 Room Air 06/02/20 08:23 140/78 06/02/20 08:00 98.6 62 19 140/78 (98) 96 06/02/20 04:00 96.8 68 17 121/78 (92) 96 06/02/20 00:00 97.3 74 18 127/79 (95) 95 06/01/20 21:00 Room Air 06/01/20 20:00 98.4 74 18 122/71 (88) 94 I&O Intake and Output 06/01/20 06/02/20 19:00 07:00 Intake Total 840 ml 110.0 ml Output Total 773 ml 814 ml Balance 67 ml -704.0 ml Intake Oral 840 ml IV Total 110.0 ml Output Urine Total 300 ml 300 ml Post Void Residual 473 ml 514 ml Bladder Scan Volume Amount 101-150 ml > 300 ml > 300 ml 201-300 ml Dressing: saturated Wound: clean Cardiovascular: RSR Respiratory: clear Abdomen: soft, non-tender, present bowel sounds Extremities: no edema, no tenderness, no cyanosis Laboratory Tests Test 06/02/20 06:10 White Blood Count 7.6 K/UL (4.8-10.8) Red Blood Count 4.05 M/UL (4.20-5.40) L Hemoglobin 12.5 G/DL (12.0-16.0) Hematocrit 36.4 % (37.0-47.0) L Mean Corpuscular Volume 90 FL (80-99) Mean Corpuscular Hemoglobin 30.9 PG (27.0-31.0) Mean Corpuscular Hemoglobin Concent 34.5 G/DL (32.0-36.0) Red Cell Distribution Width 11.7 % (11.6-14.8) Platelet Count 131 K/UL (150-450) L Mean Platelet Volume 7.0 FL (6.5-10.1) Neutrophils (%) (Auto) 58.3 % (45.0-75.0) Lymphocytes (%) (Auto) 29.7 % (20.0-45.0) Monocytes (%) (Auto) 8.1 % (1.0-10.0) Eosinophils (%) (Auto) 2.0 % (0.0-3.0) Basophils (%) (Auto) 1.9 % (0.0-2.0) Sodium Level 141 MMOL/L (136-145) Potassium Level 3.5 MMOL/L (3.5-5.1) Chloride Level 108 MMOL/L (98-107) H Carbon Dioxide Level 26 MMOL/L (21-32) Anion Gap 7 mmol/L (5-15) Blood Urea Nitrogen 11 mg/dL (7-18) Creatinine 0.8 MG/DL (0.55-1.30) Estimat Glomerular Filtration Rate > 60 mL/min (>60) Glucose Level 107 MG/DL (74-106) H Calcium Level 8.6 MG/DL (8.5-10.1) Total Bilirubin 0.5 MG/DL (0.2-1.0) Aspartate Amino Transf (AST/SGOT) 41 U/L (15-37) H Alanine Aminotransferase (ALT/SGPT) 50 U/L (12-78) Alkaline Phosphatase 83 U/L (46-116) Total Protein 5.5 G/DL (6.4-8.2) L Albumin 2.3 G/DL (3.4-5.0) L Globulin 3.2 g/dL Albumin/Globulin Ratio 0.7 (1.0-2.7) L Plan Problems: (1) Decubitus skin ulcer Assessment & Plan: Patient presented on admission with multiple skin concerns. Patient was found down unknown duration and has developed significant injuries and skin concerns. Patient has a right shoulder 3 cm x 3 cm posterior deep tissue injury no fluctuance nontender no skin breakdown not open. Patient has sacral erythema identified. Patient has incontinence associated dermatitis paula ntified in the perineum and bilateral thighs and groins. Patient has a right hip DTI with skin breakdown identified. Patient has a left knee unstageable decubitus ulcer with necrotic eschar. Patient has significant abdominal erythema and near cellulitis with burning rash. No abscess no drainage wounds unlikely source of patient's sepsis. Wound is likely attributed to patient b eing down for significant period of time. Will need nutritional optimization and local care plan to allow for healing and improvement. Care plan initiated. Treatment plan Wash all wounds daily with normal saline. Apply skin protectant and OPTi foam dressing to the right shoulder change every 3 days. Apply OPTi foam dressing patient sacral region monitor for incontinence change every 3 days and PRN saturation as necessary Apply skin protectant to bilateral thighs and perineum monitor for incontinence change accordingly. Thera honey to left knee eschar followed by OPTi foam dressing wrap with Kerlix if necessary change daily and PRN saturation Zinc oxide cream for abdominal wound. Apply daily. Wash wounds daily. Turn every 2 hours offload pressure with pillows Air mattress given patient's current medical condition Nutritional optimization We will follow with recommendations thank you for let me participate patient's care (2) Renal failure (3) CVA (cerebral vascular accident) Assessment & Plan: Posterior circulation demonstrates dominant left, smaller caliber but patent right vertebral artery. No stenosis of either. Small caliber but patent and nonstenotic basilar artery. Patent bilateral superior cerebellar arteries. The P1 segment of the right posterior cerebral artery appears to be patent but very small in caliber; the right posterior cerebral artery is predominantly supplied by a large posterior communicating artery. The reconstructed images suggest a moderate to severe focal stenosis of the P2 segment near its origin. The left P1 segment is a equivocally patent but probably; likewise, predominantly supply to the left posterior cerebral artery is via the posterior communicating artery. There is an area of signal dropout in the P2 segment of the left posterior cerebral artery. This may indicate a severe stenosis Anterior circulation demonstrates patent nonstenotic distal internal carotid arteries. Patent nonstenotic right middle cerebral artery and proximal branches. Smaller caliber M1 segment of the left middle cerebral artery although without significant focal stenosis. The proximal sylvian branch of the left middle cerebral artery demonstrates what may be a focal significant stenosis. This is better appreciated on the MIP reconstructions. Absent right A1 segment. Larger caliber left A1 segment supplies both anterior cerebral arteries, presumably via anterior to indicating artery. There is no evidence of aneurysm or vascular malformation. Impression: Stenosis, possibly severe, of the P2 segment of the left posterior cerebral artery Stenosis, possibly severe, the sylvian branch of the left middle cerebral artery. [place] anatomy as described All stenosis measurements are based on the diameter of the distal normal vessel as referenced vessel, per NASCET criteria Old infarcts are seen in the bilateral basal ganglia and inferior frontal deep white matter. No acute intracranial hemorrhage or edema. No mass effect nor midline shift. There is age-related enlargement of the ventricles and extra- axial CSF spaces. There is periventricular deep white matter low-attenuation consistent with chronic microvascular ischemic change. Visualized orbits are unremarkable. There is bilateral ethmoid and bilateral maxillary sinus mucosal disease. The mastoids are clear. Impression: Chronic and age-related changes, including multiple old infarcts Negative for acute intracranial bleed or mass effect Right common carotid artery: Unremarkable. No occlusion or significant stenosis on color flow and spectral Doppler imaging. Right internal carotid artery: Unremarkable. No occlusion or significant stenosis on color flow and spectral Doppler imaging. Right external carotid artery: Unremarkable. No occlusion or significant stenosis on color flow and spectral Doppler imaging. Right vertebral artery: Antegrade flow within the vertebral arteries. Right ICA/CCA ratio: Unremarkable. Within normal limits. Left common carotid artery: Unremarkable. No occlusion or significant stenosis on color flow and spectral Doppler imaging. Left internal carotid artery: Significant calcified atherosclerotic disease is noted within the left carotid bulb. No occlusion or significant stenosis on color flow and spectral Doppler imaging. Left external carotid artery: Unremarkable. No occlusion or significant stenosis on color flow and spectral Doppler imaging. Left vertebral artery: See above. Left ICA/CCA ratio: Unremarkable. Within normal limits. Lymph nodes: Unremarkable. No lymphadenopathy. Other findings: Evaluation of peak systolic velocities bilaterally throughout the carotid systems reveal no evidence of hemodynamically significant stenosis, based on established criteria. CAROTID STENOSIS REFERENCE USING SRU CRITERIA: Mild - <50% stenosis. ICA PSV is less than 125 cm/second and plaque or intimal thickening is visible. Moderate - 50-69% stenosis. ICA PSV is 125 to 230 cm/second and plaque is visible. Severe - 70-94% stenosis. ICA PSV is more than 230 cm/second and visible plaque with lumen narrowing is seen. Near occlusion - 95-99% stenosis. ICA PSV is variable and significant plaque with luminal narrowing is seen. Occluded - 100% stenosis. No flow identified. IMPRESSION: 1. Prominent calcified plaque within the left carotid bulb. 2. No evidence of hemodynamically significant stenosis based on established ultrasound criteria. (4) Right hemiparesis Assessment & Plan: Previously demonstrated subacute left mcclain radiata/basal ganglia infarct has decreased slightly in attenuation, consistent with evolution to chronicity. Other bilateral basal ganglia infarcts appear unchanged. Again demonstrated is periventricular deep white matter low-attenuation consistent with chronic ischemic change. There is suggestion of some low-attenuation in the left occipital lobe which is not clearly evident previously. This is consistent with location of the acute occipital infarct described on prior MRI. No acute intracranial hemorrhage. No mass effect nor midline shift. Normal campbell- white differentiation otherwise. Intact calvarium. Visualized orbits and sinuses are unremarkable. The mastoids are clear Impression: Evolving left mcclain radiata/basal ganglia and left occipital lobe subacute infarcts, as described No evidence of acute intracranial bleed or mass effect (5) Dehydration Assessment & Plan: 1. Increase self initiation for drinking with her left hand: Ms. Hutchinson was able to self drink nector thick liquid via cup with her left hand with visual and tactile cue 90% of the time without s.s of aspiration. 2. Increase initiation of verbal utterance: Pt was able to verbally repeat at word level with visual cues and repetition at 75% of the time. 3.Diet appropriateness: Ms. Hutchinson was reminded what happened to her and why she is in the hospital and and her diet was currently modified in German. She appeared to be understanding my explanation. 4. Team approach to take care her case was initiated with communicating with RN and Rad dept to complete pending procedure (video swallow study at 13:00 today) A: 1. Oropharyngeal dysphagia due to multiple acute and subacute cerebral infarcts 2. 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 Likely presence of expressive aphasia P: 1. Modified diet with pureed and nector thick liquid with aspiration precaution 2. Encourage self drinking with her left hand with assistance -occupational therapist recommendation to follow 3. Full speech and language evaluation is needed for discharge plan - Strongly push for acute rehab if ultimate goal/support is to return to home. (6) Hypernatremia (7) Leukocytosis Assessment & Plan: wbc 20 on admission lactic acidosis - improving with hydration on abx as per ID no acute surgical intervention planned okay for tf diet nutrition eval local wound care leukocytosis resolved improving d/c planning will follow with recs and monitor thank you (8) UTI (urinary tract infection) Liam Hermosillo Jun 02, 2020 17:52
--- NOTE | 2020-06-02 19:10 | NUR ---
NURSE NOTES: Received report from JO ANN Mahmood. Pt awake and resting in bed, slurred speech, on room air, confused. Pt unable to void urine by herself and will do bladder scan. Checked pulse manually and regular pulse noted. IV sites intact and patent. Wound dressing intact. Fall risk and aspiration precaution maintained. Bed locked, lowest position, alarm on, side rails up, call light within reach. Will continue to monitor.
--- NOTE | 2020-06-02 19:18 | NUR ---
NURSE HAND-OFF: Important Events on Shift:urinary retention and In & out cath done, episode of irregular heart beat, resolved. MD is aware Patient Status: stable Diet: mech soft chopped nectar thick liquid Pending Orders: Pending Results/Labs: Pending MD notification: Latest Vital Signs: Temperature 98.1 , Pulse 70 , B/P 101 /70 , Respiratory Rate 20 , O2 SAT 97 , Room Air, O2 Flow Rate 3 . Vital Sign Comment: Latest Awad Fall Score: 95 Fall Risk: High Risk Safety Measures: Call light Within Reach, Bed Alarm Zone 1, Side Rails Side Rails x3, Bed position Low and Locked. Fall Precautions: Yellow Socks Yellow Gown Door Sign Patient Fall Education Report given to Korin and endorsed plan of care.
--- NOTE | 2020-06-02 19:40 | NUR ---
NURSE NOTES: In and out cath done without any difficulties. 410ml urine was out.No residual after cath insertion.
--- NOTE | 2020-06-02 19:49 | General Progress Note ---
Subjective Allergies: Coded Allergies: SULFAMETHOXAZOLE (Unverified Allergy, Unknown, 12/09/17) TRIMETHOPRIM (Unverified Allergy, Unknown, 12/09/17) Subjective above noted calm and comfortable Objective Last 24 Hour Vital Signs Date Time Temp Pulse Resp B/P (MAP) Pulse Ox O2 Delivery O2 Flow Rate FiO2 06/02/20 16:00 98.1 70 20 101/70 (80) 97 06/02/20 12:30 79 06/02/20 12:00 98.1 109 19 125/82 (96) 97 06/02/20 09:00 Room Air 06/02/20 08:23 140/78 06/02/20 08:00 98.6 62 19 140/78 (98) 96 06/02/20 04:00 96.8 68 17 121/78 (92) 96 06/02/20 00:00 97.3 74 18 127/79 (95) 95 06/01/20 21:00 Room Air 06/01/20 20:00 98.4 74 18 122/71 (88) 94 Intake and Output 06/01/20 06/02/20 19:00 07:00 Intake Total 840 ml 110.0 ml Output Total 773 ml 814 ml Balance 67 ml -704.0 ml Intake Oral 840 ml IV Total 110.0 ml Output Urine Total 300 ml 300 ml Post Void Residual 473 ml 514 ml Bladder Scan Volume Amount 101-150 ml > 300 ml > 300 ml 201-300 ml Laboratory Tests 06/02/20 06:10: White Blood Count 7.6, Red Blood Count 4.05L, Hemoglobin 12.5, Hematocrit 36.4L, Mean Corpuscular Volume 90, Mean Corpuscular Hemoglobin 30.9, Mean Corpuscular Hemoglobin Concent 34.5, Red Cell Distribution Width 11.7, Platelet Count 131L, Mean Platelet Volume 7.0, Neutrophils (%) (Auto) 58.3, Lymphocytes (%) (Auto) 29.7, Monocytes (%) (Auto) 8.1, Eosinophils (%) (Auto) 2.0, Basophils (%) (Auto) 1.9, Sodium Level 141, Potassium Level 3.5, Chloride Level 108H, Carbon Dioxide Level 26, Anion Gap 7, Blood Urea Nitrogen 11, Creatinine 0.8, Estimat Glomerular Filtration Rate > 60, Glucose Level 107H, Calcium Level 8.6, Total Bilirubin 0.5, Aspartate Amino Transf (AST/SGOT) 41H, Alanine Aminotransferase (ALT/SGPT) 50, Alkaline Phosphatase 83, Total Protein 5.5L, Albumin 2.3L, Globulin 3.2, Albumin/Globulin Ratio 0.7L Height (Feet): 5 Height (Inches): 5.00 Weight (Pounds): 109 Objective Thin woman NCAT supple CTA RRR Abd soft ND NT no edema Assessment/Plan Status: stable, progressing Assessment/Plan: Assessment - OB (+) stool due to: - erosive gastritis - Stercoral rectal ulcers - diverticulosis - CVA , (R) mony - Renal failure - resolved leukocytosis - paroxysmal a fib - anorexia Recommendations - monitor CBC - po diet - 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
[2020-06-02 20:00] VITALS: BP 153/77
[2020-06-03] VITALS: BP 140/79
[2020-06-03] MEDS: Piperacillin/Tazobactam 3.375 GM in NS 110 ML IVPB SCH ×3 (00:38→17:33)
--- NOTE | 2020-06-03 01:19 | Cardiology Progress Note ---
Subjective DATE OF SERVICE: Jun 02, 2020 MRA reveals left P2 posterior cerebral artery stenosis. No recurrent episodes of rapid AFib. Stool OB positive, but hemoglobin stable MRI: reveals acute and subacute infarcts with distribution c/w cardioembolic source 2D Echo with normal LVEF and mild MR; no pulmonary hypertension. Rapid heart rate today - hx PAFib and bradyarrhythmias. Objective Last 24 Hour Vital Signs Date Time Temp Pulse Resp B/P (MAP) Pulse Ox O2 Delivery O2 Flow Rate FiO2 06/03/20 00:00 98.7 72 15 140/79 (99) 96 06/02/20 21:00 Room Air 06/02/20 20:00 98.5 78 16 153/77 (102) 96 06/02/20 16:00 98.1 70 20 101/70 (80) 97 06/02/20 12:30 79 06/02/20 12:00 98.1 109 19 125/82 (96) 97 06/02/20 09:00 Room Air 06/02/20 08:23 140/78 06/02/20 08:00 98.6 62 19 140/78 (98) 96 06/02/20 04:00 96.8 68 17 121/78 (92) 96 ROS: unchanged from my note of 05/22/20. HEENT: normal ENT inspection RHYTHM: Afib LUNGS: lungs clear bilaterally CARDIAC: normal rate, normal S1 and S2, irregularly irregular, bradycardia ABDOMEN: normal bowel sounds, non tender, soft, no organomegaly, no mass EXTREMITIES: normal range of motion, non-tender, normal inspection, no calf tenderness Laboratory Tests Test 06/02/20 06:10 White Blood Count 7.6 K/UL (4.8-10.8) Red Blood Count 4.05 M/UL (4.20-5.40) L Hemoglobin 12.5 G/DL (12.0-16.0) Hematocrit 36.4 % (37.0-47.0) L Mean Corpuscular Volume 90 FL (80-99) Mean Corpuscular Hemoglobin 30.9 PG (27.0-31.0) Mean Corpuscular Hemoglobin Concent 34.5 G/DL (32.0-36.0) Red Cell Distribution Width 11.7 % (11.6-14.8) Platelet Count 131 K/UL (150-450) L Mean Platelet Volume 7.0 FL (6.5-10.1) Neutrophils (%) (Auto) 58.3 % (45.0-75.0) Lymphocytes (%) (Auto) 29.7 % (20.0-45.0) Monocytes (%) (Auto) 8.1 % (1.0-10.0) Eosinophils (%) (Auto) 2.0 % (0.0-3.0) Basophils (%) (Auto) 1.9 % (0.0-2.0) Sodium Level 141 MMOL/L (136-145) Potassium Level 3.5 MMOL/L (3.5-5.1) Chloride Level 108 MMOL/L (98-107) H Carbon Dioxide Level 26 MMOL/L (21-32) Anion Gap 7 mmol/L (5-15) Blood Urea Nitrogen 11 mg/dL (7-18) Creatinine 0.8 MG/DL (0.55-1.30) Estimat Glomerular Filtration Rate > 60 mL/min (>60) Glucose Level 107 MG/DL (74-106) H Calcium Level 8.6 MG/DL (8.5-10.1) Total Bilirubin 0.5 MG/DL (0.2-1.0) Aspartate Amino Transf (AST/SGOT) 41 U/L (15-37) H Alanine Aminotransferase (ALT/SGPT) 50 U/L (12-78) Alkaline Phosphatase 83 U/L (46-116) Total Protein 5.5 G/DL (6.4-8.2) L Albumin 2.3 G/DL (3.4-5.0) L Globulin 3.2 g/dL Albumin/Globulin Ratio 0.7 (1.0-2.7) L Assessment/Plan Assessment/Plan 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 RUE edema due to IV infiltration Paroxysmal atrial flutter/fib with variable ventricular rates - likely associated with [employer]ARBU[employer] autonomic dysfxn and sonus node disease. Hypertension Lactic acidosis resolved Dehydration/hypernatremia corrected Acute renal failure Acute myocardial infarction (NSTEMI) Toxic and metabolic encephalopathies Moderate protein/calorie malnutrition Possible UTI Hypokalemia Acute myocardial ischemia Off aspirin; begin full anticoagulation. Avoid beta shay - as may result in bradyarrhythmias; if recurrent tachyarrhythmias, will need back-up pacemaker in future. IV abx per ID Await GI intervention for clearance to start anticoagulation; patient stable for procedure from CV standpoint IVF discont'd; new IV access Protein suppl Follow up renal parameters and lytes; replace as needed. Kirk Fung MD Jun 03, 2020 01:19
[2020-06-03 04:00] VITALS: BP 146/86
--- NOTE | 2020-06-03 04:00 | NUR ---
NURSE NOTES: HR 105 noted, checked pulse manually but no pounding. Pt is sleeping and no discomfort noted.
--- NOTE | 2020-06-03 06:00 | NUR ---
NURSE NOTES: Pt unable to void urine. Bladder scan shows 530cc residual. Inserted straight cath and 520cc urine collected.
--- NOTE | 2020-06-03 06:33 | NUR ---
NURSE HAND-OFF: Important Events on Shift:urinary retention, bladder scan & straight cath. Patient Status: stable Diet: soft mech soft fine chopped Pending Orders: Pending Results/Labs: Pending MD notification: Latest Vital Signs: Temperature 98.4 , Pulse 105 , B/P 146 /86 , Respiratory Rate 17 , O2 SAT 97 , Room Air, O2 Flow Rate 3 . Vital Sign Comment: Latest Awad Fall Score: 95 Fall Risk: High Risk Safety Measures: Call light Within Reach, Bed Alarm Zone 1, Side Rails Side Rails x3, Bed position Low and Locked. Fall Precautions: Yellow Socks Yellow Gown Door Sign Patient Fall Education Addendum: 06/03/20 at 0722 by RALPH LOWRY RN RN HAND-OFF: Report given to Liliane.
[2020-06-03 08:00] VITALS: BP 133/81
--- NOTE | 2020-06-03 08:05 | NUR ---
NURSE NOTES: Report received from JO ANN Langley. Patient observed to be awake, alert and oriented x2. Seen lying with HOB elevated, currently on room air. No s/sx of SOB/Distress. no c/o any pain or gi/gu discomfort. IV site located on Left Wrist gauge 22 saline lock, asymptomatic, inplace and intact. Patient on post void residual monitoring q6. Bed placed on lowest and locked position, call light placed within reach and will continue to monitor.
--- NOTE | 2020-06-03 08:12 | Nephrology Progress Note ---
Assessment/Plan Problem List: (1) Hypophosphatemia (2) KVNG (acute kidney injury) (3) Leukocytosis (4) Hypernatremia (5) Dehydration (6) Right hemiparesis (7) CVA (cerebral vascular accident) (8) Hypokalemia (9) Clostridial infection (10) Enterococcal sepsis (11) Malnutrition of moderate degree (12) Urinary retention (13) Neurogenic bladder Plan rx sepsis, replete phos, replace K , iv stopping, continue zosyn poor nutrition GI eval reviewed, try dc gannon done check bladder scan >600 gannon placed will remove 05/31 and start urecholine,bladder scan 200's-300's, to monitor, 06/03 500 ml and in/out cath, add flomax+urecholine Subjective ROS Limited/Unobtainable: Yes Objective Objective Last 24 Hour Vital Signs Date Time Temp Pulse Resp B/P (MAP) Pulse Ox O2 Delivery O2 Flow Rate FiO2 06/03/20 04:00 98.4 105 17 146/86 (106) 97 06/03/20 00:00 98.7 72 15 140/79 (99) 96 06/02/20 21:00 Room Air 06/02/20 20:00 98.5 78 16 153/77 (102) 96 06/02/20 16:00 98.1 70 20 101/70 (80) 97 06/02/20 12:30 79 06/02/20 12:00 98.1 109 19 125/82 (96) 97 06/02/20 09:00 Room Air 06/02/20 08:23 140/78 Intake and Output 06/02/20 06/03/20 19:00 07:00 Intake Total 110.0 ml Output Total 1972 ml 1637 ml Balance -1862.0 ml -1637 ml IV Total 110.0 ml Output Urine Total 590 ml 910 ml Post Void Residual 1382 ml 727 ml Bladder Scan Volume Amount 201-300 ml 201-300 ml > 300 ml > 300 ml > 300 ml # Voids 1 # Bowel Movements 1 Height (Feet): 5 Height (Inches): 5.00 Weight (Pounds): 109 General Appearance: alert EENT: normal ENT inspection Neck: normal alignment Cardiovascular: regular rhythm Respiratory/Chest: lungs clear Abdomen: non tender Julio Sanchez MD Jun 03, 2020 08:12
[2020-06-03] MEDS: Heparin 5000 units/ml inj SUBQ SCH (09:00)
[2020-06-03] MEDS: Pantoprazole Inj IVP SCH (09:33)
[2020-06-03] MEDS: Losartan 50mg tab ORAL SCH (09:34)
[2020-06-03] MEDS: Bethanechol 25mg Tab ORAL SCH ×3 (09:34→17:32)
[2020-06-03] MEDS: Tamsulosin 0.4mg cap ORAL SCH ×2 (09:34→17:32)
--- NOTE | 2020-06-03 11:50 | Infectious Diseases Prog Note ---
Assessment/Plan Assessment/Plan A 1. Enterococcus & clostridial sepsis 2. atrial fibrillation 3. Acute renal failure improving 4. hypertension 5. Acute CVA P 1. continue Zosyn X 1 day 3, will follow up cultures Subjective ROS Limited/Unobtainable: Yes Allergies: Coded Allergies: SULFAMETHOXAZOLE (Unverified Allergy, Unknown, 12/09/17) TRIMETHOPRIM (Unverified Allergy, Unknown, 12/09/17) Objective Last 24 Hour Vital Signs Date Time Temp Pulse Resp B/P (MAP) Pulse Ox O2 Delivery O2 Flow Rate FiO2 06/03/20 09:34 133/81 06/03/20 09:00 Room Air 06/03/20 08:00 97.8 79 18 133/81 (98) 97 06/03/20 04:00 98.4 105 17 146/86 (106) 97 06/03/20 00:00 98.7 72 15 140/79 (99) 96 06/02/20 21:00 Room Air 06/02/20 20:00 98.5 78 16 153/77 (102) 96 06/02/20 16:00 98.1 70 20 101/70 (80) 97 06/02/20 12:30 79 06/02/20 12:00 98.1 109 19 125/82 (96) 97 Height (Feet): 5 Height (Inches): 5.00 Weight (Pounds): 109 General Appearance: no acute distress Respiratory/Chest: lungs clear Cardiovascular: normal rate Abdomen: soft, non tender Extremities: no edema Neurologic/Psychiatric: alert, responsive, other - R hemiplegia Current Medications Medications (Trade) Dose Ordered Sig/Marci Route PRN Reason Start Time Stop Time Status Last Admin Dose Admin Acetaminophen (Tylenol) 650 mg Q4H PRN ORAL FEVER 05/24/20 23:15 06/23/20 23:14 05/29/20 21:42 Acetaminophen (Tylenol) 650 mg Q6H PRN ORAL Pain Scale (3-5) 05/22/20 19:30 06/21/20 19:29 Bethanechol Chloride (Urecholine) 25 mg FOUR TIMES A DAY ORAL 05/31/20 09:30 06/30/20 09:29 06/03/20 09:34 Heparin Sodium (Porcine) (Heparin 5000 units/ml) 5,000 units EVERY 12 HOURS SUBQ 05/22/20 21:00 07/06/20 20:59 06/03/20 09:00 Losartan Potassium (Cozaar) 100 mg DAILY ORAL 05/28/20 09:00 06/27/20 08:59 06/03/20 09:34 Pantoprazole (Protonix) 40 mg DAILY IVP 05/22/20 20:00 06/21/20 19:59 06/03/20 09:33 Piperacillin Sod/ Tazobactam Sod 3.375 gm/Sodium Chloride 110 ml @ 27.5 mls/hr Q8H IVPB 05/27/20 01:00 06/04/20 23:59 06/03/20 09:33 Tamsulosin HCl (Flomax) 0.4 mg BID ORAL 06/02/20 10:30 07/02/20 10:29 06/03/20 09:34 Lonny Ramos MD Jun 03, 2020 11:49
[2020-06-03 12:00] VITALS: BP 100/75
--- NOTE | 2020-06-03 12:50 | NUR ---
CASE MANAGEMENT:REVIEW 06/03/20 SI: SEPSIS. CVA. AMI. UTI URINARY RETENTION/NEUROGENIC BLADDER 98.4 105 17 146/86 97% ON RA PLT-131 IS: IV ZOSYN FLOMAX PO BID URECHOLINE PO QID COZAAR PO QD HEPARIN SQ Q12 IV PROTONIX QD : MED/SURG 4 [facility] DCP: BED WAITING AT [facility] FOR THIS PATIENT
--- NOTE | 2020-06-03 13:21 | NUR ---
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 Awaiting her bed at [facility] for DCP. Pt was seen at her bedside. She smiles and states "OK" when I ask her how she feels. She is on soft chopped diet with nectar thick liquid diet and tolerating well. I informed her current plan of care. She was able to demonstrate understanding of our conversation based on her facial expression. A/P 1. Oropharyngeal dysphagia with aspiration risk due to acute CVA -Mechanical soft and chopped solid with nectar thick liquid -Continue with dysphagia therapy at SNF 2. 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
--- NOTE | 2020-06-03 13:36 | Surgery Progress Note ---
Surgery Progress Note Subjective Additional Comments no acute events comfortable stable tolerating diet no n/v Objective Last 24 Hour Vital Signs Date Time Temp Pulse Resp B/P (MAP) Pulse Ox O2 Delivery O2 Flow Rate FiO2 06/03/20 09:34 133/81 06/03/20 09:00 Room Air 06/03/20 08:00 97.8 79 18 133/81 (98) 97 06/03/20 04:00 98.4 105 17 146/86 (106) 97 06/03/20 00:00 98.7 72 15 140/79 (99) 96 06/02/20 21:00 Room Air 06/02/20 20:00 98.5 78 16 153/77 (102) 96 06/02/20 16:00 98.1 70 20 101/70 (80) 97 I&O Intake and Output 06/02/20 06/03/20 18:59 06:59 Intake Total 110.0 ml Output Total 1972 ml 1637 ml Balance -1862.0 ml -1637 ml IV Total 110.0 ml Output Urine Total 590 ml 910 ml Post Void Residual 1382 ml 727 ml Bladder Scan Volume Amount 201-300 ml 201-300 ml > 300 ml > 300 ml > 300 ml # Voids 1 # Bowel Movements 1 Dressing: other Wound: other Cardiovascular: RSR Respiratory: decreased breath sounds Abdomen: soft, non-tender, present bowel sounds Extremities: no tenderness, no cyanosis Plan Problems: (1) Decubitus skin ulcer Assessment & Plan: Patient presented on admission with multiple skin concerns. Patient was found down unknown duration and has developed significant injuries and skin concerns. Patient has a right shoulder 3 cm x 3 cm posterior deep tissue injury no fluctuance nontender no skin breakdown not open. Patient has sacral erythema identified. Patient has incontinence associated dermatitis identified in the perineum and bilateral thighs and groins. Patient has a right hip DTI with skin breakdown identified. Patient has a left knee unstageable decubitus ulcer with necrotic eschar. Patient has significant abdominal erythema and near cellulitis with burning rash. No abscess no drainage wounds unlikely source of patient's sepsis. Wound is likely attributed to patient being down for significant period of time. Will need nutritional optimization and local care plan to allow for healing and improvement. Care plan initiated. Treatment plan Wash all wounds daily with normal saline. Apply skin protectant and OPTi foam dressing to the right shoulder change every 3 days. Apply OPTi foam dressing patient sacral region monitor for incontinence change every 3 days and PRN saturation as necessary Apply skin protectant to bilateral thighs and perineum monitor for incontinence change accordingly. Thera honey to left knee eschar followed by OPTi foam dressing wrap with Kerlix if necessary change daily and PRN saturation Zinc oxide cream for abdominal wound. Apply daily. Wash wounds daily. Turn every 2 hours offload pressure with pillows Air mattress given patient's current medical condition Nutritional optimization We will follow with recommendations thank you for let me participate patient's care (2) Renal failure (3) CVA (cerebral vascular accident) Assessment & Plan: Posterior circulation demonstrates dominant left, smaller caliber but patent right vertebral artery. No stenosis of either. Small caliber but patent a nd nonstenotic basilar artery. Patent bilateral superior cerebellar arteries. The P1 segment of the right posterior cerebral artery appears to be patent but very small in caliber; the right posterior cerebral artery is predominantly supplied by a large posterior communicating artery. The reconstructed images suggest a moderate to severe focal stenosis of the P2 segment near its origin. The left P1 segment is a equivocally patent but probably; likewise, predominantly supply to the left posterior cerebral artery is via the posterior communicating artery. There is an area of signal dropout in the P2 segment of the left posterior cerebral artery. This may indicate a severe stenosis Anterior circulation demonstrates patent nonstenotic distal internal carotid arteries. Patent nonstenotic right middle cerebral artery and proximal branches. Smaller caliber M1 segment of the left middle cerebral artery although without significant focal stenosis. The proximal sylvian branch of the left middle cerebral artery demonstrates what may be a focal significant stenosis. This is better appreciated on the MIP reconstructions. Absent right A1 segment. Larger caliber left A1 segment supplies both anterior cerebral arteries, presumably via anterior to indicating artery. There is no evidence of aneurysm or vascular malformation. Impression: Stenosis, possibly severe, of the P2 segment of the left posterior cerebral artery Stenosis, possibly severe, the sylvian branch of the left middle cerebral artery. [place] anatomy as described All stenosis measurements are based on the diameter of the distal normal vessel as referenced vessel, per NASCET criteria Old infarcts are seen in the bilateral basal ganglia and inferior frontal deep white matter. No acute intracranial hemorrhage or edema. No mass effect nor midline shift. There is age-related enlargement of the ventricles and extra- axial CSF spaces. There is periventricular deep white matter low-attenuation consistent with chronic microvascular ischemic change. Visualized orbits are unremarkable. There is bilateral ethmoid and bilateral maxillary sinus mucosal disease. The mastoids are clear. Impression: Chronic and age-related changes, including multiple old infarcts Negative for acute intracranial bleed or mass effect Right common carotid artery: Unremarkable. No occlusion or significant stenosis on color flow and spectral Doppler imaging. Right internal carotid artery: Unremarkable. No occlusion or significant stenosis on color flow and spectral Doppler imaging. Right external carotid artery: Unremarkable. No occlusion or significant stenosis on color flow and spectral Doppler imaging. Right vertebral artery: Antegrade flow within the vertebral arteries. Right ICA/CCA ratio: Unremarkable. Within normal limits. Left common carotid artery: Unremarkable. No occlusion or significant stenosis on color flow and spectral Doppler imaging. Left internal carotid artery: Significant calcified atherosclerotic disease is noted within the left carotid bulb. No occlusion or significant stenosis on color flow and spectral Doppler imaging. Left external carotid artery: Unremarkable. No occlusion or significant stenosis on color flow and spectral Doppler imaging. Left vertebral artery: See above. Left ICA/CCA ratio: Unremarkable. Within normal limits. Lymph nodes: Unremarkable. No lymphadenopathy. Other findings: Evaluation of peak systolic velocities bilaterally throughout the carotid systems reveal no evidence of hemodynamically significant stenosis, based on established criteria. CAROTID STENOSIS REFERENCE USING SRU CRITERIA: Mild - <50% stenosis. ICA PSV is less than 125 cm/second and plaque or intimal thickening is visible. Moderate - 50-69% stenosis. ICA PSV is 125 to 230 cm/second and plaque is visible. Severe - 70-94% stenosis. ICA PSV is more than 230 cm/second and visible plaque with lumen narrowing is seen. Near occlusion - 95-99% stenosis. ICA PSV is variable and significant plaque with luminal narrowing is seen. Occluded - 100% stenosis. No flow identified. IMPRESSION: 1. Prominent calcified plaque within the left carotid bulb. 2. No evidence of hemodynamically significant stenosis based on established ultrasound criteria. (4) Right hemiparesis Assessment & Plan: Previously demonstrated subacute left mcclain radiata/basal ganglia infarct has decreased slightly in attenuation, consistent with evolution to chronicity. Other bilateral basal ganglia infarcts appear unchanged. Again demonstrated is periventricular deep white matter low-attenuation consistent with chronic ischemic change. There is suggestion of some low-attenuation in the left occipital lobe which is not clearly evident previously. This is consistent with location of the acute occipital infarct described on prior MRI. No acute intracranial hemorrhage. No mass effect nor midline shift. Normal campbell- white differentiation otherwise. Intact calvarium. Visualized orbits and sinuses are unremarkable. The mastoids are clear Impression: Evolving left mcclain radiata/basal ganglia and left occipital lobe subacute infarcts, as described No evidence of acute intracranial bleed or mass effect (5) Dehydration Assessment & Plan: 1. Increase self initiation for drinking with her left hand: Ms. Hutchinson was able to self drink nector thick liquid via cup with her left hand with visual and tactile cue 90% of the time without s.s of aspiration. 2. Increase initiation of verbal utterance: Pt was able to verbally repeat at word level with visual cues and repetition at 75% of the time. 3.Diet appropriateness: Ms. Hutchinson was reminded what happened to her and why she is in the hospital and and her diet was currently modified in [place]. She appeared to be understanding my explanation. 4. Team approach to take care her case was initiated with communicating with RN and Rad dept to complete pending procedure (video swallow study at 13:00 today) A: 1. Oropharyngeal dysphagia due to multiple acute and subacute cerebral infarcts 2. 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 Likely presence of expressive aphasia P: 1. Modified diet with pureed and nector thick liquid with aspiration precaution 2. Encourage self drinking with her left hand with assistance -occupational therapist recommendation to follow 3. Full speech and language evaluation is needed for discharge plan - Strongly push for acute rehab if ultimate goal/support is to return to home. (6) Hypernatremia (7) Leukocytosis Assessment & Plan: wbc 20 on admission lactic acidosis - improving with hydration on abx as per ID no acute surgical intervention planned okay for tf diet nutrition eval local wound care leukocytosis resolved improving d/c planning will follow with recs and monitor thank you (8) UTI (urinary tract infection) Liam Hermosillo Jun 03, 2020 13:36
[2020-06-03] MEDS ORDERED: ELIQUIS5 MG ORAL (15:54)
[2020-06-03] MEDS ORDERED: FLOMAX0.4 MG ORAL (15:54)
[2020-06-03] MEDS ORDERED: URECHOLINE25 MG ORAL (15:54)
[2020-06-03] MEDS ORDERED: COZAAR50 MG ORAL (15:54)
[2020-06-03] MEDS ORDERED: LANSOPRAZOLE30 MG ORAL (15:54)
[2020-06-03 16:00] VITALS: BP 119/78
--- NOTE | 2020-06-03 16:06 | NUR ---
*-*DISCHARGE PLANNED*-* PATIENT HAS BEEN ACCEPTED AND WILL BE DISCHARGED TO: [facility] P: [phone] FOR NURSE TO NURSE ROOM# 221.A SKILLED [facility] TRANSPORTATION SET FOR 6PM/ 1800PM, S/W [id number] S/W PATIENTS DAUGHTER DG KOLB, WHO IS IN AGREEMENT WITH DISCHARGE PLAN.
--- NOTE | 2020-06-03 16:59 | Cardiology Progress Note ---
Subjective DATE OF SERVICE: Jun 03, 2020 Discussed discharge plan and hospital course with daughter at bedside. MRA reveals left P2 posterior cerebral artery stenosis. Stool OB positive, but hemoglobin stable MRI: reveals acute and subacute infarcts with distribution c/w cardioembolic source 2D Echo with normal LVEF and mild MR; no pulmonary hypertension. Rapid heart rate yesterday - hx PAFib and bradyarrhythmias. Objective Last 24 Hour Vital Signs Date Time Temp Pulse Resp B/P (MAP) Pulse Ox O2 Delivery O2 Flow Rate FiO2 06/03/20 12:00 99.5 78 18 100/75 (83) 96 06/03/20 09:34 133/81 06/03/20 09:00 Room Air 06/03/20 08:00 97.8 79 18 133/81 (98) 97 06/03/20 04:00 98.4 105 17 146/86 (106) 97 06/03/20 00:00 98.7 72 15 140/79 (99) 96 06/02/20 21:00 Room Air 06/02/20 20:00 98.5 78 16 153/77 (102) 96 ROS: unchanged from my note of 05/22/20. 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 RUE edema due to IV infiltration Paroxysmal atrial flutter/fib with variable ventricular rates - likely associated with CLERICAL ASSIGNER autonomic dysfxn and sonus node disease. Hypertension Lactic acidosis resolved Dehydration/hypernatremia corrected Acute renal failure Acute myocardial infarction (NSTEMI) Toxic and metabolic encephalopathies Moderate protein/calorie malnutrition Possible UTI Hypokalemia Acute myocardial ischemia Off aspirin; now on full anticoagulation with apixaban. Avoid beta shay - as may result in bradyarrhythmias; if recurrent tachyarrhythmias, will need back-up pacemaker in future. Protein suppl Stable from cardiovascular standpoint for dischg to SNF Kirk Fung MD Jun 03, 2020 16:59
--- NOTE | 2020-06-03 19:20 | NUR ---
NURSE NOTES: Patient alert awake and oriented x1-2. Seen lying in bed with HOB elevated currently on room air, no s/sx of SOB/Distress, no c/o any pain or discomfort. Patien picked up by 2 ambulance personnel via gurney. Discharge paperworks provided and all paperworks signed by daughter Jeny. IV band and ID band removed. All belongings checked and accounted for. Report given to JO ANN Romero at [facility]. Patient discharged in stable condition.
--- NOTE | 2020-06-03 22:15 | Discharge Summary ---
DATE OF ADMISSION: 05/22/2020 DATE OF DISCHARGE: 06/03/2020 ADMISSION DIAGNOSES: 1. CVA. 2. Altered mental status. 3. Bilateral lower extremity cellulitis. 4. Bacteremia. 5. Hypertension. 6. Atrial fibrillation. 7. Encephalopathy secondary to stroke. DISCHARGE DIAGNOSES: 1. CVA. 2. Altered mental status. 3. Bilateral lower extremity cellulitis. 4. Bacteremia. 5. Hypertension. 6. Atrial fibrillation. 7. Encephalopathy secondary to stroke. HOSPITAL COURSE: The patient is an elderly female who was found down at home by her caregiver. She was brought to the emergency room. She was noted to be dehydrated. She had pressure ulcers on her knees and a dense right-sided hemiparesis. Her initial CT scan was negative. She was admitted. She did have atrial fibrillation. Her MRI done the next day did show acute stroke consistent with an embolic source, likely atrial fibrillation. Neurology, Cardiology, Infectious Disease, and surgical consultations were obtained. The patient had positive blood cultures, and antibiotics were adjusted by the ID client insights consultant. Neurology was also consulted. It was felt that on the day of discharge the patient would be safe to anticoagulate. The patient was also noted to have stool occult blood positive stools. She underwent an endoscopy that showed some small ulcers in the colon, felt to be secondary to constipation. She was cleared for starting anticoagulation on the day of discharge. Family selected a long term facility in . She will be followed by a new doctor there. DISCHARGE MEDICATIONS: Please see discharge list for discharge medications. DIET: Cardiac diet. ACTIVITIES: Ad luzmaria. Vinay Lu M.D. DR: Eri JOB#: [id number] CC:
--- NOTE | 2020-06-03 22:27 | General Progress Note ---
Subjective Allergies: Coded Allergies: SULFAMETHOXAZOLE (Unverified Allergy, Unknown, 12/09/17) TRIMETHOPRIM (Unverified Allergy, Unknown, 12/09/17) Subjective above noted calm and comfortable for discharge today Objective Last 24 Hour Vital Signs Date Time Temp Pulse Resp B/P (MAP) Pulse Ox O2 Delivery O2 Flow Rate FiO2 06/03/20 16:00 97.7 80 18 119/78 (92) 97 06/03/20 12:00 99.5 78 18 100/75 (83) 96 06/03/20 09:34 133/81 06/03/20 09:00 Room Air 06/03/20 08:00 97.8 79 18 133/81 (98) 97 06/03/20 04:00 98.4 105 17 146/86 (106) 97 06/03/20 00:00 98.7 72 15 140/79 (99) 96 Intake and Output 06/02/20 06/03/20 19:00 07:00 Intake Total 110.0 ml Output Total 1972 ml 1637 ml Balance -1862.0 ml -1637 ml IV Total 110.0 ml Output Urine Total 590 ml 910 ml Post Void Residual 1382 ml 727 ml Bladder Scan Volume Amount 201-300 ml 201-300 ml > 300 ml > 300 ml > 300 ml # Voids 1 # Bowel Movements 1 Height (Feet): 5 Height (Inches): 5.00 Weight (Pounds): 109 Objective Thin woman NCAT supple CTA RRR Abd soft ND NT no edema Assessment/Plan Status: stable, progressing Assessment/Plan: Assessment - OB (+) stool due to: - erosive gastritis - Stercoral rectal ulcers - diverticulosis - CVA , (R) mony - Renal failure - resolved leukocytosis - paroxysmal a fib - anorexia Recommendations - monitor CBC - po diet - nursing home laxatives - OK from GI stand point for anticoagulation Wednesday Bob Jonas MD Jun 03, 2020 22:27
== END 2020-06-03 19:05 | DRG 64 ==
LOC: EDBD 14:49 → EMR 15:11 → 2W 16:30 → EDBEDREQ 16:35 → 2E 05-24 13:02 → 4E 05-29 10:15
DX: I63.10 Cerebral infarction due to embolism of unspecified precerebral artery (principal); A41.81 Sepsis due to Enterococcus; G92 Toxic encephalopathy; N17.9 Acute kidney failure, unspecified; N39.0 Urinary tract infection, site not specified; E87.0 Hyperosmolality and hypernatremia; E44.0 Moderate protein-calorie malnutrition; G81.91 Hemiplegia, unspecified affecting right dominant side; L03.116 Cellulitis of left lower limb; L03.115 Cellulitis of right lower limb; Z68.1 Body mass index [BMI] 19.9 or less, adult; E87.2 Acidosis; K62.6 Ulcer of anus and rectum; E86.0 Dehydration; I48.0 Paroxysmal atrial fibrillation; E78.5 Hyperlipidemia, unspecified; M81.0 Age-related osteoporosis without current pathological fracture; R13.12 Dysphagia, oropharyngeal phase; E87.6 Hypokalemia; I11.9 Hypertensive heart disease without heart failure; E78.00 Pure hypercholesterolemia, unspecified; E11.9 Type 2 diabetes mellitus without complications; I70.1 Atherosclerosis of renal artery; R19.5 Other fecal abnormalities; R33.9 Retention of urine, unspecified; N31.9 Neuromuscular dysfunction of bladder, unspecified; K29.70 Gastritis, unspecified, without bleeding; L30.9 Dermatitis, unspecified; K59.00 Constipation, unspecified
CPT/HCPCS: 36415; 70450; 70544; 70551; 71045; 73521; 74177; 74230; 80048; 80053; 80061; 80202; 81003; 82044; 82270; 82550; 82553; 82570; 82728; 82962; 83605; 83615; 83735; 83880; 84100; 84300; 84443; 84484; 85007; 85025; 85379; 86140; 86710; 87040; 87086; 87181; 87324; 93005; 93306; 93880; 94003; 94150; 96365; 99291; J7030; J8499; U0002